=== PATIENT | female | born 1945 | race Caucasian/White ===

== ENCOUNTER 2020-05-31 06:54 | Outpatient (NON) | payer MEDICARE, OTHER, SELFPAY ==
[2020-06-01 16:06] LABS: SARS-CoV-2 RNA PCR Negative
== END 2020-05-31 06:55 ==
PROVIDERS: PCP Family Medicine; Visit Provider Family Medicine
DX: Z20.828 Contact with and (suspected) exposure to other viral communicable diseases (principal)
CPT/HCPCS: 87635; C9803; U0003

== ENCOUNTER 2020-11-08 07:56 | Outpatient (CLI) | payer MEDICARE, OTHER, SELFPAY ==
--- NOTE | ~2020-11-08 | XR_ITS ---
EXAMINATION: XR chest 2V EXAM DATE: 11/08/2020 09:07 INDICATION: R06.00 - Dyspnea, for 2 months, history COPD. TECHNIQUE: Frontal and lateral projections of the chest obtained and reviewed. There is no prior raheel dy for comparison. FINDINGS: The lungs are hyperinflated which can be seen with chronic obstructive pulmonary disease ( a clinical diagnosis of functional impairment), but is not diagnostic of it. Cardiomediastinal silhou ette is normal. Sternotomy wires are present without findings to suggest sternal dehiscence. There is aortic arteriosclerosis. No confluent consolidation, pneumothorax or pleural effusion suspected. The re are mild bony degenerative changes. IMPRESSION: 1. Hyperinflation. Reviewed, dictated and finalized at location A. IMPRESSION: 1. Hyperinflation.
--- NOTE | 2020-11-11 13:15 | WPDSIXMINUTE ---
Six Minute Walk Procedure Procedure Performed Pulmonary Stress Test (6 min walk) Six Minute Walk Six Minute Walk: The patients O2 sats started at 95% and dropped as low as 95% on room air with a Alee scale at the end of 2 Total walk distance 396.24 m conclusion: this is a normal 6 minutes walk test and the patient does not need home oxygen therapy.
== END 2020-11-08 07:57 | disposition home or self-care (01) ==
PROVIDERS: PCP Family Medicine; Visit Provider Family Medicine
DX: J44.1 Chronic obstructive pulmonary disease with (acute) exacerbation (principal); R06.00 Dyspnea, unspecified
CPT/HCPCS: 71046; 94618

== ENCOUNTER 2020-11-27 07:57 | Outpatient (CLI) | payer MEDICARE, OTHER, SELFPAY ==
--- NOTE | 2020-11-27 11:54 | WPDPFTINT ---
PFT Procedure Performed PFT Procedure Performed Plethysmography (Lung Vol) Diffusing Cap (DLCO) Flow Vol Loop Spirometry w/o Bronchodil PFT Interpretation This is a pulmonary function test with spirometry, plethysmography and diffusing capacity. The test was performed and results interpreted in accordance with the 2019 and 2005 ATS/ERS Task Force guidelines respectively using the Global Lung Function Initiative-2012 reference equations. Patient demonstrated good effort and cooperation. Reproducibility criteria were met. The quality of the spirometry maneuver was Grade A. Findings: Spirometry: there is decreased maximal expiratory airflow at all lung volumes with concave expiratory flow tracing. The contour of the inspiratory flow tracing is normal. The FVC is 1.77 L, 72% predicted. The FEV1 is 0.99 L, 52% predicted. The FEV1: FVC ratio is 56%. Plethysmography: The total lung capacity is 4.75 L, 103% predicted. The functional residual capacity is 3.45 L, 131% predicted. The residual volume is 2.99 L, 141% predicted. Diffusing capacity: The absolute diffusion capacity is 9.2, 49% predicted. The diffusing capacity corrected for alveolar volume is 2.79, 64% predicted. Impression: There is a moderately severe obstructive abnormality. The increase in residual volume is consistent with air trapping from an obstructive abnormality. The absolute diffusing capacity is moderately decreased and remains mildly decreased when corrected for alveolar volume. There are no prior studies for comparison
== END 2020-11-27 07:58 | disposition home or self-care (01) ==
LOC: ANHPFT 07:58
PROVIDERS: PCP Family Medicine; Visit Provider Family Medicine
DX: J44.1 Chronic obstructive pulmonary disease with (acute) exacerbation (principal); R06.00 Dyspnea, unspecified; R94.2 Abnormal results of pulmonary function studies
CPT/HCPCS: 94375; 94726; 94729

== ENCOUNTER → 2021-04-19 01:39 | Outpatient (CLI) | payer MEDICARE, OTHER, SELFPAY ==
[2021-04-19 17:33] LABS: SARS-CoV-2 RNA PCR Negative
== END ==
PROVIDERS: PCP Family Medicine; Visit Provider Physician Assistant
DX: R05.9 Cough, unspecified (principal); Z20.822 Contact with and (suspected) exposure to COVID-19
CPT/HCPCS: C9803; U0003; U0005

== ENCOUNTER → 2022-03-05 14:25 | Outpatient (CLI) | payer MEDICARE, OTHER, SELFPAY ==
--- NOTE | ~2022-03-05 | XR_ITS ---
EXAMINATION: XR lumbar spine min 4V DATE: 03/05/2022 14:45 INDICATION: Low back pain, unspecified. TECHNIQUE: 5 views of lumbar spine were obtained. COMPARISON: CT abdomen and pelvis 01/15/2019 FINDINGS: Bone alignment is normal. Vertebral body heights are normal. There is mildly decreased disc height at L1-L2, moderately decreased disc height at L2-L3, mildly decreased disc height at L3-L4 an d L4-L5. There is multilevel facet joint osteoarthritis, severe bilaterally at L4-L5 and L5-S1. There are stents in the renal arteries and right common iliac artery. IMPRESSION: 1. Moderate lumbar spondylosis. Reviewed, dictated and finalized at location A.
== END ==
PROVIDERS: PCP Family Medicine; Visit Provider Family Medicine
DX: M47.817 Spondylosis without myelopathy or radiculopathy, lumbosacral region (principal)
CPT/HCPCS: 72110

== ENCOUNTER 2023-04-22 09:45 | Inpatient (IN) | payer MEDICARE, OTHER, SELFPAY ==
[2023-04-22] VITALS (17 sets, daily range): BP systolic 112–158; BP diastolic 49–81; PULSE 62–85; RESP 14–20; TEMP 35.8–36.4; O2SAT 70–95
--- NOTE | ~2023-04-22 | US_ITS ---
EXAMINATION: US arterial ankle brachial ind DATE: 04/23/2023 21:09 INDICATION: Peripheral vascular disease. TECHNIQUE: Segmental pressures and plethysmographic and Doppler waveforms of the brachial and lower e xtremity arteries were obtained. COMPARISON: None. FINDINGS: Right and left brachial artery pressures of 97 mm Hg and 123 mm Hg, respectively, are concordant (nor mal difference <= 30 mmHg). The right ankle-brachial index (MANDI) is 0.19 (normal >= 0.9-1.0). Arterial signal is not detectable i n right posterior tibial artery. The right great toe-brachial index (TBI) is 0.01 (normal >= 0.65). A rterial Doppler waveforms are noisy in dorsalis pedis. The left MANDI is 0.48. The left TBI is 0.40. Arterial Doppler waveforms are biphasic in posterior tibi al artery and noisy in dorsalis pedis. IMPRESSION: 1. Severely decreased ABIs, consistent with arterial occlusive disease. 2. Pressure difference of 26 mmHg between the two arms. Consider chest CTA. Reviewed, dictated and finalized at location E.
--- NOTE | ~2023-04-22 | XR_ITS ---
XR foot RT min 3V DATE: 04/22/2023 14:21 INDICATION: Fall 4 days ago. Right foot pain. TECHNIQUE: 4 views COMPARISON: None FINDINGS: There is osteopenia. There is mild osteoarthritic change at the first metatarsophalangeal joint. No fracture or dislocation, periosteal reaction or bone destruction is detected. IMPRESSION: Osteopenia Mild first metatarsophalangeal joint osteoarthritis Reviewed, dictated and finalized at location L.
--- NOTE | ~2023-04-22 | XR_ITS ---
XR hip RT 2V w AP pelvis DATE: 04/22/2023 14:21 INDICATION: Fall 4 days ago. Right hip pain TECHNIQUE: AP pelvis. AP and lateral views of the right hip. COMPARISON: None FINDINGS: No pelvic fracture or bone destruction. Normal alignment at the pubic symphysis and sacroil iac joints. Hip joint spaces are symmetric and relatively well preserved. No fracture or dislocation, avascular necrosis or bone destruction of the right hip is detected. There is severe abdominal aortic, common and external iliac, common femoral and femoral arterial calc ification. There is a right common iliac artery stent. IMPRESSION: No pelvic or right hip fracture Severe abdominal aortic and iliac and femoral arterial calcification; right common iliac artery stent Reviewed, dictated and finalized at location L. IMPRESSION: No pelvic or right hip fracture Severe abdominal aortic and iliac and femoral arterial calcification; right com mon iliac artery stent
--- NOTE | ~2023-04-22 | CT_ITS ---
EXAMINATION: CTA chest PE protocol DATE: 04/25/2023 13:03 INDICATION: Chronic obstructive pulmonary disease. TECHNIQUE: Computed tomography angiography (CTA) of the chest was performed with 100 mL Omnipaque-350 intravenous contrast timed to evaluate the pulmonary arteries. Coronal maximum intensity projection 3D-reconstructions were created by the technologist. Automated exposure control and iterative reconst ruction technique were employed. The dose-length product was 451.46 mGy-cm. COMPARISON: None. FINDINGS: There is mild emphysema. There is mild atelectasis bilaterally. No pleural effusion. Cardio megaly is noted. There are coronary artery calcifications. No pericardial effusion. There is no pulmo nary embolus. Aortic atherosclerosis is noted. No aneurysm or dissection. There is severe cervical th oracic spondylosis. There is mild chronic anterior wedging of multiple thoracic vertebral bodies. IMPRESSION: 1. No pulmonary embolus. 2. Mild emphysema. Reviewed, dictated and finalized at location E.
--- NOTE | ~2023-04-22 | CT_ITS ---
EXAMINATION: CT lumbar spine wo con DATE: 04/22/2023 14:06 INDICATION: Right-sided sciatic pain for 3 days post fall TECHNIQUE: Computed tomography (CT) of the lumbar spine was performed without intravenous contrast. A utomated exposure control and iterative reconstruction technique were employed. The dose-length produ ct was 772.88 mGy-cm. COMPARISON: None FINDINGS: Partially visualized mild thoracolumbar dextrocurvature. 1-2 mm anterolisthesis L4 on L5. V ertebral body heights are normal. No fracture. Moderate disc height loss at T10-T11 and L2-L3. Mild t o moderate disc height loss at L3-L4 and mild disc height loss at T11-T12, L1-L2, L4-L5 and L5-S1. Th ere is extensive calcified atherosclerosis of the aorta and many of the other arteries. There is been prior stenting of the proximal bilateral renal arteries as well as of the proximal right common qing c artery. Paravertebral soft tissues are unremarkable. The following disc levels are specifically dis cussed: T10-T11: The disc does not extend beyond the endplate margins. There is mild bilateral facet osteoart hritis. There is no neural foraminal stenosis. There is no central canal stenosis. T11-T12: Disc is mildly bulging. There is moderate bilateral facet joint osteoarthritis. There is mil d left neural foraminal stenosis. There is mild central canal stenosis. T12-L1: The disc does not extend beyond the endplate margin. There is moderate bilateral facet joint osteoarthritis. There is no neural foraminal stenosis. There is no central canal stenosis. L1-L2: Disc is mildly bulging. There is moderate bilateral facet joint osteoarthritis. There is mild left and minimal right neural foraminal stenosis. There is mild central canal stenosis. L2-L3: Disc is bulging. There is mild to moderate left and severe right facet joint osteoarthritis. T here is mild right and moderate left neural foraminal stenosis. There is mild to moderate central can al stenosis. L3-L4: Disc is bulging. There is hypertrophy of the ligamentum flavum with anterior bulging of the in tervening posterior epidural fat. There is moderate left and severe right facet joint osteoarthritis. There is moderate bilateral neural foraminal stenosis. There is at least moderate, more likely sever e central canal stenosis. L4-L5: Disc is bulging. There is severe bilateral facet joint osteoarthritis. There is mild right and mild to moderate left neural foraminal stenosis. There is mild central canal stenosis. L5-S1: Disc is bulging with superimposed right paracentral disc extrusion which extends 10 mm caudal to the level of the superior endplate of S1 which measures 13 x 8 mm in transaxial dimensions which n arrows the right lateral recess and likely exerts mass effect upon the traversing right S1 nerve root . There is severe bilateral facet joint osteoarthritis. There is mild bilateral neural foraminal sten osis. There is mild central canal stenosis. IMPRESSION: 1. Moderate lumbar spondylosis most notable for at least moderate and more likely severe central lois l stenosis at L3-L4. 2. Prominent right paracentral disc extrusion at L5-S1 which appears to exert mass effect upon the tr aversing right S1 nerve root. Correlate clinically for muscle weakness of plantar flexion, sensory ch allyson of the lateral foot and small toe, and depressed ankle reflex. Reviewed, dictated and finalized at location A. IMPRESSION: 1. Moderate lumbar spondylosis most notable for at least moderate and more like ly severe central canal stenosis at L3-L4. 2. Prominent right paracentral disc extrusion at L5-S1 which appears to exert m ass effect upon the traversing right S1 nerve root. Correlate clinically for mu scle weakness of plantar flexion, sensory change of the lateral foot and small toe, and depr
--- NOTE | 2023-04-22 12:48 | ED.GENADULT ---
HPI - General Adult General Chief complaint: Extremity Problem,Nontraumatic Stated complaint: sciatic pain R side Time Seen by Provider: 04/22/23 12:47 Source: patient, family and EMS Mode of arrival: EMS Limitations: no limitations History of Present Illness HPI narrative: 78 years old white female came with right lower quadrant pain radiating to right lower extremity, started 7 days ago. Patient reports a fall few days ago with bruises at the right hip, currently her main complaint is right foot pain. She denies any fever, chills, nausea, vomiting, abdominal pain or back pain. History of sciatica, got better in the past on prednisone and pain medication patient lives with her daughter. She denies patient denies bowel dysfunction, bladder dysfunction, altered sensation, focal weakness, or saddle numbness, Related Data Home Medications Medication Instructions Recorded Confirmed aspirin 325 mg tablet 325 mg PO DAILY 05/18/19 11/01/22 baclofen 10 mg tablet 10 mg PO QID PRN pain 05/18/19 11/01/22 carvedilol 6.25 mg tablet (Coreg) 6.25 mg PO Q12H 05/18/19 11/01/22 clopidogrel 75 mg tablet (Plavix) 75 mg PO DAILY 05/18/19 11/01/22 donepezil 5 mg tablet (Aricept) 5 mg PO DAILY 05/18/19 11/01/22 levothyroxine 100 mcg tablet 100 mcg PO DAILY 05/18/19 11/01/22 Allergies Allergy/AdvReac Type Severity Reaction Status Date / Time cephalexin Allergy Unknown Unknown Verified 11/01/22 11:38 Penicillins Allergy Unknown Unknown Verified 11/01/22 11:38 Review of Systems Review of Systems: All systems reviewed & are unremarkable except as noted in HPI and below PMFSH Past Medical History Medical History Chronic obstructive pulmonary disease Coronary artery disease without angina pectoris Depression Essential hypertension Ex-smoker Hypothyroidism Memory loss Moderate episode of recurrent major depressive disorder Pure hypercholesterolemia Vitamin B12 deficiency Surgical History Surgical History History of cataract surgery Family History Family History Father Family history of lung cancer Mother Family history of malignant neoplasm of brain Social History Social History Smoking packs per day: 1 Smoking cigarettes per day: 20.0 Smoking status: Current every day smoker Tobacco type: cigarettes Second hand tobacco smoke exposure: Yes Alcohol intake: never Substance use: never Substance use type: does not use Lack of Transportation: No Lack of Food: Sometimes True Current Housing: I Have Housing Concerned About Future Housing: No Difficulty Paying Gas/Electric Bills: No Difficulty Paying for Meds: YES Currently Unemployed: No Education: High School Diploma/GED Difficulty w/ Childcare or Family Care: No Exam Narrative: General appearance: Well-developed, well-nourished Skin: Normal color Head: Normocephalic, nontraumatic Eyes: Clear conjunctiva ENT: Oropharynx normal, ears normal, nose normal Neck: Supple, nontender Chest and respiratory: Airway patent, no respiratory distress, no accessory muscle use Heart: Regular rate/rhythm Abdomen: Soft, nontender, no organomegaly, quiet bowel sounds Vascular: Normal peripheral pulses, normal capillary refill. Musculoskeletal: Right foot showed dorsal erythema, diffuse tenderness and swelling, right hip and right knee range of motion within normal limit, no localized tenderness, right hip bruises laterally lower back exam showed no localized tenderness bruises or rash. Neurologic: Alert and oriented ?3, NUCLEAR SPECTROSCOPIST is normal as tested, no gross motor deficit negative right leg straight test
[2023-04-22] MEDS: HYDROmorphone HCL INJ (*CRX) 1 MG/ML SYR 0.5 MG IV PUSH ×3 (13:34→22:13)
[2023-04-22] MEDS: ONDANSETRON INJ 4 MG/2 ML VIAL IV PUSH ×3 (13:34→22:13)
[2023-04-22 13:45] LABS: Basophils Absolute Auto 0.1 K/mm3 (0.0-0.1); Basophils Percent Auto 0.6 % (0.2-1.2); Eosinophils Absolute Auto 0.4 K/mm3 (0-0.3); Eosinophils Percent Auto 2.8 % (0-4.4); Hematocrit 45.7 % (37.0-47.0); Hemoglobin 15.2 g/dL (12.0-15.0); Immature Granulocyte Absolute 0.06 K/mm3 (0.00-0.031); Immature Granulocyte Percent A 0.4 % (0-0.5); Lymphocytes Percent Auto 15.5 % (18.3-44.2); Mean Corpuscular HGB Conc 33.3 g/dl (32-36); Mean Corpuscular Volume 90.1 fl (80-100); Mean Platelet Volume 9.6 fl (7.4-10.4); Monocytes Absolute Auto 1.5 K/mm3 (0.1-0.6); Monocytes Percent Auto 11.2 % (2.6-8.5); Neutrophils Absolute Auto 9.4 K/mm3 (1.3-6.7); Neutrophils Percent Auto 69.5 % (45.5-73.1); Platelet Count Result 302 k/mm3 (150-375); Red Blood Count 5.07 M/mm3 (4.2-5.4); Red Cell Distribution Width 13.1 % (11.5-14.5); White Blood Count 13.5 K/mm3 (4.5-10.0)
[2023-04-22 13:54] LABS: Lactic Acid Reflex 0.8 mmol/L (0.7-2.0)
[2023-04-22 14:02] LABS: Alanine Aminotransferase 19 U/L (6-35); Albumin Level 4.2 g/dL (3.5-5.1); Alkaline Phosphatase 89 U/L (38-126); Anion Gap 4 mmol/L (8-16); Aspartate Amino Transferase 25 U/L (14-36); Bilirubin,Total 0.9 mg/dL (0.2-1.3); Blood Urea Nitrogen 16 mg/dL (7-17); Calcium 9.6 mg/dL (8.4-10.2); Carbon Dioxide 34 mmol/L (22-30); Chloride 97 mmol/L (98-107); Estimated CRCL calculation 50 ml/min; Estimated Glomerular Filt Rate > 60; Glucose 107 mg/dL (65-110); Potassium 2.7 mmol/L (3.4-5.0); Sodium 135 mmol/L (137-145)
--- NOTE | 2023-04-22 14:02 | ECG_ITS ---
Measurements Intervals [place] Rate: 62 P: 70 OK: 186 QRS: 48 QRSD: 130 T: 80 QT: 442 QTc: 451 Interpretive Statements SINUS RHYTHM WITH SINUS ARRHYTHMIA ATRIAL PREMATURE COMPLEXES INTRAVENTRICULAR CONDUCTION DELAY CONSIDER ANTERIOR INFARCT, AGE INDETERMINATE BORDERLINE T WAVE ABNORMALITY- ANTEROLATERAL LEADS BASELINE ARTIFACT- II, III, AVF ABNORMAL ECG COMPARED TO ECG 04/09/2019 09:32:00 NO SIGNIFICANT CHANGES Electronically Signed On 04-23-2023 6:43:26 CDT by Librado Morillo D.O.
[2023-04-22 14:31] LABS: Erythrocyte Sedimentation Rate 27 mm/hr (0-20)
[2023-04-22] MEDS: POTASSIUM CHLORIDE 20 MEQ PACKET (FOR LIQUID) 40 MEQ PO (14:54)
[2023-04-22] MEDS: POTASSIUM CHLORIDE INJ 40 MEQ in SODIUM CHLORIDE 0.9% IV 500 ML 130 MEQ IVPB (15:47)
[2023-04-22 17:10] LABS: Magnesium 1.9 mg/dL (1.6-2.3)
--- NOTE | 2023-04-22 17:20 | PM.IMHP ---
H&P: HPI History of Present Illness Date/Time: 04/22/23 17:20 Chief Complaint: Right leg and foot pain. Narrative: This is a pleasant 78-year-old female smoker with history of sciatica, chronic kidney disease, hypertension, chronic obstructive pulmonary disease, hypothyroidism, peripheral arterial disease status post right lower extremity stent, and coronary artery disease with history of stents who presented to the emergency department via private vehicle from home for evaluation of right leg and foot pain. The patient provides the following history. She has ongoing issues with sciatica over the years and started having pain in the right buttock, hip, and leg last . Since that time her pain has gotten increasingly worse but seems to be centered more so in the right foot. On exam she has mild swelling and erythema on the dorsum of that foot and with further questioning she mentions that she slid out of bed several nights ago and that she thought she bruised her hip however she does not think that she injured her foot. It is now to the point where she cannot even bear weight because she has such excruciating pain in the right foot. She has pain even with light touch over the area and with minimal movement. She denies fever, chills, sweats, nausea, vomiting, bug bites, puncture wounds, and injury. She has no history of cellulitis, DVT, or gout. She was afebrile on arrival to the ED. labs were significant for a WBC count of 13.5, hemoglobin 15.2, sodium 135, potassium 2.7, chloride 97, carbon dioxide 34, CRP 5.0, lactic acid 0.8. Right hip and pelvic x-ray showed no acute fractures but did note severe abdominal aortic and iliac and femoral arterial calcifications. Right foot x-ray showed osteopenia and mild 1st metatarsophalangeal joint osteoarthritis. Lumbar spine CT showed moderate lumbar spondylosis with at least moderate and more likely severe central canal stenosis at L3-L4 and prominent right paracentral disc extrusion at L5-S1 which appears to exert mass effect upon the traversing right S1 nerve root. She has difficulties with dorsiflexion and plantar flexion of that right foot however that seems to be limited because of severe pain. Sensation seems intact throughout that foot and is in fact quite heightened as she has significant pain with even light touch. Review of Systems Review of Systems: Twelve systems were reviewed and are negative except for as per HPI. [facility] Past Medical History Medical History (Updated 04/22/23 @ 22:05 by Patricia Villegas PA-C) Chronic obstructive pulmonary disease Coronary artery disease Depression Essential hypertension Hypothyroidism Memory loss Moderate episode of recurrent major depressive disorder Peripheral arterial disease Pure hypercholesterolemia Tobacco dependence Vitamin B12 deficiency Surgical History Surgical History (Updated 04/22/23 @ 22:00 by Patricia Villegas PA-C) History of cardiac catheterization History of cataract surgery History of coronary artery stent placement History of hysterectomy History of vascular surgery Right lower extremity stent. Family History Family History Father Family history of lung cancer Mother Family history of malignant neoplasm of brain Social History Social History (Updated 04/22/23 @ 22:00 by Patricia Villegas PA-C) Social History: Surrogate medical decision maker: Veronica Marquez, daughter. Code status: Full code. Smoking packs per day: 1 Smoking cigarettes per day: 20.0 Smoking status: Current every day smoker Tobacco type: cigarettes Second hand tobacco smoke exposure: Yes Alcohol intake: never Substance use: never Substance use type: does not use Lack of Transportation: No Lack of Food: Never True Current Housing: I Have Housing Concerned About Future Housing: No Difficulty Paying Gas/Electric Bills: No Difficulty Paying for Meds: No Curr
[2023-04-22 20:16] LABS: Anion Gap 6 mmol/L (8-16); Blood Urea Nitrogen 18 mg/dL (7-17); Calcium 9.2 mg/dL (8.4-10.2); Carbon Dioxide 30 mmol/L (22-30); Chloride 100 mmol/L (98-107); Estimated CRCL calculation 45 ml/min; Estimated Glomerular Filt Rate > 60; Glucose 117 mg/dL (65-110); Potassium 4.1 mmol/L (3.4-5.0); Sodium 136 mmol/L (137-145)
--- NOTE | 2023-04-22 21:12 | ADMGEN ---
This patient, Daphney Rolle, was admitted to [facility] Surg Room 306-01. Patient/family oriented to hospital policies and general routines including ID bracelet, bed and alarms, visiting hours, pain management, procedures, bathroom and other care routines, personal items, smoking policy, room service/diet, and visiting hours. Information on how to activate the Rapid Response Team has been discussed. Patient/Family are encouraged to report perceived risks to care and to ask questions if they do not understand what they are told or what they should do.
[2023-04-22] MEDS: NICOTINE (*PBKC) 21 MG PATCH 1 PATCH TRANSDERM (22:14)
[2023-04-22] MEDS: DEXAMETHASONE 4 MG TABLET PO (23:26)
[2023-04-22] MEDS: traZODone HCL 50 MG TABLET 150 MG PO (23:26)
[2023-04-22] MEDS: carvediloL 6.25 MG TABLET PO (23:26)
[2023-04-23] VITALS (10 sets, daily range): BP systolic 114–151; BP diastolic 48–75; PULSE 55–73; RESP 14–20; TEMP 35.8–36.6; O2SAT 94–99
[2023-04-23] MEDS: LEVOTHYROXINE SODIUM 100 MCG TABLET PO (05:32)
[2023-04-23 07:26] LABS: Hematocrit 43.8 % (37.0-47.0); Hemoglobin 14.3 g/dL (12.0-15.0); Mean Corpuscular HGB Conc 32.6 g/dl (32-36); Mean Corpuscular Hemoglobin 29.9 pg (26-34); Mean Corpuscular Volume 91.4 fl (80-100); Mean Platelet Volume 9.7 fl (7.4-10.4); Platelet Count Result 287 k/mm3 (150-375); Red Blood Count 4.79 M/mm3 (4.2-5.4); Red Cell Distribution Width 12.8 % (11.5-14.5); White Blood Count 12.8 K/mm3 (4.5-10.0)
[2023-04-23 07:54] LABS: Anion Gap 7 mmol/L (8-16); Blood Urea Nitrogen 19 mg/dL (7-17); Calcium 9.4 mg/dL (8.4-10.2); Carbon Dioxide 28 mmol/L (22-30); Chloride 101 mmol/L (98-107); Estimated CRCL calculation 52 ml/min; Estimated Glomerular Filt Rate > 60; Glucose 161 mg/dL (65-110); Magnesium 2.3 mg/dL (1.6-2.3); Potassium 3.6 mmol/L (3.4-5.0); Sodium 136 mmol/L (137-145)
[2023-04-23] MEDS: VENLAFAXINE HCL XR 75 MG CAP.ER.24H 150 MG BY MOUTH (08:30)
[2023-04-23] MEDS: ROSUVASTATIN 10 MG TABLET 40 MG PO (08:31)
[2023-04-23] MEDS: ASPIRIN 325 MG TABLET PO (08:32)
[2023-04-23] MEDS: LOSARTAN POTASSIUM 100 MG TABLET PO (08:33)
[2023-04-23] MEDS: carvediloL 6.25 MG TABLET PO ×2 (08:34→21:06)
[2023-04-23] MEDS: amLODIPine BESYLATE 5 MG TABLET 10 MG PO (08:34)
[2023-04-23] MEDS: POTASSIUM CHLORIDE 20 MEQ ER TABLET 40 MEQ PO ×2 (08:35→16:34)
[2023-04-23] MEDS: DEXAMETHASONE 4 MG TABLET PO ×2 (08:36→16:34)
[2023-04-23] MEDS: CLOPIDOGREL BISULFATE 75 MG TABLET PO (08:36)
[2023-04-23] MEDS: EZETIMIBE 10 MG TABLET PO (08:37)
--- NOTE | 2023-04-23 09:02 | PM.IMPN ---
Progress Note: A&P Assessment and Plan (1) Cellulitis of right foot: Code(s): L03.115 - Cellulitis of right lower limb Status: Acute Assessment and Plan: Currently on vancomycin, continue this for now Check ABIs (2) Lumbosacral disc herniation: Code(s): M51.27 - Other intervertebral disc displacement, lumbosacral region Status: Acute Assessment and Plan: Appreciate neurosurgery consultation, follow-up MRI continue steroids (3) Pain of right lower extremity: Code(s): M79.604 - Pain in right leg Status: Acute Assessment and Plan: Continue oxycodone 5 mg q.4 hours as needed for pain control (4) Hypokalemia: Code(s): E87.6 - Hypokalemia Status: Acute Assessment and Plan: Resolved, monitor (5) Essential hypertension: Code(s): I10 - Essential (primary) hypertension Status: Acute Assessment and Plan: Blood pressure reviewed 04/23 (6) Hypothyroidism: Code(s): E03.9 - Hypothyroidism, unspecified Status: Acute Assessment and Plan: Continue home medications (7) Coronary artery disease: Code(s): I25.10 - Atherosclerotic heart disease of [place] coronary artery without angina pectoris Status: Acute Assessment and Plan: Continue aspirin, plavix (8) Peripheral arterial disease: Code(s): I73.9 - Peripheral vascular disease, unspecified Status: Acute Assessment and Plan: As above (9) Tobacco dependence: Code(s): F17.200 - Nicotine dependence, unspecified, uncomplicated Status: Acute Assessment and Plan: Nicotine patch as needed (10) Chronic obstructive pulmonary disease: Code(s): J44.9 - Chronic obstructive pulmonary disease, unspecified Status: Acute Assessment and Plan: Does not appear to be in acute exacerbation Plan DVT prophylaxis with SCDs GI prophylaxis not indicated Code status full code Subjective Date/time seen: 04/23/23 09:02 Interval history: 78-year-old female with history of COPD, heart disease, kidney disease, hypothyroidism among other comorbidities is presenting with right leg and foot pain and found to have S1 nerve root impingement. No overnight events noted. No chest pain or shortness of breath. No nausea, vomiting or diarrhea. No fevers or chills. Complaining of weakness and severe pain of right lower extremity, unchanged from yesterday. Review of Systems Review of Systems: 12 point review of systems was assessed and was negative except as noted in the HPI Exam Narrative: General: No acute distress, alert and oriented per baseline HEENT: Atraumatic, normocephalic, mucous membranes moist CV: Regular rate and rhythm, S1, S2 Lungs: Clear to auscultation bilaterally, no rales or crackles noted, no wheezes, good air entry Abdomen: Soft, nontender, nondistended Extremities: Normal to inspection Skin: No rashes noted, no lesions or wounds seen Psych: Euthymic, normal affect Objective Data Vital Signs Vital Signs: Vital Signs - 24 hr 04/22/23 10:02 04/22/23 14:37 04/22/23 14:37 Temperature 97.6 F Pulse Rate 69 67 Respiratory Rate 20 15 Blood Pressure 132/49 L 143/60 H Pulse Oximetry 95 70 L 94 Oxygen Delivery Room Air Room Air Oxygen Flow Rate 04/22/23 14:37 04/22/23 14:46 04/22/23 15:00 Temperature Pulse Rate 69 69 Respiratory Rate 20 14 Blood Pressure 148/74 H Pulse Oximetry 95 93 93 Oxygen Delivery Nasal Cannula Oxygen Flow Rate 3 04/22/23 15:01 04/22/23 15:15 04/22/23 15:16 Temperature Pulse Rate 65 65 69 Respiratory Rate 15 15 20 Blood Pressure 158/60 H 158/70 H Pulse Oximetry 93 93 93 Oxygen Delivery Oxygen Flow Rate 04/22/23 15:30 04/22/23 15:31 04/22/23 15:32 Temperature Pulse Rate 62 65 66 Respiratory Rate 20 14 15 Blood Pressure 133/68 Pulse Oximetry 93 93 93
[2023-04-23] MEDS: FLUTICASONE/UMECLIDIN/VILANTER 100-62.5-25 MCG ELLIPTA 1 PUFF INHALATION (10:08)
[2023-04-23] MEDS: ONDANSETRON INJ 4 MG/2 ML VIAL IV PUSH ×4 (10:33→21:06)
[2023-04-23] MEDS: HYDROmorphone HCL INJ (*CRX) 1 MG/ML SYR 0.5 MG IV PUSH ×3 (10:34→21:06)
[2023-04-23] MEDS: NICOTINE (*PBKC) 21 MG PATCH 1 PATCH TRANSDERM (10:34)
--- NOTE | 2023-04-23 12:50 | PC.NURSE ---
On 04/23/23, the student, [Becky Anna and Jet Angela ], provided care and completed Jixee documentation on this patient. I have reviewed the student's documentation and agree with the findings.
[2023-04-23] MEDS: CLOBETASOL PROPIONATE 0.05% CREAM 15 GM 1 APPLIC TOPICAL (16:34)
[2023-04-23] MEDS: oxyCODONE HCL (*CRX) 5 MG TAB IR PO (16:36)
--- NOTE | 2023-04-23 20:39 | WPDNEUROSGCN ---
Assessment and Plan Assessment and plan (1) Lumbosacral disc herniation: Code(s): M51.27 - Other intervertebral disc displacement, lumbosacral region Status: Acute Plan Ms. Rolle is a 78-year-old female with COPD, CKD, CAD s/p CABG/stents on Plavix who presented to the hospital with several days of intractable right foot pain and some right buttock pain. She is neurologically intact on my exam with full strength of right dorsiflexion/plantar flexion and normal sensation. CT lumbar spine was performed showing a right-sided disc herniation at L5-S1 contacting the right S1 nerve root. Given that she has had limited conservative treatments, I would recommend treating her with steroids and a muscle relaxer. I ordered an MRI lumbar spine to better evaluate the disc herniation, although this could be completed as an outpatient if her pain is better controlled in the interim. I would recommend physical therapy and referral to Pain Management for consideration of an JUSTIN. I see she has ABIs ordered given her PAD history, and she has been started on antibiotics for possible cellulitis of the right foot. Plan: -Recommend MRI lumbar spine without contrast when able. This can be done as an outpatient if her symptoms are controlled as inpatient -Recommend PT and Pain Management referral -She may follow up with me in clinic for her radiculopathy Consult date: 04/23/23 HPI: Daphney Rolle is a 78 year old female with history of COPD, CKD, CAD s/p CABG, cardiac stents and PVD on Plavix who was admitted from the ER last night with right foot pain. She had issues with right-sided sciatica early this summer which improved with medication. This past Friday, she fell out of bed while sleeping and woke up with pain in the entire right foot as well as in the right buttock. She sometimes has pain into the back of the right leg. The foot pain involves the top and bottom of the foot and worsens with bearing weight on the leg. She denies paresthesias, andrei weakness, left-sided symptoms, or bowel/bladder changes. She was prescribed tramadol for this pain which has not been helpful. She otherwise has not had conservative treatments. She notably had a CABG approximately 4 years ago. She follows with [facility] Dr. Dasilva at [facility]. She does not normally use oxygen at home. Review of Systems Review of Systems: All systems reviewed & are unremarkable except as noted in HPI and below PMFSH Past Medical History Medical History (Updated 04/22/23 @ 22:05 by Patricia Villegas PA-C) Chronic obstructive pulmonary disease Coronary artery disease Depression Essential hypertension Hypothyroidism Memory loss Moderate episode of recurrent major depressive disorder Peripheral arterial disease Pure hypercholesterolemia Tobacco dependence Vitamin B12 deficiency Surgical History Surgical History (Updated 04/22/23 @ 22:00 by Patricia Villegas PA-C) History of cardiac catheterization History of cataract surgery History of coronary artery stent placement History of hysterectomy History of vascular surgery Right lower extremity stent. Family History Family History Father Family history of lung cancer Mother Family history of malignant neoplasm of brain Social History Social History (Updated 04/22/23 @ 22:00 by Patricia Villegas PA-C) Social History: Surrogate medical decision maker: Veronica Marquez, daughter. Code status: Full code. Smoking packs per day: 1 Smoking cigarettes per day: 20.0 Smoking status: Current every day smoker Tobacco type: cigarettes Second hand tobacco smoke exposure: Yes Alcohol intake: never Substance use: never Substance use type: does not use Lack of Transportation: No Lack of Food: Never True Current Housing: I Have Housing Concerned About Future Housing: No Difficulty Paying Gas/Electric Bills: No Difficulty Paying fo
[2023-04-23] MEDS: traZODone HCL 50 MG TABLET 150 MG PO (21:06)
[2023-04-23] MEDS: BACLOFEN 10 MG TABLET PO (21:15)
[2023-04-24] VITALS (9 sets, daily range): BP systolic 121–153; BP diastolic 51–59; PULSE 55–68; RESP 14–18; TEMP 36.4–36.9; O2SAT 92–96
[2023-04-24] MEDS: DEXAMETHASONE 4 MG TABLET PO ×4 (00:48→23:32)
[2023-04-24] MEDS: oxyCODONE HCL (*CRX) 5 MG TAB IR PO ×4 (06:14→23:32)
[2023-04-24] MEDS: LEVOTHYROXINE SODIUM 100 MCG TABLET PO (06:14)
[2023-04-24 06:58] LABS: Basophils Percent Auto 0.1 % (0.2-1.2); Hematocrit 40.6 % (37.0-47.0); Hemoglobin 13.2 g/dL (12.0-15.0); Immature Granulocyte Absolute 0.17 K/mm3 (0.00-0.031); Immature Granulocyte Percent A 0.8 % (0-0.5); Lymphocytes Absolute Auto 1.03 K/mm3 (0.9-3.2); Lymphocytes Percent Auto 4.9 % (18.3-44.2); Mean Corpuscular HGB Conc 32.5 g/dl (32-36); Mean Corpuscular Volume 92.3 fl (80-100); Mean Platelet Volume 10.1 fl (7.4-10.4); Monocytes Percent Auto 4.7 % (2.6-8.5); Neutrophils Absolute Auto 18.7 K/mm3 (1.3-6.7); Neutrophils Percent Auto 89.5 % (45.5-73.1); Platelet Count Result 310 k/mm3 (150-375); Red Cell Distribution Width 12.9 % (11.5-14.5); White Blood Count 20.9 K/mm3 (4.5-10.0)
[2023-04-24 07:03] LABS: Alanine Aminotransferase 53 U/L (6-35); Albumin Level 3.5 g/dL (3.5-5.1); Alkaline Phosphatase 75 U/L (38-126); Anion Gap 4 mmol/L (8-16); Aspartate Amino Transferase 74 U/L (14-36); Bilirubin,Total 0.4 mg/dL (0.2-1.3); Blood Urea Nitrogen 18 mg/dL (7-17); Calcium 9.2 mg/dL (8.4-10.2); Carbon Dioxide 29 mmol/L (22-30); Chloride 102 mmol/L (98-107); Estimated CRCL calculation 43 ml/min; Estimated Glomerular Filt Rate 54; Glucose 120 mg/dL (65-110); Potassium 4.5 mmol/L (3.4-5.0); Sodium 135 mmol/L (137-145)
[2023-04-24] MEDS: FLUTICASONE/UMECLIDIN/VILANTER 100-62.5-25 MCG ELLIPTA 1 PUFF INHALATION (08:19)
[2023-04-24] MEDS: POTASSIUM CHLORIDE 20 MEQ ER TABLET 40 MEQ PO ×2 (08:24→16:51)
[2023-04-24] MEDS: LOSARTAN POTASSIUM 100 MG TABLET PO (08:24)
[2023-04-24] MEDS: ASPIRIN 325 MG TABLET PO (08:27)
[2023-04-24] MEDS: NICOTINE (*PBKC) 21 MG PATCH 1 PATCH TRANSDERM (08:27)
[2023-04-24] MEDS: amLODIPine BESYLATE 5 MG TABLET 10 MG PO (08:28)
[2023-04-24] MEDS: EZETIMIBE 10 MG TABLET PO (08:28)
[2023-04-24] MEDS: ROSUVASTATIN 10 MG TABLET 40 MG PO (08:29)
[2023-04-24] MEDS: carvediloL 6.25 MG TABLET PO ×2 (08:29→21:31)
[2023-04-24] MEDS: VENLAFAXINE HCL XR 75 MG CAP.ER.24H 150 MG BY MOUTH (08:33)
[2023-04-24] MEDS: CLOPIDOGREL BISULFATE 75 MG TABLET PO (08:34)
[2023-04-24] MEDS: CLOBETASOL PROPIONATE 0.05% CREAM 15 GM 1 APPLIC TOPICAL (08:35)
[2023-04-24] MEDS: polyethylene glycoL 3350 17 GM POWD.PACK PO (14:25)
--- NOTE | 2023-04-24 15:23 | WPDNEUROSGPN ---
Progress Note: A&P Assessment and Plan (1) Lumbosacral disc herniation: Code(s): M51.27 - Other intervertebral disc displacement, lumbosacral region Status: Acute (2) Peripheral arterial disease: Code(s): I73.9 - Peripheral vascular disease, unspecified Status: Acute Plan Ms. Rolle is a 78-year-old female with COPD, CKD, CAD s/p CABG/stents on ASA/Plavix who presented to the hospital with several days of intractable right foot pain and some right buttock pain. She is neurologically intact on my exam with full strength of right dorsiflexion/plantar flexion and normal sensation. CT lumbar spine was performed showing a right-sided disc herniation at L5-S1 contacting the right S1 nerve root.?She also had ABIs completed today showing severe peripheral arterial disease, particularly in the right leg. It is certainly possible that this could be contributing to her right foot pain. I would recommend evaluation by Vascular Surgery vs Dr. Dasilva for this issue prior to considering further treatment for her disc herniation. The patient indicated that he was planning to perform imaging on her leg, but she cancelled the appointment. Regarding her disc herniation, I would still recommend PT/OT and Pain Management/JUSTIN for this. I am happy to see her as an outpatient. Plan: -MRI can be completed as an outpatient -Recommend PT and Pain Management -Recommend addressing peripheral vascular disease -She may follow up with me as an outpatient. Subjective Date/time seen: 04/24/23 15:23 Interval history: Doing well today with some improvement in pain. Had ABIs completed this morning showing severely decreased ABIs, particularly on the right side. Review of Systems Review of Systems: All systems reviewed & are unremarkable except as noted in HPI and below Exam Narrative: AOx4 Full strength in lower extremities No dysesthesias to palpation of right foot today Sensation intact Objective Data Vital Signs Vital Signs: Vital Signs - 24 hr 04/23/23 16:00 04/23/23 21:06 04/23/23 21:42 Temperature 97.8 F 97.7 F Pulse Rate 55 L 63 55 L Respiratory Rate 20 14 Blood Pressure 114/70 125/48 L Pulse Oximetry 94 95 Oxygen Delivery Oxygen Flow Rate 04/23/23 20:00 04/24/23 05:28 04/24/23 06:00 Temperature 97.5 F L Pulse Rate 66 Respiratory Rate 14 Blood Pressure 153/52 H Pulse Oximetry 95 93 96 Oxygen Delivery Nasal Cannula Nasal Cannula Oxygen Flow Rate 2 1 04/24/23 08:22 04/24/23 08:29 04/24/23 14:02 Temperature Pulse Rate 55 L Respiratory Rate Blood Pressure Pulse Oximetry 94 92 Oxygen Delivery Nasal Cannula Room Air Oxygen Flow Rate 1 04/24/23 14:00 Temperature 97.7 F Pulse Rate 67 Respiratory Rate 18 Blood Pressure 121/51 L Pulse Oximetry 92 Oxygen Delivery Oxygen Flow Rate Intake/Output Intake/Output: Intake & Output 04/21/23 04/22/23 04/23/23 04/24/23 23:59 23:59 23:59 23:59 Intake Total 1945 944 Output Total 1000 Balance 1945 - Meds/Results Medications: Active Medications Generic Name Dose Route Start Last Admin Trade Name Freq PRN Reason Stop Dose Admin Acetaminophen 650 mg 04/22/23 22:09 Acetaminophen 325 Mg Tablet PO Q6H PRN Mild Pain (1-3) or Fever Amlodipine Besylate 10 mg 04/23/23 09:00 04/24/23 08:28 Amlodipine Besylate 5 Mg Tablet PO 10 mg DAILY [facility] Administration Aspirin 325 mg 04/23/23 08:00 04/24/23 08:27 Aspirin 325 Mg Tablet PO 325 mg DAILY@0800 [facility] Administration Baclofen 10 mg 04/22/23 22:14 04/23/23 21:15 Baclofen 10 Mg Tablet PO 10 mg QID PRN Administration Muscle Spasm Carvedilol 6.25 mg 04/22/23 22:15 04/24/23 08:29 Carvedilol 6.25 Mg Tablet PO 6.25 mg Q12HR [facility] Administration Clobetasol Propionate 1 applic 04/23/23 09:00 04/24/23 08:35 Clobetasol Propionate 0.05% Cream 15 Gm TOPICAL 1 applic DAILY [facility] Administrat
--- NOTE | 2023-04-24 15:54 | PM.IMPN ---
Progress Note: A&P Assessment and Plan (1) Cellulitis of right foot: Code(s): L03.115 - Cellulitis of right lower limb Status: Acute Assessment and Plan: Currently on vancomycin, continue this for now Check ABIs (2) Lumbosacral disc herniation: Code(s): M51.27 - Other intervertebral disc displacement, lumbosacral region Status: Acute Assessment and Plan: Appreciate neurosurgery consultation, follow-up MRI continue steroids Aggressive pain control and therapy, consider decompressive intervention if fails conservative management (3) Pain of right lower extremity: Code(s): M79.604 - Pain in right leg Status: Acute Assessment and Plan: Continue oxycodone 5 mg q.4 hours as needed for pain control (4) Hypokalemia: Code(s): E87.6 - Hypokalemia Status: Acute Assessment and Plan: Resolved, monitor (5) Essential hypertension: Code(s): I10 - Essential (primary) hypertension Status: Acute Assessment and Plan: Blood pressure reviewed 04/24 (6) Hypothyroidism: Code(s): E03.9 - Hypothyroidism, unspecified Status: Acute Assessment and Plan: Continue home medications (7) Coronary artery disease: Code(s): I25.10 - Atherosclerotic heart disease of [place] coronary artery without angina pectoris Status: Acute Assessment and Plan: Continue aspirin, plavix (8) Peripheral arterial disease: Code(s): I73.9 - Peripheral vascular disease, unspecified Status: Acute Assessment and Plan: As above (9) Tobacco dependence: Code(s): F17.200 - Nicotine dependence, unspecified, uncomplicated Status: Acute Assessment and Plan: Nicotine patch as needed (10) Chronic obstructive pulmonary disease: Code(s): J44.9 - Chronic obstructive pulmonary disease, unspecified Status: Acute Assessment and Plan: Does not appear to be in acute exacerbation Plan DVT prophylaxis with SCDs GI prophylaxis not indicated Code status full code Subjective Date/time seen: 04/24/23 15:54 Interval history: 78-year-old female with history of COPD, heart disease, kidney disease, hypothyroidism among other comorbidities is presenting with right leg and foot pain and found to have S1 nerve root impingement. No overnight events noted. No chest pain or shortness of breath. No nausea, vomiting or diarrhea. No fevers or chills. States she is essentially unchanged from yesterday. Review of Systems Review of Systems: 12 point review of systems was assessed and was negative except as noted in the HPI Exam Narrative: General: No acute distress, alert and oriented per baseline HEENT: Atraumatic, normocephalic, mucous membranes moist CV: Regular rate and rhythm, S1, S2 Lungs: Clear to auscultation bilaterally, no rales or crackles noted, no wheezes, good air entry Abdomen: Soft, nontender, nondistended Extremities: Normal to inspection Skin: No rashes noted, no lesions or wounds seen Psych: Euthymic, normal affect Objective Data Vital Signs Vital Signs: Vital Signs - 24 hr 04/23/23 16:00 04/23/23 21:06 04/23/23 21:42 Temperature 97.8 F 97.7 F Pulse Rate 55 L 63 55 L Respiratory Rate 20 14 Blood Pressure 114/70 125/48 L Pulse Oximetry 94 95 Oxygen Delivery Oxygen Flow Rate 04/23/23 20:00 04/24/23 05:28 04/24/23 06:00 Temperature 97.5 F L Pulse Rate 66 Respiratory Rate 14 Blood Pressure 153/52 H Pulse Oximetry 95 93 96 Oxygen Delivery Nasal Cannula Nasal Cannula Oxygen Flow Rate 2 1 04/24/23 08:22 04/24/23 08:29 04/24/23 14:02 Temperature Pulse Rate 55 L Respiratory Rate Blood Pressure Pulse Oximetry 94 92 Oxygen Delivery Nasal Cannula Room Air Oxygen Flow Rate 1 04/24/23 14:00 Temperature 97.7 F Pulse Rate 67 Respiratory Rate 18 Blood Pressure 121/
--- NOTE | 2023-04-24 21:28 | PCRCNOTE ---
Pt does not have CPAP @ home, does not want one
[2023-04-24] MEDS: traZODone HCL 50 MG TABLET 150 MG PO (21:31)
[2023-04-24] MEDS: BACLOFEN 10 MG TABLET PO (21:34)
[2023-04-25] MEDS: oxyCODONE HCL (*CRX) 5 MG TAB IR PO ×4 (05:38→23:38)
[2023-04-25] MEDS: LEVOTHYROXINE SODIUM 100 MCG TABLET PO (05:38)
[2023-04-25 06:00] VITALS: BP 143/41; PULSE 50; RESP 14; TEMP 36.7; O2SAT 93
[2023-04-25 07:05] VITALS: PULSE 84; RESP 18; O2SAT 95
[2023-04-25] MEDS: FLUTICASONE/UMECLIDIN/VILANTER 100-62.5-25 MCG ELLIPTA 1 PUFF INHALATION (07:06)
[2023-04-25 07:23] LABS: Hematocrit 43.5 % (37.0-47.0); Hemoglobin 13.8 g/dL (12.0-15.0); Mean Corpuscular HGB Conc 31.7 g/dl (32-36); Mean Corpuscular Hemoglobin 29.6 pg (26-34); Mean Corpuscular Volume 93.1 fl (80-100); Mean Platelet Volume 10.1 fl (7.4-10.4); Platelet Count Result 350 k/mm3 (150-375); Red Blood Count 4.67 M/mm3 (4.2-5.4); Red Cell Distribution Width 13.4 % (11.5-14.5); White Blood Count 17.5 K/mm3 (4.5-10.0)
[2023-04-25 07:33] LABS: Alanine Aminotransferase 158 U/L (6-35); Albumin Level 3.7 g/dL (3.5-5.1); Alkaline Phosphatase 76 U/L (38-126); Anion Gap 3 mmol/L (8-16); Aspartate Amino Transferase 157 U/L (14-36); Bilirubin,Total 0.4 mg/dL (0.2-1.3); Blood Urea Nitrogen 22 mg/dL (7-17); Calcium 9.6 mg/dL (8.4-10.2); Carbon Dioxide 31 mmol/L (22-30); Chloride 103 mmol/L (98-107); Estimated CRCL calculation 43 ml/min; Estimated Glomerular Filt Rate 54; Glucose 124 mg/dL (65-110); Sodium 137 mmol/L (137-145)
[2023-04-25 08:00] LABS: Anisocytosis 1+ (NORMAL); Band Neutrophils Percent 8 % (0-6); Lymphocytes Absolute Manual 0.87 K/mm3 (1.1-4.5); Monocytes Absolute Manual 0.52 K/mm3 (0.1-0.90); Monocytes Percent Manual 3 % (3-9); Neutrophils Percent Manual 84 % (46-73); Platelet Estimate Adequate (Adequate); Schistocytes None Seen (NORMAL); Total Cells Counted 100
[2023-04-25] MEDS: LOSARTAN POTASSIUM 100 MG TABLET PO (08:34)
[2023-04-25] MEDS: ROSUVASTATIN 10 MG TABLET 40 MG PO (08:34)
[2023-04-25 08:35] VITALS: PULSE 53
[2023-04-25] MEDS: amLODIPine BESYLATE 5 MG TABLET 10 MG PO (08:35)
[2023-04-25] MEDS: VENLAFAXINE HCL XR 75 MG CAP.ER.24H 150 MG BY MOUTH (08:35)
[2023-04-25] MEDS: DEXAMETHASONE 4 MG TABLET PO ×3 (08:35→23:39)
[2023-04-25] MEDS: CLOPIDOGREL BISULFATE 75 MG TABLET PO (08:35)
[2023-04-25] MEDS: ASPIRIN 325 MG TABLET PO (08:35)
[2023-04-25] MEDS: carvediloL 6.25 MG TABLET PO ×2 (08:35→20:51)
[2023-04-25] MEDS: POTASSIUM CHLORIDE 20 MEQ ER TABLET 40 MEQ PO ×2 (08:37→16:48)
[2023-04-25] MEDS: EZETIMIBE 10 MG TABLET PO (08:37)
[2023-04-25] MEDS: CLOBETASOL PROPIONATE 0.05% CREAM 15 GM 1 APPLIC TOPICAL (08:38)
[2023-04-25] MEDS: NICOTINE (*PBKC) 21 MG PATCH 1 PATCH TRANSDERM (08:52)
--- NOTE | 2023-04-25 12:14 | PM.IMPN ---
Progress Note: A&P Assessment and Plan (1) Cellulitis of right foot: Code(s): L03.115 - Cellulitis of right lower limb Status: Acute Assessment and Plan: Currently on vancomycin, continue this for now Check ABIs, severe arterial disease noted, will need vascular consult outpatient (2) Lumbosacral disc herniation: Code(s): M51.27 - Other intervertebral disc displacement, lumbosacral region Status: Acute Assessment and Plan: Appreciate neurosurgery consultation, follow-up MRI continue steroids Aggressive pain control and therapy, consider decompressive intervention if fails conservative management (3) Pain of right lower extremity: Code(s): M79.604 - Pain in right leg Status: Acute Assessment and Plan: Continue oxycodone 5 mg q.4 hours as needed for pain control (4) Hypokalemia: Code(s): E87.6 - Hypokalemia Status: Acute Assessment and Plan: Resolved, monitor (5) Essential hypertension: Code(s): I10 - Essential (primary) hypertension Status: Acute Assessment and Plan: Blood pressure reviewed 04/25 (6) Hypothyroidism: Code(s): E03.9 - Hypothyroidism, unspecified Status: Acute Assessment and Plan: Continue home medications (7) Coronary artery disease: Code(s): I25.10 - Atherosclerotic heart disease of [place] coronary artery without angina pectoris Status: Acute Assessment and Plan: Continue aspirin, plavix (8) Peripheral arterial disease: Code(s): I73.9 - Peripheral vascular disease, unspecified Status: Acute Assessment and Plan: As above, f/u vascular surgery outpatient check CTA r/o PE/dissection (9) Tobacco dependence: Code(s): F17.200 - Nicotine dependence, unspecified, uncomplicated Status: Acute Assessment and Plan: Nicotine patch as needed (10) Chronic obstructive pulmonary disease: Code(s): J44.9 - Chronic obstructive pulmonary disease, unspecified Status: Acute Assessment and Plan: Does not appear to be in acute exacerbation Plan DVT prophylaxis with SCDs GI prophylaxis not indicated Code status full code Subjective Date/time seen: 04/25/23 12:14 Interval history: 78-year-old female with history of COPD, heart disease, kidney disease, hypothyroidism among other comorbidities is presenting with right leg and foot pain and found to have S1 nerve root impingement. no overnight events, no fevers, in testing. Review of Systems Review of Systems: in testing Exam Narrative: in testing Objective Data Vital Signs Vital Signs: Vital Signs - 24 hr 04/24/23 14:02 04/24/23 14:00 04/24/23 21:31 Temperature 97.7 F Pulse Rate 67 68 Respiratory Rate 18 Blood Pressure 121/51 L Pulse Oximetry 92 92 Oxygen Delivery Room Air 04/24/23 20:00 04/24/23 22:00 04/25/23 06:00 Temperature 98.4 F 98.0 F Pulse Rate 68 58 L 50 L Respiratory Rate 18 16 14 Blood Pressure 139/59 L 143/41 H Pulse Oximetry 92 94 93 Oxygen Delivery Room Air 04/25/23 07:05 04/25/23 07:05 04/25/23 08:35 Temperature Pulse Rate 84 84 53 L Respiratory Rate 18 18 Blood Pressure Pulse Oximetry 95 Oxygen Delivery Room Air 04/25/23 08:35 04/25/23 11:06 Temperature Pulse Rate Respiratory Rate Blood Pressure Pulse Oximetry Oxygen Delivery Room Air Room Air Intake/Output Intake/Output: Intake & Output 04/22/23 04/23/23 04/24/23 04/25/23 23:59 23:59 23:59 23:59 Intake Total 1946 2216 240 Output Total 2100 1750 Balance 1946 116 -1510 Meds/Results Medications: Active Medications Generic Name Dose Route Start Last Admin Trade Name Freq PRN Reason Stop Dose Admin Acetaminophen 650 mg 04/22/23 22:09 Acetaminophen 325 Mg Tablet PO Q6H PRN Mild Pain (1-3) or Fever Amlodipine Besylate 10 mg 04/23/23
[2023-04-25 14:00] VITALS: BP 152/51; PULSE 50; RESP 18; TEMP 36.3; O2SAT 95
--- NOTE | 2023-04-25 14:36 | PCOTNOTE ---
Attempted to see pt. for occupational therapy evaluation. Pt. declined to participate at this time stating she has been in too much pain today and is too tired. Pt. educated on benefits of participating in therapy services. Nursing aware. Following
[2023-04-25 20:51] VITALS: PULSE 92
[2023-04-25] MEDS: traZODone HCL 50 MG TABLET 150 MG PO (20:51)
[2023-04-25] MEDS: BACLOFEN 10 MG TABLET PO (20:51)
[2023-04-25 21:01] LABS: Vancomycin Trough 12.2 ug/mL (10.0-20.0)
[2023-04-25] MEDS: polyethylene glycoL 3350 17 GM POWD.PACK PO (21:43)
[2023-04-25 22:00] VITALS: BP 169/52; PULSE 59; RESP 18; TEMP 35.7; O2SAT 92
[2023-04-26] MEDS: LEVOTHYROXINE SODIUM 100 MCG TABLET PO (05:37)
[2023-04-26] MEDS: oxyCODONE HCL (*CRX) 5 MG TAB IR PO (05:37)
[2023-04-26 05:43] LABS: Basophils Percent Auto 0.2 % (0.2-1.2); Eosinophils Absolute Auto 0.1 K/mm3 (0-0.3); Eosinophils Percent Auto 0.4 % (0-4.4); Hematocrit 42.4 % (37.0-47.0); Hemoglobin 13.9 g/dL (12.0-15.0); Immature Granulocyte Absolute 0.12 K/mm3 (0.00-0.031); Mean Corpuscular HGB Conc 32.8 g/dl (32-36); Mean Corpuscular Hemoglobin 29.8 pg (26-34); Mean Platelet Volume 9.9 fl (7.4-10.4); Monocytes Absolute Auto 0.9 K/mm3 (0.1-0.6); Monocytes Percent Auto 7.1 % (2.6-8.5); Neutrophils Absolute Auto 10.4 K/mm3 (1.3-6.7); Neutrophils Percent Auto 83.3 % (45.5-73.1); Platelet Count Result 337 k/mm3 (150-375); Red Blood Count 4.66 M/mm3 (4.2-5.4); Red Cell Distribution Width 13.4 % (11.5-14.5); White Blood Count 12.5 K/mm3 (4.5-10.0)
[2023-04-26 05:53] LABS: Alanine Aminotransferase 166 U/L (6-35); Albumin Level 3.5 g/dL (3.5-5.1); Alkaline Phosphatase 76 U/L (38-126); Anion Gap 4 mmol/L (8-16); Aspartate Amino Transferase 110 U/L (14-36); Bilirubin,Total 0.4 mg/dL (0.2-1.3); Blood Urea Nitrogen 24 mg/dL (7-17); Calcium 9.3 mg/dL (8.4-10.2); Carbon Dioxide 29 mmol/L (22-30); Chloride 102 mmol/L (98-107); Estimated CRCL calculation 47 ml/min; Estimated Glomerular Filt Rate > 60; Glucose 120 mg/dL (65-110); Potassium 4.7 mmol/L (3.4-5.0); Sodium 135 mmol/L (137-145)
[2023-04-26 06:00] VITALS: BP 174/70; PULSE 53; RESP 16; TEMP 35.7; O2SAT 92
[2023-04-26] MEDS: FLUTICASONE/UMECLIDIN/VILANTER 100-62.5-25 MCG ELLIPTA 1 PUFF INHALATION (08:25)
[2023-04-26] MEDS: EZETIMIBE 10 MG TABLET PO (08:27)
[2023-04-26] MEDS: VENLAFAXINE HCL XR 75 MG CAP.ER.24H 150 MG BY MOUTH (08:27)
[2023-04-26] MEDS: LOSARTAN POTASSIUM 100 MG TABLET PO (08:27)
[2023-04-26] MEDS: CLOPIDOGREL BISULFATE 75 MG TABLET PO (08:27)
[2023-04-26] MEDS: ASPIRIN 325 MG TABLET PO (08:27)
[2023-04-26] MEDS: DEXAMETHASONE 4 MG TABLET PO ×3 (08:27→23:27)
[2023-04-26] MEDS: NICOTINE (*PBKC) 21 MG PATCH 1 PATCH TRANSDERM (08:27)
[2023-04-26 08:28] VITALS: PULSE 55
[2023-04-26] MEDS: ROSUVASTATIN 10 MG TABLET 40 MG PO (08:28)
[2023-04-26] MEDS: carvediloL 6.25 MG TABLET PO ×2 (08:28→20:01)
[2023-04-26] MEDS: amLODIPine BESYLATE 5 MG TABLET 10 MG PO (08:30)
[2023-04-26] MEDS: POTASSIUM CHLORIDE 20 MEQ ER TABLET 40 MEQ PO ×2 (08:33→17:12)
[2023-04-26] MEDS: CLOBETASOL PROPIONATE 0.05% CREAM 15 GM 1 APPLIC TOPICAL (08:34)
--- NOTE | 2023-04-26 09:12 | PM.IMPN ---
Progress Note: A&P Assessment and Plan (1) Cellulitis of right foot: Code(s): L03.115 - Cellulitis of right lower limb Status: Acute Assessment and Plan: Currently on vancomycin, continue this for now Check ABIs, severe arterial disease noted, will need vascular consult outpatient (2) Lumbosacral disc herniation: Code(s): M51.27 - Other intervertebral disc displacement, lumbosacral region Status: Acute Assessment and Plan: Appreciate neurosurgery consultation, follow-up MRI continue steroids Aggressive pain control and therapy, consider decompressive intervention if fails conservative management Increase pain medication, patient still in severe pain with weight-bearing, will obtain MRI and consider intervention by Neurosurgery if pain unable to be controlled without sedating patient (3) Pain of right lower extremity: Code(s): M79.604 - Pain in right leg Status: Acute Assessment and Plan: Continue oxycodone 5 mg q.4 hours as needed for pain control 04/26: Increased to 10 mg Q 4, monitor (4) Hypokalemia: Code(s): E87.6 - Hypokalemia Status: Acute Assessment and Plan: Resolved, monitor (5) Essential hypertension: Code(s): I10 - Essential (primary) hypertension Status: Acute Assessment and Plan: Blood pressure reviewed 04/26 (6) Hypothyroidism: Code(s): E03.9 - Hypothyroidism, unspecified Status: Acute Assessment and Plan: Continue home medications (7) Coronary artery disease: Code(s): I25.10 - Atherosclerotic heart disease of [place] coronary artery without angina pectoris Status: Acute Assessment and Plan: Continue aspirin, plavix (8) Peripheral arterial disease: Code(s): I73.9 - Peripheral vascular disease, unspecified Status: Acute Assessment and Plan: As above, f/u vascular surgery outpatient check CTA r/o PE/dissection (9) Tobacco dependence: Code(s): F17.200 - Nicotine dependence, unspecified, uncomplicated Status: Acute Assessment and Plan: Nicotine patch as needed (10) Chronic obstructive pulmonary disease: Code(s): J44.9 - Chronic obstructive pulmonary disease, unspecified Status: Acute Assessment and Plan: Does not appear to be in acute exacerbation Plan DVT prophylaxis with SCDs GI prophylaxis not indicated Code status full code Subjective Date/time seen: 04/26/23 09:12 Interval history: 78-year-old female with history of COPD, heart disease, kidney disease, hypothyroidism among other comorbidities is presenting with right leg and foot pain and found to have S1 nerve root impingement. No overnight events noted. No chest pain or shortness of breath. No nausea, vomiting or diarrhea. No fevers or chills. Patient states her pain is controlled at rest, but as soon as she tries to bear weight, becomes excruciating. Review of Systems Review of Systems: 12 point review of systems was assessed and was negative except as noted in the HPI Exam Narrative: General: No acute distress, alert and oriented per baseline HEENT: Atraumatic, normocephalic, mucous membranes moist CV: Regular rate and rhythm, S1, S2 Lungs: Clear to auscultation bilaterally, no rales or crackles noted, no wheezes, good air entry Abdomen: Soft, nontender, nondistended Extremities: Normal to inspection Skin: No rashes noted, no lesions or wounds seen Psych: Euthymic, normal affect Objective Data Vital Signs Vital Signs: Vital Signs - 24 hr 04/25/23 11:06 04/25/23 14:00 04/25/23 20:00 Temperature 97.3 F L Pulse Rate 50 L Respiratory Rate 18 Blood Pressure 152/51 H Pulse Oximetry 95 Oxygen Delivery Room Air Room Air 04/25/23 20:51 04/25/23 22:00 04/26/23 06:00 Temperature 96.3 F L 96.3 F L Pulse Rate 92 59 L 53 L Respiratory Rate 18 16 Blood Press
[2023-04-26] MEDS: oxyCODONE HCL (*CRX) 5 MG TAB IR 10 MG PO ×4 (11:55→23:27)
[2023-04-26 14:00] VITALS: BP 126/63; PULSE 52; RESP 16; TEMP 36.4; O2SAT 95
[2023-04-26 20:01] VITALS: PULSE 65
[2023-04-26 20:06] VITALS: BP 140/60; PULSE 67; RESP 18; TEMP 36.6; O2SAT 96
[2023-04-26] MEDS: BACLOFEN 10 MG TABLET PO (20:11)
[2023-04-26] MEDS: traZODone HCL 50 MG TABLET 100 MG PO (20:11)
[2023-04-26] MEDS: polyethylene glycoL 3350 17 GM POWD.PACK PO (21:10)
--- NOTE | 2023-04-27 01:11 | PC.NURSE ---
Daylight Savings Time For Daylight Savings Time Ending in the Fall - Clocks are moved back. For Daylight Savings Time Beginning in the Spring - Clocks are moved ahead. For [facility], the time of change occurs at 0200 hrs. Time is taken from the hot mill observer. This entry on the patient's chart recognizes the change in time reflected during documentation. Example: 2 entries for vital signs may be charted for 0200 hrs.
[2023-04-27] MEDS: oxyCODONE HCL (*CRX) 5 MG TAB IR 10 MG PO ×5 (04:01→20:58)
[2023-04-27] MEDS: LEVOTHYROXINE SODIUM 100 MCG TABLET PO (05:51)
[2023-04-27 06:00] VITALS: BP 133/67; PULSE 51; RESP 16; TEMP 35.6; O2SAT 91
[2023-04-27 06:48] LABS: Basophils Percent Auto 0.2 % (0.2-1.2); Hematocrit 43.1 % (37.0-47.0); Hemoglobin 14.1 g/dL (12.0-15.0); Immature Granulocyte Percent A 1.4 % (0-0.5); Lymphocytes Absolute Auto 0.94 K/mm3 (0.9-3.2); Lymphocytes Percent Auto 6.8 % (18.3-44.2); Mean Corpuscular HGB Conc 32.7 g/dl (32-36); Mean Corpuscular Volume 91.7 fl (80-100); Mean Platelet Volume 9.5 fl (7.4-10.4); Monocytes Absolute Auto 0.9 K/mm3 (0.1-0.6); Monocytes Percent Auto 6.7 % (2.6-8.5); Neutrophils Absolute Auto 11.7 K/mm3 (1.3-6.7); Neutrophils Percent Auto 84.9 % (45.5-73.1); Platelet Count Result 363 k/mm3 (150-375); Red Cell Distribution Width 13.2 % (11.5-14.5); White Blood Count 13.8 K/mm3 (4.5-10.0)
[2023-04-27 07:03] LABS: Alanine Aminotransferase 148 U/L (6-35); Albumin Level 3.5 g/dL (3.5-5.1); Alkaline Phosphatase 82 U/L (38-126); Anion Gap 5 mmol/L (8-16); Aspartate Amino Transferase 66 U/L (14-36); Bilirubin,Total 0.5 mg/dL (0.2-1.3); Blood Urea Nitrogen 29 mg/dL (7-17); Calcium 8.9 mg/dL (8.4-10.2); Carbon Dioxide 27 mmol/L (22-30); Chloride 101 mmol/L (98-107); Estimated CRCL calculation 43 ml/min; Estimated Glomerular Filt Rate 54; Glucose 129 mg/dL (65-110); Potassium 5.2 mmol/L (3.4-5.0); Sodium 133 mmol/L (137-145)
--- NOTE | 2023-04-27 08:30 | PCOTNOTE ---
Attempted OT evaluation. Patient awaiting MRI. Will follow.
[2023-04-27] MEDS: FLUTICASONE/UMECLIDIN/VILANTER 100-62.5-25 MCG ELLIPTA 1 PUFF INHALATION (09:04)
[2023-04-27 09:09] VITALS: PULSE 60
[2023-04-27] MEDS: carvediloL 6.25 MG TABLET PO ×2 (09:09→20:51)
[2023-04-27] MEDS: DEXAMETHASONE 4 MG TABLET PO ×2 (09:09→17:09)
[2023-04-27] MEDS: amLODIPine BESYLATE 5 MG TABLET 10 MG PO (09:10)
[2023-04-27] MEDS: CLOPIDOGREL BISULFATE 75 MG TABLET PO (09:11)
[2023-04-27] MEDS: OMEGA 3 POLYUNSAT FATTY ACIDS 1 GM CAP PO (09:11)
[2023-04-27] MEDS: VENLAFAXINE HCL XR 75 MG CAP.ER.24H 150 MG BY MOUTH (09:11)
[2023-04-27] MEDS: ROSUVASTATIN 10 MG TABLET 40 MG PO (09:11)
[2023-04-27] MEDS: LOSARTAN POTASSIUM 100 MG TABLET PO (09:11)
[2023-04-27] MEDS: EZETIMIBE 10 MG TABLET PO (09:12)
[2023-04-27] MEDS: CLOBETASOL PROPIONATE 0.05% CREAM 15 GM 1 APPLIC TOPICAL (09:13)
[2023-04-27] MEDS: NICOTINE (*PBKC) 21 MG PATCH 1 PATCH TRANSDERM (09:24)
[2023-04-27] MEDS: ASPIRIN 325 MG TABLET PO (09:26)
[2023-04-27 14:00] VITALS: BP 140/63; PULSE 79; RESP 18; TEMP 36.6; O2SAT 92
--- NOTE | 2023-04-27 15:21 | PM.IMPN ---
Progress Note: A&P Assessment and Plan (1) Cellulitis of right foot: Code(s): L03.115 - Cellulitis of right lower limb Status: Acute Assessment and Plan: Currently on vancomycin, continue this for now Check ABIs, severe arterial disease noted, will need vascular consult outpatient (2) Lumbosacral disc herniation: Code(s): M51.27 - Other intervertebral disc displacement, lumbosacral region Status: Acute Assessment and Plan: Appreciate neurosurgery consultation, follow-up MRI continue steroids Aggressive pain control and therapy, consider decompressive intervention if fails conservative management Increase pain medication, patient still in severe pain with weight-bearing, will obtain MRI and consider intervention by Neurosurgery if pain unable to be controlled without sedating patient Improving with pain meds, monitor (3) Pain of right lower extremity: Code(s): M79.604 - Pain in right leg Status: Acute Assessment and Plan: Continue oxycodone 5 mg q.4 hours as needed for pain control 04/26: Increased to 10 mg Q 4, monitor 04/27: much better, d/c tomorrow if still controlled and ambulating (4) Hypokalemia: Code(s): E87.6 - Hypokalemia Status: Acute Assessment and Plan: Resolved, monitor (5) Essential hypertension: Code(s): I10 - Essential (primary) hypertension Status: Acute Assessment and Plan: Blood pressure reviewed 04/27 (6) Hypothyroidism: Code(s): E03.9 - Hypothyroidism, unspecified Status: Acute Assessment and Plan: Continue home medications (7) Coronary artery disease: Code(s): I25.10 - Atherosclerotic heart disease of [place] coronary artery without angina pectoris Status: Acute Assessment and Plan: Continue aspirin, plavix (8) Peripheral arterial disease: Code(s): I73.9 - Peripheral vascular disease, unspecified Status: Acute Assessment and Plan: As above, f/u vascular surgery outpatient check CTA r/o PE/dissection (9) Tobacco dependence: Code(s): F17.200 - Nicotine dependence, unspecified, uncomplicated Status: Acute Assessment and Plan: Nicotine patch as needed (10) Chronic obstructive pulmonary disease: Code(s): J44.9 - Chronic obstructive pulmonary disease, unspecified Status: Acute Assessment and Plan: Does not appear to be in acute exacerbation Plan DVT prophylaxis with SCDs GI prophylaxis not indicated Code status full code Subjective Date/time seen: 04/27/23 15:21 Interval history: 78-year-old female with history of COPD, heart disease, kidney disease, hypothyroidism among other comorbidities is presenting with right leg and foot pain and found to have S1 nerve root impingement. No overnight events noted. No chest pain or shortness of breath. No nausea, vomiting or diarrhea. No fevers or chills. Patient states her pain is much improved today, even with activity. Review of Systems Review of Systems: 12 point review of systems was assessed and was negative except as noted in the HPI Exam Narrative: General: No acute distress, alert and oriented per baseline HEENT: Atraumatic, normocephalic, mucous membranes moist CV: Regular rate and rhythm, S1, S2 Lungs: Clear to auscultation bilaterally, no rales or crackles noted, no wheezes, good air entry Abdomen: Soft, nontender, nondistended Extremities: Normal to inspection Skin: No rashes noted, no lesions or wounds seen Psych: Euthymic, normal affect Objective Data Vital Signs Vital Signs: Vital Signs - 24 hr 04/26/23 20:01 04/26/23 20:06 04/26/23 20:00 Temperature 97.8 F Pulse Rate 65 67 Respiratory Rate 18 Blood Pressure 140/60 Pulse Oximetry 96 Oxygen Delivery Room Air 04/27/23 06:00 04/27/23 09:09 04/27/23 09:10 Temperature 96.0 F L Pulse Rate 51 L 60
[2023-04-27] MEDS: POTASSIUM CHLORIDE 20 MEQ ER TABLET 40 MEQ PO (17:10)
[2023-04-27 20:51] VITALS: PULSE 66
[2023-04-27] MEDS: polyethylene glycoL 3350 17 GM POWD.PACK PO (20:54)
[2023-04-27 22:00] VITALS: BP 145/48; PULSE 49; RESP 16; TEMP 36; O2SAT 95
[2023-04-28] MEDS: DEXAMETHASONE 4 MG TABLET PO ×2 (00:54→08:14)
[2023-04-28] MEDS: oxyCODONE HCL (*CRX) 5 MG TAB IR 10 MG PO ×4 (01:15→12:37)
[2023-04-28] MEDS: ONDANSETRON INJ 4 MG/2 ML VIAL IV PUSH (03:26)
[2023-04-28] MEDS: LEVOTHYROXINE SODIUM 100 MCG TABLET PO (05:56)
[2023-04-28 06:00] VITALS: BP 186/74; PULSE 55; RESP 14; TEMP 36; O2SAT 91
[2023-04-28 06:56] LABS: Basophils Percent Auto 0.2 % (0.2-1.2); Eosinophils Percent Auto 0.1 % (0-4.4); Hematocrit 46.3 % (37.0-47.0); Hemoglobin 15.1 g/dL (12.0-15.0); Immature Granulocyte Absolute 0.26 K/mm3 (0.00-0.031); Immature Granulocyte Percent A 1.6 % (0-0.5); Lymphocytes Absolute Auto 1.05 K/mm3 (0.9-3.2); Lymphocytes Percent Auto 6.6 % (18.3-44.2); Mean Corpuscular HGB Conc 32.6 g/dl (32-36); Mean Corpuscular Hemoglobin 29.7 pg (26-34); Mean Corpuscular Volume 91.1 fl (80-100); Mean Platelet Volume 9.2 fl (7.4-10.4); Monocytes Percent Auto 6.1 % (2.6-8.5); Neutrophils Absolute Auto 13.7 K/mm3 (1.3-6.7); Neutrophils Percent Auto 85.4 % (45.5-73.1); Platelet Count Result 390 k/mm3 (150-375); Red Blood Count 5.08 M/mm3 (4.2-5.4); Red Cell Distribution Width 12.9 % (11.5-14.5)
[2023-04-28 07:08] LABS: Alanine Aminotransferase 142 U/L (6-35); Albumin Level 3.9 g/dL (3.5-5.1); Alkaline Phosphatase 75 U/L (38-126); Anion Gap 5 mmol/L (8-16); Aspartate Amino Transferase 53 U/L (14-36); Bilirubin,Total 0.6 mg/dL (0.2-1.3); Blood Urea Nitrogen 31 mg/dL (7-17); Carbon Dioxide 29 mmol/L (22-30); Chloride 96 mmol/L (98-107); Estimated CRCL calculation 47 ml/min; Estimated Glomerular Filt Rate > 60; Glucose 114 mg/dL (65-110); Potassium 4.9 mmol/L (3.4-5.0); Sodium 130 mmol/L (137-145)
[2023-04-28] MEDS: CLOPIDOGREL BISULFATE 75 MG TABLET PO (08:13)
[2023-04-28] MEDS: EZETIMIBE 10 MG TABLET PO (08:13)
[2023-04-28] MEDS: NICOTINE (*PBKC) 21 MG PATCH 1 PATCH TRANSDERM (08:13)
[2023-04-28] MEDS: LOSARTAN POTASSIUM 100 MG TABLET PO (08:13)
[2023-04-28] MEDS: VENLAFAXINE HCL XR 75 MG CAP.ER.24H 150 MG BY MOUTH (08:14)
[2023-04-28] MEDS: OMEGA 3 POLYUNSAT FATTY ACIDS 1 GM CAP PO (08:14)
[2023-04-28] MEDS: ROSUVASTATIN 10 MG TABLET 40 MG PO (08:14)
[2023-04-28] MEDS: ASPIRIN 325 MG TABLET PO (08:14)
[2023-04-28] MEDS: amLODIPine BESYLATE 5 MG TABLET 10 MG PO (08:14)
[2023-04-28 08:15] VITALS: PULSE 56
[2023-04-28] MEDS: carvediloL 6.25 MG TABLET PO (08:15)
[2023-04-28] MEDS: POTASSIUM CHLORIDE 20 MEQ ER TABLET 40 MEQ PO (08:16)
[2023-04-28] MEDS: CLOBETASOL PROPIONATE 0.05% CREAM 15 GM 1 APPLIC TOPICAL (08:16)
[2023-04-28 09:36] VITALS: O2SAT 96
[2023-04-28] MEDS: FLUTICASONE/UMECLIDIN/VILANTER 100-62.5-25 MCG ELLIPTA 1 PUFF INHALATION (09:36)
--- NOTE | 2023-04-28 09:59 | PCOTNOTE ---
Attempted to see pt. for occupational therapy evaluation. Pt. currently working with [facility], not available. Following
--- NOTE | 2023-04-28 13:49 | PM.DS ---
DS: Admitting Diagnosis Discharge Date 04/28/23 Admitting Diagnosis right foot pain DS: Discharge Diagnosis Discharge Diagnosis (1) Cellulitis of right foot: Code(s): L03.115 - Cellulitis of right lower limb Status: Acute Assessment and Plan: Currently on vancomycin, continue this for now Check ABIs, severe arterial disease noted, will need vascular consult outpatient (2) Lumbosacral disc herniation: Code(s): M51.27 - Other intervertebral disc displacement, lumbosacral region Status: Acute Assessment and Plan: Appreciate neurosurgery consultation, follow-up MRI continue steroids Aggressive pain control and therapy, consider decompressive intervention if fails conservative management Increase pain medication, patient still in severe pain with weight-bearing, will obtain MRI and consider intervention by Neurosurgery if pain unable to be controlled without sedating patient Improving with pain meds, monitor (3) Pain of right lower extremity: Code(s): M79.604 - Pain in right leg Status: Acute Assessment and Plan: Continue oxycodone 5 mg q.4 hours as needed for pain control 04/26: Increased to 10 mg Q 4, monitor 04/27: much better, d/c tomorrow if still controlled and ambulating (4) Hypokalemia: Code(s): E87.6 - Hypokalemia Status: Acute Assessment and Plan: Resolved, monitor (5) Essential hypertension: Code(s): I10 - Essential (primary) hypertension Status: Acute Assessment and Plan: Blood pressure reviewed 04/27 (6) Hypothyroidism: Code(s): E03.9 - Hypothyroidism, unspecified Status: Acute Assessment and Plan: Continue home medications (7) Coronary artery disease: Code(s): I25.10 - Atherosclerotic heart disease of [place] coronary artery without angina pectoris Status: Acute Assessment and Plan: Continue aspirin, plavix (8) Peripheral arterial disease: Code(s): I73.9 - Peripheral vascular disease, unspecified Status: Acute Assessment and Plan: As above, f/u vascular surgery outpatient check CTA r/o PE/dissection (9) Tobacco dependence: Code(s): F17.200 - Nicotine dependence, unspecified, uncomplicated Status: Acute Assessment and Plan: Nicotine patch as needed (10) Chronic obstructive pulmonary disease: Code(s): J44.9 - Chronic obstructive pulmonary disease, unspecified Status: Acute Assessment and Plan: Does not appear to be in acute exacerbation Plan DVT prophylaxis with SCDs GI prophylaxis not indicated Code status full code DS: Summary Hospital Course Hospital Course: 78-year-old female with history of COPD, heart disease, kidney disease, hypothyroidism among other comorbidities is presenting with right leg and foot pain and found to have S1 nerve root impingement. Appreciate neurosurgery consultation, follow-up MRI continue steroids Aggressive pain control and therapy, consider decompressive intervention if fails conservative management Increase pain medication, patient still in severe pain with weight-bearing, will obtain MRI and consider intervention by Neurosurgery if pain unable to be controlled without sedating patient Improving with pain meds, monitor ABIs, severe arterial disease noted, will need vascular consult outpatient Patient's symptoms almost completely resolved with aggressive pain management. She was discharged in stable condition with pain medications and close outpatient follow-up. She will need to complete her MRI and follow-up with Neurosurgery. She will also need to follow-up with vascular surgery. Time Spent with Patient Time attestation: Total time spent providing and/or coordinating discharge services: Exam Narrative: General: No acute distress, alert and oriented per baseline HEENT: Atraumatic, normocephalic, mucous membranes moist CV:
[2023-04-28 14:00] VITALS: BP 151/69; PULSE 68; RESP 18; TEMP 36.3; O2SAT 93
== END 2023-04-28 14:53 | disposition home or self-care (01) | DRG 603 ==
LOC: ANHED 14:57 → ANH3MEDSUR 18:17
PROVIDERS: Physician Assistant; Admitting Provider Internal Medicine; Emergency Provider Emergency Medicine; PCP Family Medicine; Visit Provider Student in an Organized Health Care Education/Training Program
DX: L03.115 Cellulitis of right lower limb (principal); F33.9 Major depressive disorder, recurrent, unspecified; M51.17 Intervertebral disc disorders with radiculopathy, lumbosacral region; I12.9 Hypertensive chronic kidney disease with stage 1 through stage 4 chronic kidney disease, or unspecified chronic kidney disease; N18.9 Chronic kidney disease, unspecified; I25.10 Atherosclerotic heart disease of native coronary artery without angina pectoris; I70.0 Atherosclerosis of aorta; I70.201 Unspecified atherosclerosis of native arteries of extremities, right leg; J44.9 Chronic obstructive pulmonary disease, unspecified; E03.9 Hypothyroidism, unspecified; E78.00 Pure hypercholesterolemia, unspecified; E53.8 Deficiency of other specified B group vitamins; E87.6 Hypokalemia; F17.210 Nicotine dependence, cigarettes, uncomplicated; W06.XXXA Fall from bed, initial encounter; Z95.820 Peripheral vascular angioplasty status with implants and grafts; Z95.5 Presence of coronary angioplasty implant and graft; Z79.82 Long term (current) use of aspirin; Z79.01 Long term (current) use of anticoagulants
CPT/HCPCS: 36415; 71275; 72131; 73502; 73630; 80048; 80053; 80202; 83605; 83735; 85025; 85027; 85652; 86140; 93005; 93922; 94640; 96374; 96375; 96376; 97110; 97116; 97161; 97165; 97530; 99285; A9270; G0378; J1100; J1170; J2405; J3370; J3480; J7040; J8540; Q9967

== ENCOUNTER 2023-05-16 08:34 | Outpatient (CLI) | payer MEDICARE, OTHER, SELFPAY ==
--- NOTE | ~2023-05-16 | XR_ITS ---
EXAMINATION: XR chest 2V DATE: 05/16/2023 08:57 INDICATION: Lower limb swelling, history of asthma TECHNIQUE: AP and lateral views of the chest are obtained. COMPARISON: 11/08/2020 FINDINGS: The lungs are free of acute opacities. No pleural effusion or pneumothorax. The cardiomedia stinal silhouette is normal. There is moderate thoracic spondylosis. Chronic mild anterior wedging is noted in multiple thoracic vertebral bodies. Median sternotomy wires and mediastinal surgical clips are seen, likely from prior coronary artery bypass grafting. IMPRESSION: 1. No acute cardiopulmonary abnormality. Reviewed, dictated and finalized at location F. LER OPERATOR
--- NOTE | ~2023-05-16 | US_ITS ---
EXAMINATION: US venous doppler LE RT DATE: 05/16/2023 09:48 INDICATION: Right lower limb swelling TECHNIQUE: Granados scale images without and with compression and Doppler images of the right lower extre mity veins were obtained. COMPARISON: None FINDINGS: The right common femoral vein, profunda femoral vein, femoral vein, popliteal vein, peronea l trunk, and posterior tibial veins are patent. IMPRESSION: 1. Patent right lower extremity veins. No evidence of deep venous thrombosis. Reviewed, dictated and finalized at location F. RVISOR PARTICLEBOARD
[2023-05-16 10:01] LABS: Basophils Absolute Auto 0.1 K/mm3 (0.0-0.1); Basophils Percent Auto 0.5 % (0.2-1.2); Eosinophils Absolute Auto 0.6 K/mm3 (0-0.3); Hematocrit 42.8 % (37.0-47.0); Immature Granulocyte Absolute 0.02 K/mm3 (0.00-0.031); Immature Granulocyte Percent A 0.2 % (0-0.5); Lymphocytes Absolute Auto 1.88 K/mm3 (0.9-3.2); Lymphocytes Percent Auto 19.4 % (18.3-44.2); Mean Corpuscular HGB Conc 32.7 g/dl (32-36); Mean Corpuscular Hemoglobin 29.4 pg (26-34); Mean Corpuscular Volume 89.7 fl (80-100); Mean Platelet Volume 9.4 fl (7.4-10.4); Monocytes Absolute Auto 0.7 K/mm3 (0.1-0.6); Monocytes Percent Auto 7.5 % (2.6-8.5); Neutrophils Absolute Auto 6.4 K/mm3 (1.3-6.7); Neutrophils Percent Auto 66.4 % (45.5-73.1); Platelet Count Result 230 k/mm3 (150-375); Red Blood Count 4.77 M/mm3 (4.2-5.4); Red Cell Distribution Width 13.6 % (11.5-14.5); White Blood Count 9.7 K/mm3 (4.5-10.0)
[2023-05-16 10:05] LABS: Appearance Urine Clear (Clear); Bacteria Urine None Seen /hpf; Bilirubin Urine Negative (Negative); Blood Urine Trace (Negative); Color Urine Yellow (Yellow); Glucose Urine UA Negative (Negative); Ketones Urine Negative (Negative); Leukocyte Esterase Ur Negative LEU/UL (Negative); Nitrate Urine Negative (Negative); Non Pathogenic Casts 0-2; Protein Urine Trace mg/dL (Negative); RBC Urine 0-2 /hpf (0-2); Specific Grav Ur 1.009 (1.001-1.035); Squamous Epithelial Cell Urine None seen /hpf (Few); Urobilinogen Urine 0.2 mg/dL (<2.0); WBC Urine 0-5 /hpf
[2023-05-16 10:08] LABS: Add Urine Microscopic? YES
[2023-05-16 10:29] LABS: NT Pro B Type Natriuretic Pept 443 pg/mL (19.9-100)
[2023-05-16 10:33] LABS: Alanine Aminotransferase 36 U/L (6-35); Albumin Level 3.7 g/dL (3.5-5.1); Alkaline Phosphatase 111 U/L (38-126); Anion Gap 9 mmol/L (8-16); Aspartate Amino Transferase 29 U/L (14-36); Bilirubin,Total 0.7 mg/dL (0.2-1.3); Blood Urea Nitrogen 16 mg/dL (7-17); CRP 1.8 mg/dL (<1.0); Calcium 9.5 mg/dL (8.4-10.2); Carbon Dioxide 30 mmol/L (22-30); Chloride 100 mmol/L (98-107); Estimated Glomerular Filt Rate 48; Glucose 122 mg/dL (65-110); Potassium 2.7 mmol/L (3.4-5.0); Sodium 139 mmol/L (137-145)
== END 2023-05-16 08:35 | disposition home or self-care (01) ==
PROVIDERS: PCP Family Medicine; Visit Provider Family Medicine
DX: R06.00 Dyspnea, unspecified (principal); R35.0 Frequency of micturition; I50.9 Heart failure, unspecified; R53.83 Other fatigue; R79.89 Other specified abnormal findings of blood chemistry; E87.1 Hypo-osmolality and hyponatremia; E03.9 Hypothyroidism, unspecified; L03.90 Cellulitis, unspecified; E87.6 Hypokalemia; R22.41 Localized swelling, mass and lump, right lower limb
CPT/HCPCS: 36415; 71046; 80048; 80076; 81001; 82533; 83880; 84443; 85025; 86140; 93971

== ENCOUNTER 2023-05-16 11:51 | Emergency (ER) | payer MEDICARE, OTHER, SELFPAY ==
[2023-05-16] VITALS (27 sets, daily range): BP systolic 112–172; BP diastolic 49–98; PULSE 54–88; RESP 16–22; TEMP 36.4; O2SAT 92–100
[2023-05-16 13:59] LABS: Anion Gap 7 mmol/L (8-16); Blood Urea Nitrogen 16 mg/dL (7-17); Calcium 8.2 mg/dL (8.4-10.2); Carbon Dioxide 27 mmol/L (22-30); Chloride 104 mmol/L (98-107); Estimated CRCL calculation 39 ml/min; Estimated Glomerular Filt Rate 54; Glucose 98 mg/dL (65-110); Potassium 2.5 mmol/L (3.4-5.0); Sodium 138 mmol/L (137-145)
[2023-05-16] MEDS: POTASSIUM CHLORIDE 20 MEQ PACKET (FOR LIQUID) 40 MEQ PO (14:09)
--- NOTE | 2023-05-16 14:17 | ED.GENADULT ---
HPI - General Adult General Chief complaint: Recheck/Abnormal Lab/Rx Stated complaint: low potassium Time Seen by Provider: 05/16/23 12:27 History of Present Illness HPI narrative: 78-year-old female presenting ED for evaluation of low potassium. Patient does have a recent history of hypokalemia that was diagnosed during her last admission for cellulitis. Patient had follow-up with her primary care physician today, patient had ultrasound to rule out DVT and patient had baseline labs drawn. Ultrasound was negative for DVT but patient's potassium was 2.6. Patient does report some associated nausea denies any current chest pain or shortness of breath. Patient is a smoker. Related Data Home Medications Medication Instructions Recorded Confirmed aspirin 325 mg tablet 325 mg PO DAILY 05/18/19 05/14/23 baclofen 10 mg tablet 20 mg PO DAILY pain 05/18/19 05/14/23 carvedilol 6.25 mg tablet (Coreg) 6.25 mg PO Q12H 05/18/19 05/14/23 clopidogrel 75 mg tablet (Plavix) 75 mg PO DAILY 05/18/19 05/14/23 ergocalciferol (vitamin D2) 1,250 1 unit PO WEEKLY 04/24/23 05/14/23 mcg (50,000 unit) capsule levothyroxine 100 mcg tablet 100 mcg PO DAILY 04/24/23 05/14/23 omega [id number]-[id number]-fish oil 300 1 cap PO DAILY 04/24/23 05/14/23 mg-1,000 mg capsule (Fish Oil) trazodone 100 mg tablet 100 mg PO HS PRN Sleep 04/24/23 05/14/23 venlafaxine 75 mg tablet,extended 75 mg PO DAILY 04/24/23 05/14/23 release 24 hr Allergies Allergy/AdvReac Type Severity Reaction Status Date / Time cephalexin Allergy Unknown Unknown Verified 05/16/23 12:09 Penicillins Allergy Unknown Unknown Verified 05/16/23 12:09 Review of Systems Review of Systems: All systems reviewed & are unremarkable except as noted in HPI and below PMFSH Past Medical History Medical History Chronic obstructive pulmonary disease Coronary artery disease Depression Essential hypertension Hypothyroidism Memory loss Moderate episode of recurrent major depressive disorder Peripheral arterial disease Pure hypercholesterolemia Tobacco dependence Vitamin B12 deficiency Surgical History Surgical History History of cardiac catheterization History of cataract surgery History of coronary artery stent placement History of hysterectomy History of vascular surgery Right lower extremity stent. Family History Family History Father Family history of lung cancer Mother Family history of malignant neoplasm of brain Social History Social History Social History: Surrogate medical decision maker: Veronica Marquez, daughter. Code status: Full code. Smoking packs per day: 1 Smoking cigarettes per day: 20.0 Smoking status: Current every day smoker Tobacco type: cigarettes Second hand tobacco smoke exposure: Yes Alcohol intake: never Substance use: never Substance use type: does not use Lack of Transportation: No Lack of Food: Never True Current Housing: I Have Housing Concerned About Future Housing: No Difficulty Paying Gas/Electric Bills: No Difficulty Paying for Meds: No Currently Unemployed: No Education: High School Diploma/GED Difficulty w/ Childcare or Family Care: No Spiritual care concerns: No Exam Narrative: APPEARANCE: Well appearing, no pain, no distress, well-nourished. HEAD: normocephalic, atraumatic. EYES: PERRLA/EOMI, conjunctivae clear. NOSE: Normal no drainage NECK: Supple. No adenopathy, no masses. RESPIRATORY: Airway patent, respirations nonlabored. Clear to auscultation bilaterally, no rales, rhonchi, wheezing. CARDIOVASCULAR: Regular rate and rhythm without murmurs rubs or gallops. ABDOMINAL: Soft, nontender, nondistended, normal bowel sounds MUSCULOSKELETAL: Mild edema of the right lower extremity with
[2023-05-16] MEDS: KCL 20 MEQ/SW 100 ML 100 ML 50 MEQ IVPB (14:20)
[2023-05-16] MEDS: SODIUM CHLORIDE 0.9% IV 500 ML 999 ML IV CONT ×2 (14:27→15:42)
== END 2023-05-16 17:15 | disposition home or self-care (01) ==
PROVIDERS: Emergency Provider Emergency Medicine; PCP Family Medicine
DX: E87.6 Hypokalemia (principal); J44.9 Chronic obstructive pulmonary disease, unspecified; I25.10 Atherosclerotic heart disease of native coronary artery without angina pectoris; I10 Essential (primary) hypertension; I73.9 Peripheral vascular disease, unspecified; E03.9 Hypothyroidism, unspecified; E78.00 Pure hypercholesterolemia, unspecified; E53.8 Deficiency of other specified B group vitamins; F32.A Depression, unspecified; F17.210 Nicotine dependence, cigarettes, uncomplicated; Z95.5 Presence of coronary angioplasty implant and graft; Z98.49 Cataract extraction status, unspecified eye; Z90.710 Acquired absence of both cervix and uterus; Z79.82 Long term (current) use of aspirin; Z79.02 Long term (current) use of antithrombotics/antiplatelets
CPT/HCPCS: 36415; 71046; 80048; 80076; 81001; 82533; 83735; 83880; 84443; 85025; 86140; 93971; 96365; 96366; 99284; A9270; J3480; J7040

== ENCOUNTER 2023-05-19 15:15 | Outpatient (CLI) | payer MEDICARE, OTHER, SELFPAY ==
[2023-05-19 16:25] LABS: Anion Gap 10 mmol/L (8-16); Blood Urea Nitrogen 12 mg/dL (7-17); Calcium 9.3 mg/dL (8.4-10.2); Carbon Dioxide 24 mmol/L (22-30); Chloride 103 mmol/L (98-107); Estimated Glomerular Filt Rate > 60; Glucose 103 mg/dL (65-110); Potassium 3.2 mmol/L (3.4-5.0); Sodium 137 mmol/L (137-145)
== END 2023-05-19 15:16 | disposition home or self-care (01) ==
PROVIDERS: PCP Family Medicine; Visit Provider Family Medicine
DX: E87.6 Hypokalemia (principal)
CPT/HCPCS: 36415; 80048

== ENCOUNTER 2023-06-02 09:22 | Outpatient (CLI) | payer MEDICARE, OTHER, SELFPAY ==
[2023-06-02 10:00] LABS: Basophils Absolute Auto 0.2 K/mm3 (0.0-0.1); Basophils Percent Auto 0.9 % (0.2-1.2); Eosinophils Absolute Auto 0.1 K/mm3 (0-0.3); Eosinophils Percent Auto 0.7 % (0-4.4); Immature Granulocyte Absolute 0.15 K/mm3 (0.00-0.031); Immature Granulocyte Percent A 0.8 % (0-0.5); Lymphocytes Absolute Auto 3.46 K/mm3 (0.9-3.2); Lymphocytes Percent Auto 19.1 % (18.3-44.2); Mean Corpuscular HGB Conc 31.3 g/dl (32-36); Mean Corpuscular Hemoglobin 28.8 pg (26-34); Mean Corpuscular Volume 92.3 fl (80-100); Mean Platelet Volume 9.2 fl (7.4-10.4); Monocytes Absolute Auto 1.7 K/mm3 (0.1-0.6); Monocytes Percent Auto 9.6 % (2.6-8.5); Neutrophils Absolute Auto 12.5 K/mm3 (1.3-6.7); Neutrophils Percent Auto 68.9 % (45.5-73.1); Platelet Count Result 462 k/mm3 (150-375); Red Cell Distribution Width 15.3 % (11.5-14.5); White Blood Count 18.1 K/mm3 (4.5-10.0)
[2023-06-02 10:11] LABS: INR 0.9; Prothrombin Time 12.7 Seconds (11.1-14.7)
[2023-06-02 10:32] LABS: Anion Gap 7 mmol/L (8-16); Blood Urea Nitrogen 27 mg/dL (7-17); Calcium 9.7 mg/dL (8.4-10.2); Carbon Dioxide 26 mmol/L (22-30); Chloride 104 mmol/L (98-107); Cholesterol 172 mg/dL (0-200); Estimated Glomerular Filt Rate 54; Glucose 109 mg/dL (65-110); HDL Direct 49 mg/dL; Potassium 4.7 mmol/L (3.4-5.0); Sodium 137 mmol/L (137-145); Triglycerides 126 mg/dL (<150)
[2023-06-02 10:43] LABS: LDL Cholesterol Direct 78 mg/dL
== END 2023-06-02 09:23 | disposition home or self-care (01) ==
LOC: ANHLAB 09:34
PROVIDERS: PCP Family Medicine; Referring Provider Internal Medicine Cardiovascular Disease; Visit Provider Physician Assistant
DX: R60.9 Edema, unspecified (principal); I25.810 Atherosclerosis of coronary artery bypass graft(s) without angina pectoris; D50.9 Iron deficiency anemia, unspecified; J44.9 Chronic obstructive pulmonary disease, unspecified; R06.02 Shortness of breath; I73.9 Peripheral vascular disease, unspecified; Z87.891 Personal history of nicotine dependence; I10 Essential (primary) hypertension; E78.5 Hyperlipidemia, unspecified; R07.9 Chest pain, unspecified
CPT/HCPCS: 36415; 80048; 80061; 85025; 85610

== ENCOUNTER 2023-07-25 19:47 | Inpatient (IN) | payer MEDICARE, OTHER, SELFPAY ==
[2023-07-25] VITALS (9 sets, daily range): BP systolic 137–175; BP diastolic 60–87; PULSE 93–117; RESP 16–30; TEMP 36.6; O2SAT 94–100
--- NOTE | ~2023-07-25 | US_ITS ---
EXAMINATION: US venous doppler [facility] DATE: 07/27/2023 16:59 INDICATION: right leg redness/ mild swelling . TECHNIQUE: Grayscale images without and with compression and Doppler images of the bilateral lower ex tremity veins were obtained. COMPARISON: 05/16/2023 FINDINGS: The right common femoral vein, profunda (deep) femoral vein, femoral vein, popliteal vein, peroneal v ein, posterior tibial veins, and greater saphenous vein are patent. The left common femoral vein, profunda (deep) femoral vein, femoral vein, popliteal vein, peroneal v ein, posterior tibial veins, and greater saphenous vein are patent. IMPRESSION: Patent bilateral lower extremity veins. No evidence of deep venous thrombosis. Reviewed, dictated and finalized at location K. ING MIXER SUPERVISOR
--- NOTE | ~2023-07-25 | XR_ITS ---
EXAMINATION: XR chest 1V portable DATE: 07/28/2023 10:19 INDICATION: Nausea and vomiting. TECHNIQUE: A single frontal view of the chest was obtained. COMPARISON: Chest 2 views 07/25/2023 FINDINGS: There is mild atelectasis at the lung bases. No pleural effusion or pneumothorax. The heart size is normal. Median sternotomy wires and mediastinal surgical clips are seen, likely from prior c oronary artery bypass grafting. IMPRESSION: 1. Mild atelectasis at the lung bases. Reviewed, dictated and finalized at location E. ISTRY INSTRUCTOR
--- NOTE | ~2023-07-25 | XR_ITS ---
EXAMINATION: XR chest 2V DATE: 07/28/2023 11:58 INDICATION: Cough. Shortness of breath. TECHNIQUE: Frontal and lateral views of the chest were obtained. COMPARISON: Chest single view 07/28/2023, chest CT 04/25/2023 FINDINGS: There is mild atelectasis at right lung base. No pleural effusion or pneumothorax. The hear t size is normal. Median sternotomy wires are noted. There is oral contrast in the esophagus. IMPRESSION: 1. Mild atelectasis at right lung base. 2. Persistent oral contrast in the esophagus, which may be from dysmotility or reflux. Reviewed, dictated and finalized at location E. CTOR OF ENTERPRISE ARCHITECTURE
--- NOTE | ~2023-07-25 | XR_ITS ---
MODIFIED ESOPHAGRAM HISTORY: Patient unable to tolerate medications by mouth with subsequent nausea and vomiting TECHNIQUE: Modified barium esophagram was performed on 07/28/2023. I administered fluoroscopy and perfo rmed the exam with speech pathologist. Patient was seated for lateral fluoroscopic imaging for inges tion of thin liquids, pudding, solids and quantified amounts, followed by thin liquids in uncontrolle d amounts. This was recorded on tape. 2 fluoroscopic images were recorded. The DAP for this procedure was 1.44 Gycm2. The amount of fluoroscopy time used during this procedure was 2.0 minutes. FINDINGS: Oral stage: Adequate function. Pharyngeal stage: Adequate function. Cervical/esophageal stage: There is prominent esophageal backflow. Limited fluoroscopy more inferiorl y at the chest and lateral projection demonstrates a large quantity of contrast with multiple filling defects consistent with previous ingested debris within the mid to distal esophagus raising concern for distal esophageal stricture or obstruction.. IMPRESSION: 1. During the oropharyngeal phase the patient tolerated regular consistency oral feedings in the upri ght position. Please correlate with speech pathologist findings and specific feeding recommendations . 2. There was pooling of a large amount of contrast and likely some previously ingested debris within the esophagus suggesting a likely stricture or obstruction at the level of the distal esophagus. Woul d consider endoscopy for further evaluation. Reviewed, dictated and finalized at location A. RUBBER IMPRESSION: 1. During the oropharyngeal phase the patient tolerated regular consistency ora l feedings in the upright position. Please correlate with speech pathologist f indings and specific feeding recommendations. 2. There was pooling of a large amount of contrast and likely some previously i ngested debris within the esophagus suggesting a likely stricture or obstructio n at the level of the distal esophagus. Would consider endoscopy for further ev aluation.
--- NOTE | ~2023-07-25 | XR_ITS ---
EXAMINATION: XR chest 2V DATE: 07/25/2023 20:21 INDICATION: Shortness of breath TECHNIQUE: frontal and lateral views of the chest were obtained. COMPARISON: Chest radiograph dated 05/16/2023 FINDINGS: The lungs remain clear with no focal airspace opacities, pulmonary edema, pleural effusion or pneumot horax. The cardiomediastinal silhouette is normal. Median sternotomy wires and mediastinal surgical c lips are seen, likely from prior coronary artery bypass grafting. There is also been coronary artery stenting. Atherosclerotic aorta with renal artery stenting. Moderate thoracic spondylosis with chroni c mild anterior wedging of a few mid thoracic vertebral bodies. IMPRESSION: 1. No acute cardiopulmonary disease. Reviewed, dictated and finalized at location A. OPHONE OPERATOR
--- NOTE | 2023-07-25 19:53 | ECG_ITS ---
Measurements Intervals [place] Rate: 111 P: 69 ID: [id number] QRS: 86 QRSD: 121 T: 15 QT: 327 QTc: 445 Interpretive Statements SINUS TACHYCARDIA LEFT ATRIAL ENLARGEMENT NONSPECIFIC INTRAVENTRICULAR CONDUCTION DELAY NONSPECIFIC T-WAVE ABNORMALITY Electronically Signed On 07-26-2023 12:29:13 CREDIT COORDINATOR by Crescencio Dixon M.D.
[2023-07-25 20:11] LABS: Basophils Percent Auto 0.2 % (0.2-1.2); Eosinophils Percent Auto 0.1 % (0-4.4); Hematocrit 44.4 % (37.0-47.0); Hemoglobin 14.5 g/dL (12.0-15.0); Immature Granulocyte Absolute 0.09 K/mm3 (0.00-0.031); Immature Granulocyte Percent A 0.5 % (0-0.5); Lymphocytes Absolute Auto 1.18 K/mm3 (0.9-3.2); Lymphocytes Percent Auto 7.2 % (18.3-44.2); Mean Corpuscular HGB Conc 32.7 g/dl (32-36); Mean Corpuscular Hemoglobin 29.1 pg (26-34); Mean Platelet Volume 9.7 fl (7.4-10.4); Monocytes Absolute Auto 1.2 K/mm3 (0.1-0.6); Monocytes Percent Auto 7.2 % (2.6-8.5); Neutrophils Percent Auto 84.8 % (45.5-73.1); Platelet Count Result 358 k/mm3 (150-375); Red Blood Count 4.99 M/mm3 (4.2-5.4); Red Cell Distribution Width 15.6 % (11.5-14.5); White Blood Count 16.5 K/mm3 (4.5-10.0)
[2023-07-25 20:22] LABS: Alanine Aminotransferase 30 U/L (6-35); Albumin Level 4.2 g/dL (3.5-5.1); Alkaline Phosphatase 88 U/L (38-126); Anion Gap 9 mmol/L (8-16); Aspartate Amino Transferase 37 U/L (14-36); Bilirubin,Total 0.5 mg/dL (0.2-1.3); Blood Urea Nitrogen 20 mg/dL (7-17); Calcium 9.7 mg/dL (8.4-10.2); Carbon Dioxide 27 mmol/L (22-30); Chloride 105 mmol/L (98-107); Estimated CRCL calculation 38 ml/min; Estimated Glomerular Filt Rate 54; Glucose 150 mg/dL (65-110); Potassium 3.4 mmol/L (3.4-5.0); Sodium 141 mmol/L (137-145)
[2023-07-25 20:49] LABS: Influenza A QL RT-PCR Positive (Negative); Influenza B QL RT-PCR Negative (Negative); RSV RNA, RT-PCR Negative (Negative); SARS-CoV-2 RNA PCR Negative (Negative)
--- NOTE | 2023-07-25 21:15 | ED.SOB ---
HPI - SOB/Dyspnea General Chief Complaint: Shortness of Breath/Dyspnea Stated Complaint: WHEEZING/SOB Time Seen by Provider: 07/25/23 20:31 History of Present Illness HPI Narrative: Patient is a 78-year-old female with history of COPD, PAD, hypothyroidism presenting with shortness of breath. Patient states that for last couple a day she has been increasingly short of breath and wheezing a lot. States that she has been using breathing treatments numerous times throughout the day with only temporary improvement. States that today she was too short of breath just walking in her house so she came in for evaluation. Patient was hypoxic for EMS, placed on 3 L nasal cannula. States that she is not normally on oxygen. She denies any pain. No further complaints. Related Data Home Medications Medication Instructions Recorded Confirmed aspirin 325 mg tablet 325 mg PO DAILY 05/18/19 07/25/23 baclofen 10 mg tablet 20 mg PO DAILY pain 05/18/19 07/25/23 carvedilol 6.25 mg tablet (Coreg) 6.25 mg PO Q12H 05/18/19 07/25/23 clopidogrel 75 mg tablet (Plavix) 75 mg PO DAILY 05/18/19 07/26/23 levothyroxine 100 mcg tablet 100 mcg PO DAILY 04/24/23 07/25/23 trazodone 100 mg tablet 100 mg PO HS PRN Sleep 04/24/23 07/26/23 Allergies Allergy/AdvReac Type Severity Reaction Status Date / Time cephalexin Allergy Unknown Unknown Verified 07/23/23 15:06 Penicillins Allergy Unknown Unknown Verified 07/23/23 15:06 Review of Systems Review of Systems: All systems reviewed & are unremarkable except as noted in HPI and below PMFSH Past Medical History Medical History Chronic obstructive pulmonary disease Coronary artery disease Depression Essential hypertension Hypothyroidism Memory loss Moderate episode of recurrent major depressive disorder Peripheral arterial disease Pure hypercholesterolemia Tobacco dependence Vitamin B12 deficiency Surgical History Surgical History History of cardiac catheterization History of cataract surgery History of coronary artery stent placement History of hysterectomy History of vascular surgery Right lower extremity stent. Family History Family History Father Family history of lung cancer Mother Family history of malignant neoplasm of brain Social History Social History Social History: Surrogate medical decision maker: Veronica Marquez, daughter. Code status: Full code. Smoking packs per day: 1 Smoking cigarettes per day: 20.0 Smoking status: Current every day smoker Tobacco type: cigarettes Second hand tobacco smoke exposure: Yes Alcohol intake: never Substance use: never Substance use type: does not use Do You Feel Safe in your Home?: Yes Lack of Transportation: No Lack of Food: Never True Current Housing: I Have Housing Concerned About Future Housing: No Difficulty Paying Gas/Electric Bills: No Difficulty Paying for Meds: No Currently Unemployed: No Education: High School Diploma/GED Difficulty w/ Childcare or Family Care: No Spiritual care concerns: No Exam Narrative: GENERAL: Nontoxic, no acute distress, pleasant cooperative HEAD: Normocephalic, atraumatic. EYES: PERRLA and EOMI. ENT: Grossly unremarkable NECK: Supple. CHEST: No respiratory distress. wheezing bilaterally, saturating 91-93% on 3L [place] HEART: Regular rate and rhythm ABDOMEN: Soft, nontender, nondistended EXTREMITIES: Normal range of motion. No edema. SKIN: Warm, dry, no rash. NEURO: No focal deficits. Alert and oriented x3. PSYCH: Normal mood and affect. Course Vital Signs Vital signs: Vital Signs Temperature 97.8 F 07/25/23 19:42 Pulse Rate 117 H 07/25/23 19:42 Respiratory Rate 24 H 07/25/23 19:42 Blood Pressure 175/87 H
[2023-07-25] MEDS: SODIUM CHLORIDE 0.9% IV 1,000 ML 999 ML IV CONT (21:29)
[2023-07-25] MEDS: OSELTAMIVIR PHOSPHATE 30 MG CAPSULE PO (21:29)
[2023-07-25] MEDS: IPRATROPIUM BR 0.02% INH SOLN 0.5 MG/2.5 ML VIAL INHALATION (21:36)
[2023-07-25] MEDS: ALBUTEROL SULFATE NEB 2.5 MG/3 ML INH 10 MG INHALATION (21:36)
--- NOTE | 2023-07-25 23:46 | PC.NURSE ---
This patient, Daphney Rolle, was admitted to 3 [facility] S[facility] Room 320-01. Patient/family oriented to hospital policies and general routines including ID bracelet, bed and alarms, visiting hours, pain management, procedures, bathroom and other care routines, personal items, smoking policy, room service/diet, and visiting hours. Information on how to activate the Rapid Response Team has been discussed. Patient/Family are encouraged to report perceived risks to care and to ask questions if they do not understand what they are told or what they should do.
[2023-07-26] VITALS (24 sets, daily range): BP systolic 101–166; BP diastolic 66–92; PULSE 70–106; RESP 18–22; TEMP 35.8–37; O2SAT 93–99; BMI 30.4
--- NOTE | 2023-07-26 00:08 | PC.NURSE ---
medication verified with DANIELLA Marquez [phone]
[2023-07-26] MEDS: ALBUTEROL SULFATE NEB 2.5 MG/3 ML INH INHALATION ×2 (02:31→07:40)
[2023-07-26] MEDS: IPRATROPIUM BR 0.02% INH SOLN 0.5 MG/2.5 ML VIAL INHALATION ×2 (02:31→07:40)
--- NOTE | 2023-07-26 11:09 | PM.IMPN ---
Subjective Date/time seen: 07/26/23 11:09 Objective Data Vital Signs Vital Signs: Vital Signs - 24 hr 07/25/23 19:42 07/25/23 19:56 07/25/23 20:03 Temperature 97.8 F Pulse Rate 117 H Respiratory Rate 24 H Blood Pressure 175/87 H Pulse Oximetry 96 100 98 Oxygen Delivery Room Air Nasal Cannula Nasal Cannula Oxygen Flow Rate 2 2 Fraction of Inspired Oxygen 07/25/23 20:05 07/25/23 20:28 07/25/23 21:39 Temperature Pulse Rate 101 H 109 H 100 Respiratory Rate 30 H 26 H Blood Pressure 155/85 H Pulse Oximetry 95 Oxygen Delivery Oxygen Flow Rate Fraction of Inspired Oxygen 07/25/23 23:31 07/25/23 23:47 07/26/23 00:01 Temperature 97.8 F Pulse Rate 93 105 H Respiratory Rate 16 22 H Blood Pressure 137/60 166/85 H Pulse Oximetry 97 94 94 Oxygen Delivery Nasal Cannula Oxygen Flow Rate 2 Fraction of Inspired Oxygen 07/26/23 00:00 07/25/23 22:45 07/26/23 02:34 Temperature Pulse Rate 87 96 101 H Respiratory Rate 20 Blood Pressure Pulse Oximetry 94 Oxygen Delivery Nasal Cannula Oxygen Flow Rate 2 Fraction of Inspired Oxygen 28 07/26/23 02:34 07/26/23 02:45 07/26/23 04:00 Temperature Pulse Rate 101 H 95 86 Respiratory Rate 20 21 H Blood Pressure Pulse Oximetry Oxygen Delivery Oxygen Flow Rate Fraction of Inspired Oxygen 07/26/23 05:56 07/26/23 07:40 07/26/23 07:40 Temperature 98.6 F Pulse Rate 100 102 H Respiratory Rate 22 H 21 H Blood Pressure 159/92 H Pulse Oximetry 93 94 Oxygen Delivery Nasal Cannula Oxygen Flow Rate 3 Fraction of Inspired Oxygen 32 07/26/23 07:50 Temperature Pulse Rate 98 Respiratory Rate 20 Blood Pressure Pulse Oximetry Oxygen Delivery Oxygen Flow Rate Fraction of Inspired Oxygen Intake/Output Intake/Output: Intake & Output 07/23/23 07/24/23 07/25/23 07/26/23 23:59 23:59 23:59 23:59 Intake Total 1000 805 Output Total 1400 Balance 1000 -595 Meds/Results Medications: Active Medications Generic Name Dose Route Start Last Admin Trade Name Freq PRN Reason Stop Dose Admin Albuterol/Ipratropium 3 ml 07/26/23 14:00 Ipratropium 0.5 Mg/Albuterol Sulfate 2.5 Mg Ampul.Neb 3 Ml INHALATION Q6HRT [facility] Radiology Results: ITS Impressions Chest X-Ray 07/25/23 20:59 IMPRESSION: 1. No acute cardiopulmonary disease. Labs Labs: Laboratory Results - last 24 hr 07/25/23 07/25/23 20:05 20:06 WBC 16.5 H RBC 4.99 Hgb 14.5 Hct 44.4 MCV 89.0 MCH 29.1 MCHC 32.7 RDW 15.6 H Plt Count 358 MPV 9.7 Immature Gran % (Auto) 0.5 Neut % (Auto) 84.8 H Lymph % (Auto) 7.2 L [place] % (Auto) 7.2 Eos % (Auto) 0.1 Baso % (Auto) 0.2 Lymph # (Auto) 1.18 [place] # (Auto) 1.2 H Eos # (Auto) 0.0 Baso # (Auto) 0.0 Abs Immat Gran (auto) 0.09 H Absolute Neuts (auto) 14.0 H Absolute Nucleated RBC 0.0 Nucleated RBC % 0.0 Sodium 141 Potassium 3.4 Chloride 105 Carbon Dioxide 27 Anion Gap 9 BUN 20 H Creatinine 1.00 Estim Creat Clear Calc 38 Estimated GFR 54 L Glucose 150 H Calcium 9.7 Total Bilirubin 0.5 AST 37 H ALT 30 Alkaline Phosphatase 88 Total Protein 8.0 Albumin 4.2 Influenza A (RT-PCR) Positive A Influenza B (RT-PCR) Negative RSV (RT-PCR) Negative SARS-CoV-2 RNA (RT-PCR) Negative
--- NOTE | 2023-07-26 13:18 | PM.IMHP ---
H&P: HPI History of Present Illness Date/Time: 07/26/23 13:18 Chief Complaint: Chief Complaint: Shortness of Breath/Dyspnea Stated Complaint: WHEEZING/SOB Narrative: History of Present Illness HPI Narrative: Ms Shelley is a 78-year-old female with PMHx: COPD, PAD, hypothyroidism who presented to the emergency room with a complaint of shortness of breath.? Patient stated that for last couple a day she has been increasingly short of breath and wheezing a lot. States that she has been using breathing treatments numerous times throughout the day with only temporary improvement.? Patient reports mild exertion leading to extreme shortness breath. Patient was hypoxic for EMS, placed on 3 L nasal cannula.? States that she is not normally on oxygen.? She denies any pain.? No further complaints. ED workup revealed: Via EMS, patient was hypoxic on room air saturation in the low 90s, placed on 3 L NC, initial presentation diminished breath sounds bilaterally with scattered wheezing, sinus tachycardia nonspecific T-wave changes, blood work with leukocytosis WBC 16.5 CXR without acute abnormalities. The viral respiratory PCR test positive for influenza A, 1st dose Tamiflu given in the ER Review of Systems Review of Systems: All systems reviewed & are unremarkable except as noted in HPI and below PMFSH Past Medical History Medical History Chronic obstructive pulmonary disease Coronary artery disease Depression Essential hypertension Hypothyroidism Memory loss Moderate episode of recurrent major depressive disorder Peripheral arterial disease Pure hypercholesterolemia Tobacco dependence Vitamin B12 deficiency Surgical History Surgical History History of cardiac catheterization History of cataract surgery History of coronary artery stent placement History of hysterectomy History of vascular surgery Right lower extremity stent. Family History Family History Father Family history of lung cancer Mother Family history of malignant neoplasm of brain Social History Social History Social History: Surrogate medical decision maker: Veronica Marquez, daughter. Code status: Full code. Smoking packs per day: 1 Smoking cigarettes per day: 20.0 Smoking status: Current every day smoker Tobacco type: cigarettes Second hand tobacco smoke exposure: Yes Alcohol intake: never Substance use: never Substance use type: does not use Do You Feel Safe in your Home?: Yes Lack of Transportation: No Lack of Food: Never True Current Housing: I Have Housing Concerned About Future Housing: No Difficulty Paying Gas/Electric Bills: No Difficulty Paying for Meds: No Currently Unemployed: No Education: High School Diploma/GED Difficulty w/ Childcare or Family Care: No Spiritual care concerns: No Meds Home Medications and Allergies Home Medications Medication Instructions Recorded Confirmed Type aspirin 325 mg tablet 325 mg PO DAILY 05/18/19 07/26/23 History baclofen 10 mg tablet 20 mg PO DAILY pain 05/18/19 07/26/23 History carvedilol 6.25 mg tablet (Coreg) 6.25 mg PO Q12H 05/18/19 07/26/23 History clopidogrel 75 mg tablet (Plavix) 75 mg PO DAILY 05/18/19 07/26/23 History nitroglycerin 0.4 mg sublingual 0.4 mg sublingual Q5M PRN chest 10/28/20 07/25/23 Rx tablet pain #30 tabs ezetimibe 10 mg tablet (Zetia) 10 mg PO DAILY #90 tabs 09/11/21 07/26/23 Rx losartan 100 mg tablet 100 mg PO DAILY #90 tabs 09/11/21 07/26/23 Rx rosuvastatin 40 mg tablet (Crestor) 40 mg PO DAILY #90 tabs 09/11/21 07/26/23 Rx amlodipine 10 mg tablet 10 mg PO DAILY #90 tabs 01/23/23 07/26/23 Rx levothyroxine 100 mcg tablet 100 mcg PO DAILY 04/24/23 07/26/23 History trazodone 100 mg tablet 100 mg PO HS PRN Sleep 04/24/23
[2023-07-26] MEDS: IPRATROPIUM 0.5 MG/ALBUTEROL SULFATE 2.5 MG AMPUL.NEB 3 ML INHALATION ×3 (13:30→20:26)
[2023-07-26] MEDS: OSELTAMIVIR PHOSPHATE 30 MG CAPSULE PO ×2 (14:43→20:34)
[2023-07-26] MEDS: traMADol HCL (*CRX) 50 MG TABLET 100 MG PO ×2 (14:44→20:34)
[2023-07-26] MEDS: carvediloL 6.25 MG TABLET PO (20:34)
[2023-07-26] MEDS: traZODone HCL 50 MG TABLET 100 MG PO (20:35)
[2023-07-27] VITALS (29 sets, daily range): BP systolic 109–128; BP diastolic 60–75; PULSE 67–92; RESP 17–22; TEMP 36.4–36.7; O2SAT 91–98
[2023-07-27] MEDS: IPRATROPIUM 0.5 MG/ALBUTEROL SULFATE 2.5 MG AMPUL.NEB 3 ML INHALATION ×7 (00:36→23:12)
--- NOTE | 2023-07-27 02:03 | PC.NURSE ---
urine samples sent to lab
[2023-07-27] MEDS: LEVOTHYROXINE SODIUM 100 MCG TABLET PO (06:08)
[2023-07-27 07:43] LABS: Procalcitonin 0.1 ng/mL
[2023-07-27] MEDS: ROSUVASTATIN 20 MG TABLET 40 MG BY MOUTH (08:42)
[2023-07-27] MEDS: BACLOFEN 10 MG TABLET 20 MG PO (08:42)
[2023-07-27] MEDS: ASPIRIN 325 MG TABLET PO (08:42)
[2023-07-27] MEDS: amLODIPine BESYLATE 5 MG TABLET 10 MG PO (08:42)
[2023-07-27] MEDS: carvediloL 6.25 MG TABLET PO ×2 (08:43→19:59)
[2023-07-27] MEDS: VENLAFAXINE HCL XR 75 MG CAP.ER.24H PO (08:43)
[2023-07-27] MEDS: EZETIMIBE 10 MG TABLET PO (08:43)
[2023-07-27] MEDS: OSELTAMIVIR PHOSPHATE 30 MG CAPSULE PO ×2 (08:43→19:59)
[2023-07-27] MEDS: LOSARTAN POTASSIUM 100 MG TABLET PO (08:43)
[2023-07-27] MEDS: predniSONE 20 MG TABLET 60 MG PO (08:43)
[2023-07-27] MEDS: CLOPIDOGREL BISULFATE 75 MG TABLET PO (08:43)
[2023-07-27] MEDS: ENOXAPARIN 40 MG/0.4 ML SYRINGE SUB-Q (10:48)
--- NOTE | 2023-07-27 14:59 | PM.IMPN ---
Progress Note: A&P Assessment and Plan (1) Influenza: Code(s): J11.1 - Influenza due to unidentified influenza virus with other respiratory manifestations Status: Acute Assessment and Plan: Supportive care -continue oseltamivir q 12 hrs, s/p first does given in the ED (2) Lumbosacral disc herniation: Code(s): M51.27 - Other intervertebral disc displacement, lumbosacral region Status: Acute Assessment and Plan: -continue home medication baclofen -continue home medication tramadol (3) Coronary artery disease: Qualifiers: Coronary Disease-Associated Artery/Lesion type: [place] artery [place] vs. transplanted heart: [place] heart Associated angina: without angina Qualified Code(s): I25.10 - Atherosclerotic heart disease of [place] coronary artery without angina pectoris Code(s): I25.10 - Atherosclerotic heart disease of [place] coronary artery without angina pectoris Status: Acute Assessment and Plan: -continue telemetry monitoring -continue home medications carvedilol, ASA (4) Chronic obstructive pulmonary disease: Qualifiers: COPD type: COPD with acute exacerbation Qualified Code(s): J44.1 - Chronic obstructive pulmonary disease with (acute) exacerbation Code(s): J44.9 - Chronic obstructive pulmonary disease, unspecified Status: Acute Assessment and Plan: suspect COPD exacerbation likely from + influenza A -continue to monitor ? COPD, stable, acute exacerbation ? continue telemetry monitoring ? continue oxygen titration keep Spo2 >93% ? continue Duoneb tx q 4hrs as needed for wheezing or SOB ? activity as tolerated ? check vitals q 4 hrs ? elevated WBC at 16.5, pt has hx of leukocytosis, ? -sputum culture pending ? -urine strep/legionella pending -add azithromycin 500 mg Q 24 hours total 5 doses Plan ? Patient seen and examined at bedside ? Collaborated with patient's nurse at the bedside in detail and addressed all concerns ? Labs, electrolytes, radiology, investigations and test results reviewed Continue home medications: VTE Prophylaxis: Enoxaparin DIET: Healthy Heat Anticipated hospital stay: >2 day Code Status: Full Subjective Date/time seen: 07/27/23 14:59 Interval history: HPI Narrative: Ms Shelley is a? 78-year-old female with PMHx:? COPD, PAD, hypothyroidism who presented to the emergency room with a complaint of shortness of breath.? Patient stated that for last couple a day she has been increasingly short of breath and wheezing a lot. States that she has been using breathing treatments numerous times throughout the day with only temporary improvement.? Patient reports mild exertion leading to extreme shortness breath.? Patient was hypoxic for EMS, placed on 3 L nasal cannula.? States that she is not normally on oxygen.? She denies any pain.? No further complaints. ED workup revealed:??Via EMS, patient was hypoxic on room air saturation in the low 90s, placed on 3 L NC, initial presentation diminished breath sounds bilaterally with scattered wheezing, sinus tachycardia nonspecific T-wave changes, blood work with leukocytosis WBC 16.5 CXR without acute abnormalities.? The viral respiratory PCR test positive for influenza A, 1st dose Tamiflu given in the ER Interval Hx: 07/27/2023 patient seen this morning she is resting with eyes closed she denies any overnight events. She reports ongoing sob with mild exertion. Review of Systems Review of Systems: All systems reviewed & are unremarkable except as noted in HPI and below Exam Narrative: GENERAL: Nontoxic, no acute distress, pleasant cooperative HEAD: Normocephalic, atraumatic. EYES: PERRLA and EOMI. ENT: Grossly unremarkable NECK: Supple. CHEST: wheezing bilaterally, saturating 95% on 1L NC HEART: Regular rate and rhythm ABDOMEN: Soft, nontender, nondistended EXTREMITIES: Normal range of motion. No edema. SKIN: Warm, dry,
[2023-07-27 15:47] LABS: Basophils Percent Auto 0.3 % (0.2-1.2); Eosinophils Percent Auto 0.2 % (0-4.4); Hematocrit 41.9 % (37.0-47.0); Hemoglobin 13.3 g/dL (12.0-15.0); Immature Granulocyte Absolute 0.02 K/mm3 (0.00-0.031); Immature Granulocyte Percent A 0.3 % (0-0.5); Lymphocytes Absolute Auto 0.74 K/mm3 (0.9-3.2); Lymphocytes Percent Auto 11.9 % (18.3-44.2); Mean Corpuscular HGB Conc 31.7 g/dl (32-36); Mean Corpuscular Hemoglobin 28.9 pg (26-34); Mean Corpuscular Volume 90.9 fl (80-100); Mean Platelet Volume 9.7 fl (7.4-10.4); Monocytes Absolute Auto 0.2 K/mm3 (0.1-0.6); Monocytes Percent Auto 2.6 % (2.6-8.5); Neutrophils Absolute Auto 5.3 K/mm3 (1.3-6.7); Neutrophils Percent Auto 84.7 % (45.5-73.1); Platelet Count Result 246 k/mm3 (150-375); Red Blood Count 4.61 M/mm3 (4.2-5.4); Red Cell Distribution Width 15.5 % (11.5-14.5); White Blood Count 6.2 K/mm3 (4.5-10.0)
[2023-07-27 15:56] LABS: Alanine Aminotransferase 31 U/L (6-35); Albumin Level 3.3 g/dL (3.5-5.1); Alkaline Phosphatase 61 U/L (38-126); Anion Gap 4 mmol/L (8-16); Aspartate Amino Transferase 36 U/L (14-36); Bilirubin,Total 0.4 mg/dL (0.2-1.3); Blood Urea Nitrogen 22 mg/dL (7-17); Calcium 8.9 mg/dL (8.4-10.2); Carbon Dioxide 29 mmol/L (22-30); Chloride 97 mmol/L (98-107); Estimated CRCL calculation 38 ml/min; Estimated Glomerular Filt Rate 54; Glucose 196 mg/dL (65-110); Potassium 3.5 mmol/L (3.4-5.0); Sodium 130 mmol/L (137-145)
[2023-07-27] MEDS: AZITHROMYCIN 500 MG/NS 250 ML 500 MG/250 ML BAG 250 MG IVPB (16:31)
[2023-07-27] MEDS: traMADol HCL (*CRX) 50 MG TABLET 100 MG PO (19:56)
[2023-07-27] MEDS: traZODone HCL 50 MG TABLET 100 MG PO (19:59)
[2023-07-28] VITALS (19 sets, daily range): BP systolic 129–142; BP diastolic 50–78; PULSE 57–91; RESP 16–17; TEMP 36.2–36.6; O2SAT 92–100
[2023-07-28] MEDS: IPRATROPIUM 0.5 MG/ALBUTEROL SULFATE 2.5 MG AMPUL.NEB 3 ML INHALATION ×4 (03:01→19:54)
[2023-07-28] MEDS: LEVOTHYROXINE SODIUM 100 MCG TABLET PO (05:59)
[2023-07-28] MEDS: FLUTICASONE/UMECLIDIN/VILANTER 100-62.5-25 MCG ELLIPTA 1 PUFF INHALATION (07:36)
--- NOTE | 2023-07-28 12:31 | PCSTNOTE ---
Please refer to the Modified Barium Swallow Evaluation in the EMR. The patient was seated for a lateral view and presented with 5cc of thin liquid barium via a spoon, pudding consistency barium via a spoon, a cracker coated with barium pudding via spoon, and an uncontrolled thin liquid barium bolus.? This was presented via a cup. Oral preparatory and oral phase symptoms:? none.? Pharyngeal phase symptoms: none.? Esophageal stage symptoms: slow emptying with backflow to the level of the pyriform sinuses with pudding and liquid trials. No laryngeal penetration or aspiration occurred but risk may be present.? Further esophageal testing may be warranted.? Impression: Normal oral and pharyngeal swallow ability. Recommendations: regular diet with regular liquids. Further esophageal testing may be warranted.?
[2023-07-28 12:38] LABS: Anion Gap 4 mmol/L (8-16); Blood Urea Nitrogen 19 mg/dL (7-17); Calcium 9.5 mg/dL (8.4-10.2); Carbon Dioxide 33 mmol/L (22-30); Chloride 98 mmol/L (98-107); Estimated CRCL calculation 46 ml/min; Estimated Glomerular Filt Rate > 60; Glucose 111 mg/dL (65-110); Potassium 3.2 mmol/L (3.4-5.0); Sodium 135 mmol/L (137-145)
--- NOTE | 2023-07-28 12:58 | PM.IMPN ---
Progress Note: A&P Assessment and Plan (1) Influenza: Code(s): J11.1 - Influenza due to unidentified influenza virus with other respiratory manifestations Status: Acute Assessment and Plan: Supportive care -continue oseltamivir q 12 hrs, s/p first does given in the ED (2) Lumbosacral disc herniation: Code(s): M51.27 - Other intervertebral disc displacement, lumbosacral region Status: Acute Assessment and Plan: -continue home medication baclofen -continue home medication tramadol (3) Coronary artery disease: Qualifiers: Coronary Disease-Associated Artery/Lesion type: [place] artery [place] vs. transplanted heart: [place] heart Associated angina: without angina Qualified Code(s): I25.10 - Atherosclerotic heart disease of [place] coronary artery without angina pectoris Code(s): I25.10 - Atherosclerotic heart disease of [place] coronary artery without angina pectoris Status: Acute Assessment and Plan: -continue telemetry monitoring -continue home medications carvedilol, ASA (4) Chronic obstructive pulmonary disease: Qualifiers: COPD type: COPD with acute exacerbation Qualified Code(s): J44.1 - Chronic obstructive pulmonary disease with (acute) exacerbation Code(s): J44.9 - Chronic obstructive pulmonary disease, unspecified Status: Acute Assessment and Plan: suspect COPD exacerbation likely from + influenza A -continue to monitor ? COPD, stable, acute exacerbation ? continue telemetry monitoring ? continue oxygen titration keep Spo2 >93% ? continue Duoneb tx q 4hrs as needed for wheezing or SOB ? activity as tolerated ? check vitals q 4 hrs ? WBC is 6.2 ? -sputum culture pending ? -urine strep/legionella pending -continue azithromycin 500 mg Q 24 hours total 5 doses (5) Swallowing difficulty: Code(s): R13.10 - Dysphagia, unspecified Status: Acute Assessment and Plan: Acute onset patient reports she is unable to swallow her medication without nausea vomiting -check bedside swallow study - Barium study reveals 1. During the oropharyngeal phase the patient tolerated regular consistency oral feedings in the upright position.? Please correlate with speech pathologist findings and specific feeding recommendations. 2. There was pooling of a large amount of contrast and likely some previously ingested debris within the esophagus suggesting a likely stricture or obstruction at the level of the distal esophagus. Would consider endoscopy for further evaluation. -consult GI for swallowing difficulty Plan ? Patient seen and examined at bedside ? Collaborated with patient's nurse at the bedside in detail and addressed all concerns ? Labs, electrolytes, radiology, investigations and test results reviewed Continue home medications: VTE Prophylaxis: Hold/SCDs DIET: As per GI/clear liquid diet Anticipated hospital stay: >2 day Code Status: Full Subjective Date/time seen: 07/28/23 12:58 Interval history: HPI Narrative: Ms Shelley is a? 78-year-old female with PMHx:? COPD, PAD, hypothyroidism who presented to the emergency room with a complaint of shortness of breath.? Patient stated that for last couple a day she has been increasingly short of breath and wheezing a lot. States that she has been using breathing treatments numerous times throughout the day with only temporary improvement.? Patient reports mild exertion leading to extreme shortness breath.? Patient was hypoxic for EMS, placed on 3 L nasal cannula.? States that she is not normally on oxygen.? She denies any pain.? No further complaints. ED workup revealed:??Via EMS, patient was hypoxic on room air saturation in the low 90s, placed on 3 L NC, initial presentation diminished breath sounds bilaterally with scattered wheezing, sinus tachycardia nonspecific T-wave changes, blood work with leukocytosis WBC 16.5 CXR without acute abnormalit
--- NOTE | 2023-07-28 14:46 | WPDGICN ---
Assessment and Plan Assessment and plan (1) Swallowing difficulty: Code(s): R13.10 - Dysphagia, unspecified Status: Acute Assessment and Plan: A modified barium swallow was done today. The findings on the barium study were: 1. During the oropharyngeal phase the patient tolerated regular consistency oral feedings in the upright position.? Please correlate with speech pathologist findings and specific feeding recommendations. 2. There was pooling of a large amount of contrast and likely some previously ingested debris within the esophagus suggesting a likely stricture or obstruction at the level of the distal esophagus. Would consider endoscopy for further evaluation. (2) Influenza: Code(s): J11.1 - Influenza due to unidentified influenza virus with other respiratory manifestations Status: Acute Assessment and Plan: she has tested positive for influenza a and was given Tamiflu in the emergency room. (3) COPD exacerbation: Code(s): J44.1 - Chronic obstructive pulmonary disease with (acute) exacerbation Status: Acute Assessment and Plan: She is on inhalers at home and also prednisone. She is breathing comfortably at present. (4) Peripheral arterial disease: Code(s): I73.9 - Peripheral vascular disease, unspecified Status: Acute Assessment and Plan: She has had stents placed, coronary and in her legs. She has been anticoagulated chronically with clopidogrel and aspirin. I explained her that there is some risk of bleeding if we perform dilatation and I will hold those products for now. Plan EGD tomorrow morning with probable esophageal dilatation. GI Consult Note Consult date/time: 07/28/23 14:46 HPI: Daphney Rolle is a 78 year old female was admitted 2 days ago with shortness of breath. Does have history of COPD for which she is on inhalers. She had become increasingly short of breath over the past week and also had influenza. Yesterday which she was eating at notice that food was not going down. She drinks some water in a few pieces of hamburger meat came back up. She states that she has from time to have time had trouble swallowing and would drink some water and usually whatever was giving her difficulty would pass. She denies chronic heartburn or acid reflux. Her weight has been stable. her appetite is good. She denies any change in bowel habits. She has not had blood her stools. She is anticoagulated with clopidogrel and aspirin and has a history of right lower extremity stent and coronary artery stents. Review of Systems Review of Systems: All systems reviewed & are unremarkable except as noted in HPI and below PMFSH Past Medical History Medical History Chronic obstructive pulmonary disease Coronary artery disease Depression Essential hypertension Hypothyroidism Memory loss Moderate episode of recurrent major depressive disorder Peripheral arterial disease Pure hypercholesterolemia Tobacco dependence Vitamin B12 deficiency Surgical History Surgical History History of cardiac catheterization History of cataract surgery History of coronary artery stent placement History of hysterectomy History of vascular surgery Right lower extremity stent. Family History Family History Father Family history of lung cancer Mother Family history of malignant neoplasm of brain Social History Social History Social History: Surrogate medical decision maker: Veronica Marquez, daughter. Code status: Full code. Smoking packs per day: 1 Smoking cigarettes per day: 20.0 Smoking status: Former smoker Tobacco type: cigarettes Second hand tobacco smoke exposure: Yes Alcohol intake: never Substance use: never Sub
--- NOTE | 2023-07-28 14:56 | PC.NURSE ---
When administering meds this AM, pt was able to appropriately swallow medications with thins. However, shortly thereafter, pt gagged and vomited small amount of liquids and meds. Attempted to follow with pudding, in hopes of assisting pt swallows. Still pt vomited. Notified provider. MBS ordered. Given findings, GI consulted. Requested provider to address medications as pt unable to take pills at this time. Provider stopped thinners for potential procedure, but other medications remain unaddressed. Non-administered meds on med list and wasted tramadol that had been given for pain.
[2023-07-28] MEDS: AZITHROMYCIN 500 MG/NS 250 ML 500 MG/250 ML BAG 250 MG IVPB (15:12)
[2023-07-28] MEDS: SODIUM CHLORIDE 0.9% IV 500 ML 125 ML IV CONT (15:46)
[2023-07-28] MEDS: traMADol HCL (*CRX) 50 MG TABLET 100 MG PO (20:40)
[2023-07-28] MEDS: carvediloL 6.25 MG TABLET PO (20:40)
[2023-07-28] MEDS: OSELTAMIVIR PHOSPHATE 30 MG CAPSULE PO (20:40)
[2023-07-28] MEDS: traZODone HCL 50 MG TABLET 100 MG PO (20:54)
[2023-07-29] VITALS (29 sets, daily range): BP systolic 114–153; BP diastolic 53–75; PULSE 47–91; RESP 16–20; TEMP 35.9–36.8; O2SAT 93–100
[2023-07-29] MEDS: IPRATROPIUM 0.5 MG/ALBUTEROL SULFATE 2.5 MG AMPUL.NEB 3 ML INHALATION ×5 (00:20→20:37)
[2023-07-29] MEDS: LEVOTHYROXINE SODIUM 100 MCG TABLET PO (05:55)
[2023-07-29] MEDS: FLUTICASONE/UMECLIDIN/VILANTER 100-62.5-25 MCG ELLIPTA 1 PUFF INHALATION (09:07)
[2023-07-29] MEDS: LACTATED RINGERS 1,000 ML 150 ML IV CONT (11:27)
--- NOTE | 2023-07-29 11:57 | WPDANESEPPF ---
Anes - Initial Pre Proc Eval Procedure: Operation Date: 07/29/23 12:30 Proposed Procedures p Esophagogastroduodenoscopy - Kaleb Veliz MD Date/Time: 07/29/23 11:57 Surgeon: Manjeet Kohli MD Pre Op Diagnosis: Influenza A Patient Data Age: 78 Gender: F Height: 1.55 m Weight: 72.9 kg Last Vital Signs Temp 97.8 F 07/29/23 11:22 Pulse 89 07/29/23 11:22 Resp 18 07/29/23 11:22 BP 147/62 H 07/29/23 11:22 Pulse Ox 99 07/29/23 11:22 O2 Del Method Nasal Cannula 07/29/23 11:22 O2 Flow Rate 2 07/29/23 11:22 FiO2 32 07/26/23 08:00 Allergies Allergy/AdvReac Type Severity Reaction Status Date / Time cephalexin Allergy Unknown Unknown Verified 07/29/23 11:19 Penicillins Allergy Unknown Unknown Verified 07/29/23 11:19 Home Medications Medication Instructions Recorded Confirmed Type aspirin 325 mg tablet 325 mg PO DAILY 05/18/19 07/26/23 History baclofen 10 mg tablet 20 mg PO DAILY pain 05/18/19 07/26/23 History carvedilol 6.25 mg tablet (Coreg) 6.25 mg PO Q12H 05/18/19 07/26/23 History clopidogrel 75 mg tablet (Plavix) 75 mg PO DAILY 05/18/19 07/26/23 History nitroglycerin 0.4 mg sublingual 0.4 mg sublingual Q5M PRN chest 10/28/20 07/25/23 Rx tablet pain #30 tabs ezetimibe 10 mg tablet (Zetia) 10 mg PO DAILY #90 tabs 09/11/21 07/26/23 Rx losartan 100 mg tablet 100 mg PO DAILY #90 tabs 09/11/21 07/26/23 Rx rosuvastatin 40 mg tablet (Crestor) 40 mg PO DAILY #90 tabs 09/11/21 07/26/23 Rx amlodipine 10 mg tablet 10 mg PO DAILY #90 tabs 01/23/23 07/26/23 Rx levothyroxine 100 mcg tablet 100 mcg PO DAILY 04/24/23 07/26/23 History trazodone 100 mg tablet 100 mg PO HS PRN Sleep 04/24/23 07/26/23 History fluticasone fur. 100 mcg-umeclid See Rx Instructions .Route 05/14/23 07/25/23 Rx 62.5 mcg-vilant 25 mcg .COMPLEX #60 ea inhalat.powder (Trelegy Ellipta) venlafaxine 75 mg tablet,extended 75 mg PO DAILY #30 tabs 06/18/23 07/26/23 Rx release 24 hr tramadol 50 mg tablet 100 mg PO Q6H PRN pain #120 tabs 06/19/23 07/26/23 Rx prednisone 10 mg tablet See Rx Instructions .Route 07/23/23 07/26/23 Rx .COMPLEX 10 days #30 tabs albuterol sulfate 2.5 mg/3 mL 2.5 mg (3 mL) inhalation Q6H PRN 07/25/23 07/26/23 Rx (0.083 %) solution for nebulization bronchospasm #90 mL Laboratory Tests 07/28/23 12:17 Sodium 135 L mmol/L (137-145) Potassium 3.2 L mmol/L (3.4-5.0) Chloride 98 mmol/L (98-107) Carbon Dioxide 33 H mmol/L (22-30) Anion Gap 4 L mmol/L (8-16) BUN 19 H mg/dL (7-17) Creatinine 0.80 mg/dL (0.7-1.0) Estim Creat Clear Calc 46 ml/min Estimated GFR > 60 (59 - ) Glucose 111 H mg/dL (65-110) Calcium 9.5 mg/dL (8.4-10.2) Patient hx anesthesia problems: none Family hx anesthesia problems: none Results Review: All pre-operative results and documents have been reviewed as part of the pre-operative evaluation. [facility] Past Medical History Medical History Chronic obstructive pulmonary disease Coronary artery disease Depression Essential hypertension Hypothyroidism Memory loss Moderate episode of recurrent major depressive disorder Peripheral arterial disease Pure hypercholesterolemia Tobacco dependence Vitamin B12 deficiency Surgical History Surgical History History of cardiac catheterization History of cataract surgery History of coronary artery stent placement History of hysterectomy History of vascular surgery Right lower extremity stent. Family History Family History Father Family history of lung cancer Mother Family history of malignant neoplasm of brain Social History Social History Social History: Surrogate medical decision maker: Veronica Marquez, daughter. Code status: Full code. [place]
[2023-07-29] MEDS: AZITHROMYCIN 500 MG/NS 250 ML 500 MG/250 ML BAG 250 MG IVPB (13:28)
[2023-07-29] MEDS: CLOPIDOGREL BISULFATE 75 MG TABLET PO (13:29)
[2023-07-29] MEDS: carvediloL 6.25 MG TABLET PO ×2 (13:29→20:21)
[2023-07-29] MEDS: EZETIMIBE 10 MG TABLET PO (13:29)
[2023-07-29] MEDS: OSELTAMIVIR PHOSPHATE 30 MG CAPSULE PO ×2 (13:29→20:21)
[2023-07-29] MEDS: PANTOPRAZOLE 40 MG TABLET PO (13:34)
[2023-07-29] MEDS: BACLOFEN 10 MG TABLET 20 MG PO (13:34)
[2023-07-29] MEDS: VENLAFAXINE HCL XR 75 MG CAP.ER.24H PO (13:34)
[2023-07-29] MEDS: ROSUVASTATIN 20 MG TABLET 40 MG BY MOUTH (13:34)
[2023-07-29] MEDS: amLODIPine BESYLATE 5 MG TABLET 10 MG PO (13:35)
[2023-07-29] MEDS: LOSARTAN POTASSIUM 100 MG TABLET PO (13:36)
[2023-07-29] MEDS: predniSONE 20 MG TABLET 60 MG PO (13:36)
--- NOTE | 2023-07-29 15:03 | PM.IMPN ---
Progress Note: A&P Assessment and Plan (1) Influenza: Code(s): J11.1 - Influenza due to unidentified influenza virus with other respiratory manifestations Status: Acute Assessment and Plan: Supportive care -continue oseltamivir q 12 hrs, s/p first does given in the ED (2) Lumbosacral disc herniation: Code(s): M51.27 - Other intervertebral disc displacement, lumbosacral region Status: Acute Assessment and Plan: -continue home medication baclofen -continue home medication tramadol (3) Coronary artery disease: Qualifiers: Coronary Disease-Associated Artery/Lesion type: [place] artery [place] vs. transplanted heart: [place] heart Associated angina: without angina Qualified Code(s): I25.10 - Atherosclerotic heart disease of [place] coronary artery without angina pectoris Code(s): I25.10 - Atherosclerotic heart disease of [place] coronary artery without angina pectoris Status: Acute Assessment and Plan: -continue telemetry monitoring -continue home medications carvedilol, ASA (4) Chronic obstructive pulmonary disease: Qualifiers: COPD type: COPD with acute exacerbation Qualified Code(s): J44.1 - Chronic obstructive pulmonary disease with (acute) exacerbation Code(s): J44.9 - Chronic obstructive pulmonary disease, unspecified Status: Acute Assessment and Plan: suspect COPD exacerbation likely from + influenza A -continue to monitor ? COPD, stable, acute exacerbation ? continue telemetry monitoring ? continue oxygen titration keep Spo2 >93% ? continue Duoneb tx q 4hrs as needed for wheezing or SOB ? activity as tolerated ? check vitals q 4 hrs ? WBC is 6.2 ? -sputum culture pending ? -urine strep/legionella pending -continue azithromycin 500 mg Q 24 hours total 3/5 doses given (5) Swallowing difficulty: Code(s): R13.10 - Dysphagia, unspecified Status: Acute Assessment and Plan: Acute onset, patient reports she is unable to swallow her medication without nausea vomiting -EGD reveals: Nonerosive reflux disease([place]) Gastritis Duodenitis -start PPI 40 mg daily -patient will need to follow up for results within 7 days in the office -avoid aspirin or NSAIDs on an empty stomach Plan ? Patient seen and examined at bedside ? Collaborated with patient's nurse at the bedside in detail and addressed all concerns ? Labs, electrolytes, radiology, investigations and test results reviewed Continue home medications: VTE Prophylaxis: Hold/SCDs DIET: As per GI/clear liquid diet Anticipated hospital stay: >2 day Code Status: Full Subjective Date/time seen: 07/29/23 1200 Interval history: HPI Narrative: Ms Shelely is a? 78-year-old female with PMHx:? COPD, PAD, hypothyroidism who presented to the emergency room with a complaint of shortness of breath.? Patient stated that for last couple a day she has been increasingly short of breath and wheezing a lot. States that she has been using breathing treatments numerous times throughout the day with only temporary improvement.? Patient reports mild exertion leading to extreme shortness breath.? Patient was hypoxic for EMS, placed on 3 L nasal cannula.? States that she is not normally on oxygen.? She denies any pain.? No further complaints. ED workup revealed:??Via EMS, patient was hypoxic on room air saturation in the low 90s, placed on 3 L NC, initial presentation diminished breath sounds bilaterally with scattered wheezing, sinus tachycardia nonspecific T-wave changes, blood work with leukocytosis WBC 16.5 CXR without acute abnormalities.? The viral respiratory PCR test positive for influenza A, 1st dose Tamiflu given in the ER Interval Hx: 07/27/2023 patient seen this morning she is resting with eyes closed she denies any overnight events. She reports ongoing sob with mild exertion. 07/28/2023: Patient seen today morning, resting in bed report
[2023-07-29] MEDS: traMADol HCL (*CRX) 50 MG TABLET 100 MG PO (20:23)
[2023-07-30] VITALS (23 sets, daily range): BP systolic 102–157; BP diastolic 50–86; PULSE 56–91; RESP 12–20; TEMP 36.5–36.6; O2SAT 90–100
[2023-07-30] MEDS: IPRATROPIUM 0.5 MG/ALBUTEROL SULFATE 2.5 MG AMPUL.NEB 3 ML INHALATION ×6 (00:13→21:51)
[2023-07-30 01:34] LABS: Pneumococcal Antigen Urine Detected (Not Detected)
[2023-07-30] MEDS: LEVOTHYROXINE SODIUM 100 MCG TABLET PO (05:53)
--- NOTE | 2023-07-30 07:35 | WPDANESPN ---
Anes - Prog Note Post-Op Date/Time: 07/30/23 07:35 Cardiovascular status: normal Respiratory status: normal Airway patency: baseline Mental status: baseline Post-Op hydration status: normal Vital Signs: Last Vital Signs Temp 36.6 C 07/30/23 06:00 Pulse 61 07/30/23 06:00 Resp 18 07/30/23 06:00 BP 157/86 H 07/30/23 06:00 Pulse Ox 90 07/30/23 06:00 O2 Del Method Nasal Cannula 07/29/23 20:40 O2 Flow Rate 2 07/29/23 20:40 FiO2 32 07/26/23 08:00 Pain Score (VAS): 0 I/O: Intake & Output 07/29/23 07/29/23 07/30/23 15:59 23:59 07:59 Intake Total 100 250 200 Balance 100 250 200 Laboratory Tests 07/27/23 15:39 07/28/23 12:17 07/27/23 01:56 Urine Pneumococcal Ag Detected A Microbiology 07/27/23 08:07 Sputum Sputum Culture - Final Post-procedural complaints: none Patient Feedback: Patient satisfied with anesthetic care.
[2023-07-30] MEDS: FLUTICASONE/UMECLIDIN/VILANTER 100-62.5-25 MCG ELLIPTA 1 PUFF INHALATION (08:29)
[2023-07-30] MEDS: EZETIMIBE 10 MG TABLET PO (10:36)
[2023-07-30] MEDS: predniSONE 20 MG TABLET 60 MG PO (10:36)
[2023-07-30] MEDS: OSELTAMIVIR PHOSPHATE 30 MG CAPSULE PO ×2 (10:36→20:55)
[2023-07-30] MEDS: VENLAFAXINE HCL XR 75 MG CAP.ER.24H PO (10:36)
[2023-07-30] MEDS: BACLOFEN 10 MG TABLET 20 MG PO (10:37)
[2023-07-30] MEDS: PANTOPRAZOLE 40 MG TABLET PO (10:37)
[2023-07-30] MEDS: ROSUVASTATIN 20 MG TABLET 40 MG BY MOUTH (10:37)
[2023-07-30] MEDS: LOSARTAN POTASSIUM 100 MG TABLET PO (10:37)
[2023-07-30] MEDS: ASPIRIN 325 MG TABLET PO (10:37)
[2023-07-30] MEDS: ENOXAPARIN 40 MG/0.4 ML SYRINGE SUB-Q (10:38)
[2023-07-30] MEDS: amLODIPine BESYLATE 5 MG TABLET 10 MG PO (10:41)
[2023-07-30] MEDS: carvediloL 6.25 MG TABLET PO ×2 (10:41→20:55)
[2023-07-30] MEDS: CLOPIDOGREL BISULFATE 75 MG TABLET PO (10:42)
[2023-07-30] MEDS: polyethylene glycoL 3350 17 GM POWD.PACK PO (11:09)
[2023-07-30] MEDS: AZITHROMYCIN 250 MG TABLET 500 MG PO (13:38)
--- NOTE | 2023-07-30 15:45 | PM.IMPN ---
Progress Note: A&P Assessment and Plan (1) Influenza: Code(s): J11.1 - Influenza due to unidentified influenza virus with other respiratory manifestations Status: Acute Assessment and Plan: Supportive care -continue oseltamivir q 12 hrs, s/p first does given in the ED -now requiring oxygen. Acute hypoxic respiratory failure. Wean oxygen as appropriate. (2) Lumbosacral disc herniation: Code(s): M51.27 - Other intervertebral disc displacement, lumbosacral region Status: Acute Assessment and Plan: -continue home medication baclofen -continue home medication tramadol (3) Coronary artery disease: Qualifiers: Coronary Disease-Associated Artery/Lesion type: [place] artery [place] vs. transplanted heart: [place] heart Associated angina: without angina Qualified Code(s): I25.10 - Atherosclerotic heart disease of [place] coronary artery without angina pectoris Code(s): I25.10 - Atherosclerotic heart disease of [place] coronary artery without angina pectoris Status: Acute Assessment and Plan: -continue telemetry monitoring -continue home medications carvedilol, ASA (4) Chronic obstructive pulmonary disease: Qualifiers: COPD type: COPD with acute exacerbation Qualified Code(s): J44.1 - Chronic obstructive pulmonary disease with (acute) exacerbation Code(s): J44.9 - Chronic obstructive pulmonary disease, unspecified Status: Acute Assessment and Plan: suspect COPD exacerbation likely from + influenza A -continue to monitor ? COPD, acute exacerbation ? continue telemetry monitoring ? continue oxygen titration keep Spo2 >93% ? continue Duoneb tx q 4hrs as needed for wheezing or SOB ? activity as tolerated ? check vitals q 4 hrs ? WBC is 6.2 ? -sputum culture pending ? -urine strep/legionella pending -continue azithromycin 500 mg Q 24 hours total 3/5 doses given Significant wheezing on 07/30 and now requiring oxygen. Add prednisone 40 mg p.o. q.day and continue DuoNeb scheduled. (5) Swallowing difficulty: Code(s): R13.10 - Dysphagia, unspecified Status: Acute Assessment and Plan: Acute onset, patient reports she is unable to swallow her medication without nausea vomiting -EGD reveals: Nonerosive reflux disease(NERD) Gastritis Duodenitis -start PPI 40 mg daily -patient will need to follow up for results within 7 days in the office -avoid aspirin or NSAIDs on an empty stomach On 02/07 no more reports of dysphagia Plan Continue home medications: VTE Prophylaxis: Lovenox Continue Protonix DIET: Heart healthy diet Code Status: Full Subjective Date/time seen: 07/30/23 15:45 Interval history: No acute overnight events. Patient denies any chest pain or shortness of breath. She is asking to go home Review of Systems Review of Systems: All systems reviewed & are unremarkable except as noted in HPI and below (Subjective) Exam Const: General: comfortable and no acute distress Eyes: Pupils: Equal, round and reactive pupils present Neck: Neck: supple Resp: Effort & Inspection: normal respiratory effort Auscultation: wheezes Cardio: Rate: regular rate Rhythm: regular rhythm GI: GI Palp: Yes Soft to palpation Extrem: General: no edema Objective Data Vital Signs Vital Signs: Vital Signs - 24 hr 07/29/23 16:47 07/29/23 16:59 07/29/23 16:00 Temperature Pulse Rate 75 80 59 L Respiratory Rate 18 18 Blood Pressure Pulse Oximetry Oxygen Delivery Oxygen Flow Rate 07/29/23 20:21 07/29/23 20:39 07/29/23 20:40 Temperature Pulse Rate 88 91 91 Respiratory Rate 18 Blood Pressure Pulse Oximetry 97 Oxygen Delivery Nasal Cannula Oxygen Flow Rate 2 07/29/23 20:49 07/29/23 20:15 07/29/23 21:25 Temperature Pulse Rate 89 71 Respiratory Rate 18 Blood Pressure Pulse Oximetry 95 Oxygen Delivery Nasal Cannula Oxygen Fl
[2023-07-30 16:34] LABS: Basophils Percent Auto 0.1 % (0.2-1.2); Hematocrit 41.4 % (37.0-47.0); Hemoglobin 13.2 g/dL (12.0-15.0); Immature Granulocyte Absolute 0.04 K/mm3 (0.00-0.031); Immature Granulocyte Percent A 0.5 % (0-0.5); Lymphocytes Absolute Auto 0.79 K/mm3 (0.9-3.2); Lymphocytes Percent Auto 9.8 % (18.3-44.2); Mean Corpuscular HGB Conc 31.9 g/dl (32-36); Mean Corpuscular Hemoglobin 28.7 pg (26-34); Monocytes Absolute Auto 0.2 K/mm3 (0.1-0.6); Monocytes Percent Auto 2.7 % (2.6-8.5); Neutrophils Percent Auto 86.9 % (45.5-73.1); Platelet Count Result 271 k/mm3 (150-375); Red Cell Distribution Width 14.9 % (11.5-14.5); White Blood Count 8.1 K/mm3 (4.5-10.0)
[2023-07-30 17:22] LABS: Anion Gap 4 mmol/L (8-16); Blood Urea Nitrogen 18 mg/dL (7-17); Calcium 8.9 mg/dL (8.4-10.2); Carbon Dioxide 35 mmol/L (22-30); Chloride 97 mmol/L (98-107); Estimated CRCL calculation 47 ml/min; Estimated Glomerular Filt Rate > 60; Glucose 132 mg/dL (65-110); Magnesium 2.3 mg/dL (1.6-2.3); Potassium 3.3 mmol/L (3.4-5.0); Sodium 136 mmol/L (137-145)
[2023-07-30] MEDS: traZODone HCL 50 MG TABLET 100 MG PO (21:00)
[2023-07-30] MEDS: traMADol HCL (*CRX) 50 MG TABLET 100 MG PO (21:00)
[2023-07-30 23:12] LABS: Legionella pneumophila Ag Ur Not Detected (Not Detected)
[2023-07-31] VITALS (22 sets, daily range): BP systolic 119–150; BP diastolic 54–63; PULSE 53–80; RESP 14–18; TEMP 35.8–36.5; O2SAT 92–95
[2023-07-31] MEDS: IPRATROPIUM 0.5 MG/ALBUTEROL SULFATE 2.5 MG AMPUL.NEB 3 ML INHALATION ×5 (04:01→20:24)
[2023-07-31] MEDS: LEVOTHYROXINE SODIUM 100 MCG TABLET PO (05:40)
[2023-07-31] MEDS: FLUTICASONE/UMECLIDIN/VILANTER 100-62.5-25 MCG ELLIPTA 1 PUFF INHALATION (07:28)
[2023-07-31] MEDS: ENOXAPARIN 40 MG/0.4 ML SYRINGE SUB-Q (10:26)
[2023-07-31] MEDS: predniSONE 20 MG TABLET 60 MG PO (10:26)
[2023-07-31] MEDS: ASPIRIN 325 MG TABLET PO (10:26)
[2023-07-31] MEDS: EZETIMIBE 10 MG TABLET PO (10:26)
[2023-07-31] MEDS: carvediloL 6.25 MG TABLET PO ×2 (10:26→20:57)
[2023-07-31] MEDS: AZITHROMYCIN 250 MG TABLET 500 MG PO (10:27)
[2023-07-31] MEDS: LOSARTAN POTASSIUM 100 MG TABLET PO (10:27)
[2023-07-31] MEDS: BACLOFEN 10 MG TABLET 20 MG PO (10:27)
[2023-07-31] MEDS: OSELTAMIVIR PHOSPHATE 30 MG CAPSULE PO (10:27)
[2023-07-31] MEDS: ROSUVASTATIN 20 MG TABLET 40 MG BY MOUTH (10:27)
[2023-07-31] MEDS: amLODIPine BESYLATE 5 MG TABLET 10 MG PO (10:27)
[2023-07-31] MEDS: VENLAFAXINE HCL XR 75 MG CAP.ER.24H PO (10:27)
[2023-07-31] MEDS: PANTOPRAZOLE 40 MG TABLET PO (10:28)
[2023-07-31] MEDS: polyethylene glycoL 3350 17 GM POWD.PACK PO (10:28)
--- NOTE | 2023-07-31 12:46 | PM.IMPN ---
Progress Note: A&P Assessment and Plan (1) Influenza: Code(s): J11.1 - Influenza due to unidentified influenza virus with other respiratory manifestations Status: Acute Assessment and Plan: Supportive care -continue oseltamivir q 12 hrs -now requiring oxygen. Acute hypoxic respiratory failure. Wean oxygen as appropriate. (2) Lumbosacral disc herniation: Code(s): M51.27 - Other intervertebral disc displacement, lumbosacral region Status: Acute Assessment and Plan: -continue home medication baclofen -continue home medication tramadol (3) Coronary artery disease: Qualifiers: Coronary Disease-Associated Artery/Lesion type: [place] artery [place] vs. transplanted heart: [place] heart Associated angina: without angina Qualified Code(s): I25.10 - Atherosclerotic heart disease of [place] coronary artery without angina pectoris Code(s): I25.10 - Atherosclerotic heart disease of [place] coronary artery without angina pectoris Status: Acute Assessment and Plan: -continue telemetry monitoring -continue home medications carvedilol, ASA (4) Chronic obstructive pulmonary disease: Qualifiers: COPD type: COPD with acute exacerbation Qualified Code(s): J44.1 - Chronic obstructive pulmonary disease with (acute) exacerbation Code(s): J44.9 - Chronic obstructive pulmonary disease, unspecified Status: Acute Assessment and Plan: suspect COPD exacerbation likely from + influenza A -continue to monitor ? COPD, acute exacerbation ? continue telemetry monitoring ? continue oxygen titration keep Spo2 >93% ? continue Duoneb tx q 4hrs as needed for wheezing or SOB ? activity as tolerated ? -sputum culture pending ? -urine strep/legionella pending -continue azithromycin 500 mg Q 24 hours total 3/5 doses given Significant wheezing on 07/30 and now requiring oxygen. Continue prednisone (5) Swallowing difficulty: Code(s): R13.10 - Dysphagia, unspecified Status: Acute Assessment and Plan: Acute onset, patient reports she is unable to swallow her medication without nausea vomiting -EGD reveals: Nonerosive reflux disease(NERD) Gastritis Duodenitis -start PPI 40 mg daily -patient will need to follow up for results within 7 days in the office -avoid aspirin or NSAIDs on an empty stomach On 07/30 no more reports of dysphagia Plan Continue home medications: VTE Prophylaxis: Lovenox Continue Protonix DIET: Heart healthy diet Code Status: Full Subjective Date/time seen: 02/08/24 12:46 Interval history: No acute overnight events. The patient denies shortness of breath or any other complaints Review of Systems Review of Systems: All systems reviewed & are unremarkable except as noted in HPI and below (Subjective) Exam Const: General: comfortable and no acute distress Other: A&O x3 Eyes: Pupils: Equal, round and reactive pupils present Neck: Neck: supple Resp: Effort & Inspection: normal respiratory effort Other: Coarse expiratory wheeze Cardio: Rate: regular rate Rhythm: regular rhythm GI: GI Palp: Yes Soft to palpation and No Tenderness to palpation present (GI) Extrem: General: no edema Objective Data Vital Signs Vital Signs: Vital Signs - 24 hr 07/30/23 14:00 07/30/23 16:00 07/30/23 16:20 Temperature 97.8 F Pulse Rate 76 72 72 Respiratory Rate 12 18 Blood Pressure 102/66 Pulse Oximetry 93 Oxygen Delivery Oxygen Flow Rate Fraction of Inspired Oxygen 07/30/23 16:28 07/30/23 20:00 07/30/23 21:55 Temperature Pulse Rate 72 75 Respiratory Rate 18 18 Blood Pressure Pulse Oximetry 94 Oxygen Delivery Nasal Cannula Oxygen Flow Rate 1 Fraction of Inspired Oxygen 07/30/23 22:01 07/30/23 22:00 07/31/23 01:39 Temperature 97.7 F Pulse Rate 73 82 74 Respiratory Rate 18 20 14 Blood Pressure 148/78 H Pulse Oximetry
[2023-07-31] MEDS: NICOTINE (*PBKC) 4 MG GUM PO (17:25)
[2023-07-31] MEDS: traMADol HCL (*CRX) 50 MG TABLET 100 MG PO (20:57)
[2023-07-31] MEDS: guaiFENesin 12 HR 600 MG TABCR 1200 MG PO (20:57)
[2023-07-31] MEDS: traZODone HCL 50 MG TABLET 100 MG PO (20:57)
[2023-08-01] VITALS (15 sets, daily range): BP systolic 142; BP diastolic 82; PULSE 59–80; RESP 16–18; TEMP 36.4; O2SAT 93–99
[2023-08-01] MEDS: IPRATROPIUM 0.5 MG/ALBUTEROL SULFATE 2.5 MG AMPUL.NEB 3 ML INHALATION ×4 (00:18→11:00)
[2023-08-01] MEDS: LEVOTHYROXINE SODIUM 100 MCG TABLET PO (05:58)
[2023-08-01] MEDS: NICOTINE (*PBKC) 4 MG GUM PO ×2 (05:59→08:59)
[2023-08-01] MEDS: FLUTICASONE/UMECLIDIN/VILANTER 100-62.5-25 MCG ELLIPTA 1 PUFF INHALATION (07:04)
[2023-08-01 07:14] LABS: Basophils Percent Auto 0.1 % (0.2-1.2); Eosinophils Percent Auto 0.1 % (0-4.4); Hematocrit 40.9 % (37.0-47.0); Hemoglobin 13.1 g/dL (12.0-15.0); Immature Granulocyte Absolute 0.06 K/mm3 (0.00-0.031); Immature Granulocyte Percent A 0.7 % (0-0.5); Lymphocytes Absolute Auto 1.71 K/mm3 (0.9-3.2); Mean Corpuscular Hemoglobin 28.8 pg (26-34); Mean Corpuscular Volume 89.9 fl (80-100); Mean Platelet Volume 9.7 fl (7.4-10.4); Monocytes Absolute Auto 0.9 K/mm3 (0.1-0.6); Neutrophils Absolute Auto 6.3 K/mm3 (1.3-6.7); Neutrophils Percent Auto 70.1 % (45.5-73.1); Platelet Count Result 256 k/mm3 (150-375); Red Blood Count 4.55 M/mm3 (4.2-5.4); Red Cell Distribution Width 14.6 % (11.5-14.5)
[2023-08-01 07:23] LABS: Anion Gap 3 mmol/L (8-16); Blood Urea Nitrogen 20 mg/dL (7-17); Calcium 8.6 mg/dL (8.4-10.2); Carbon Dioxide 32 mmol/L (22-30); Chloride 100 mmol/L (98-107); Estimated CRCL calculation 47 ml/min; Estimated Glomerular Filt Rate > 60; Glucose 80 mg/dL (65-110); Magnesium 2.4 mg/dL (1.6-2.3); Potassium 3.4 mmol/L (3.4-5.0); Sodium 135 mmol/L (137-145)
[2023-08-01] MEDS: amLODIPine BESYLATE 5 MG TABLET 10 MG PO (08:56)
[2023-08-01] MEDS: EZETIMIBE 10 MG TABLET PO (08:57)
[2023-08-01] MEDS: VENLAFAXINE HCL XR 75 MG CAP.ER.24H PO (08:57)
[2023-08-01] MEDS: ROSUVASTATIN 20 MG TABLET 40 MG BY MOUTH (08:57)
[2023-08-01] MEDS: guaiFENesin 12 HR 600 MG TABCR 1200 MG PO (08:57)
[2023-08-01] MEDS: PANTOPRAZOLE 40 MG TABLET PO (08:57)
[2023-08-01] MEDS: CLOPIDOGREL BISULFATE 75 MG TABLET PO (08:57)
[2023-08-01] MEDS: LOSARTAN POTASSIUM 100 MG TABLET PO (08:57)
[2023-08-01] MEDS: carvediloL 6.25 MG TABLET PO (08:57)
[2023-08-01] MEDS: BACLOFEN 10 MG TABLET 20 MG PO (08:58)
[2023-08-01] MEDS: polyethylene glycoL 3350 17 GM POWD.PACK PO (08:58)
[2023-08-01] MEDS: ASPIRIN 325 MG TABLET PO (08:58)
[2023-08-01] MEDS: ENOXAPARIN 40 MG/0.4 ML SYRINGE SUB-Q (08:58)
--- NOTE | 2023-08-01 11:12 | PCNWS ---
Weekly nutritional screen. Patient is tolerating current diet with adequate intake. 75-100% intakes. No weight loss reported. No nutritional needs at this time.
--- NOTE | 2023-08-01 11:52 | PM.DS ---
DS: Admitting Diagnosis Discharge Date August 01, 2023 Admitting Diagnosis Influenza a DS: Discharge Diagnosis Discharge Diagnosis (1) Lumbosacral disc herniation: Code(s): M51.27 - Other intervertebral disc displacement, lumbosacral region Status: Acute (2) Swallowing difficulty: Code(s): R13.10 - Dysphagia, unspecified Status: Acute (3) Influenza: Code(s): J11.1 - Influenza due to unidentified influenza virus with other respiratory manifestations Status: Acute (4) COPD exacerbation: Code(s): J44.1 - Chronic obstructive pulmonary disease with (acute) exacerbation Status: Acute DS: Summary Hospital Course Hospital Course: 78-year-old white female with a history of COPD peripheral artery disease, hypothyroidism, coronary artery disease, depression, hypertension, hypercholesterolemia, tobacco dependence, vitamin B12 deficiency presented with shortness of breath. The patient was found to have influenza a and was treated for this with Tamiflu. She was also treated for concurrent COPD exacerbation and acute hypoxic respiratory failure. Prednisone and scheduled nebs. On 08/01/2023 the patient is stable to return home. Is at her baseline and breathing normally and no longer requiring oxygen via nasal cannula. She has been educated on the perils of tobacco/smoking and was encouraged to quit and she understood. The patient complained of dysphagia on admission and she underwent EGD on 07/29/2023 demonstrating nonerosive reflux disease gastritis and duodenitis. She has been started on Protonix 40 mg p.o. q.day. The patient will follow-up with her primary care doctor within a week to follow-up on these conditions. Is amenable to this plan and all of her questions have been answered to satisfaction. Patient was DNR during her admission. Time Spent with Patient Time attestation: Total time spent providing and/or coordinating discharge services: Exam Const: General: comfortable and no acute distress Other: A&O x3 Eyes: Pupils: Equal, round and reactive pupils present Neck: Neck: supple Resp: Effort & Inspection: normal respiratory effort Other: Coarse expiratory wheeze Cardio: Rate: regular rate Rhythm: regular rhythm GI: GI Palp: Yes Soft to palpation and No Tenderness to palpation present (GI) Extrem: General: no edema DS: Data Data Completed and Pending Completed studies during hospitalization: Pending at discharge 07/29/23 12:29 Surgical [PTH] Routine Labs on day of discharge: Labs from last 24 hours 08/01/23 06:44 WBC 9.0 RBC 4.55 Hgb 13.1 Hct 40.9 MCV 89.9 MCH 28.8 MCHC 32.0 RDW 14.6 H Plt Count 256 MPV 9.7 Immature Gran % (Auto) 0.7 H Neut % (Auto) 70.1 Lymph % (Auto) 19.0 [place] % (Auto) 10.0 H Eos % (Auto) 0.1 Baso % (Auto) 0.1 L Lymph # (Auto) 1.71 [place] # (Auto) 0.9 H Eos # (Auto) 0.0 Baso # (Auto) 0.0 Abs Immat Gran (auto) 0.06 H Absolute Neuts (auto) 6.3 Absolute Nucleated RBC 0.0 Nucleated RBC % 0.0 Sodium 135 L Potassium 3.4 Chloride 100 Carbon Dioxide 32 H Anion Gap 3 L BUN 20 H Creatinine 0.80 Estim Creat Clear Calc 47 Estimated GFR > 60 Glucose 80 Calcium 8.6 Magnesium 2.4 H Discharge Plan Discharge Attending physician on discharge: Brooklyn Bruner Consulting providers: Kaleb Veliz Discharging Clinician: Brooklyn Bruner Patient Disposition: Home, Self-Care Activity: october shower Diet: heart healthy Stand Alone Forms: General Discharge Information Follow-up/Referrals: Suha Cabrales MD [Primary Care Provider] - 1 Week (follow up on medical conditions and hospital stay) Discharge Medications: New pantoprazole 40 mg Tablet,Delayed Release (Dr/Ec) 40 mg PO QAM Qty: 30 0RF Continued clopidogrel [Plavix] 75 mg tablet 75 mg PO DAILY carvedilol [Coreg] 6.25 mg tablet 6.25 mg PO Q12H baclofen 10 mg tablet
== END 2023-08-01 12:35 | disposition home or self-care (01) | DRG 193 ==
LOC: ANHED 21:47 → ANH3MEDSUR 23:06
PROVIDERS: Internal Medicine Gastroenterology; Nurse Practitioner; Admitting Provider Family Medicine; Emergency Provider Emergency Medicine; PCP Family Medicine; Visit Provider General Practice
PROC: 0DJ08ZZ Inspection of Upper Intestinal Tract, Via Natural or Artificial Opening Endoscopic (ICD-10-PCS; CPT 43235; principal; 2023-07-29 12:30)
DX: J10.1 Influenza due to other identified influenza virus with other respiratory manifestations (principal); J96.01 Acute respiratory failure with hypoxia; J44.1 Chronic obstructive pulmonary disease with (acute) exacerbation; I25.10 Atherosclerotic heart disease of native coronary artery without angina pectoris; I10 Essential (primary) hypertension; I73.9 Peripheral vascular disease, unspecified; E03.9 Hypothyroidism, unspecified; E78.00 Pure hypercholesterolemia, unspecified; E53.8 Deficiency of other specified B group vitamins; K29.70 Gastritis, unspecified, without bleeding; K29.80 Duodenitis without bleeding; K21.9 Gastro-esophageal reflux disease without esophagitis; R13.10 Dysphagia, unspecified; M51.27 Other intervertebral disc displacement, lumbosacral region; F32.A Depression, unspecified; F17.210 Nicotine dependence, cigarettes, uncomplicated; Z20.822 Contact with and (suspected) exposure to COVID-19; Z79.02 Long term (current) use of antithrombotics/antiplatelets; Z95.5 Presence of coronary angioplasty implant and graft; Z95.820 Peripheral vascular angioplasty status with implants and grafts; Z79.82 Long term (current) use of aspirin
CPT/HCPCS: 36415; 71045; 71046; 80048; 80053; 83735; 84145; 85025; 87070; 87081; 87205; 87449; 87637; 87899; 88305; 92611; 93005; 93970; 94640; 99285; A9270; G0378; J0456; J1650; J2704; J7030; J7120; J7512

== ENCOUNTER 2023-11-05 15:15 | Emergency (ER) | payer MEDICARE, OTHER, SELFPAY ==
[2023-11-05] VITALS (7 sets, daily range): BP systolic 151–188; BP diastolic 74–92; PULSE 68–77; RESP 13–20; TEMP 36.5; O2SAT 95–100
--- NOTE | ~2023-11-05 | US_ITS ---
EXAMINATION: US venous doppler LE RT DATE: 11/05/2023 17:39 INDICATION: Right lower limb swelling. TECHNIQUE: Grayscale ultrasound images without and with compression and Doppler ultrasound images of the right lower extremity veins were obtained. COMPARISON: Ultrasound 07/27/2023 FINDINGS: The visualized portions of right common femoral vein, profunda (deep) femoral vein, femoral vein, pop liteal vein, peroneal veins, posterior tibial veins, and greater saphenous vein outflow are patent. IMPRESSION: 1. No deep venous thrombosis. Reviewed, dictated and finalized at location E.
--- NOTE | ~2023-11-05 | XR_ITS ---
EXAMINATION: XR chest 1V portable DATE: 11/05/2023 16:43 INDICATION: Shortness of breath. TECHNIQUE: A single frontal view of the chest was obtained. COMPARISON: Chest 2 views 07/28/2023 FINDINGS: There is mild atelectasis at left lung base. No pleural effusion or pneumothorax. The heart size is normal. Median sternotomy wires are noted. IMPRESSION: 1. Mild atelectasis at left lung base. Reviewed, dictated and finalized at location E.
--- NOTE | 2023-11-05 15:58 | ECG_ITS ---
SEE SCANNED COPY FOR CONFIRMED REPORT MTDD
[2023-11-05 16:38] LABS: Basophils Absolute Auto 0.1 K/mm3 (0.0-0.1); Basophils Percent Auto 0.9 % (0.2-1.2); Eosinophils Absolute Auto 0.4 K/mm3 (0-0.3); Hematocrit 46.4 % (37.0-47.0); Hemoglobin 15.3 g/dL (12.0-15.0); Immature Granulocyte Absolute 0.02 K/mm3 (0.00-0.031); Immature Granulocyte Percent A 0.2 % (0-0.5); Lymphocytes Absolute Auto 2.56 K/mm3 (0.9-3.2); Lymphocytes Percent Auto 28.9 % (18.3-44.2); Mean Corpuscular Hemoglobin 28.9 pg (26-34); Mean Corpuscular Volume 87.7 fl (80-100); Mean Platelet Volume 9.7 fl (7.4-10.4); Monocytes Absolute Auto 0.8 K/mm3 (0.1-0.6); Monocytes Percent Auto 9.1 % (2.6-8.5); Neutrophils Percent Auto 56.9 % (45.5-73.1); Platelet Count Result 312 k/mm3 (150-375); Red Blood Count 5.29 M/mm3 (4.2-5.4); Red Cell Distribution Width 13.8 % (11.5-14.5); White Blood Count 8.9 K/mm3 (4.5-10.0)
--- NOTE | 2023-11-05 16:39 | ED.GENADULT ---
HPI - General Adult General Chief complaint: Recheck/Abnormal Lab/Rx Stated complaint: HTN, decreased O2 Time Seen by Provider: 11/05/23 15:51 History of Present Illness HPI narrative: 78-year-old female presented to the emergency department for evaluation of worsening shortness breath over the course of the last 3 days. Patient reports that in August she did have a bypass of her right lower extremity patient does have swelling of the right lower extremity that is not new today. Patient does report increased shortness of breath with lying flat last night but is able to lay flat in the emergency department. Patient does report prior diagnosis of asthma. Related Data Home Medications Medication Instructions Recorded Confirmed aspirin 325 mg tablet 325 mg PO DAILY 05/18/19 07/26/23 baclofen 10 mg tablet 20 mg PO DAILY pain 05/18/19 07/26/23 carvedilol 6.25 mg tablet (Coreg) 6.25 mg PO Q12H 05/18/19 07/26/23 clopidogrel 75 mg tablet (Plavix) 75 mg PO DAILY 05/18/19 07/26/23 levothyroxine 100 mcg tablet 100 mcg PO DAILY 04/24/23 07/26/23 Allergies Allergy/AdvReac Type Severity Reaction Status Date / Time cephalexin Allergy Unknown Unknown Verified 11/05/23 15:57 Penicillins Allergy Unknown Unknown Verified 11/05/23 15:57 Review of Systems Review of Systems: All systems reviewed & are unremarkable except as noted in HPI and below PMFSH Past Medical History Medical History Chronic obstructive pulmonary disease Coronary artery disease Depression Essential hypertension Hypothyroidism Memory loss Moderate episode of recurrent major depressive disorder Peripheral arterial disease Pure hypercholesterolemia Tobacco dependence Vitamin B12 deficiency Surgical History Surgical History History of cardiac catheterization History of cataract surgery History of coronary artery stent placement History of hysterectomy History of vascular surgery Right lower extremity stent. Family History Family History Father Family history of lung cancer Mother Family history of malignant neoplasm of brain Social History Social History Social History: Surrogate medical decision maker: Veronica Marquez, daughter. Code status: Full code. Smoking packs per day: 1 Smoking cigarettes per day: 20.0 Smoking status: Former smoker Tobacco type: cigarettes Second hand tobacco smoke exposure: Yes Alcohol intake: never Substance use: never Substance use type: does not use Do You Feel Safe in your Home?: Yes Lack of Transportation: No Lack of Food: Never True Current Housing: I Have Housing Concerned About Future Housing: No Difficulty Paying Gas/Electric Bills: No Difficulty Paying for Meds: No Currently Unemployed: No Education: High School Diploma/GED Difficulty w/ Childcare or Family Care: No Spiritual care concerns: No Exam Narrative: APPEARANCE: Well appearing, no pain, no distress, well-nourished. HEAD: normocephalic, atraumatic. EYES: PERRLA/EOMI, conjunctivae clear. NOSE: Normal no drainage EARS:TMS clear with good light reflex. THROAT: Pharynx clear, no exudate. NECK: Supple. No adenopathy, no masses. RESPIRATORY: Expiratory wheeze on examination CARDIOVASCULAR: Regular rate and rhythm without murmurs rubs or gallops. ABDOMINAL: Soft, nontender, nondistended, normal bowel sounds MUSCULOSKELETAL: Moves all extremities. Strength/ROM intact, No edema, No calf tenderness. NEURO: Alert. Cranial nerves II through XII intact. SKIN: Warm, dry. Normal Color Course Vital Signs Vital signs: Vital Signs Temperature 97.7 F 11/05/23 15:18 Pulse Rate 77 11/05/23 15:18 Respiratory Rate 20 11/05/23 15:18 Blood Pressure 151/83 H 11/05/23 15:18 Pulse Oximetry 96
[2023-11-05 16:47] LABS: Alanine Aminotransferase 21 U/L (6-35); Albumin Level 4.9 g/dL (3.5-5.1); Alkaline Phosphatase 89 U/L (38-126); Anion Gap 10 mmol/L (4-12); Aspartate Amino Transferase 30 U/L (14-36); Bilirubin,Total 0.7 mg/dL (0.2-1.3); Blood Urea Nitrogen 9 mg/dL (7-17); Calcium 10.2 mg/dL (8.4-10.2); Carbon Dioxide 26 mmol/L (22-30); Chloride 102 mmol/L (98-107); Estimated CRCL calculation 45 ml/min; Estimated Glomerular Filt Rate > 60; Glucose 107 mg/dL (65-110); Potassium 3.2 mmol/L (3.4-5.0); Sodium 138 mmol/L (137-145)
[2023-11-05 16:50] LABS: INR 0.9; Partial Thromboplastin Time 31.1 Seconds (22.3-36.8); Prothrombin Time 12.9 Seconds (11.1-14.7)
[2023-11-05] MEDS: ALBUTEROL SULFATE NEB 2.5 MG/3 ML INH INHALATION (16:51)
[2023-11-05 16:56] LABS: NT Pro B Type Natriuretic Pept 294 pg/mL (19.9-100)
[2023-11-05 17:22] LABS: Influenza A QL RT-PCR Negative (Negative); Influenza B QL RT-PCR Negative (Negative); RSV RNA, RT-PCR Negative (Negative); SARS-CoV-2 RNA PCR Negative (Negative)
[2023-11-05] MEDS: predniSONE 20 MG TABLET 40 MG PO (18:23)
== END 2023-11-05 18:28 | disposition home or self-care (01) ==
PROVIDERS: Emergency Provider Emergency Medicine; PCP Family Medicine
DX: J44.1 Chronic obstructive pulmonary disease with (acute) exacerbation (principal); J45.909 Unspecified asthma, uncomplicated; I25.10 Atherosclerotic heart disease of native coronary artery without angina pectoris; I10 Essential (primary) hypertension; E78.00 Pure hypercholesterolemia, unspecified; E53.8 Deficiency of other specified B group vitamins; E03.9 Hypothyroidism, unspecified; Z87.891 Personal history of nicotine dependence; Z20.822 Contact with and (suspected) exposure to COVID-19
CPT/HCPCS: 36415; 71045; 80053; 83880; 85025; 85610; 85730; 87637; 93005; 93971; 94640; 99284; J7512

== ENCOUNTER 2024-08-03 14:00 | Outpatient (CLI) | payer MEDICARE, OTHER, SELFPAY ==
--- OUTSIDE RECORDS SUMMARY | 2024-08-03 14:54 | XMS_ITS | Clinical Summary ---
Author Organization [facility] Address [address] [place] [address] Care Team Providers Care Overseamer Name Role Phone Suha Cabrales MD Primary Care Provider [phone] Allergies Active Allergy Reactions Criticality Noted Date Comments Cephalexin Rash Low 12/03/2018 Penicillins Rash Low 12/03/2018 Medications baclofen (LIORESAL) 10 mg tablet TAKE 2 TABLETS BY MOUTH IN THE EVENING 2 11/26/2018 Active atorvastatin (LIPITOR) 40 mg tablet TAKE 1 TABLET BY MOUTH ONCE DAILY 0 11/10/2018 Active carvedilol (COREG) 6.25 mg tablet 0 09/25/2018 Active clopidogrel (PLAVIX) 75 mg Tablet TAKE 1 TABLET BY MOUTH ONCE DAILY 3 11/09/2018 Active furosemide (LASIX) 20 mg tablet 40 mg. 0 11/26/2018 Active levothyroxine 100 mcg tablet 11/16/2018 Acti ve venlafaxine (EFFEXOR XR) 75 mg Extended Release 24 hour capsule TAKE 1 CAPSULE BY MOUTH ONCE DAILY WITH FOOD 3 11/26/2018 Active traZODone (DESYREL) 100 mg tablet 2 10/19/2018 Active losartan (COZAAR) 100 mg tablet TAKE 1 TABLET BY MOUTH ONCE DAILY 3 11/13/2018 Active aspirin (APRIL) 325 mg tablet Take 325 mg by mouth daily. Active omega-3/dha/epa /fish oil (OMEGA-3 FISH OIL ORAL) Take by mouth. Active nitroglycerin (NITROSTAT) 0.4 mg Tablet, Sublingual Place 0.4 mg under tongue every 5 minutes as needed for Chest Pain. Active ipratropium/alb uterol sulfate (COMBIVENT RESPIMAT INHALATION) Take by inhalation. Active amLODIPine (NORVASC) 10 mg tablet Take 10 mg by mouth daily. Active predniSONE (DELTASONE) 10 mg tablet TAKE 1 TABLET BY MOUTH THREE TIMES DAILY FOR 3 DAYS THEN 1 TWICE DAILY FOR 2 DAYS THEN 1 ONCE DAILY FOR 1 DAY. 1 03/04/2019 Active donepezil (ARICEPT) 5 mg tablet TAKE 1 TABLET BY MOUTH ONCE DAILY IN THE EVENING 1 02/16/2019 Active Active Problems Problem Noted Date Diagnosed Date Duct ectasia of breast, left 12/22/2018 Microcalcification of left breast on mammography 12/03/2018 Abnormal ultrasound of breast 12/03/2018 Breast signs and symptoms 12/03/2018 Social History Tobacco Use Types Packs/Day Years Used Date Smoking Tobacco: Former Cigarettes 1 40 0 08/21/1978 - 08/21/2018 Smokeless Tobacco: Never Alcohol Use Standard Drinks/Week Comments Not Currently 0 (1 standard drink = 0.6 oz pur e alcohol) Comments No Sex and Gender Information Value Date Recorded Sex Assigned at Not on file Legal Sex Female 9:11 AM CDT Gender Identity Not on file Sexual Orientation Not on file Last Filed Vital Signs Vital Sign Reading Time Taken Comments Blood Pressure 181/106 04/29/2019 12:50 PM COMPUTER TEACHER Pulse 73 04/29/2019 12:50 PM COMPUTER TEACHER Temperature 36.9 C (98.5 F) 04/29/2019 12:50 PM COMPUTER TEACHER Respiratory Rate - - Oxygen Saturation 98% 04/29/2019 12:50 PM COMPUTER TEACHER Inhaled Oxygen Concentration - - Weight 75.4 kg (166 lb 4.8 oz) 04/29/2019 12:50 PM COMPUTER TEACHER Height 152.4 cm (5') 04/29/2019 12:50 PM COMPUTER TEACHER Body Mass Index 32.48 04/29/2019 12:50 PM COMPUTER TEACHER Plan of Treatment Health Maintenance Due Date Last Done Comments DTAP/TDAP/TD VACCINES (1 - Tdap) 1965 PNEUMOCOCCAL VACCINE 65+ YEARS (1 of 1 - PCV) 02/01/19 96 ZOSTER VACCINE (1 of 2) 02/02/1996 OSTEOPOROSIS SCREENING 2011 RSV VACCINE (60+ or ) (1 - 1-dose 75+ series) 2021 INFLUENZA VACCINE (#1) 2024 Insurance MEDICARE PART A AND B [employer] [facility] Care Teams Overseamer Relationship Specialty Start Date End Date Suha Cabrales MD [address] [place] [id number] PCP - General Family Practice 10/23/18
--- OUTSIDE RECORDS SUMMARY | 2024-08-03 14:54 | XMS_ITS | Referral Summary ---
Author Organization [facility] Address [address] [place] [address] Phone Care Team Providers Care Journalists And Other Writers Name Role Phone Suha Cabrales MD Primary Care Provider [phone] Allergies Active Allergy Reactions Criticality Noted Date Comments Cephalexin Iodinated Contrast Media Iodine Penicillins Active Problems Problem Noted Date Diagnosed Date Shortness of breath 01/12/2016 History of coronary artery bypass surgery 2015 Chronic coronary artery disease 11/30/2015 Immunizations Name Administration Dates Next Due Influenza, Quadrivalent, Spl it, Preservative Free, Intramuscular 03/09/2015 Social History Tobacco Use Types Packs/Day Years Used Date Smoking Tobacco: Every Day Personal Safety Answer Date Recorded Have you ever been in or are you currently in a harmful physical or emotional relationship or is someone making you feel afraid or unsafe? Denies 03/04/2024 Comments Unknown Sex and Gender Information Value Date Recorded Sex Assigned at Not on file Legal Sex Female 7:07 PM [employer]PER[employer]OR [employer] Gender Identity Not on file Sexual Orientation Not on file Last Filed Vital Signs Vital Sign Reading Time Taken Comments Blood Pressure 159/59 03/04/2024 8:25 PM CDT Pulse 69 03/04/2024 8:25 PM CDT Temperature 37.1 C (98.7 F) 03/04/2024 7:17 PM CDT Respiratory Rate 27 03/04/2024 8:25 PM CDT Oxygen Saturation 92% 03/04/2024 8:25 PM CDT Inhaled Oxygen Concentration - - Weight 61.7 kg (136 lb) 03/04/2024 7:17 PM CDT Height 157.5 cm (5' 2.01 ) 03/04/2024 7:17 PM CD T Body Mass Index 24.87 03/04/2024 7:17 PM CDT Plan of Treatment Not on file Insurance [facility] MEDICARE MEDICARE [facility] [place] [address] Care Teams Journalists And Other Writers Relationship Specialty Start Date End Date Suha Cabrales MD [address] [place] [address] PCP - General Family Medicine 03/04/24
--- OUTSIDE RECORDS SUMMARY | 2024-08-03 14:54 | XMS_ITS | Clinical Summary ---
Author Organization [facility] Address [address] [place] [address] Phone Care Team Providers Care Elevating Grader Operator Name Role Phone Suha Cabrales MD Primary Care Provider [phone] Allergies Active Allergy Reactions Criticality Noted Date Comments Cephalexin Iodinated Contrast Media Iodine Penicillins Active Problems Problem Noted Date Diagnosed Date Shortness of breath 01/12/2016 History of coronary artery bypass surgery 2015 Chronic coronary artery disease 11/30/2015 Immunizations Name Administration Dates Next Due Influenza, Quadrivalent, Spl it, Preservative Free, Intramuscular 03/09/2015 Family History Medical History Relation Name Comments Breast cancer Mother Family history of malignant neoplasm of breast - (Added by TW Conv) Relation Name Status Comments Mother Social History Tobacco Use Types Packs/Day Years [...] on file 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 Gender Identity Not on file Sexual Orientation Not on file Obstetrics History Last Filed Vital Signs Vital Sign Reading [...] 03/04/2024 7:17 PM CDT Plan of Treatment Health Maintenance Due Date Last Done Comments Depression Screening 1945 Fall Risk Assessment 1945 Hepatitis C Screening 1945 Osteoporosis Screening-Bone Density Scan 1945 Pneumococcal vaccine 65+ (1 of 2 - PCV) 02/02/1952 DTaP/Tdap/Td Vaccine (1 - Tdap) 1957 Hepatitis B Screening 02/02/1964 Zoster Vaccine (1 of 2) 02/02/1996 Well Visit 65+ 2011 Covid-19 Vaccine (4 - 2023-2 5 season) 2024 05/31/2021, 09/02/2020, 08/03/2020 Influenza Vaccine (#1) 2024 , 04/14/2020, 05/08/2019, Additional history exists Breast Cancer Screening-Mammogram Discontinued [address] [place] [address] [place] [address] MEDICARE MUTUAL [facility] Care Teams Elevating Grader Operator Relationship Specialty Start Date End Date Suha Cabrales MD [address] [place] [address] PCP - General Family Medicine 03/04/24
--- OUTSIDE RECORDS SUMMARY | 2024-08-03 14:54 | XMS_ITS | Continuity of Care Document ---
Author Organization [facility] Address [address] [place] [address] [address] [place] [address] Phone Care Team Providers Care Finish Grinder Name Role Phone Law OD, Familia Unavailable Unavailable Procedures Procedure Date Office/outpatient Visit, [facility] Advance Directives Directive Yes / No Effective Date File Name No Information Encounters Encounter Description Practice Location Reason(s) For Visit Diagnoses Date Provider Providers Copied on Encounter Office/outpat ient Visit, [facility], [address] [place] [address] [address], [place], [place], [id number], [place] tel:[phone] [facility] [place] No Information [phone] Law OD Familia. [address] [facility] [place] , [address], [place], [address], [place]. tel:[phone] Family History Family Member Type Diagnosis Age At Onset No Information Payers Payer name Insurance type Covered libertarian ID Authoriza tion(s) No Information Social History Type Description Quantity Date Captured Comments Sex Female Smoking Status No Information Chief Complaint And Reason For Visit No Information Reason For Referral Reason For Referral No Information History Of Present Illness Encounter Date Complaint History Of Prese nt Illness No Information Functional Status Date Functional Assessmen t No Information Instructions Date Instruction Additional Infor mation No Information Assessments Type Assessment Date No Information Patient Care Teams Name Effective Dates (start - stop) Status Members No Information
--- OUTSIDE RECORDS SUMMARY | 2024-08-03 14:55 | XMS_ITS | Patient Health Summary ---
Author Organization [facility] Address [address] [place] [address] Care Team Providers Care Ship Surveyor Name Role Phone Suha Cabrales MD Primary Care Provider [phone] Note from [facility],non-owned Affiliates and Associated Physician Practices is amultiple site organization consisting of ambulatory clinics and hospital sitesin [place], [place], [place] and [place]. This disclosure is being madepursuant to the Care Everywhere program and may not contain all information available regarding this patient. Last updated 18.[facility] Allergies * Ampicillin(Rash) -Medium Criticality * Cephalexin(Unknown,Rash) -Medium Criticality * Contrast-Iodinated Agents For Ct/Other(Nausea and/or Vomiting,Swelling, Headache) * Penicillins(Rash) -Medium Criticality Medications * Be aware that medications may not be up to date on this document. Alwaysverify current medications with the patient. * amLODIPine (Norvasc) 10 MG tablet(Started 05/13/2023) Take 1 (one) tablet by mouth once daily * aspirin (Aspirin) 325 MG tablet Take 1 (one) tablet by mouth once daily * atorvastatin (Lipitor) 40 MG tablet(Started 03/14/2023) Take 1 (one) tablet by mouth once daily * baclofen (Lioresal) 10 MG tablet(Started 05/11/2023) TAKE 2 TABLETS BY MOUTH IN THE EVENING * carvedilol (Coreg) 6.25 MG tablet(Started 05/13/2023) Take 1 (one) tablet by mouth 2 times daily * clopidogrel (plaVIX) 75 MG tablet(Started 06/19/2023) Take 1 (one) tablet by mouth once daily * ezetimibe (Zetia) 10 MG tablet(Started 06/19/2023) Take 1 (one) tablet by mouth once daily * Trelegy Ellipta 100-62.5-25 MCG/ACT(Started 06/27/2023) INHALE 1 PUFF ONCE DAILY * levothyroxine (Synthroid) 100 MCG tablet(Started 06/25/2023) Take 1 (one) tablet by mouth once daily * losartan (Cozaar) 100 MG tablet(Started 06/23/2023) Take 1 (one) tablet by mouth once daily * nitroGLYCERIN (Nitrostat) 0.4 MG tablet(Started 09/11/2023) Dissolve 1 (one) tablet under the tongue every 5 minutes as needed for Angina patient does not have, 09/11/23 Reasons: Acute Angina Pectoris * rosuvastatin (Crestor) 40 MG tablet(Started 04/29/2023) Take 1 (one) tablet by mouth once daily * traMADol (Ultram) 50 MG tablet(Started 06/26/2023) TAKE 2 TABLETS BY MOUTH EVERY 6 HOURS * traZODone (Desyrel) 150 MG tablet(Started 05/13/2023) Take 1 (one) tablet by mouth * venlafaxine XR 24hr (Effexor XR) 75 MG capsule(Started 06/19/2023) Take 1 (one) capsule by mouth once daily Not in home 09/11/23 Reasons: Major Depressive Disorder * predniSONE (Deltasone) 50 MG tablet(Started 07/01/2023) Take 1 tablet by mouth 13 hours before contrast medium administration, 7 hours before contrast medium administration, and 1 hour before contrast medium administration. * pantoprazole EC (Protonix) 40 MG tablet Take 1 (one) tablet by mouth once daily * albuterol (Proventil;Ventolin) (2.5 MG/3ML) 0.083% nebulizer solution(Started 09/11/2023) Inhale 2.5 (two and one-half) mg by mouth 4 times daily as needed for Shortness of Breath or Wheezing patient states on 09/11/23 she is not using Reasons: Spasm of Lung Air Passages * HYDROcodone-acetaminophen ([place]) 5-325 MG tablet(Started 10/07/2023) Take 1 (one) tablet by mouth every 6 hours as needed for Pain Active Problems Problem Noted Date Diagnosed Date PAD (peripheral artery disease) 09/02/2023 Social History Tobacco Use Types Packs/Day Years Used Date Smoking Tobacco: Every Day Cigarettes Tobacco Cessation:Ready to Q uit: Not Asked; Counseling Given: No Alcohol Use Standard Drinks/Week Comments Never 0 (1 standard drink = 0.6 oz pur e alcohol) OASIS D0700: Social Isolation Answer Da te Recorded Frequency of experiencing loneliness or isolatio n Never 09/23/2023 OASIS A1250: Transportation Answer Date Recorded Lack of Transportation (Medical) No 09/23/2023 Lack of Transportation (Non-Medical) No 09/23/2023 Patient Unable or Declines to Respond No 09/23/2023 OASIS B1300: Health Literacy Answer Luis Miguel e Recorded Frequency of needing help to read materials from doctor or pharmacy Never 09/23/2023 AUDIT-C Answer Date Recorded Q1: How often do you have a drink containing alcohol? Never 09/02/2023 Q2: How many drinks containi ng alcohol do you have on a typical day when you are drinking? Patient does not drink Q3: How often do you have si x or more drinks on one occasion? Never 09/02/2023 Overall Financial Resource Strain (CARDIA) Answe r Date Recorded How hard is it for you to pa y for the very basics like food, housing, medical care, and heating? Not hard at all 09/03/2023 [facility] - Occupational Stress Questionnaire Answer Date Recorded Do you feel stress - tense, restless, nervous, or anxious, or unable to sleep at night because your mind is troubled all the time - these days? Not at all 09/03/2023 Hunger Vital Sign Answer Date Recorded Within the past 12 months, y ou worried that your food would run out before you got the money to buy more. Never true 09/03/19 24 Within the past 12 months, t he food you bought just didn't last and you didn't have money to get more. Never true 09/03/2023 PRAPARE - Transportation Answer Date Re corded In the past 12 months, has l ack of transportation kept you from medical appointments or from getting medications? No 08/21 In the past 12 months, has l ack of transportation kept you from meetings, work, or from getting things needed for daily living? No 09/03/2023 Housing Stability Vital Sign Answer Luis Miguel e Recorded In the last 12 months, was t here a time when you were not able to pay the mortgage or rent on time? No 09/03/2023 Number of Places Lived in the Last Year Not on f ile 09/03/2023 In the last 12 months, was t here a time when you did not have a steady place to sleep or slept in a nursing home (including now)? No 09/03/2023 Sex and Gender Information Value Date Recorded Sex Assigned at Not on file Gender Identity Not on file Sexual Orientation Not on file Last Filed Vital Signs Vital Sign Reading Time Taken Comments Blood Pressure 132/70 09/23/2023 11:28 AM CDT Pulse 74 09/23/2023 11:28 AM CDT Temperature 36.8 C (98.2 F) 09/23/2023 11:28 AM CDT Respiratory Rate 17 09/23/2023 11:28 AM CDT Oxygen Saturation 98% 09/23/2023 11:28 AM CDT Inhaled Oxygen Concentration - - Weight 68 kg (150 lb) 10/14/2023 10:50 AM CDT Height 155.4 cm (5' 1.18 ) 10/14/2023 10:50 AM C DT Body Mass Index 28.17 10/14/2023 10:50 AM CDT Medical Devices Implanted Type Area Yard Worker Device Identifier Shelf Expiration Date Model / Serial / Lot Graft Vasc 6mm 70cm 60cm Hep Propaten - [id number] Implanted:Qty: 1 on 09/02/2023 by Chris Castle MD at [facility] Right: Other (See Descriptio n) [employer] 09/15/2025 [id number] / [id number] / Description:POPLITEAL-FEMORA L ARTERY Procedures * VAS RIGHT ARTERIAL DUPLEX LE(Performed 10/14/2023) Performed for PVD (peripheral vascular disease) (HCC) * CARDIAC RHYTHM STRIP ORDER(Performed 09/08/2023) * NH BYPASS GRAFT OTHR,FEM-POP(Performed 09/02/2023) * CBC W AUTO DIFFERENTIAL(Performed 08/27/2023) Performed for Preop examination * BASIC METABOLIC PANEL (CALCIUM TOTAL)(Performed 08/27/2023) Performed for Preop examination * CT ANGIO ABDOMEN AORTA W RUNOFF(Performed 07/21/2023) Performed for PVD (peripheral vascular disease) ([facility]) Results * VAS RIGHT ARTERIAL DUPLEX LE (10/14/2023 10:48 AM CDT) Anatomical Region Laterality Modality Lower Extremity Ultrasound 10/14/2023 10:1 2 AM CDT Narrative Procedure Note Jayson Mitchell MD - 10/16/2023 [facility] [place] [address], [address] [place] [address] Bypass Graft Report Pat.Name: DAVY ROLLE Pat.ID: [id number] St.Date: 10/14/2023 Refer.MD: UNKNOWN PROVIDER Exam Time: 10:12:00 AM Study Type:Bypass Graft Age: 8 1945,78Y Sex: FEMALE Sonogrphr: Antony Tan RVT Pat. Stat.:Outpatient CPT - 4: 32988 Reason for Study: Follow up surgery, Assess bypass graft Procedures: Lower Extremity Arterial Duplex - Right Race: 1 Visit ID: [id number] ++++++++++++++++++++++++++++++++++++ SUMMARY: ++++++++++++++++++++++++++++++++++++ Patent right femoral popliteal bypass graft without hemodynamically significant stenosis. ++++++++++++++++++++++++++++++++++++ FINDINGS: ++++++++++++++++++++++++++++++++++++ Procedure: B-mode imaging, color flow Doppler and spectral analysis were used to image the right Fem-Pop graft. Study Quality: This study is of adequate technical quality. Graft: The right Fem-Pop graft was patent. The right fem-pop artery is tunnelled deep, mid thigh. ++++++++++++++++++++++++++++++++++++ MEASUREMENTS: ++++++++++++++++++++++++++++++++++++ GRAFT Right Anastomosis CYLINDER STEAMER to POP:Peripheral bypass Dist Anast PSV 59 cm/s Anastomosis PSV 78 cm/s Right Distal Graft CYLINDER STEAMER to POP:Peripheral bypass Distal Graft PS 45 cm/s Right Prox to Anastomosis CYLINDER STEAMER to POP:Peripheral bypass Darlene Vessel PSV 50 cm/s Right Inflow CYLINDER STEAMER to POP:Peripheral bypass Inflow PSV 95 cm/s Right Mid Graft CYLINDER STEAMER to POP:Peripheral bypass Mid Graft PSV 35 cm/s Right Outflow CYLINDER STEAMER to POP:Peripheral bypass Outflow PSV 43 cm/s Signed 10/16/2023 07:48 AM Jayson Mitchell MD Astrid García [employer] TECHNICIAN-POOL INSTALLER [facility] ORDE ELIDA * CARDIAC RHYTHM STRIP ORDER (09/08/2023 4:04 PM CDT) Narrative 09/08/2023 4:04 PM CDT Ordered by an unspecified provider. Scanned Document CARDIAC SERVICES ORD ERABLES * (ABNORMAL) CBC W AUTO DIFFERENTIAL (08/27/2023 1:54 PM BLOOM CONVEYOR OPERATOR) [facility] WBC 7.6 4.0 - 10.7 x10E9/L 08/27/2023 2:29 PM BLOOM CONVEYOR OPERATOR [facility] RBC Count 4.78 3.90 - 5.20 x10E12/L 08/27/2023 2:29 PM BLOOM CONVEYOR OPERATOR [facility] Hemoglobin 13.8 11.9 - 15.8 g/dL 08/27/2023 2:29 PM BLOOM CONVEYOR OPERATOR [facility] Hematocrit 42.8 34.8 - 46.1 % 08/27/2023 2:29 PM BLOOM CONVEYOR OPERATOR [facility] MCV 89.5 80.0 - 98.0 fL 08/27/2023 2:29 PM BLOOM CONVEYOR OPERATOR [facility] MCH 28.9 26.7 - 33.6 pg 08/27/2023 2:29 PM [facility] MCHC 32.2 31.7 - 36.3 g/dL 08/27/2023 2:29 PM [facility] RDW-CV 15.5(H) 11.3 - 14.8 % 08/27/2023 2:29 PM [facility] Platelet Count 354 150 - 420 x10E9/L 08/27/2023 2:29 PM [facility] MPV 9.3 7.8 - 11.4 fL 08/27/2023 2:29 PM [facility] Neutrophil % 64.4 41.0 - 74.0 % 08/27/2023 2:29 PM [facility] Lymphocyte % 21.9 17.0 - 47.0 % 08/27/2023 2:29 PM [facility] Monocyte % 9.4 3.0 - 11.0 % 08/27/2023 2:29 PM [facility] Eosinophil % 3.3 0.0 - 7.0 % 08/27/2023 2:29 PM [facility] Basophil % 0.7 0.0 - 1.6 % 08/27/2023 2:29 PM [facility] Immature Granulocytes % 0.3 0.0 - 1.0 % 08/27/2023 2:29 PM [facility] Neutrophil Absolute 4.92 1.60 - 7.50 x10E9/L 08/27/2023 2:29 PM [facility] Lymphocyte Absolute 1.67 1.00 - 4.40 x10E9/L 08/27/2023 2:29 PM [facility] Monocyte Absolute 0.72 0.15 - 1.00 x10E9/L 08/27/2023 2:29 PM [facility] Eosinophil Absolute 0.25 0.00 - 0.60 x10E9/L 08/27/2023 2:29 PM [facility] Basophil Absolute 0.05 0.00 - 0.13 x10E9/L 08/27/2023 2:29 PM [facility] Blood BLOOD SPECIMEN / Unknown Lab Venipuncture / Unknown 08/27/2023 1:[address] [facility] 08/27/2023 2:20 PM BLOOM CONVEYOR OPERATOR Kelvin Brown MD LAB - HEMATOLOGY ORDERABLES [facility] [address] [place] [address] * (ABNORMAL) BASIC METABOLIC PANEL (CALCIUM TOTAL) (08/27/2023 1:54 PM BLOOM CONVEYOR OPERATOR) [facility] Glucose 90 70 - 105 mg/dL 08/27/2023 2:47 PM [facility] Sodium 142 136 - 145 mmol/L 08/27/2023 2:47 PM [facility] Potassium 3.9 3.5 - 5.1 mmol/L 08/27/2023 2:47 PM [facility] Chloride 105 98 - 107 mmol/L 08/27/2023 2:47 PM [facility] CO2 30(H) 22 - 29 mmol/L 08/27/2023 2:47 PM [facility] Calcium 10.1 8.4 - 10.4 mg/dL 08/27/2023 2:47 PM [facility] Anion Gap 7 6 - 16 mmol/L 08/27/2023 2:47 PM [facility] BUN 13 7 - 26 mg/dL 08/27/2023 2:47 PM [facility] Creatinine 0.78 0.57 - 1.11 mg/dL 08/27/2023 2:47 PM [facility] eGFR by CKD-EPI 78(L) >=90 mL/min/1.7 3 m2 08/27/2023 2:47 PM [facility] Blood BLOOD SPECIMEN / Unknown Lab Venipuncture / Unknown 08/27/2023 1:54 PM BLOOM CONVEYOR OPERATOR 08/27/2023 2:20 PM BLOOM CONVEYOR OPERATOR Kelvin Brown MD LAB - CHEMISTRY ORDERABLES [facility] [address] [place] [address] * CT ANGIO ABDOMEN AORTA W RUNOFF (07/21/2023 4:04 PM BLOOM CONVEYOR OPERATOR) Anatomical Region Laterality Modality Abdomen, Lower Extremity Compute d Tomography 07/21/2023 6:11 PM BLOOM CONVEYOR OPERATOR Impressions 07/21/2023 6:15 PM BLOOM CONVEYOR OPERATOR IMPRESSION: 1.Occluded left femoral to popliteal stent. Traditional angiography is recommended for further evaluation. 2.Contrast opacification of the left lower extremity three-vessel runoff is suggestive of collateral supply versus trace residual flow. 3.Bilateral irregular multifocal stenosis throughout the femoral arteries. 4.Severe atherosclerotic disease and peripheral vascular disease. > Interpreting Provider: Nura Jensen MD on 07/21/2023 6:15 PM Narrative 07/21/2023 6:15 PM BLOOM CONVEYOR OPERATOR PROCEDURE: CT ANGIO ABDOMEN AORTA W RUNOFF DATE/TIME OF EXAM: 07/21/2023 4:05 PM Indication: I73.9: Peripheral vascular disease, unspecified (CMS-HCC) COMPARISON: None available. TECHNIQUE: CT angiography of the abdomen and pelvis and bilateral lower extremities was performed without IV contrast followed by IV contrast, including 3D post processing CTA image reconstruction. CT dose reduction technique was used, including Automated Exposure Control. CONTRAST: IOPAMIDOL 76 % IV SOLN:200 mL FINDINGS: The abdominal aorta demonstrates moderate to severe atherosclerotic calcification. The celiac artery appears patent. The superior mesenteric artery appears patent. The bilateral renal arteries appear patent, but there appear to be small proximal bilateral renal artery stents. The inferior mesenteric artery is patent. There appears to be a stent within the proximal right common carotid artery at its origin. The bilateral common, internal, and external iliac arteries appear grossly patent. Dense atherosclerotic calcified location is seen within the branch vessels. There is irregular multifocal stenosis throughout the right femoral artery. The right popliteal artery remains patent. There is patent three-vessel runoff on the right. Multifocal narrowing and stenosis is seen throughout the left femoral artery. A stent is seen within the mid to distal left femoral artery extending to the popliteal artery. The stent is distally occluded. No evidence of contrast opacification of the left popliteal artery is seen. Contrast opacification of the distal 3 vessel runoff is seen suggesting collateral supply. Procedure Note Nura Jensen MD - 07/21/2023 PROCEDURE: CT ANGIO ABDOMEN AORTA W RUNOFF DATE/TIME OF EXAM: 07/21/2023 4:05 PM Indication: I73.9: Peripheral vascular disease, unspecified (CMS-HCC) COMPARISON: None available. TECHNIQUE: CT angiography of the abdomen and pelvis and bilateral lower extremities was performed without IV contrast followed by IV contrast, including 3D post processing CTA image reconstruction. CT dose reduction technique was used, including Automated ExposureControl. CONTRAST: IOPAMIDOL 76 % IV SOLN:200 mL FINDINGS: The abdominal aorta demonstrates moderate to severe atherosclerotic calcification. The celiac artery appears patent. The superior mesenteric artery appears patent. The bilateral renal arteries appear patent, but there appear to be small proximal bilateral renal artery stents. The inferior mesenteric artery is patent. There appears to be a stent within the proximal right common carotid artery at its origin. The bilateral common, internal, and external iliac arteries appear grossly patent.Dense atherosclerotic calcified location is seen within the branch vessels.There is irregular multifocal stenosis throughout the right femoral artery.The right popliteal artery remains patent. There is patent three-vesselrunoff on the right. Multifocal narrowing and stenosis is seen throughout theleft femoral artery. A stent is seen within the mid to distal left femoral artery extending to the popliteal artery. The stent is distallyoccluded. No evidence of contrast opacification of the left popliteal artery isseen. Contrast opacification of the distal 3 vessel runoff is seen suggesting collateral supply. IMPRESSION: 1.Occluded left femoral to popliteal stent. Traditional angiography is recommended for further evaluation. 2.Contrast opacification of the left lower extremity three-vessel runoffis suggestive of collateral supply versus trace residual flow. 3.Bilateral irregular multifocal stenosis throughout the femoralarteries. 4.Severe atherosclerotic disease and peripheral vascular disease. > Interpreting Provider: Nura Jensen MD on 07/21/2023 6:15 PM Chris [address] MD CT ORDERABLES Care Teams Ship Surveyor Relationship Specialty Start Date End Date Suha Cabrales MD [address] [place] [address] PCP - General Family Medicine 07/01/23
--- OUTSIDE RECORDS SUMMARY | 2024-08-03 14:55 | XMS_ITS | Referral Summary ---
Author Organization [facility] Address [address] [place] [address] Care Team Providers Care Active Directory Engineer Name Role Phone Suha Cabrales MD Primary Care Provider [phone] Source Comments [facility],non-owned Affiliates and Associated Physician Practices is amultiple site organization consisting of ambulatory clinics and hospital sitesin [place], [place], [place] and [place]. This disclosure is being madepursuant to the Care Everywhere program and may not contain all information available regarding this patient. Last updated 18.[facility] Allergies Active Allergy Reactions Criticality Noted Date Comments Ampicillin Rash Medium 07/01/2023 Cephalexin Unknown,Rash Medium 07/21/2014 Contrast-Iodinated Agents For Ct/Other Nausea and/or Vomiting,Swelling,Headach e 07/01/2023 Penicillins Rash Medium 12/03/2018 Medications * Be aware that medications may not be up to date on this document. Alwaysverify current medications with the patient. Medication Sig Dispensed Refills Start Date End Date Status amLODIPine (Norvasc) 10 MG tablet Take 1 (one) tablet by mouth once daily 05/13/2023 Active aspirin (Aspirin) 325 MG tablet Take 1 (one) tablet by mouth once daily Active atorvastatin (Lipitor) 40 MG tablet Take 1 (one) tablet by mouth once daily 03/14/2023 Active baclofen (Lioresal) 10 MG tablet TAKE 2 TABLETS BY MOUTH IN THE EVENING 05/11/2023 Active carvedilol (Coreg) 6.25 MG tablet Take 1 (one) tablet by mouth 2 times daily 05/13/2023 Active clopidogrel (plaVIX) 75 MG tablet Take 1 (one) tablet by mouth once daily 06/19/2023 Active ezetimibe (Zetia) 10 MG tablet Take 1 (one) tablet by mouth once daily 06/19/2023 Active Trelegy Ellipta 100-62.5-25 MCG/ACT INHALE 1 PUFF ONCE DAILY 06/27/2023 Active levothyroxine (Synthroid) 100 MCG tablet Take 1 (one) tablet by mouth once daily 06/25/2023 Active losartan (Cozaar) 100 MG tablet Take 1 (one) tablet by mouth once daily 06/23/2023 Active nitroGLYCERIN (Nitrostat) 0.4 MG tabletIndications:A cute Angina Pectoris Dissolve 1 (one) tablet under the tongue every 5 minutes as needed for Angina patient does not have, 09/11/23 Reasons: Acute Angina Pectoris 09/11/2023 Active rosuvastatin (Crestor) 40 MG tablet Take 1 (one) tablet by mouth once daily 04/29/2023 Active traMADol (Ultram) 50 MG tablet TAKE 2 TABLETS BY MOUTH EVERY 6 HOURS 06/26/2023 Active traZODone (Desyrel) 150 MG tablet Take 1 (one) tablet by mouth 05/13/2023 Active venlafaxine XR 24hr (Effexor XR) 75 MG capsuleIndications: Major Depressive Disorder Take 1 (one) capsule by mouth once daily Not in home 09/11/23 Reasons: Major Depressive Disorder 06/19/2023 Active predniSONE (Deltasone) 50 MG tablet Take 1 tablet by mouth 13 hours before contrast medium administration, 7 hours before contrast medium administration, and 1 hour before contrast medium administration. 3 tablet 07/01/2023 Active pantoprazole EC (Protonix) 40 MG tablet Take 1 (one) tablet by mouth once daily Active albuterol (Proventil;Ventolin ) (2.5 MG/3ML) 0.083% nebulizer solutionIndications :Bronchospasm Inhale 2.5 (two and one-half) mg by mouth 4 times daily as needed for Shortness of Breath or Wheezing patient states on 09/11/23 she is not using Reasons: Spasm of Lung Air Passages 09/11/2023 Active HYDROcodone-acetami nophen ([place]) 5-325 MG tabletIndications:P VD (peripheral vascular disease) (HCC) Take 1 (one) tablet by mouth every 6 hours as needed for Pain 24 tablet 10/07/2023 Active Active Problems Problem Noted Date Diagnosed [...] and heating? Not hard at all 09/03/2023 [facility] [place] [facility] - Occupational Stress [...] place to sleep or slept in a halfway (including now)? No 09/03/2023 Sex and Gender [...] Mass Index 28.17 10/14/2023 10:50 AM CDT Functional Status Functional Status Response Date of Assess ment Is person deaf or have serious hearing difficult y? No 09/02/2023 Is person blind or have serious difficulty seein g? No 09/02/2023 Does person have serious dif ficulty walking/climbing stairs? Yes 09/02/2023 Does person have difficulty dressing/bathing? Ye s 09/02/2023 Does person have difficulty doing errands alone? Yes 09/02/2023 Cognitive Status Response Date of Assessm ent Does person have difficulty concentrating/remembering/making decisions? No 09/02/2023 Plan of Treatment Not on file Medical Devices Implanted Type Area Business Management Manager Device Identifier Shelf Expiration Date Model / Serial / Lot Graft Vasc 6mm 70cm 60cm Hep Propaten - [id number] Implanted:Qty: 1 on 09/02/2023 by Chris Castle MD at [facility] Right: Other (See Descriptio n) [employer] 09/15/2025 [id number] / [id number] Description:POPLITEAL-FEMORA L ARTERY Advance Directives * Full Code (Latest Code Status on File) Date Activated Date Inactivated Comments 09/02/2023 5:24 PM 09/06/2023 2:39 PM Care Teams Active Directory Engineer Relationship Specialty Start Date End Date Suha Cabrales MD [address] [place] [address] PCP - General Family Medicine 07/01/23
--- OUTSIDE RECORDS SUMMARY | 2024-08-03 14:55 | XMS_ITS | Clinical Summary ---
Author Organization [facility] Address [address] [place] [address] Care Team Providers Care Youth Liaison Officer Name Role Phone Suha Cabrales MD Primary Care Provider [phone] Source Comments [facility],non-owned Affiliates and Associated Physician Practices is amultiple site organization consisting of ambulatory clinics and hospital sitesin [place], [place], [place] and [place]. This disclosure is being madepursuant to the Care Everywhere program and may not contain all information available regarding this patient. Last updated 18.[facility] [employer] Allergies Active Allergy Reactions Criticality Noted Date [...] Lung Air Passages 09/11/2023 Active HYDROcodone-acetami nophen ([place]) 5-325 MG tabletIndications:P VD (peripheral vascular disease) (HCC) Take 1 (one) tablet by mouth every 6 hours as needed for Pain 24 tablet 10/07/2023 Active Active Problems Problem Noted Date Diagnosed Date PAD (peripheral artery disease) 09/02/2023 Family History Medical History Relation Name Comments Cancer - Esophageal Father unknown Cancer - Lung Father Cancer - Esophageal Mother metatsta sis Cancer - Colon Sister Relation Name Status Comments Father Mother Sister Social History Tobacco Use Types Packs/Day Years [...] and heating? Not hard at all 09/03/2023 [facility] - Occupational Stress [...] place to sleep or slept in a custodial (including now)? No 09/03/2023 Sex and Gender [...] Mass Index 28.17 10/14/2023 10:50 AM CDT Plan of Treatment Health Maintenance Due Date Last Done Comments BONE DENSITY TESTING 1945 MEDICARE AWV 12 MONTHS 1945 HEPATITIS C SCREENING 01/28/1964 DTAP/TDAP/TD VACCINES (1 - Tdap) 1965 PNEUMOCOCCAL VACCINE 50+ (1 of 2 - PCV) 1965 ZOSTER VACCINE (1 of 2) 02/02/1996 Respiratory Syncytial Virus (RSV) Vaccine Pt: or over 60 yrs (1 - 1-dose 75+ series) 2021 COVID-19 VACCINE ( - 2023-2 5 season) 2024 INFLUENZA VACCINE (#1) 2024 DEPRESSION SCREENING 06/23/2024 HEPATITIS B VACCINE Aged Out No longe r eligible based on patient's age to complete this topic HIB VACCINE Aged Out No longer eligi ble based on patient's age to complete this topic HPV VACCINE Aged Out No longer eligi ble based on patient's age to complete this topic MENINGOCOCCAL (Group B) VACCINE Aged Out No longer eligible based on patient's age to complete this topic MENINGOCOCCAL VACCINE Aged Out No rhona sea eligible based on patient's age to complete this topic Medical Devices Implanted Type Area News Assistant Device Identifier Shelf Expiration Date Model / Serial / Lot Graft Vasc 6mm 70cm 60cm Hep Propaten - [id number] Implanted:Qty: 1 on 09/02/2023 by Chris Castle MD at [facility] Right: Other (See Descriptio n) [employer] 09/15/2025 [id number] / [id number] Description:POPLITEAL-FEMORA L ARTERY Advance Directives * Full Code (Latest Code Status on File) Date Activated Date Inactivated Comments 09/02/2023 5:24 PM 09/06/2023 2:39 PM Care Teams Youth Liaison Officer Relationship Specialty Start Date End Date Suha Cabrales MD [address] [place] [address] PCP - General Family Medicine 07/01/23
--- OUTSIDE RECORDS SUMMARY | 2024-08-03 14:55 | XMS_ITS | CONTINUITY OF CARE DOCUMENT ---
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 Patrick Dasilva MD Edema active Patrick Dasilva MD PVD active Patrick Dasilva MD Venous insufficiency active Patrick Farrar ENCOUNTERS Date Type Provider Location Encounter Diag nosis - In-person encounter Office Visit Patrick Dasilva [facility] - In-person encounter Office Visit Patrick aDsilva MD [facility] Venous insufficiency - In-person encounter Office Visit Patrick Dasilva MD [facility] PVD - In-person encounter Office Visit Patrick Dasilva MD [facility] - In-person encounter Office Visit Patrick Dasilva MD [facility] - In-person encounter Office Visit Patrick Dasilva MD [facility] - In[facility]person encounter Office Visit Patrick Dasilva MD [facility] - In-person encounter Office Visit Patrick Dasilva MD [facility] Office - In-person encounter Office Visit Patrick Dasilva MD [facility] Office - In-person encounter Office Visit Patrick Dasilva MD [facility] - In-person encounter Office Visit Patrick Dasilva MD [facility] Edema - In-person encounter Office Visit Patrick Dasilva MD [facility] - In-person encounter Office Visit Patrick Dasilva MD [facility] - In-person encounter Office Visit Patrick Dasilva MD [facility] - In-person encounter Office Visit Patrick Dasilva MD [facility] Coronary Heart Disea se - In-person encounter Office Visit MARIZA ROBERT MD [place] - In-person encounter Office Visit Patirck Dasilva MD [facility] - In-person encounter Office Visit Patrick Dasilva MD [facility] COPD - In-person encounter Office Visit Patrick Dasilva MD [facility] Shortness of breath - In-person encounter Office Visit Patrick Dasilva MD [facility] - In-person encounter Office Visit Patrick Dasilva MD [facility] - In-person encounter Office Visit Patrick Dasilva MD [facility] - In-person encounter Office Visit Patrick Dasilva MD [facility] - In-person encounter Office Visit Patrick Dasilva MD [facility] - In-person encounter Office Visit MARIZA ROBERT MD [facility] - In-person encounter Office Visit MARIZA ROBERT MD [place] - In-person encounter Office Visit Patrick Dasilva [facility] - In-person encounter Office Visit Patrick Dasilva [facility] - In-person encounter Office Visit MARIZA ROBERT MD [place] [facility] - In-person encounter Office Visit Patrick Dasilva [facility] - In-person encounter Office Visit MARIZA ROBERT MD [place] [facility] - In-person encounter Office Visit MARIZA ROBERT MD [place] [facility] - In-person encounter Office Visit Shara Hernandez [facility] - In-person encounter Office Visit Patrick Dasilva MD [facility] - In-person encounter Office Visit MARIZA ROBERT MD [place] [facility] - In-person encounter Office Visit MARIZA ROBERT MD [place] [facility] - In-person encounter Office Visit MARIZA ROBERT MD [place] [facility] - In-person encounter Office Visit Patrick Dasilva MD [place] [facility] - In-person encounter Office Visit Shara Hernandez [place] - In-person encounter Office Visit Shara Hernandez [place] [facility] - In-person encounter Office Visit Patrick Dasilva MD [place] CLAUDICATION, INTERMITTENTPRE-OPERAT CARLOS CARDIOVASCULAR EXAMINATION - In-person encounter Office Visit Patrick Dasilva MD [place] [facility] HISTORY OF TOBACCO ABUSE - In-person encounter Office Visit Shara Hernandez [place] [facility] - In-person encounter Office Visit Shara Hernandez [place] [facility] - In-person encounter Office Visit Shara Hernandez [place] [facility] - In-person encounter Office Visit Shara [facility] - [facility] Visit Shara [facility] VITAL SIGNS Date Observation Value Provider Body Mass Index (Ratio) 25.05 kg/m2 Javier Dasilva MD blood pressure, cuff size regular Ke alex Thayer blood pressure, diastolic 100 mm[Hg] Ke rrphil Ovalle blood pressure, systolic 162 mm[Hg] Alfred Thayer oxygen saturation, oximetry 96 % Kelsea Thayer pulse rate 90 /min Kelsea Velasco [facility] weight E&M 137 [lb_av] Kelsea Velasco [facility] height E&M 62 [in_i] Kelsea Velasco [facility] Body Mass Index (Ratio) 25.79 kg/m2 Tacho Vargas blood pressure, diastolic 119 mm[Hg] Ky uriah Eduardo blood pressure, systolic 197 mm[Hg] Kyl ia Eduardo oxygen saturation, oximetry 96 % Harmeet Clark pulse rate 72 /min Harmeet Clark weight E&M 141 [lb_av] Harmeet Clark blood pressure, cuff size regular Don Clark respiratory rate E&M 12 /min Harmeet staley height E&M 62 [in_i] Harmeet Clark Body Mass Index (Ratio) 26.34 kg/m2 Javier Dasilva MD respiratory rate E&M 16 /min Savanna Posley pulse rate 74 /min Savanna Posley oxygen saturation, oximetry 94 % Savanna Posley blood pressure, cuff size regular Le slie Posley blood pressure, diastolic 70 mm[Hg] Le slie Posley blood pressure, systolic 138 mm[Hg] Les lie Posley weight E&M 144 [lb_av] Savanna Posley height E&M 62 [in_i] Savanna Posley Body Mass Index (Ratio) 26.70 kg/m2 Javier Dasilva MD blood pressure, diastolic 90 mm[Hg] Anibal rret blood pressure, systolic 161 mm[Hg] Jhonatan ret pulse rate 71 /min Jake er y blood pressure, cuff size regular rret respiratory rate E&M 14 /min Jake oxygen saturation, oximetry 96 % Jake weight E&M 146 [lb_av] Jake y height E&M 62 [in_i] Jake er y Body Mass Index (Ratio) 27.43 kg/m2 Javier Dasilva MD blood pressure, diastolic 88 mm[Hg] Li nkLogic blood pressure, systolic 141 mm[Hg] Marjorie kLogic blood pressure, cuff size regular Ja rret blood pressure, diastolic 88 mm[Hg] Ja rret blood pressure, systolic 141 mm[Hg] Jhonatan ret pulse rate 77 /min Jake y oxygen saturation, oximetry 94 % Jake respiratory rate E&M 16 /min Jake weight E&M 150 [lb_av] Jake y height E&M 62 [in_i] Jake y blood pressure, cuff size regular Ja rret blood pressure, diastolic 81 mm[Hg] rr blood pressure, systolic 131 mm[Hg] Jhonatan pulse rate 60 /min Jake y oxygen saturation, oximetry 94 % Jake respiratory rate E&M 12 /min Jake height E&M 62 [in_i] Jake y blood pressure, cuff size regular Ke rri Maheshuenenfelder blood pressure, diastolic 80 mm[Hg] Ke rri Gruenenfeld blood pressure, systolic 146 mm[Hg] Alfred ri Flaca oxygen saturation, oximetry 94 % Kelsea Flaca respiratory rate E&M 12 /min Kelsea beltran pulse rate 85 /min Kelsea Rod lder height E&M 62 [in_i] Kelsea zaragozaer blood pressure, diastolic 89 mm[Hg] Sonny Booker blood pressure, systolic 160 mm[Hg] Michelle Booker pulse rate 86 /min Chery Booker respiratory rate E&M 20 /min Chery Booker blood pressure, cuff size regular Sonny Booker oxygen saturation, oximetry 96 % Chery Booker height E&M 62 [in_i] Chery Booker pulse rate 70 /min Patrick Farrar oxygen saturation, oximetry 96 % Patrick Dasilva MD blood pressure, diastolic 70 mm[Hg] Ra sebastian Dasilva MD blood pressure, systolic 156 mm[Hg] Apolinar Dasilva MD blood pressure, cuff size large Ke rri Flaca blood pressure, diastolic 100 mm[Hg] Ke rri Flaca blood pressure, systolic 160 mm[Hg] Ker ri Flaca oxygen saturation, oximetry 98 % Kelsea Flaca respiratory rate E&M 14 /min Kelsea beltran pulse rate 80 /min Kelsea Rod lder height E&M 62 [in_i] Kelsea Velasco lder Body Mass Index (Ratio) 32.55 kg/m2 Javier Dasilva MD blood pressure, diastolic 80 mm[Hg] Archana nkLogjuanita blood pressure, systolic 160 mm[Hg] Marjorie kLogic blood pressure, cuff size regular Kr isty Ildefonso blood pressure, diastolic 80 mm[Hg] Kr isty Piedmont blood pressure, systolic 160 mm[Hg] Kri sty Ildefonso oxygen saturation, oximetry 94 % Frida Piedmont pulse rate 78 /min Frida Piedmont respiratory rate E&M 19 /min Frida Piedmont weight E&M 178 [lb_av] Frida Piedmont height E&M 62 [in_i] Frida Piedmont Body Mass Index (Ratio) 27.62 kg/m2 Javier Dasilva MD pulse rate 68 /min Colette Godoy blood pressure, diastolic 94 mm[Hg] Fe james Godoy blood pressure, systolic 150 mm[Hg] Fel icia Godoy oxygen saturation, oximetry 96 % Colette Godoy respiratory rate E&M 16 /min Colette Godoy weight E&M 151 [lb_av] Colette Godoy height E&M 62 [in_i] Colette Godoy Body Mass Index (Ratio) 27.62 kg/m2 Javier Dasilva MD blood pressure, cuff size regular Rick Fregoso blood pressure, diastolic 80 mm[Hg] Rick Livingstonby blood pressure, systolic 142 mm[Hg] Samuel Livingstonby pulse rate 69 /min Frida Livingstonby oxygen saturation, oximetry 97 % Frida Livingstonby respiratory rate E&M 17 /min Frida Livingstonby weight E&M 151 [lb_av] Frida Livingstonby height E&M 62 [in_i] Frida Fregoso Body Mass Index (Ratio) 25.24 kg/m2 Javier Dasilva MD blood pressure, diastolic 100 mm[Hg] Ra sebastian Dasilva MD blood pressure, systolic 162 mm[Hg] Apolinar Dasilva MD oxygen saturation, oximetry 96 % Cheri Adorno pulse rate 72 /min Cheri Snowden weight E&M 138 [lb_av] Cheri Snowden height E&M 62 [in_i] Cheri Snowden Body Mass Index (Ratio) 25.60 kg/m2 Javier Dasilva MD blood pressure, diastolic 80 mm[Hg] Immanuel og ArgentinaShawn blood pressure, systolic 140 mm[Hg] Mary Alice blackwell oxygen saturation, oximetry 94 % [facility] E&M 16 /min [facility] pulse rate 70 /min [facility] weight E&M 140 [lb_av] Tracy OShawn height E&M 62 [in_i] [facility] Body Mass Index (Ratio) 27.62 kg/m2 Consuelo ica N David blood pressure, cuff size regular Je ssica N David blood pressure, diastolic 90 mm[Hg] Je ssica N David blood pressure, systolic 180 mm[Hg] Susan bradley Jay Hernandez oxygen saturation, oximetry 95 % Nan N David respiratory rate E&M 18 /min Nan N Advid pulse rate 73 /min Nan N Wilso n weight E&M 151 [lb_av] Nan N Wilso n Body Mass Index (Ratio) 27.62 kg/m2 Javier Dasilva MD blood pressure, diastolic 64 mm[Hg] Immanuel Joseph blood pressure, systolic 130 mm[Hg] Mary Alice Joseph pulse rate 62 /min Chiqui Joseph oxygen saturation, oximetry 92 % Chiqui Joseph respiratory rate E&M 17 /min Chiqui Joseph weight E&M 151 [lb_av] Chiqui Joseph height E&M 62 [in_i] Chiqui Joseph Body Mass Index (Ratio) 27.94 kg/m2 Consuelo ica N David blood pressure, cuff size regular Je ssica N David blood pressure, diastolic 80 mm[Hg] Je ssica N David blood pressure, systolic 140 mm[Hg] Susan Carr David oxygen saturation, oximetry 93 % Nan Carr David respiratory rate E&M 18 /min Nan Carr David pulse rate 78 /min Nan Cronin n weight E&M 152.8 [lb_av] Nan Landry on Body Mass Index (Ratio) 27.98 kg/m2 Javier Dasilva MD oxygen saturation, oximetry 92 % Frida Livingstonby blood pressure, diastolic 70 mm[Hg] Rick Livingstonby blood pressure, systolic 130 mm[Hg] Samuel Livingstonby weight E&M 153 [lb_av] Frida Livingstonby respiratory rate E&M 17 /min Frida Ildefonso pulse rate 77 /min Frida Ildefonso height E&M 62 [in_i] Frida Ildefonso Body Mass Index (Ratio) 27.98 kg/m2 Javier Dasilva MD blood pressure, diastolic 80 mm[Hg] Soy Joseph blood pressure, systolic 160 mm[Hg] Kinjal Joseph pulse rate 69 /min Kinjal Joseph respiratory rate E&M 18 /min Kinjal wilson oxygen saturation, oximetry 97 % Kinjal Joseph weight E&M 153 [lb_av] Kinjal Joseph blood pressure, resting Yes Kinjal Joseph height E&M 62 [in_i] Kinjal Joseph pulse rate #2 70 Audrey Pat blood pressure, jung tolic, second observation 85 mm[Hg] Audrey Pat blood pressure, syst olic, second observation 146 mm[Hg] Audrey Pat oxygen saturation, oximetry 98 % Audrey Pat pulse rate 70 /min Audrey Pat blood pressure, diastolic 85 mm[Hg] Vi ctoria Tebid blood pressure, systolic 146 mm[Hg] Sreekanth adela Tebid pulse rate #2 63 [place] d blood pressure, jung tolic, second observation 88 mm[Hg] [place] bid blood pressure, syst olic, second observation 164 mm[Hg] [facility], [facility] % [place] d pulse rate 63 /min [place] d blood pressure, diastolic 88 mm[Hg] Vi ctoria Tebid blood pressure, systolic 164 mm[Hg] Sreekanth adela Tebid pulse rate #2 65 [place] d blood pressure, jung tolic, second observation 92 mm[Hg] [facility] blood pressure, syst olic, second observation 158 mm[Hg] [facility], oximetry 98 % [place] pulse rate 65 /min [place] d blood pressure, diastolic 92 mm[Hg] Vi ctoria Ted blood pressure, systolic 158 mm[Hg] Sreekanth adela Ted pulse rate #2 71 [place] blood pressure, jung tolic, second observation 89 mm[Hg] [facility], syst olic, second observation 154 mm[Hg] [facility], oximetry 98 % [place] d pulse rate 71 /min [place] d blood pressure, diastolic 89 mm[Hg] Vi ctoria Tebid blood pressure, systolic 154 mm[Hg] Sreekanth adela Tebid pulse rate #2 79 [place] d blood pressure, jung tolic, second observation 83 mm[Hg] [facility], syst olic, second observation 156 mm[Hg] [facility], oximetry 98 % [facility] [place] [facility] pulse rate 79 /min [place] Tebid blood pressure, diastolic 83 mm[Hg] Vi ctoria Tebid blood pressure, systolic 156 mm[Hg] Sreekanth adela Tebid pulse rate #2 77 [place] bid blood pressure, jung tolic, second observation 87 mm[Hg] [place] Tebid blood pressure, syst olic, second observation 142 mm[Hg] Audrey Tebid oxygen saturation, oximetry 98 % [facility] 77 /min [place] Tebid blood pressure, diastolic 87 mm[Hg] Vi ctoria Tebid blood pressure, systolic 142 mm[Hg] Sreekanth adela Tebid pulse rate #2 71 [facility], jung tolic, second observation 89 mm[Hg] [facility] blood [facility], syst olic, second observation 150 mm[Hg] [facility], oximetry 98 % [place] bid pulse rate 71 /min [place] bid blood pressure, diastolic 89 mm[Hg] [facility] Tebid blood pressure, systolic 150 mm[Hg] Sreekanth mcintoshia Tebid pulse rate #2 76 [facility], jung tolic, second observation 92 mm[Hg] Audrey Tebid blood pressure, syst olic, second observation 152 mm[Hg] [place] Tebid oxygen saturation, oximetry 98 % [place] bid pulse rate 76 /min [place] Tebid blood pressure, diastolic 92 mm[Hg] Vi ctoria Tebid blood pressure, systolic 152 mm[Hg] Sreekanth adela Tebid pulse rate #2 75 [place] bid blood pressure, jung tolic, second observation 90 mm[Hg] [place] Tebid blood pressure, syst olic, second observation 146 mm[Hg] [facility], oximetry 98 % [facility] pulse rate 75 /min [facility], diastolic 90 mm[Hg] Vi ctoria Tebid blood pressure, systolic 146 mm[Hg] Sreekanth adela bid pulse rate #2 79 [facility] blood pressure, jung tolic, second observation 81 mm[Hg] [facility] blood [facility], syst olic, second observation 148 mm[Hg] [facility] oxygen saturation, oximetry 98 % [facility] pulse rate 79 /min [facility] blood pressure, diastolic 81 mm[Hg] Vi [facility] Tebid blood pressure, systolic 148 mm[Hg] Sreekanth adela bid pulse rate #2 71 [facility] blood pressure, jung tolic, second observation 76 mm[Hg] [facility] blood pressure, syst olic, second observation 131 mm[Hg] [facility] oxygen saturation, oximetry 98 % [facility] pulse rate 71 /min [facility] blood pressure, diastolic 76 mm[Hg] Vi [facility] Tebid blood pressure, systolic 131 mm[Hg] Sreekanth adela Tebid pulse rate #2 78 [facility] blood [facility], jung tolic, second observation 72 mm[Hg] [facility], syst olic, second observation 133 mm[Hg] [facility], oximetry 98 % [facility] pulse rate 78 /min [facility], diastolic 72 mm[Hg] Vi cooria Tebid blood pressure, systolic 133 mm[Hg] Sreekanth adela bid pulse rate #2 72 [facility] [place] blood pressure, jung tolic, second observation 69 mm[Hg] [facility], syst olic, second observation 164 mm[Hg] [facility] oxygen saturation, oximetry 98 % [facility] pulse rate 72 /min [facility] blood pressure, diastolic 69 mm[Hg] Vi ctoria Tebid blood pressure, systolic 164 mm[Hg] Sreekanth adela bid pulse rate #2 71 [facility] blood pressure, jung tolic, second observation 67 mm[Hg] [facility] blood pressure, syst olic, second observation 153 mm[Hg] [facility] oxygen saturation, oximetry 98 % [facility] pulse rate 71 /min [facility] blood pressure, diastolic 67 mm[Hg] [facility], [facility] mm[Hg] Sreekanth mcintoshia Tebid pulse rate #2 62 [facility] blood pressure, jung tolic, second observation 84 mm[Hg] [facility] blood [facility], syst olic, second observation 146 mm[Hg] [facility], oximetry 98 % [facility] pulse rate 62 /min [facility] blood pressure, diastolic 84 mm[Hg] Vi ctoria Tebid blood pressure, systolic 146 mm[Hg] Sreekanth adela Tebid pulse rate #2 62 [facility] blood pressure, jung tolic, second observation 96 mm[Hg] [facility] blood [facility], syst olic, second observation 150 mm[Hg] [facility], oximetry 98 % [facility] pulse rate 62 /min [facility] blood pressure, diastolic 96 mm[Hg] Vi ctoria Tebid blood pressure, systolic 150 mm[Hg] Sreekanth adela Tebid pulse rate #2 78 Audrey Tebid blood pressure, jung tolic, second observation 79 mm[Hg] Audrey Tebid blood pressure, syst olic, second observation 125 mm[Hg] Audrey Tebid oxygen saturation, oximetry 98 % [facility] 78 /min [facility], diastolic 79 mm[Hg] Vi cooria Tebid blood pressure, systolic 125 mm[Hg] Sreekanth adela Tebid pulse rate #2 71 [place] Tebid blood pressure, jung tolic, second observation 78 mm[Hg] Audrey Tebid blood pressure, syst olic, second observation 134 mm[Hg] Audrey Tebid oxygen saturation, oximetry 98 % [facility] 71 /min [facility], diastolic 78 mm[Hg] Vi cooria Tebid blood pressure, systolic 134 mm[Hg] Sreekanth adela Tebid pulse rate #2 74 [place] Tebid blood pressure, jung tolic, second observation 73 mm[Hg] Audrey Tebid blood pressure, syst olic, second observation 155 mm[Hg] Audrey Tebid oxygen saturation, oximetry 98 % [facility] 74 /min [place] Tebid blood pressure, diastolic 73 mm[Hg] Vi ctoria Tebid blood pressure, systolic 155 mm[Hg] Sreekanth adela Tebid pulse rate #2 68 [facility], jung tolic, second observation 89 mm[Hg] [facility] blood [facility], syst olic, second observation 146 mm[Hg] [facility], oximetry 98 % [facility] pulse rate 68 /min [facility], diastolic 89 mm[Hg] Vi ctoria Tebid blood pressure, systolic 146 mm[Hg] Sreekanth adela Tebid pulse rate #2 67 [place] Tebid blood pressure, jung tolic, second observation 79 mm[Hg] [place] bid blood pressure, syst olic, second observation 129 mm[Hg] [facility], oximetry 98 % [facility] pulse [facility] 67 /min [facility], diastolic 79 mm[Hg] Vi ctoria Tebid blood pressure, systolic 129 mm[Hg] Sreekanth adela Tebid pulse rate #2 67 [facility] blood pressure, jung tolic, second observation 81 mm[Hg] [facility] blood [facility], syst olic, second observation 130 mm[Hg] [facility] [place] oxygen saturation, oximetry 98 % [facility] pulse rate 67 /min [facility], diastolic 81 mm[Hg] [facility] Tebid blood pressure, systolic 130 mm[Hg] Sreekanth adela Tebid pulse rate #2 74 [facility] blood pressure, jung tolic, second observation 83 mm[Hg] [facility] blood [facility], syst olic, second observation 139 mm[Hg] [facility], oximetry 98 % [facility] pulse rate 74 /min [place] Tebid blood pressure, diastolic 83 mm[Hg] Vi ctoria Tebid blood pressure, systolic 139 mm[Hg] Sreekanth adela Tebid pulse rate #2 58 [facility], jung tolic, second observation 89 mm[Hg] [facility] blood [facility], syst olic, second observation 136 mm[Hg] [facility], oximetry 98 % [facility] pulse rate 58 /min [place] Tebid blood pressure, diastolic 89 mm[Hg] Vi ctoria Tebid blood pressure, systolic 136 mm[Hg] Sreekanth adela Tebid pulse rate #2 62 [place] d blood pressure, jung tolic, second observation 86 mm[Hg] [facility], syst olic, second observation 166 mm[Hg] Audrey Tebid oxygen saturation, oximetry 98 % [place] d pulse rate 62 /min [place] Tebid blood pressure, diastolic 86 mm[Hg] Vi ctoria Tebid blood pressure, systolic 166 mm[Hg] Sreekanth adela Tebid pulse rate #2 78 [facility], jung tolic, second observation 85 mm[Hg] [facility] blood [facility], syst olic, second observation 135 mm[Hg] [facility], oximetry 98 % [place] d pulse rate 78 /min [place] d blood pressure, diastolic 85 mm[Hg] [facility] Tebid blood pressure, systolic 135 mm[Hg] Sreekanth adela Tebid pulse rate #2 66 [facility], jung tolic, second observation 76 mm[Hg] [facility] second [facility] 114 mm[Hg] Audrey Tebid oxygen saturation, oximetry 98 % [place] d pulse rate 66 /min [place] Tebid blood pressure, diastolic 76 mm[Hg] Vi ctoria Tebid blood pressure, systolic 114 mm[Hg] Sreekanth adela Tebid pulse rate #2 71 [facility] jung tolic, second observation 82 mm[Hg] [facility] syst [facility], second observation 152 mm[Hg] [facility], oxim[facility] 98 % Audrey Tebid pulse rate 71 /min Audrey Tebid blood pressure, diastolic 82 mm[Hg] Vi ctoria Tebid blood pressure, systolic 152 mm[Hg] Sreekanth adela Tebid pulse rate #2 66 Audrey Tebid blood pressure, jung tolic, second observation 92 mm[Hg] Audrey Tebid blood pressure, syst olic, second observation 163 mm[Hg] Audrey Tebid oxygen saturation, oximetry 98 % Audrey bid pulse rate 66 /min Audrey bid blood pressure, diastolic 92 mm[Hg] Vi ctoria Tebid blood pressure, systolic 163 mm[Hg] Sreekanth adela Tebid pulse rate #2 71 [facility], jung tolic, second observation 81 mm[Hg] Audrey Ted blood pressure, syst olic, second observation 144 mm[Hg] [facility], [facility] 98 % Audrey d pulse rate 71 /min Audrey d blood pressure, diastolic 87 mm[Hg] Vi ctoria Tebid blood pressure, systolic 144 mm[Hg] Sreekanth mcintoshia Tebid pulse rate #2 67 [place] Tebid blood pressure, jung tolic, second observation 82 mm[Hg] Audrey Tebid blood pressure, syst olic, second observation 129 mm[Hg] Audrey Tebid oxygen saturation, oximetry 98 % Audrey d pulse rate 67 /min [place] d blood pressure, diastolic 82 mm[Hg] Vi ctoria Tebid blood pressure, systolic 129 mm[Hg] Sreekanth adela Tebid pulse rate #2 66 [facility], jung tolic, second observation 82 mm[Hg] Audrey Tebid blood pressure, syst olic, second observation 135 mm[Hg] Audrey bid oxygen saturation, oximetry 98 % Audrey d pulse rate 66 /min Audrey d blood pressure, diastolic 82 mm[Hg] Vi ctoria Tebid blood pressure, systolic 135 mm[Hg] Sreekanth adela Tebid pulse rate #2 66 [place] d blood pressure, jung tolic, second observation 97 mm[Hg] Audrey d blood pressure, syst olic, second observation 147 mm[Hg] Audrey d oxygen saturation, oximetry 98 % Audrey d pulse rate 66 /min Audrey d blood pressure, diastolic 97 mm[Hg] Vi ctoria Tebid blood pressure, systolic 147 mm[Hg] Sreekanth adela Tebid pulse rate #2 71 [place] d blood pressure, jung tolic, second observation 96 mm[Hg] Audrey d blood pressure, syst olic, second observation 158 mm[Hg] Audrey d oxygen saturation, oximetry 98 % Audrey pulse rate 71 /min Audrey d blood pressure, diastolic 96 mm[Hg] Vi ctoria Tebid blood pressure, systolic 158 mm[Hg] Sreekanth adela Tebid pulse rate #2 68 [place] d blood pressure, jung tolic, second observation 89 mm[Hg] Audrey d blood pressure, syst olic, second observation 125 mm[Hg] Audrey d oxygen saturation, oximetry 98 % Audrey d pulse rate 68 /min [place] d blood pressure, diastolic 89 mm[Hg] Vi ctoria Tebid blood pressure, systolic 125 mm[Hg] Sreekanth adela Tebid blood pressure, diastolic 82 mm[Hg] Te reina Elenita blood pressure, systolic 124 mm[Hg] Henry Rivashley pulse rate 73 /min Yue Rivashley oxygen saturation, oximetry 94 % Yue Rivashley respiratory rate E&M 18 /min Yue Elenita Body Mass Index (Ratio) 29.63 kg/m2 Keisha Rivashley weight E&M 162 [lb_av] Yue Elenita blood pressure, diastolic 80 mm[Hg] Immanuel foley O'Shawn blood pressure, systolic 138 mm[Hg] Mary Alice blackwell O'Shawn pulse rate 78 /min Tracy O'Shawn oxygen saturation, oximetry 98 % Tracy O'Shawn respiratory rate E&M 16 /min Tracy O'Shawn blood pressure, diastolic 70 mm[Hg] Rick johnson Ildefonso blood pressure, systolic 126 mm[Hg] Samuel Livingstonby pulse rate 68 /min Frida Ildefonso oxygen saturation, oximetry 96 % Frida Livingstonby respiratory rate E&M 18 /min Frida Ildefonso Body Mass Index (Ratio) 29.77 kg/m2 Jamil Fregoso weight E&M 162.8 [lb_av] Frida Ildefonso pulse rate 59 /min Shaina Boateng oxygen saturation, oximetry 96 % Shaina Boateng blood pressure, diastolic 90 mm[Hg] Chetan Boateng blood pressure, systolic 160 mm[Hg] Reed Boateng respiratory rate E&M 16 /min Marty Boateng Body Mass Index (Ratio) 32.92 kg/m2 Jelani Boateng weight E&M 180 [lb_av] Shaina Boateng blood pressure, diastolic 78 mm[Hg] Immanuel Duke blood pressure, systolic 150 mm[Hg] Mary Alice Duke pulse rate 68 /min Yashira toney oxygen saturation, oximetry 96 % Yashira Duke respiratory rate E&M 16 /min Zulay Duke blood pressure, diastolic 90 mm[Hg] Sa ndra Horsey blood pressure, systolic 146 mm[Hg] Canas elizabeth Horsey pulse rate 72 /min Sophy Horsey oxygen saturation, oximetry 96 % Sophy Horsey respiratory rate E&M 16 /min Sophy Horsey Body Mass Index (Ratio) 30.18 kg/m2 Alondra ortiz Abel pulse rate 62 /min Lynette Abel oxygen saturation, oximetry 96 % Lynette Abel respiratory rate E&M 18 /min Lynette Abel blood pressure, diastolic 110 mm[Hg] Il ibeth Abel blood pressure, systolic 162 mm[Hg] Teresa miles Abel weight E&M 165 [lb_av] Lynette Abel Body Mass Index (Ratio) 30.18 kg/m2 Ale Kruse blood pressure, diastolic 100 mm[Hg] Stew Kruse blood pressure, systolic 160 mm[Hg] Stew jimmy Kruse pulse rate 69 /min Stewjimmy Kruse oxygen saturation, oximetry 96 % Stewjimmy Kruse respiratory rate E&M 17 /min Stewjimmy Aixa weight E&M 165 [lb_av] Stewjimmy Kruse Body Mass Index (Ratio) 29.26 kg/m2 Ale Kruse blood pressure, diastolic 90 mm[Hg] Stew jimmy Kruse blood pressure, systolic 140 mm[Hg] Stew jimmy Kruse pulse rate 67 /min Ryder Kruse oxygen saturation, oximetry 97 % Ryder Kruse respiratory rate E&M 18 /min Ryder Kruse weight E&M 160 [lb_av] Ryder Kruse Body Mass Index (Ratio) 29.26 kg/m2 Analia sarah Garcia blood pressure, diastolic 80 mm[Hg] An eatris Jose blood pressure, systolic 116 mm[Hg] Ane atris [facility] pulse rate 77 /min Aneatris Jose oxygen saturation, oximetry 98 % Analiatryanet Garcia respiratory rate E&M 18 /min Aneatri s Jose weight E&M 160 [lb_av] Analiatryanet Jose blood pressure, diastolic 52 mm[Hg] Anibal Rouse RN blood pressure, systolic 125 mm[Hg] Jovanny Rouse RN pulse rate 62 /min Jovanny Rouse RN oxygen saturation, oximetry 97 % Jovanny Rouse RN respiratory rate E&M 16 /min Jovanny her RN Body Mass Index (Ratio) 29.37 kg/m2 Jovanny Rouse RN height E&M 62 [in_i] Jovanny Rouse RN blood pressure, diastolic 83 mm[Hg] Anibal Rouse RN blood pressure, systolic 135 mm[Hg] Jovanny Rouse RN pulse rate 75 /min Jovanny Rouse RN oxygen saturation, oximetry 97 % Jovanny Rouse RN respiratory rate E&M 14 /min Jovanny her RN weight E&M 160 [lb_av] Jovanny Rosue RN ALLERGIES Allergy Name Onset Date Reaction Criticality Status IVP DYE Low Criticality active CILLIN'S Low Criticality active KEFLEX Low Criticality active RESULTS Date Observation Value Provider Reference Range Interpretation Location lipoprotein, beta, serum, point, quantitative, calculated 84 mg/dL [facility] 0-99 HDL cholesterol, serum 35 mg/dL [facility] >39 Low triglyceride, serum, random 132 mg/dL [facility] 0-149 cholesterol, serum 143 mg/dL [facility] [phone]/09 /10 calcium, serum 10.2 mg/dL [facility] 8.7-10.3 carbon dioxide, venous blood 27 mmol/L [facility] 20-29 chloride, serum 101 mmol/L [facility] 96-106 potassium, serum 3.8 mmol/L [facility] 3.5-5.2 sodium, serum 143 mmol/L [facility] [phone]/09 /10 urea nitrogen/creatinine ratio, serum 10 [facility] 12-28 Low creatinine, serum 1.01 mg/dL [facility] 0.57-1.00 High urea nitrogen, blood 10 mg/dL [facility] 8-27 blood glucose, random 108 mg/dL [facility] 70-99 High prothrombin time (patient) 11.6 s [facility] 9.1-12.0 international normalized ratio (INR) 1.1 [facility] 0.9-1.2 basophil count, absolute 0.1 x10E3/uL [facility] 0.0-0.2 Eosinophil Absolute Count 0.6 X10E3/UL [facility] 0.0-0.4 High monocyte count, blood, automated 0.7 X10E3/UL [facility] 0.1-0.9 lymphocyte count, blood, automated 1.6 X10E3/UL [facility] 0.7-3.1 Absolute Neutrophils 6.9 X10E3/UL [facility] 1.4-7.0 basophils as percent of blood leukocytes 1 % [facility] Not Estab. eosinophils as percent of blood leukocytes 6 % [facility] Not Estab. monocytes as percent of blood leukocytes 7 % [facility] Not Est[facility]. lymphocytes as percent of blood leukocytes 16 % [facility] Not Est[facility]. neutrophils as percent of blood leukocytes 70 % [facility] Not Estab. platelet count 303 X10E3/UL [facility] [phone]/09 /10 red blood cell distribution width 14.4 % [facility] 11.7-15.4 mean corpuscular hemoglobin concentration, RBC 32.5 G/DL [facility] 31.5-35.7 mean corpuscular hemoglobin, RBC 29.4 pg [facility] 26.6-33.0 mean corpuscular volume, RBC 90 fL [facility] 79-97 hematocrit, blood 45.8 % [facility] 34.0-46.6 hemoglobin, blood 14.9 g/dL [facility] 11.1-15.9 erythrocyte (RBC) count 5.07 X10E6/UL [facility] 3.77-5.28 leukocyte count, blood 9.8 X10E3/UL [facility] 3.4-10.8 pro brain natriuretic peptide 562 pg/mL [facility] 0-738 alanine aminotransferase (SGPT), serum 15 1/L [facility] 0-32 aspartate aminotransferase (SGOT), serum 14 1/L [facility] 0-40 alkaline phosphatase, serum 84 1/L [facility] 44-121 bilirubin, serum, total 0.4 mg/dL [facility] 0.0-1.2 globulin, serum 2.3 [facility] 1.5-4.5 albumin, serum 4.2 g/dL [facility] 3.8-4.8 protein, total, serum 6.5 g/dL [facility] 6.0-8.5 calcium, serum 9.8 mg/dL [facility] 8.7-10.3 carbon dioxide, venous blood 27 mmol/L [facility] 20-29 chloride, serum 104 mmol/L [facility] 96-106 potassium, serum 3.5 mmol/L [facility] 3.5-5.2 sodium, serum 144 mmol/L [facility] 315-774 9222/07 /23 urea nitrogen/creatinine ratio, serum 16 [facility] 12-28 creatinine, serum 1.00 mg/dL [facility] 0.57-1.00 urea nitrogen, blood 16 mg/dL [facility] 8-27 blood glucose, random 101 mg/dL [facility] 70-99 High lipoprotein, beta, serum, point, quantitative, calculated 74 mg/dL [facility] 0-99 HDL cholesterol, serum 45 mg/dL [facility] >39 triglyceride, serum, random 118 mg/dL [facility] 0-149 cholesterol, serum 140 mg/dL [facility] [phone]/07 /23 calcium, serum 9.9 mg/dL [facility] 8.7-10.3 carbon dioxide, venous blood 26 mmol/L [facility] 20-29 chloride, serum 104 mmol/L [facility] 96-106 potassium, serum 3.8 mmol/L [facility] 3.5-5.2 sodium, serum 146 mmol/L [facility] 134-144 High urea nitrogen/creatinine ratio, serum 17 [facility] 12-28 creatinine, serum 1.02 mg/dL [facility] 0.57-1.00 High urea nitrogen, blood 17 mg/dL [facility] 8- blood glucose, random 101 mg/dL [facility] 70-99 High prothrombin time (patient) 10.6 s [facility] 9.1-12.0 international normalized ratio (INR) 1.0 [facility] 0.9-1.2 basophil count, absolute 0.1 x10E3/uL [facility] 0.0-0.2 Eosinophil Absolute Count 0.3 X10E3/UL [facility] 0.0-0.4 monocyte count, blood, automated 0.8 X10E3/UL [facility] 0.1-0.9 lymphocyte count, blood, automated 1.9 X10E3/UL [facility] 0.7-3.1 Absolute Neutrophils 5.3 X10E3/UL [facility] 1.4-7.0 basophils as percent of blood leukocytes 1 % [facility] Not Estab. eosinophils as percent of blood leukocytes 4 % [facility] Not Estab. monocytes as percent of blood leukocytes 9 % [facility] Not Estab. lymphocytes as percent of blood leukocytes 23 % [facility] Not Estab. neutrophils as percent of blood leukocytes 63 % [facility] Not Estab. platelet count 277 X10E3/UL [facility] 173-155 1468/07 /23 red blood cell distribution width 14.8 % [facility] 11.7-15.4 mean corpuscular hemoglobin concentration, RBC 31.9 G/DL [facility] 31.5-35.7 mean corpuscular hemoglobin, RBC 27.9 pg [facility] 26.6-33.0 mean corpuscular volume, RBC 87 fL [facility] 79-97 hematocrit, blood 43.2 % [facility] 34.0-46.6 hemoglobin, blood 13.8 g/dL [facility] 11.1-15.9 erythrocyte (RBC) count 4.95 X10E6/UL [facility] 3.77-5.28 leukocyte count, blood 8.4 X10E3/UL [facility] 3.4-10.8 ferritin, serum 889 ng/mL [facility] 15-150 High iron saturation percent, serum 29 % [facility] 15-55 iron, serum 79 ug/dL [facility] 27-139 iron binding capacity, unsaturated 190 ug/dL [facility] [phone]/12 /06 iron binding capacity, total 269 ug/dL [facility] [phone]/12 /06 basophil count, absolute 0.1 x10E3/uL [facility] 0.0-0.2 Eosinophil Absolute Count 0.3 X10E3/UL [facility] 0.0-0.4 monocyte count, blood, automated 0.7 X10E3/UL [facility] 0.1-0.9 lymphocyte count, blood, automated 2.4 X10E3/UL [facility] 0.7-3.1 Absolute Neutrophils 4.6 X10E3/UL [facility] 1.4-7.0 basophils as percent of blood leukocytes 1 % [facility] Not Estab. eosinophils as percent of blood leukocytes 3 % [facility] Not Estab. monocytes as percent of blood leukocytes 8 % [facility] Not Estab. lymphocytes as percent of blood leukocytes 29 % [facility] Not Estab. neutrophils as percent of blood leukocytes 59 % [facility] Not Estab. platelet count 310 X10E3/UL [facility] [phone]/12 /06 red blood cell distribution width 15.0 % [facility] 12.3-15.4 mean corpuscular hemoglobin concentration, RBC 33.2 G/DL [facility] 31.5-35.7 mean corpuscular hemoglobin, RBC 31.9 pg [facility] 26.6-33.0 mean corpuscular volume, RBC 96 fL [facility] 79-97 hematocrit, blood 47.0 % [facility] 34.0-46.6 High hemoglobin, blood 15.6 g/dL [facility] 11.1-15.9 erythrocyte (RBC) count 4.89 X10E6/UL [facility] 3.77-5.28 leukocyte count, blood 8.0 X10E3/UL [facility] 3.4-10.8 Estimated Glomerular Filtration Rate (calc) 76 (?) [facility] >59 chloride, serum 101 mmol/L [facility] 98-107 potassium, serum 4.2 mmol/L [facility] 3.5-5.1 sodium, serum 142 mmol/L [facility] [phone]/11 /16 creatinine, serum 0.8 mg/dL [facility] 0.5-0.9 carbon dioxide, venous blood 28 mmol/L [facility] 23-31 calcium, serum 10.2 mg/dL [facility] 8.6-10.2 urea nitrogen, blood 15 mg/dL [facility] 8-23 blood glucose, random 103 mg/dL [facility] 74-99 High very low density lipoproteins 31.0 mg/dL [facility] 5.0-40.0 LDL/HDL (low-density lipoprotein/high-de nsity lipoprotein) ratio 3 mg/dL [facility] 0-5 lipoprotein, beta, serum, point, quantitative, calculated 192 mg/dL [facility] 0-100 High HDL cholesterol, serum 72 mg/dL [facility] 45-65 High cholesterol, serum 295 mg/dL [facility] 0-200 High triglyceride, serum, fasting 155 mg/dL [facility] 0-150 High iron binding capacity, total 384 ug/dL [facility] 630-017 1411/10 /25 iron, serum 99 ug/dL [facility] 25-156 ferritin, serum 93 ng/mL [facility] 13-150 platelet count 357 THOUSAND/UL [facility] [phone]/10 /25 Absolute Basophils 0.1 CELLS/UL [facility] 0.0-0.2 Absolute Monocytes 0.5 CELLS/UL [facility] 0.2-1.0 Absolute Lymphocytes 1.86 CELLS/UL [facility] 0.85-3.90 Absolute Neutrophils 3.6 CELLS/UL [facility] 1.5-7.8 mean corpuscular volume, RBC 98 fL [facility] 75-100 mean corpuscular hemoglobin concentration, RBC 32 G/DL [facility] 31-38 mean corpuscular hemoglobin, RBC 31 pg [facility] 25-35 hematocrit, blood 46 % [facility] 35-55 hemoglobin, blood 14.5 g/dL [facility] 11.5-16.5 erythrocyte count, whole blood 4.7 MILLION/UL [facility] 3.5-5.5 folate, serum 20.0 NG/MLM [facility] 5.6 - 45.8 vitamin b12, serum 468.1 pg/mL [facility] 211.0 - 946.0 very low density lipoproteins 18.0 mg/dL [facility] 5.0 - 40.0 LDL/HDL (low-density lipoprotein/high-de nsity lipoprotein) ratio 1.5 RATIO [facility] - lipoprotein, beta, serum, point, quantitative, calculated 95.0 (?) [facility] 0.0 - 100.0 HDL cholesterol, serum 62.0 mg/dL [facility] 45.0 - 65.0 cholesterol, serum 175.0 mg/[facility] 0.[facility] - 200.0 triglyceride, serum, fasting 90.0 mg/dL [facility] 0.0 - 150.0 ferritin, serum 105.5 ng/mL [facility] 13.0 - 150.0 red blood cell distribution width, size density 47.2 fL [facility] - immature granulocytes, percentage of total cells, blood 0.5 % [facility] - nucleated red blood cells as percent of blood leukocytes 0.3 % [facility] - red blood cell (erythrocyte) count, per high power field 0.0 10*3/UL [facility] - eosinophils as percent of blood leukocytes 5.6 % [facility] - neutrophils as percent of blood leukocytes 50.7 % [facility] - Absolute Neutrophils 3.3 CELLS/UL [facility] 1.5 - 7.8 basophils as percent of blood leukocytes 0.8 % [facility] - Absolute Basophils 0.1 CELLS/UL [facility] 0.0 - 0.2 monocytes as percent of blood leukocytes 11.3 % [facility] - Absolute Monocytes 0.7 CELLS/UL [facility] 0.2 - 1.0 lymphocytes as percent of blood leukocytes 31.1 % [facility] - Absolute Lymphocytes 2.0 CELLS/UL [facility] 0.9 - 3.9 mean platelet volume 9.9 (?) [facility] - platelet count 298.0 THOUSAND/UL [facility] 100.0 - 400.0 mean corpuscular hemoglobin concentration, RBC 33.2 G/DL [facility] 31.0 - 38.0 mean corpuscular hemoglobin, RBC 31.8 pg [facility] 25.0 - 35.0 mean corpuscular volume, RBC 96.0 fL [facility] 75.0 - 100.0 hematocrit, blood 40.7 % [facility] 35.0 - 55.0 hemoglobin, blood 13.5 g/dL [facility] 11.5 - 16.5 erythrocyte count, whole blood 4.2 MILLION/UL [facility] 3.5 - 5.5 iron, serum 96.0 ug/dL [facility] 25.0 - 156.0 iron saturation percent, serum 25.6 % [facility] 20.0 - 50.0 iron binding capacity, total 375.2 ug/dL [facility] 250.0 - 450.0 reticulocyte count, absolute 0.082 10*6 CELLS/UL [facility] - reticulocyte count, blood, uncorrected 1.93 % [facility] 0.50 - 2.00 2016/12 /01 very low density lipoproteins 17.8 mg/dL [facility] 5.0 - 40.0 LDL/HDL (low-density lipoprotein/high-de nsity lipoprotein) ratio 0.8 RATIO [facility] - lipoprotein, beta, serum, point, quantitative, calculated 52.2 (?) [facility] 0.0 - 100.0 HDL cholesterol, serum 68.0 mg/dL [facility] 45.0 - 65.0 High cholesterol, serum 138.0 mg/dL [facility] 0.0 - 200.0 triglyceride, serum, fasting 89.0 mg/dL [facility] 0.0 - 150.0 anion gap, serum 12.8 [facility] - albumin/globulin ratio, serum 2.7 g/dL [facility] 1.1 - 2.5 High globulin, serum 2.6 [facility] 2.3 - 3.8 urea nitrogen/creatinine ratio, serum 17.0 [facility] - Estimated Glomerular Filtration Rate (calc) 58.3 (?) [facility] 59.0 - Low chloride, serum 95.2 mmol/L [facility] 98.0 - 107.0 Low potassium, serum 4.5 mmol/L [facility] 3.5 - 5.1 sodium, serum 135.0 mmol/L [facility] 136.0 - 145.0 Low creatinine, serum 1.0 mg/dL [facility] 0.5 - 1.0 High carbon dioxide, venous blood 27.0 mmol/L [facility] 23.0 - 31.0 albumin, serum 4.3 g/dL [facility] 3.5 - 5.2 calcium, serum 9.5 mg/dL [facility] 8.6 - 10.2 aspartate aminotransferase (SGOT), serum 20.0 1/L [facility] 0.0 - 32.0 alkaline phosphatase, serum 73.0 1/L [facility] 40.0 - 130.0 alanine aminotransferase (SGPT), serum 14.0 1/L [facility] 0.0 - 33.0 protein, total, serum 6.9 g/dL [facility] 6.6 - 8.7 bilirubin, serum, total 0.3 mg/dL [facility] 0.0 - 1.2 urea nitrogen, blood 17.0 mg/dL [facility] 8.0 - 23.0 blood glucose, random [facility].0 mg/[facility] - 99.0 red blood cell distribution width, size density 46.5 fL [facility] - immature granulocytes, percentage of total cells, blood 0.1 % [facility] - nucleated red blood cells as percent of blood leukocytes 0.0 % [facility] - red blood cell (erythrocyte) count, per high power field 0.0 10*3/UL [facility] - eosinophils as percent of blood leukocytes 4.6 % [facility] - neutrophils as percent of blood leukocytes 52.2 % [facility] - Absolute Neutrophils 3.9 CELLS/UL [facility] 1.5 - 7.8 basophils as percent of blood leukocytes 0.8 % [facility] - Absolute Basophils 0.1 CELLS/UL [facility] 0.0 - 0.2 monocytes as percent of blood leukocytes 8.7 % [facility] - Absolute Monocytes 0.7 CELLS/UL [facility] 0.2 - 1.0 lymphocytes as percent of blood leukocytes 33.6 % [facility] - Absolute Lymphocytes 2.5 CELLS/UL [facility] 0.9 - 3.9 mean platelet volume 9.8 (?) [facility] - platelet count 311.0 THOUSAND/UL [facility] 100.0 - 400.0 mean corpuscular hemoglobin concentration, RBC 32.7 G/DL [facility] 31.0 - 38.0 mean corpuscular hemoglobin, RBC 30.1 pg [facility] 25.0 - 35.0 mean corpuscular volume, RBC 92.2 fL [facility] 75.0 - 100.0 hematocrit, blood 37.6 % [facility] 35.0 - 55.0 hemoglobin, blood 12.3 g/dL [facility] 11.5 - 16.5 erythrocyte count, whole blood 4.1 MILLION/UL [facility] 3.5 - 5.5 prothrombin time (patient) 10.3 s [facility] 9.0 - 11.5 international normalized ratio (INR) 0.9 [facility] 0.9 - 1.1 very low density lipoproteins 19.2 mg/dL [facility] 5.0 - 40.0 LDL/HDL (low-density lipoprotein/high-de nsity lipoprotein) ratio 1.8 RATIO [facility] - lipoprotein, beta, serum, point, quantitative, calculated 115.8 (?) [facility] 0.0 - 100.0 High HDL cholesterol, serum 66.0 mg/dL [facility] 45.0 - 65.0 High cholesterol, serum 201.0 mg/dL [facility] 0.0 - 200.0 High triglyceride, serum, fasting 96.0 mg/dL [facility] 0.0 - 150.0 urea nitrogen/creatinine ratio, serum 20.0 [facility] - Estimated Glomerular Filtration Rate (calc) 58.4 (?) [facility] 59.0 - Low chloride, serum 98.4 mmol/L [facility] 98.0 - 107.0 potassium, serum 5.6 mmol/L [facility] 3.5 - 5.1 High sodium, serum 139.0 mmol/L [facility] 136.0 - 145.0 creatinine, serum 1.0 mg/dL [facility] 0.5 - 1.0 High carbon dioxide, venous blood 26.0 mmol/L [facility] 23.0 - 31.0 calcium, serum 10.7 mg/dL [facility] 8.6 - 10.2 High urea nitrogen, blood 20.0 mg/dL [facility] 8.0 - 23.0 blood glucose, random 103.0 mg/dL [facility] 74.0 - 99.0 High red blood cell distribution width, size density 48.7 fL [facility] - immature granulocytes, percentage of total cells, blood 0.2 % [facility] - nucleated red blood cells as percent of blood leukocytes 0.0 % [facility] - red blood cell (erythrocyte) count, per high power field 0.0 10*3/UL [facility] - eosinophils as percent of blood leukocytes 4.7 % [facility] - neutrophils as percent of blood leukocytes 54.6 % [facility] Absolute Neutrophils 4.6 CELLS/UL [facility] 1.5 - 7.8 basophils as percent of blood leukocytes 0.8 % [facility] - Absolute Basophils 0.1 CELLS/UL [facility] 0.0 - 0.2 monocytes as percent of blood leukocytes 11.9 % [facility] Absolute Monocytes 1.0 CELLS/UL [facility] 0.2 - 1.0 High lymphocytes as percent of blood leukocytes 27.8 % [facility] Absolute Lymphocytes 2.3 CELLS/UL [facility] 0.9 - 3.9 mean platelet volume 9.4 (?) [facility] - platelet count 337.0 THOUSAND/UL [facility] 100.0 - 400.0 mean corpuscular hemoglobin concentration, RBC 32.4 G/DL [facility] 31.0 - 38.0 mean corpuscular hemoglobin, RBC 31.0 pg [facility] 25.0 - 35.0 mean corpuscular volume, RBC 95.7 fL [facility] 75.0 - 100.0 hematocrit, blood 42.0 % [facility] 35.0 - 55.0 hemoglobin, blood 13.6 g/[facility] 11.5 - 16.5 erythrocyte count, whole blood 4.4 MILLION/UL [facility] 3.5 - 5.5 prothrombin time (patient) 10.0 s [facility] 9.0 - 11.5 international normalized ratio (INR) 0.9 [facility] 0.9 - 1.1 prothrombin time (patient) 10.1 s [facility] 9.0 - 11.5 international normalized ratio (INR) 1.0 [facility] 0.9 - 1.1 urea nitrogen/creatinine ratio, serum 12.3 [facility] - Estimated Glomerular Filtration Rate (calc) 43.2 (?) [facility] 59.0 - Low chloride, serum 97.8 mmol/L [facility] 98.0 - 107.0 Low potassium, serum 4.5 mmol/L [facility] 3.5 - 5.1 sodium, serum 138.0 mmol/L [facility] 136.0 - 145.0 creatine, serum 1.3 mg/dL [facility] 0.5 - 0.9 High carbon dioxide, venous blood 26.0 mmol/L [facility] 23.0 - 31.0 calcium, serum 10.0 mg/dL [facility] 8.6 - 10.2 urea nitrogen, blood 16.0 mg/dL [facility] 8.0 - 23.0 Glucose Urine 90.0 mg/dL [facility] 74.0 - 99.0 red blood cell distribution width, size density 46.7 fL [facility] - immature granulocytes, percentage of total cells, blood 0.3 % [facility] - nucleated red blood cells as percent of blood leukocytes 0.0 % [facility] - red blood cell (erythrocyte) count, per high power field 0.0 10*3/UL [facility] - eosinophils as percent of blood leukocytes 3.7 % [facility] - neutrophils as percent of blood leukocytes 50.2 % [facility] Neutrophils 4.0 CELLS/UL [facility] 1.5 - 7.8 basophils as percent of blood leukocytes 1.0 % [facility] - Absolute Basophils 0.1 CELLS/UL [facility] 0.0 - 0.2 monocytes as percent of blood leukocytes 9.6 % [facility] - Absolute Monocytes 0.8 CELLS/UL [facility] 0.2 - 1.0 lymphocytes as percent of blood leukocytes 35.2 % [facility] - Absolute Lymphocytes 2.8 CELLS/UL [facility] 0.9 - 3.9 mean platelet volume 10.1 (?) [facility] - platelet count 290.0 THOUSAND/UL [facility] 100.0 - 400.0 mean corpuscular hemoglobin concentration, RBC 32.3 G/DL [facility] 31.0 - 38.0 mean corpuscular hemoglobin, RBC 30.3 pg [facility] 25.0 - 35.0 mean corpuscular volume, RBC 93.6 fL [facility] 75.0 - 100.0 hematocrit, blood 42.7 % [facility] 35.0 - 55.0 hemoglobin, blood 13.8 g/dL [facility] 11.5 - 16.5 erythrocyte count, whole blood 4.6 MILLION/UL [facility] 3.5 - 5.5 prothrombin time (patient) 9.7 s [facility] 9.0-11.5 Normal international normalized ratio (INR) 1.0 [facility] Normal basophils as percent of blood leukocytes 0.6 % [facility] Normal eosinophils as percent of blood leukocytes 4.9 % [facility] Normal monocyte count, blood 9.9 % [facility] Normal lymphocyte count, blood 25.5 % [facility] Normal neutrophils as percent of blood leukocytes 59.1 % [facility] Normal basophils, absolute, manual 40 cells/mcL [facility] 0-200 Normal eosinophils, absolute, manual 328 cells/mcL [facility] 15-500 Normal monocytes, absolute, manual 663 cells/mcL [facility] 200-950 Normal lymphocytes, absolute 1709 CELLS/UL [facility] 850-3900 Normal Absolute Neutrophil count 3960 cells/mcL [facility] 8353-4378 Normal mean platelet volume 8.1 fL [facility] 7.5-11.5 Normal platelet count 257 THOUSAND/UL [facility] 140-400 Normal red blood cell distribution width 15.5 % [facility] 11.0-15.0 High mean corpuscular hemoglobin concentration, RBC 32.5 G/DL [facility] 32.0-36.0 Normal mean corpuscular hemoglobin, RBC 30.0 pg [facility] 27.0-33.0 Normal mean corpuscular volume, RBC 92.5 fL [facility] 80.0-100.0 Normal hematocrit, blood 42.4 % [facility] 35.0-45.0 Normal hemoglobin electrophoresis, blood 13.8 [facility] 11.7-15.5 Normal erythrocyte (RBC) count 4.58 MILLION/UL [facility] 3.80-5.10 Normal leukocyte (white blood cells) count, blood 6.7 THOUSAND/UL [facility] 3.8-10.8 Normal calcium, serum 10.1 mg/dL [facility] 8.6-10.4 Normal carbon dioxide, venous blood 31 mmol/L [facility] 19-30 High chloride, serum 102 mmol/L [facility] 98-110 Normal potassium, serum 4.5 mmol/L [facility] 3.5-5.3 Normal sodium, serum 139 mmol/L [facility] 135-146 Normal urea nitrogen/creatinine ratio, serum NOT APPLICABLE (calc) [facility] 6- Estimated Glomerular Filtration Rate (calc) 71 mL/min/{1.73_ m2} [facility] > OR = 60 Normal creatinine, serum 0.95 mg/dL [facility] 0.50-0.99 Normal urea nitrogen, blood 18 mg/dL [facility] 7-25 Normal blood glucose, random 99 mg/dL [facility] 65-99 Normal cholesterol, non-HDL, total 113 MG/DL (CALC) [facility] Normal cholesterol/HDL ratio, serum, percent 2.8 (calc) [facility] < OR = 5.0 Normal LDL cholesterol, serum 98 MG/DL (CALC) [facility] <130 Normal triglyceride, serum, fasting 76 mg/dL [facility] <150 Normal HDL cholesterol, serum 62 mg/dL [facility] > OR = 46 Normal cholesterol, serum 175 mg/dL [facility] 125-200 Normal prothrombin time (patient) 9.9 s [facility] 9.0-11.5 Normal international normalized ratio (INR) 1.0 [facility] Normal basophils as percent of blood leukocytes 0.7 % [facility] Normal eosinophils as percent of blood leukocytes 3.0 % [facility] Normal monocyte count, blood 9.5 % [facility] Normal lymphocyte count, blood 30.9 % [facility] Normal neutrophils as percent of blood leukocytes 55.9 % [facility] Normal basophils, absolute, manual 42 cells/mcL [facility] 0-200 Normal eosinophils, absolute, manual 180 cells/mcL [facility] 15-500 Normal monocytes, absolute, manual 570 cells/mcL [facility] 200-950 Normal lymphocytes, absolute 1854 CELLS/UL [facility] 850-3900 Normal Absolute Neutrophil count 3354 cells/mcL [facility] 9121-3559 Normal platelet count 276 THOUSAND/UL [facility] 140-400 Normal red blood cell distribution width 13.9 % [facility] 11.0-15.0 Normal mean corpuscular hemoglobin concentration, RBC 33.6 G/DL [facility] 32.0-36.0 Normal mean corpuscular hemoglobin, RBC 31.7 pg [facility] 27.0-33.0 Normal mean corpuscular volume, RBC 94.4 fL [facility] 80.0-100.0 Normal hematocrit, blood 38.8 % [facility] 35.0-45.0 Normal hemoglobin electrophoresis, blood 13.0 [facility] 11.7-15.5 Normal erythrocyte (RBC) count 4.11 MILLION/UL [facility] 3.80-5.10 Normal leukocyte (white blood cells) count, blood 6.0 THOUSAND/UL [facility] 3.8-10.8 Normal calcium, serum 10.2 mg/dL [facility] 8.6-10.4 Normal carbon dioxide, venous blood 29 mmol/L [facility] 19-30 Normal chloride, serum 93 mmol/L [facility] 98-110 Low potassium, serum 4.0 mmol/L [facility] 3.5-5.3 Normal sodium, serum 131 mmol/L [facility] 135-146 Low urea nitrogen/creatinine ratio, serum NOT APPLICABLE (calc) [facility] 6- Estimated Glomerular Filtration Rate (calc) 73 mL/min/{1.73_ m2} [facility] > OR = 60 Normal creatinine, serum 0.93 mg/dL [facility] 0.50-0.99 Normal urea nitrogen, blood 17 mg/dL [facility] 7-25 Normal blood glucose, random 96 mg/dL [facility] 65-99 Normal cholesterol/HDL ratio, serum, percent 2.6 (calc) [facility] < OR = 5.0 Normal LDL cholesterol, serum 102 MG/DL (CALC) [facility] <130 Normal triglyceride, serum, fasting 92 mg/dL [facility] <150 Normal HDL cholesterol, serum 74 mg/dL [facility] > OR = 46 Normal cholesterol, serum 194 mg/dL [facility] 125-200 Normal prothrombin time (patient) 10.1 s [facility] 9.0-11.5 Normal international normalized ratio (INR) 1.0 [facility] Normal basophils as percent of blood leukocytes 0.8 % [facility] Normal eosinophils as percent of blood leukocytes 4.0 % [facility] Normal monocyte count, blood 10.5 % [facility] Normal lymphocyte count, blood 26.7 % [facility] Normal neutrophils as percent of blood leukocytes 58.0 % [facility] Normal basophils, absolute, manual 57 cells/mcL [facility] 0-200 Normal eosinophils, absolute, manual 284 cells/mcL [facility] 15-500 Normal monocytes, absolute, manual 746 cells/mcL [facility] 200-950 Normal lymphocytes, absolute 1896 CELLS/UL [facility] 850-3900 Normal Absolute Neutrophil count 4118 cells/mcL [facility] 2639-5390 Normal platelet count 266 THOUSAND/UL [facility] 140-400 Normal red blood cell distribution width 13.9 % [facility] 11.0-15.0 Normal mean corpuscular hemoglobin concentration, RBC 33.7 G/DL [facility] 32.0-36.0 Normal mean corpuscular hemoglobin, RBC 31.4 pg [facility] 27.0-33.0 Normal mean corpuscular volume, RBC 93.3 fL [facility] 80.0-100.0 Normal hematocrit, blood 37.0 % [facility] 35.0-45.0 Normal hemoglobin electrophoresis, blood 12.4 [facility] 11.7-15.5 Normal erythrocyte (RBC) count 3.96 MILLION/UL [facility] 3.80-5.10 Normal leukocyte (white blood cells) count, blood 7.1 THOUSAND/UL [facility] 3.8-10.8 Normal calcium, serum 10.1 mg/dL [facility] 8.6-10.4 Normal carbon dioxide, venous blood 26 mmol/L [facility] 19-30 Normal chloride, serum 96 mmol/L [facility] 98-110 Low potassium, serum 5.0 mmol/L [facility] 3.5-5.3 Normal sodium, serum 131 mmol/L [facility] 135-146 Low urea nitrogen/creatinine ratio, serum 19 (calc) [facility] 6-22 Normal Estimated Glomerular Filtration Rate (calc) 62 mL/min/{1.73_ m2} [facility] > OR = 60 Normal creatinine, serum 1.07 mg/dL [facility] 0.50-0.99 High urea nitrogen, blood 20 mg/dL [facility] 7-25 Normal blood glucose, random 100 mg/dL [facility] 65-99 High prothrombin time (patient) 10.0 s [facility] 9.0-11.5 Normal international normalized ratio (INR) 1.0 [facility] Normal basophils as percent of blood leukocytes 0.6 % [facility] Normal eosinophils as percent of blood leukocytes 4.0 % [facility] Normal monocyte count, blood 11.9 % [facility] Normal lymphocyte count, blood 28.8 % [facility] Normal neutrophils as percent of blood leukocytes 54.7 % [facility] Normal basophils, absolute, manual 41 cells/mcL [facility] 0-200 Normal eosinophils, absolute, manual 272 cells/mcL [facility] 15-500 Normal monocytes, absolute, manual 809 cells/mcL [facility] 200-950 Normal lymphocytes, absolute 1958 CELLS/UL [facility] 850-3900 Normal Absolute Neutrophil count 3720 cells/mcL [facility] 4765-9714 Normal platelet count 275 THOUSAND/UL [facility] 140-400 Normal red blood cell distribution width 13.2 % [facility] 11.0-15.0 Normal mean corpuscular hemoglobin concentration, RBC 33.8 G/DL [facility] 32.0-36.0 Normal mean corpuscular hemoglobin, RBC 31.9 pg [facility] 27.0-33.0 Normal mean corpuscular volume, RBC 94.3 fL [facility] 80.0-100.0 Normal hematocrit, blood 36.9 % [facility] 35.0-45.0 Normal hemoglobin electrophoresis, blood 12.5 [facility] 11.7-15.5 Normal erythrocyte (RBC) count 3.91 MILLION/UL [facility] 3.80-5.10 Normal leukocyte (white blood cells) count, blood 6.8 THOUSAND/UL [facility] 3.8-10.8 Normal calcium, serum 9.5 mg/dL [facility] 8.6-10.4 Normal carbon dioxide, venous blood 26 mmol/L [facility] 19-30 Normal chloride, serum 96 mmol/L [facility] 98-110 Low potassium, serum 4.6 mmol/L [facility] 3.5-5.3 Normal sodium, serum 134 mmol/L [facility] 135-146 Low urea nitrogen/creatinine ratio, serum NOT APPLICABLE (calc) [facility] 6-22 Estimated Glomerular Filtration Rate (calc) 87 mL/min/{1.73_ m2} [facility] > OR = 60 Normal creatinine, serum 0.81 mg/dL [facility] 0.50-0.99 Normal urea nitrogen, blood 15 mg/dL [facility] 7-25 Normal blood glucose, random 97 mg/dL [facility] 65-99 Normal prothrombin time (patient) 10.4 s [facility] 9.0-11.5 Normal international normalized ratio (INR) 1.0 [facility] Normal basophils as percent of blood leukocytes 0.8 % [facility] Normal eosinophils as percent of blood leukocytes 4.2 % [facility] Normal monocyte count, blood 10.1 % [facility] Normal lymphocyte count, blood 33.4 % [facility] Normal neutrophils as percent of blood leukocytes 51.5 % [facility] Normal basophils, absolute, manual 59 cells/mcL [facility] 0-200 Normal eosinophils, absolute, manual 311 cells/mcL [facility] 15-500 Normal monocytes, absolute, manual 747 cells/mcL [facility] 200-950 Normal lymphocytes, absolute 2472 CELLS/UL [facility] 850-3900 Normal Absolute Neutrophil count 3811 cells/mcL [facility] 1599-2789 Normal platelet count 304 THOUSAND/UL [facility] 140-400 Normal red blood cell distribution width 13.3 % [facility] 11.0-15.0 Normal mean corpuscular hemoglobin concentration, RBC 33.2 G/DL [facility] 32.0-36.0 Normal mean corpuscular hemoglobin, RBC 32.1 pg [facility] 27.0-33.0 Normal mean corpuscular volume, RBC 96.8 fL [facility] 80.0-100.0 Normal hematocrit, blood 40.8 % [facility] 35.0-45.0 Normal hemoglobin electrophoresis, blood 13.5 [facility] 11.7-15.5 Normal erythrocyte (RBC) count 4.22 MILLION/UL [facility] 3.80-5.10 Normal leukocyte (white blood cells) count, blood 7.4 THOUSAND/UL [facility] 3.8-10.8 Normal calcium, serum 9.8 mg/dL [facility] 8.6-10.4 Normal carbon dioxide, venous blood 25 mmol/L [facility] 19-30 Normal chloride, serum 96 mmol/L [facility] 98-110 Low potassium, serum 5.0 mmol/L [facility] 3.5-5.3 Normal sodium, serum 131 mmol/L [facility] 135-146 Low urea nitrogen/creatinine ratio, serum 20 (calc) Link[facility] 6-22 Normal Estimated Glomerular Filtration Rate (calc) 64 mL/min/{1.73_ m2} [facility] > OR = 60 Normal creatinine, serum 1.04 mg/dL [facility] 0.50-0.99 High urea nitrogen, blood 21 mg/dL [facility] 7-25 Normal blood glucose, random 101 mg/dL [facility] 65-99 High platelet count 286 10*3/mm3 [facility] hematocrit, blood 42.9 % [facility] international normalized ratio (INR) 1.0 [facility] thyroid stimulating hormone, serum 1.10 u[IU]/mL [facility] D-dimer quantitative mcg/mL 523 ug/mL [facility] creatinine, serum 0.88 mg/dL [facility] alanine aminotransferase (SGPT), serum 45 1/L [facility] aspartate aminotransferase (SGOT), serum 20 1/L [facility] potassium, serum 4.0 mmol/L [facility] sodium, serum 127 mmol/L [facility] prothrombin time (patient) 10.4 s [facility] 9.0-11.5 Normal international normalized ratio (INR) 1.0 [facility] Normal basophils as percent of blood leukocytes 0.4 % [facility] Normal eosinophils as percent of blood leukocytes 3.1 % [facility] monocyte count, blood 8.3 % [facility] lymphocyte count, blood 40.0 % [facility] Normal neutrophils as percent of blood leukocytes 48.2 % [facility] Normal basophils, absolute, manual 32 cells/mcL [facility] 0[facility]200 Normal eosinophils, absolute, manual 248 cells/mcL [facility] 15-500 Normal monocytes, absolute, manual 664 cells/mcL [facility] 200-950 Normal lymphocytes, absolute 3200 CELLS/UL [facility] 850-3900 Normal Absolute Neutrophil count 3856 cells/mcL [facility] 6160-8499 Normal platelet count 260 THOUSAND/UL [facility] 140-400 Normal red blood cell distribution width 13.7 % [facility] 11.0-15.0 Normal mean corpuscular hemoglobin concentration, RBC 33.8 G/DL [facility] 32.0-36.0 Normal mean corpuscular hemoglobin, RBC 32.1 pg [facility] 27.0-33.0 Normal mean corpuscular volume, RBC 94.9 fL [facility] 80.0-100.0 Normal hematocrit, blood 42.7 % [facility] 35.0-45.0 Normal hemoglobin electrophoresis, blood 14.4 [facility] 11.7-15.5 Normal erythrocyte (RBC) count 4.50 MILLION/UL [facility] 3.80-5.10 Normal leukocyte (white blood cells) count, blood 8.0 THOUSAND/UL [facility] 3.8-10.8 Normal calcium, serum 9.6 mg/dL [facility] 8.6-10.4 Normal carbon dioxide, venous blood 26 mmol/L [facility] 21-33 Normal chloride, serum 99 mmol/L [facility] 98-110 Normal potassium, serum 4.6 mmol/L [facility] 3.5-5.3 Normal sodium, serum 134 mmol/L [facility] 135-146 Low urea nitrogen/creatinine ratio, serum NOT APPLICABLE (calc) [facility] - Estimated Glomerular Filtration Rate (calc) 108 mL/min/{1.73_ m2} [facility] > OR = 60 Normal creatinine, serum 0.65 mg/dL [facility] 0.50-0.99 Normal urea nitrogen, blood 11 mg/dL [facility] 7-25 Normal blood glucose, random 92 mg/dL [facility] 65-99 Normal prothrombin time (patient) 10.4 s [facility] (9.0-11.5) Normal international normalized ratio (INR) 1.0 [facility] Normal platelet count 273 THOUSAND/UL [facility] (140-400) Normal red blood cell distribution width 12.8 % [facility] (11.0-15.0) Normal mean corpuscular hemoglobin concentration, RBC 34.3 G/DL [facility] (32.0-36.0) Normal mean corpuscular hemoglobin, RBC 33.5 pg [facility] (27.0-33.0) High mean corpuscular volume, RBC 97.7 fL [facility] (80.0-100.0 ) Normal hematocrit, blood 42.0 % [facility] (35.0-45.0) Normal hemoglobin electrophoresis, blood 14.4 [facility] (11.7-15.5) Normal erythrocyte (RBC) count 4.30 MILLION/UL [facility] (3.80-5.10) Normal leukocyte (white blood cells) count, blood 7.3 THOUSAND/UL [facility] (3.8-10.8) Normal calcium, serum 10.2 mg/dL [facility] (8.6-10.2) Normal carbon dioxide, venous blood 29 mmol/L [facility] (21-33) Normal chloride, serum 96 mmol/L [facility] (98-110) Low potassium, serum 4.6 mmol/L [facility] (3.5-5.3) Normal sodium, serum 135 mmol/L [facility] (135-146) Normal urea nitrogen/creatinine ratio, serum NOT APPLICABLE (calc) [facility] (6-22) Estimated Glomerular Filtration Rate (calc) 82 mL/min/{1.73_ m2} [facility] (> OR = 60) Normal creatinine, serum 0.87 mg/dL [facility] (0.60-1.18) Normal urea nitrogen, blood 18 mg/dL [facility] (7-25) Normal blood glucose, random 92 mg/dL [facility] (65-99) Normal prothrombin time (patient) 10.0 s Cyndie Rogel international normalized ratio (INR) 1.0 [facility] creatinine, serum 0.79 mg/dL [facility] urea nitrogen, blood 16 mg/dL [facility] potassium, serum 4.2 mmol/L [facility] sodium, serum 134 mmol/L [facility] platelet count 309 10*3/uL [facility] hematocrit, blood 39.9 % [facility] hemoglobin, blood 14.1 g/dL [facility] erythrocyte (RBC) count 4.42 10*6/mm3 [facility] leukocyte count, blood 10.7 10*3/mm3 [facility] HISTORY OF MEDICATION USE Medication Status Instructions Dates Provider Indications Com ments baclofen 10 mg tablet active TAKE 2 TABLETS BY MOUTH IN THE EVENING Blossom Batres tramadol 50 mg tablet active as needed for pain TAKE 2 TABLETS BY MOUTH EVERY 6 HOURS Stu Mcneil MD carvedilol 12.5 mg tablet active Take 1 tablet by mouth twice daily Patrick Dasilva MD nifedipine 90 mg tablet extended release 24hr active 1 tablet by mouth once a day Patrick Dasilva MD clopidogrel 75 mg tablet active Take 1 tablet by mouth once daily Kelsea Thayer aspirin 81 mg tablet,delayed release (DR/EC) active Take 1 tablet by mouth once a day Kelsea Thayer famotidine 20 mg tablet completed Take 1 tablet by mouth as directed TAKE 1 TABLET AT BEDTIME NIGHT BEFORE PROCEDURE, TAKE 1 TABLET MORNING OF PROCEDURE - Kelsea Thayer prednisone 50 mg tablet completed Take 1 tablet by mouth as directed Day before procedure: one tablet 5pm and one tab at 9pm. Day of procedure: one tab in morning. - Kelsea Thayer Benadryl Allergy 25 mg tablet completed Take 2 tablet by mouth as directed TAKE 2 TABLETS BY MOUTH MORNING OF PROCEDURE - Kelsea Thayer rosuvastatin 40 mg tablet active Take 1 tablet by mouth once daily Kelsea Thayer furosemide 20 mg tablet active Take 1 tablet by mouth once a day Patrick Dasilva MD varenicline 1 mg tablet completed 1 tablet twice a day - Kelsea Thayer varenicline 1 mg tablet completed 1 tablet once a day - Patrick Dasilva MD losartan 100 mg tablet active Take 1 tablet by mouth once daily Kelsea Thayer levothyroxine 100 mcg tablet active Take 1 tablet by mouth once daily Kelsea Thayer carvedilol 6.25 mg tablet completed Take 1 tablet by mouth twice daily - Patrick Dasilva MD varenicline 0.5 mg (11)- 1 mg (42) tablets,dose pack completed Take 0.5-1 tablet by mouth as directed Take 0.5 mg tablet once daily for 3 days, then 0.5 mg tablet twice daily for 4 days, then 1 mg tablet twice dailyStart 1 week prior to quit date - Patrick Dasilva MD tramadol 50 mg tablet completed TAKE 2 TABLETS BY MOUTH EVERY 6 HOURS - Patrick Dasilva MD tramadol 50 mg tablet completed Take 2 tablet by mouth every six hours - Patrick Dasilva MD Medrol (Rasheed) 4 mg tablets,dose pack completed Per package instructions - Dinora Jackson NP clopidogrel 75 mg tablet completed Take 1 tablet by mouth once a day - Kelsea Thayer atorvastatin 40 mg tablet active Take 1 tablet by mouth once a day Kelsea Thayer baclofen 10 mg tablet completed Take 2 tablet by mouth every evening - Blossom Batres losartan 100 mg tablet completed Take 1 tablet by mouth once a day - Jake Euthyrox 100 mcg tablet completed Take 1 tablet by mouth once a day - Jake atorvastatin 40 mg tablet completed TAKE 1 TABLET BY MOUTH ONCE DAILY. APPOINTMENT REQUIRED FOR FUTURE REFILLS. - Kelsea Thayer ezetimibe 10 mg tablet active Take 1 tablet by mouth once a day Kelsea Thayer ezetimibe 10 mg tablet completed Take 1 tablet by mouth once daily - Kelsea Thayer carvedilol 6.25 mg tablet completed Take 1 tablet by mouth twice a day Take 1 tablet by mouth twice daily - Patrick Dasilva MD rosuvastatin 40 mg tablet completed Take 1 tablet by mouth once daily - Dinora Jackson NP rosuvastatin 40 mg tablet completed Take 1 tablet by mouth once a day - Patrick Dasilva MD ezetimibe 10 mg tablet completed Take 1 tablet by mouth once a day - Tena Cameron atorvastatin 40 mg tablet completed TAKE 1 TABLET BY MOUTH ONCE DAILY . APPOINTMENT REQUIRED FOR FUTURE REFILLS - Yashira Duke baclofen 10 mg tablet completed TAKE 2 TABLETS BY MOUTH ONCE DAILY IN THE EVENING - Kelsea Thayer atorvastatin 40 mg tablet completed TAKE 1 TABLET BY MOUTH ONCE DAILY. FOLLOW UP APPOINTMENT REQUIRED FOR ADDITIONAL REFILLS - Tia Brayden losartan 100 mg tablet completed Take 1 tablet by mouth once daily - Kinjal Zelaya RN Euthyrox 100 mcg tablet completed Take 1 tablet by mouth once daily - Kinjal Zelaya RN clopidogrel 75 mg tablet completed Take 1 tablet by mouth once daily - Kelsea Thayer carvedilol 6.25 mg tablet completed Take 1 tablet by mouth twice daily - Cherry Cabrera nitroglycerin 0.4 mg tablet, sublingual active DISSOLVE ONE TABLET UNDER THE TONGUE EVERY 5 MINUTES NEEDED FOR CHEST PAIN. DO NOT EXCEED A TOTAL OF 3 DOSES IN 15 MINUTES Frida Fregoso #25, 10 days supply, Prescribed by CHARISMA FULLER, Filled 10/28/2020 ergocalciferol (vitamin D2) 1,250 mcg (50,000 unit) capsule completed Take 1 capsule by mouth once a week - Kelsea Thayer #12, 84 days supply, Prescribed by YAHAIRA SIMONS, Filled 10/30/2020 venlafaxine 75 mg capsule,extended release 24hr completed Take 2 capsule by mouth once a day - Frida Fregoso #180, 90 days supply, Prescribed by CHARISMA FULLER, Filled 11/29/2020 Trelegy Ellipta 100-62.5-25 mcg blister with device active Inhale 1 puff once a day Frida Fregoso #60, 30 days supply, Prescribed by CHARISMA FULLER, Filled 11/29/2020 venlafaxine 75 mg tablet active once a day Patrick VALENCIA CONTINUING MONTH RASHEED 1 MG ORAL TABLET completed One pack. Take as directed - Frida Fregoso METOLAZONE 5 MG ORAL TABLET completed 1 tablet by mouth daily times 7 days - Tracy Flowers amlodipine 10 mg tablet completed 1 by mouth once a day - Patrick Dasilva MD atorvastatin 40 mg tablet completed Take 1 tablet by mouth once a day - Tori Owen Combivent Respimat 20-100 mcg/actuation mist completed 2 puff twice a day - Patrick Dasilva MD ZETIA 10 MG ORAL TABLET completed take one tablet daily - Patrick quinteros Kerwin DIPHENHYDRAMINE HCL 25 MG ORAL TABLET completed Take 2 tabs the morning of procedure - Tracy Flowers PEPCID 20 MG ORAL TABLET completed 1 tab at bedtime day before and 1 tab the morning of procedure - Kinjal Joseph PREDNISONE 50 MG ORAL TABLET completed 1 tab w/ dinner and at bedtime the day before procedure and 1 tab the morning of procedure. - Patrick Dasilva MD Lasix 40 mg tablet completed 1 tablet as directed - Dinora Jackson NP EZETIMIBE 10 MG ORAL TABLET completed take one tab by mouth once daily - Patrick Dasilva MD Nitrostat 0.4 mg tablet, sublingual completed Place 1 tablet under tongue as needed - Patrick Dasilva MD ISOSORBIDE MONONITRATE ER 60 MG ORAL TABLET EXTENDED RELEASE 24 HOUR completed one tab daily - Patrick Dasilva MD HYDROCODONE-ACETA MINOPHEN 5-325 MG ORAL TABLET completed 1 po q 8 hours prn pain - Kinjal Joseph trazodone 100 mg tablet completed Take 1 tablet by mouth every night as needed - Patrick Dasilva MD LISINOPRIL-HYDROC HLOROTHIAZIDE 20-25 MG ORAL TABLET completed ONE TABLET DAILY - Frida Fregoso LEVAQUIN 500 MG ORAL TABLET completed ONE TABLET DAILY - MARIZA ROBERT MD Fish Oil 300-1,000 mg capsule completed once a day - Kelsea Thayer CALCIUM 600-D TABLET completed 2 TABLETS DAILY - Tracy ArgentinaLarryShawn FERROUS SULFATE 325 (65 Fe) MG ORAL TABLET completed ONE TABLET DAILY - Ryder Aixa COMBIVENT RESPIMAT 20-100 MCG/ACT INHALATION AEROSOL SOLUTION completed 1-2 PUFFS FOUR TIMES DAILY - Lynette Roman CRESTOR 40 MG ORAL TABLET completed ONE TAB. DAILY - Jovanny Rouse RN SPIRIVA HANDIHALER 18 MCG INHALATION CAPSULE completed TAKAE DIRECTED - Rachelle Cowan CRESTOR 40 MG ORAL TABLET completed ONE TABLET DAILY - StewLarryaliyahtoney Aixa NICOTINE 21 MG/24HR TRANSDERMAL PATCH 24 HOUR completed TAKE DIRECTED - StewLarryaliyahtoney [facility]a COMBIVENT RESPIMAT 20-100 MCG/ACT INHALATION AEROSOL SOLUTION completed 1 TO 2 PUFFS FOUR TIMES DAILY - StewLarryjimmy Kruse baclofen 10 mg tablet completed Take 2 tablet by mouth every night - Kiki Ayala SPIRIVA HANDIHALER 18 MCG INHALATION CAPSULE completed - MARIZA ROBERT MD PROZAC 20 MG ORAL CAPSULE completed daily - Patrick Dasilva MD ASPIRIN 325 MG TABS completed 1 tablet once a day - Kelsea Thayer LIPITOR 20 MG ORAL TABLET completed ONE TAB. DAILY - MARIZA ROBERT MD carvedilol 6.25 mg tablet completed Take 1 tablet by mouth twice a day - Cheri Beasley clopidogrel 75 mg tablet completed Take 1 tablet by mouth once a day - Cheri Beasley LISINOPRIL-HYDROC HLOROTHIAZIDE 20-25 MG ORAL TABLET completed ONE TABLET TWICE DAILY - Ryder Elisedney levothyroxine 100 mcg tablet completed Take 1 tablet by mouth once a day - Cheri Beasley losartan 100 mg tablet completed Take 1 tablet by mouth once a day - Cheri Beasley BACLOFEN 10 MG ORAL TABLET completed ONE TABLET TWICE DAILY - MARIZA ROBERT MD SOCIAL HISTORY Date Observation Value Provider drug use none Patrick Farrar alcohol use no Patrick Farrar passive cigarette sm lily exposure yes Patrick Dasilva MD smoking/tobacco cess ation, patient education and counseling yes Patrick Dasilva MD smoking, date started 1978 Patrick Dasilva MD smoking history, tot al pack/year 40 Patrick Dasilva MD smoking history, tot al pack/day 1 pkg a day Patrick Dasilva MD cigarette use yes Patrick Dasilva MD smoking status Current every day smoker R mesfin Dasilva MD drug use none Patrick Farrar alcohol use no Patrick Farrar passive cigarette sm lily exposure yes Patrick Dasilva MD smoking/tobacco cess ation, patient education and counseling yes Patrick Dasilva MD smoking, date started 1978 Patrick Dasilva MD smoking history, tot al pack/year 40 Patrick Dasilva MD smoking history, tot al pack/day 1 pkg a day Patrick Dasilva MD cigarette use yes Patrick Dasilva MD smoking status Current every day smoker R mesfin Dasilva MD drug use none Patrick Farrar alcohol use no Patrick Farrar passive cigarette sm lily exposure yes Patrick Dasilva MD smoking/tobacco cess ation, patient education and counseling yes Patrick Dasilva MD smoking, date started 1978 Patrick Dasilva MD smoking history, tot al pack/year 40 Patrick Dasilva MD smoking history, tot al pack/day 1 pkg a day Patrick Dasilva MD cigarette use yes Patrick Dasilva MD smoking status Current every day smoker R mesfin Dasilva MD drug use none Patrick Farrar alcohol use no Patrick Farrar passive cigarette sm lily exposure yes Patrick Dasilva MD smoking/tobacco cess ation, patient education and counseling yes Patrick Dasilva MD smoking, date started 1978 Patrick Dasilva MD smoking history, tot al pack/year 40 Patrick Dasilva MD smoking history, tot al pack/day 1 pkg a day Patrick Dasilva MD cigarette use yes Patrick Dasilva MD smoking status Current every day smoker R mesfin Dasilva MD drug use none Charisma O'Shawn [place] [employer] alcohol use no Charisma Elaine'Shawn [place] [employer] passive cigarette sm lily exposure yes Charisma Elaine'Shawn [place] [employer] smoking/tobacco cess ation, patient education and counseling yes Charisma O'Shawn [place] [employer] smoking, date started 1978 Charisma O'Shawn [place] [employer] smoking history, tot al pack/year 40 Charisma O'Shawn [place] [employer] smoking history, tot al pack/day 1 pkg a day Charisma O'Shawn [place] [employer] cigarette use yes Charisma O'Shawn N P smoking status Current every day smoker L veronica Elaine'Shawn [employer] drug use none Dinora lopez [place] [employer] alcohol use no Dinora lopez [place] [employer] passive cigarette sm lily exposure yes Dinora Wintersr [place] [employer] smoking/tobacco cess ation, patient education and counseling yes Dinora Wintersr [place] [employer] smoking, date started 1978 Ha Rubiodler [place] [employer] smoking history, tot al pack/year 40 Dinora Wintersr [place] [employer] smoking history, tot al pack/day 1 pkg a day Dinora Wintersr [place] [employer] cigarette use yes Dinora Liriano er [place] [employer] smoking status Current every day smoker J philly Wintersr [place] [employer] drug use none Patrick Farrar alcohol use no Patrick Farrar passive cigarette sm lily exposure yes Patrick Dasilva MD smoking/tobacco cess ation, patient education and counseling yes Patrick Dasilva MD smoking, date started 1978 Patrick Dasilva MD smoking history, tot al pack/year 40 Patrick Dasilva MD smoking history, tot al pack/day 1 pkg a day Patrick Dasilva MD cigarette use yes Patrick Dasilva MD smoking status Current every day smoker R mesfin Dasilva MD social history E&M Marital Statu s: L marie with family/friends J ob Status: Retired Smoking History: P atient currently smokes every day. Patrick Dasivla MD social history reviewed E&M revi ewed - no changes required Patrick Dasilva MD smoking history, tot al pack/day 1 pkg a day Chery Booker cigarette use yes Chery Booker smoking status Current every day smoker S ravinder Ade social history reviewed E&M revi ewed - no changes required Patrick Dasilva MD social history E&M Marital Statu s: L marie with family/friends J ob Status: Retired Smoking History: P darrion currently smokes every day. P darrion has been counseled to quit. Patrick Dasilva MD social history reviewed E&M revi ewed - no changes required Patrick Dasilva MD seatbelt usage 100 % Kelsea Chandni jesu caffeine use, averag e drinks per day yes Kelsea Aragonerick passive cigarette sm lily exposure yes Kelsea Aragonerick smoking/tobacco cess ation, patient education and counseling yes Kelsea Moralesterrijenn smoking, date started 1978 Kelsea Aragonfrandykenlizz smoking history, tot al pack/year 40 Kelsea Aragonfrandykenlizz smoking history, tot al pack/day 1 Kelsea Aragonerick cigarette use yes Kelsea Morales lizz smoking status Current every day smoker K tejas Flaca social history E&M Marital Statu s: Vanessa salazar with family/friends J ob Status: Retired Smoking History: P darrion currently smokes every day. P darrion has been counseled to quit. Patrick Dasilva MD social history reviewed E&M revi ewed - no changes required Patrick Dasilva MD seatbelt usage 100 % Frida Piedmont caffeine use, averag e drinks per day yes Frida Ildefonso passive cigarette sm lily exposure yes Frida Ildefonso smoking/tobacco cess ation, patient education and counseling yes Frida Ildefonso smoking, date started 1978 Frida Livingstonby smoking history, tot al pack/year 40 Frida Ildefonso smoking history, tot al pack/day 1 Frida Ildefonso cigarette use yes Frida Piedmont smoking status Current every day smoker K denis Fregoso social history E&M Marital Statu s: L marie with family/friends J ob Status: Retired Smoking History: P atient currently smokes every day. P atient has been counseled to quit. Patrick Dasilva MD social history reviewed E&M revi ewed - no changes required Patrick Dasilva MD seatbelt usage 100 % Colette Godoy caffeine use, averag e drinks per day yes Colette Godoy passive cigarette sm lily exposure yes Colette Godoy smoking/tobacco cess ation, patient education and counseling yes Colette Godoy smoking, date started 1978 Irina a Godoy smoking history, tot al pack/year 40 Colette Godoy smoking history, tot al pack/day 1 Colette Godoy cigarette use yes Colette Godoy smoking status Current every day smoker Sushma Godoy social history E&M Marital Statu s: L marie with family/friends J ob Status: Retired Smoking History: P atient currently smokes every day. P atient has been counseled to quit. Patrick Dasilva MD social history reviewed E&M revi ewed - no changes required Patrick Dasilva MD seatbelt usage 100 % Frida Piedmont alcohol use no Frida Piedmont caffeine use, averag e drinks per day yes Frida Ildefonso drug use none Frida Piedmont smoking/tobacco cess ation, patient education and counseling yes Frida Piedmont passive cigarette sm lily exposure yes Frida Piedmont smoking, date started 1978 Frida Ildefonso smoking history, tot al pack/year 40 Frida Ildefonso smoking history, tot al pack/day 1 Frida Ildefonso cigarette use yes Frida Piedmont smoking status Current every day smoker Dori barrios Ildefonso smoking history, tot al pack/year 40 Nan Jay Hernandez social history E&M Marital Statu s: L marie with family/friends J ob Status: Retired Smoking History: Prema maier currently smokes every day. Prema maier has been counseled to quit. Patrick Dasilva MD seatbelt usage 100 % Cheri Dangelo alcohol use no Cheri Snowden caffeine use, averag e drinks per day yes Cheri Adorno drug use none Cheri Snowden smoking/tobacco cess ation, patient education and counseling yes Cheri Adorno passive cigarette sm lily exposure yes Cheri Adorno smoking, date started 1978 Cheri Adorno smoking history, tot al pack/year 38 Cheri Adorno smoking history, tot al pack/day 1 Cheri Adorno cigarette use yes Cheri Rosales smoking status Current every day smoker Toney quiroz Kyree social history reviewed E&M revi ewed - no changes required Cheri Adorno smoking/tobacco cess ation, patient education and counseling yes Patrick Dasilva MD social history E&M Marital Statu s: L marie with family/friends J ob Status: Retired Smoking History: Prema maier currently smokes every day. Patrick Dasilva MD social history reviewed E&M revi ewed - no changes required Patrick Dasilva MD cigarette use yes Tracy Flowers smoking status Current every day smoker M autumn Flowers smoking history, tot al pack/year 38 Nan Jay Hernandez smoking/tobacco cess ation, patient education and counseling yes Patrick Dasilva MD social history E&M Marital Statu s: L marie with family/friends J ob Status: Retired Smoking History: P darrion currently smokes every day. Patrick Dasilva MD smoking status Current every day smoker Bettye cuello Jake social history reviewed E&M revi ewed - no changes required Patrick Dasilva MD seatbelt usage 100 % Frida Livingston alcohol use no Frida Livingston caffeine use, averag e drinks per day yes Frida drug use none Frida Piedmont passive cigarette sm lily exposure yes Frida Ildefonso smoking, date started 1978 Frida Piedmont smoking history, tot al pack/year 38 Frida smoking history, tot al pack/day 1 Frida cigarette use yes Frida Ildefonso smoking status Current every day smoker Dori denis Fregoso smoking history, tot al pack/year 38 Jovanny Rouse RN social history reviewed E&M revi ewed - no changes required Patrick Dasilva MD smoking/tobacco cess ation, patient education and counseling no Kinjal Jake smoking status Current every day smoker Dori carbajal Jake smoking history, tot al pack/year 38 Rachelle Cowan smoking history, tot al pack/year 38 Cyndie Ruiz RN smoking history, tot al pack/year 38 Cyndie Ruiz RN smoking/tobacco cess ation, patient education and counseling yes Patrick Dasilva MD smoking status Current every day smoker R mesfin Dasilva MD social history reviewed E&M revi ewed - no changes required Patrick Dasilva MD social history reviewed E&M revi ewed - no changes required Patrick Dasilva MD smoking status Unknown if ever smoked Mar rishi Elaine'Shawn smoking history, tot al pack/year 37 Cyndie Ruiz RN social history reviewed E&M revi ewed - no changes required Patrick Dasilva MD number of grandchildren Patrick Cabreraelizabeth Fregoso social history reviewed E&M revi ewed - no changes required Patrick Dasilva MD social history reviewed E&M revi ewed - no changes required Patrick Dasilva MD social history reviewed E&M revi ewed - no changes required Patrick Dasilva MD seatbelt usage 100 % Sophy Rm alcohol use no Sophy Rm caffeine use, averag e drinks per day yes Sophy Rm drug use none Sophy Rm smoking/tobacco cess ation, patient education and counseling yes Sophy Rm passive cigarette sm lily exposure yes Sophy Rm smoking, date started 1978 Sophy Rm smoking history, tot al pack/year 34 Sophy Rm smoking history, tot al pack/day 1 Sophy Rm cigarette use yes Sophy Rm smoking status current every day smoker S vaishnavi Rm smoking/tobacco cess ation, patient education and counseling yes Patrick Dasilva MD social history reviewed E&M revi ewed - no changes required Patrick Dasilva MD seatbelt usage 100 % Lynette Roman caffeine use, averag e drinks per day yes Lynette Abel drug use none Lynette Abel passive cigarette sm lily exposure yes Lynette Abel smoking, date started 1978 Rui mccarthy Abel smoking history, tot al pack/year 34 Lynette Abel smoking history, tot al pack/day 1 Lynette Abel cigarette use yes Lynette Abel smoking status current every day smoker Bettye Roman social history reviewed E&M revi ewed - no changes required Patrick Dasilva MD social history reviewed E&M revi ewed - no changes required Patrick Dasilva MD social history E&M Marital Statu s: Vanessa salazar with family/friends J ob Status: Retired Patrick Dasilva MD drug use none Patrick Farrar social history reviewed E&M reviewed Jovanny Rouse RN smoking history, tot al pack/year 34 Jovanny Rouse RN seatbelt usage 100 % Patrick Dasilva MD drug use no Jovanny Rouse RN passive cigarette sm lily exposure yes Jovanny Rouse RN smoking history, tot al pack/day 1 Jovanny Rouse RN smoking history, tot al pack/year 34 Jovanny Rouse RN cigarette use yes Jovanny Rouse RN smoking, date started 1978 Casey daniels RN social history E&M Marital Status: Marrie d Jovanny Rouse RN caffeine use, averag e drinks per day yes Jovanny Rouse RN smoking status current every day smoker J ozyz Rouse RN social history reviewed E&M reviewed Jovanny Rouse RN FUNCTIONAL STATUS Date Observation Value Provider HRA, CV Assess/Plan, Angina (inactive) Management Plan continue current therapy Charisma Flowers NP HRA, CV Assess/Plan, Angina (inactive) Management Plan continue current therapy Dinora Jackson NP HRA, CV Assess/Plan, Angina (inactive) Management Plan continue current therapy Patrick Dasilva MD HRA, CV Assess/Plan, Angina (inactive) Management Plan continue current therapy Patrick Dasilva MD HRA, CV Assess/Plan, Angina (inactive) Management Plan continue current therapy Patrick Dasilva MD HRA, CV Assess/Plan, Angina (inactive) Management Plan continue current therapy Patrick Dasilva MD HRA, CV Assess/Plan, Angina (inactive) Management Plan continue current therapy Patrick Dasilva MD HRA, CV Assess/Plan, Angina (inactive) Management Plan continue current therapy Patrick Dasilva MD HRA, CV Assess/Plan, Angina (inactive) Management Plan continue current therapy Patrick Dasilva MD HRA, CV Assess/Plan, Angina (inactive) Management Plan continue current therapy Patrick Dasilva MD HRA, CV Assess/Plan, Angina (inactive) Management Plan schedule PCI Patrick Dasilva MD HRA, CV Assess/Plan, Angina (inactive) Management Plan continue current therapy Patrick Dasilva MD HRA, CV Assess/Plan, Angina (inactive) Management Plan schedule PCI Patrick Dasilva MD MENTAL STATUS Date Observation Value Provider energy level yes Audrey Tebid energy level yes Audrey Tebid energy level yes Audrey Tebid energy level yes Cocoa Tebid energy level yes Cocoa Tebid energy level yes Cocoa Tebid energy level yes Cocoa Tebid energy level yes Cocoa Tebid energy level yes Cocoa Tebid energy level yes Cocoa Tebid energy level yes Cocoa Tebid energy level yes Cocoa Tebid energy level yes Cocoa Tebid energy level yes Cocoa Tebid energy level yes Cocoa Tebid energy level yes Cocoa Tebid energy level yes Audrey Tebid energy level yes Audrey Tebid energy level yes Audrey Tebid energy level yes Audrey Tebid energy level yes Audrey Tebid energy level yes Audrey Tebid energy level yes Audrey Tebid energy level yes Audrey Tebid energy level yes Audrey Tebid energy level yes Audrey Tebid energy level yes Cocoa Tebid energy level yes Audrey Tebid energy level yes Cocoa Tebid energy level yes Cocoa Tebid energy level yes Audrey Tebid energy level yes Audrey Tebid energy level yes Audrey Tebid energy level no Audrey Tebid energy level no Audrey Tebid assessment of judgme nt and insight E&M Alert and oriented to time, place and person. Mood and affect are normal. Jovanny Rouse RN assessment of judgme nt and insight E&M Alert and oriented to time, place and person. Mood and affect are normal.Alert and oriented to time, place and person. Mood and affect are normal. Patrick Dasilva MD FAMILY HISTORY Family Member Condition Daughter Negative FH of Coron fara Artery Disease INSURANCE PROVIDERS Payer name Policy type / Coverage type Zac red green party [place] Medicare [id number] [facility] job[employer]talent [id number] ADVANCE DIRECTIVES Name Date LIVING WILL ON FILE TREATMENT PLAN Date Name Performer [id number],SPatrick MD [id number],SPatrick MD [id number],BPatrick MD [id number],SPatrick MD [id number],SPatrick MD [id number],SPatrick MD [id number],S, Patrick carr MD [id number],SPatrick MD [id number],BPatrick MD [id number],SPatrick MD [id number],SPatrick MD [id number],SPatrick MD [id number],SPatrick MD [id number],S, Patrick carr MD [id number],S, Patrick carr MD [id number],S,2 episodes angina relieved by Ntg. If becomes more frequent she will need repeat catheterization. Patrick Dasilva MD [id number],S, Patrick carr MD [id number],S, Patrick carr MD [id number],B, Patrick carr MD [id number],N,R ight leg only. Vein harvest leg, but swelling is new. Will check venous doppler. Patrick Dasilva MD [id number],S, Patrick carr MD Cardiology Patrick Dasilva MD Cardiology Patrick Dasilva MD Cardiology:S/P venaseal. Patrick aguilera MD Cardiology:BP has go ne up significantly. Will start RPM before treating as she does not know BP at home. Patrick Dasilva MD Cardiology:ROD GREASER RCA a nd 70% OM. Was to have PET CT stress to eval for ischemic burden, but cancelled because she thought it involved dye. Will reschedule. Patrick Dasilva MD Cardiology:Venaseal next week. R mesfin Dasilva MD Cardiology Patrick Dasilva MD Cardiology Patrick Dasilva MD Cardiology:Pet CT stress Patrick aguilera MD Cardiology Patrick Dasilva MD Cardiology Patrick Dasilva MD Cardiology Patrick Dasilva MD Cardiology Patrick Dasilva MD Cardiology Patrick Dasilva MD Cardiology:Has sever e insufficiency RLE and pulsatile flow fem vein. Will check for October-urner and then do venaseal. Patrick Dasilva MD Cardiology Patrick Dasilva MD Cardiology Patrick Dasilva MD Cardiology Patrick Dasilva MD Cardiology: v enous doppler negative for dvt Previous: Right leg only. Vein harvest leg, swelling. increased pain to R foot s/p intervention. 'worse or the same as before procedure.' will refer pt to vascular surgery for evaluation of fem-pop bypass AIF: 06/10/23 1 . Severe bilateral peripheral arterial disease as described above. 2 . Significant collateralization bilaterally with restitution of flow to both feet. 3 . High-grade flow limiting stenosis of the right common femoral artery which I feel is responsible for the patient's discomfort. 4 . Successful angioplasty and lithoplasty of the right common femoral artery with mild residual stenosis and markedly improved flow to the right foot. Patrick Dasilva MD Cardiology: n o angina Alejandrashari Tamez NP Cardiology: S tates pain/symptoms much improved after AIF. Still having leg pain/swelling/pain but is improved after fem-pop in August Reza anne venous doppler/duplex A IF: 06/10/23 1. Severe bilateral peripheral arterial disease as described above. 2 . Significant collateralization bilaterally with restitution of flow to both feet. 3 . High-grade flow limiting stenosis of the right common femoral artery which I feel is responsible for the patient's discomfort. 4 . Successful angioplasty and lithoplasty of the right common femoral artery with mild residual stenosis and markedly improved flow to the right foot. Charisma Flowers NP Cardiology: B P today: 141/88 P rior BP: 131/81 (06/26/2023) Labs Reviewed: C reat: 0.8 (05/08/2017) C hol: 295 (04/16/2017) HDL: 72 (04/16/2017) LDL: 192 (04/16/2017) T (04/16/2017) Her updated medication list for this problem includes: Losartan 100 Mg Tablet (Losartan) ..... Take 1 tablet by mouth once a day Carvedilol 6.25 Mg Tablet (Carvedilol) ..... Take 1 tablet by mouth twice a day take 1 tablet by mouth twice daily Amlodipine 10 Mg Tablet (Amlodipine) ..... 1 by mouth once a day Charisma Flowers NP Cardiology: c ontinues to smoke 1ppd/40. advised that continued smoking is detremental to Peripheral arteries. advised to cut down by half until able to quit. Sona Flowers NP Cardiology:States pa in/symptoms much improved after AIF. Still having leg pain/swelling/pain but is improved after fem-pop. W ill check venous doppler/duplex. Previous: Right leg only. Vein harvest leg, swelling. increased pain to R foot s/p intervention. 'worse or the same as before procedure.' w ill refer pt to vascular surgery for evaluation of fem-pop bypass AIF: 06/10/23 1 . Severe bilateral peripheral arterial disease as described above. 2 . Significant collateralization bilaterally with restitution of flow to both feet. 3 . High-grade flow limiting stenosis of the right common femoral artery which I feel is responsible for the patient's discomfort. 4 . Successful angioplasty and lithoplasty of the right common femoral artery with mild residual stenosis and markedly improved flow to the right foot. Charisma Flowers NP Cardiology: n o angina Charisma Flowers NP Cardiology: R ight leg only. Vein harvest leg, swelling. increased pain to R foot s/p intervention. 'worse or the same as before procedure.' w ill refer pt to vascular surgery for evaluation of fem-pop bypass AIF: 06/10/23 1 . Severe bilateral peripheral arterial disease as described above. 2 . Significant collateralization bilaterally with restitution of flow to both feet. 3 . High-grade flow limiting stenosis of the right common femoral artery which I feel is responsible for the patient's discomfort. 4 . Successful angioplasty and lithoplasty of the right common femoral artery with mild residual stenosis and markedly improved flow to the right foot. Dinora Jackson [place] [employer] Cardiology:CHOL: 295 (04/16/2017) LDL: 192 (04/16/2017) HDL: 72 (04/16/2017) T (04/16/2017) The following medications were removed from the medication list: Rosuvastatin 40 Mg Tablet (Rosuvastatin) ..... Take 1 tablet by mouth once daily Her updated medication list for this problem includes: Atorvastatin 40 Mg Tablet (Atorvastatin) ..... Take 1 tablet by mouth once a day Ezetimibe 10 Mg Tablet (Ezetimibe) ..... Take 1 tablet by mouth once a day Dinora Jackson NP Cardiology: B P today: 131/81 P rior BP: 146/80 (05/21/2023) Labs Reviewed: C reat: 0.8 (05/08/2017) C hol: 295 (04/16/2017) HDL: 72 (04/16/2017) LDL: 192 (04/16/2017) T (04/16/2017) The following medications were removed from the medication list: Lasix 40 Mg Tablet (Furosemide) ..... 1 tablet as directed Her updated medication list for this problem includes: Losartan 100 Mg Tablet (Losartan) ..... Take 1 tablet by mouth once a day Carvedilol 6.25 Mg Tablet (Carvedilol) ..... Take 1 tablet by mouth twice a day take 1 tablet by mouth twice daily Amlodipine 10 Mg Tablet (Amlodipine) ..... 1 by mouth once a day Dinora Jackson NP Cardiology:continues to smoke 1ppd/40. advised that continued smoking is detremental to Peripheral arteries. advised to cut down by half until able to quit. Dinora Jackson NP Cardiology:pain retu rned after intervention. A IF: 06/10/23 1 . Severe bilateral peripheral arterial disease as described above. 2 . Significant collateralization bilaterally with restitution of flow to both feet. 3 . High-grade flow limiting stenosis of the right common femoral artery which I feel is responsible for the patient's discomfort. 4 . Successful angioplasty and lithoplasty of the right common femoral artery with mild residual stenosis and markedly improved flow to the right foot. Dinora Jackson NP Cardiology Dinora Jackson NP Cardiology:no angina Dinora ontiveros NP Cardiology Patrick Dasilva MD Cardiology Patrick Dasilva MD Cardiology Patrick Dasilva MD Cardiology Patrick Dasilva MD Cardiology:RLE with no pain, no palpable pulse. Previous right iliac stent. Needs AIF/intervention. Patrick Dasilva MD Cardiology Patrick Dasilva MD Cardiology Patrick Dasilva MD Cardiology Patrick Dasilva MD Cardiology Patrick Dasilva MD Cardiology Patrick Dasilva MD Cardiology Patrick Dasilva MD Cardiology Patrick Dasilva MD Cardiology Patrick Dasilva MD Cardiology Patrick Dasilva MD Cardiology Patrick Dasilva MD Cardiology Patrick Dasilva MD Cardiology Patrick Dasilva MD Cardiology Patrick Dasilva MD Cardiology Patrick Dasilva MD Cardiology Patrick Dasilva MD Cardiology:2 episode s angina relieved by Ntg. If becomes more frequent she will need repeat catheterization. Patrick Dasilva MD Cardiology Patrick Dasilva MD Cardiology Patrick Dasilva MD Cardiology Patrick Dasilva MD Cardiology:Right leg only. Vein harvest leg, but swelling is new. Will check venous doppler. Patrick Dasilva MD Cardiology Patrick Dasilva MD Cardiology Patrick Dasilva MD Cardiology Patrick Dasilva MD Cardiology Patrick Dasilva MD Cardiology Patrick Dasilva MD Cardiology Patrick Dasilva MD Cardiology Patrick Dasilva MD Cardiology Patrick Dasilva MD Cardiology Patrick Dasilva MD Cardiology Patrick Dasilva MD Cardiology Patrick Dasilva MD Cardiology Patrick Dasilva MD Cardiology Patrick Dasilva MD Cardiology Patrick Dasilva MD Cardiology Patrick Dasilva MD Cardiology Patrick Dasilva MD Cardiology Patrick Dasilva MD Cardiology Patrick Dasilva MD Cardiology Patrick Dasilva MD Cardiology Patrick Dasilva MD Cardiology Patrick Dasilva MD Cardiology Patrick Dasilva MD Cardiology Patrick Dasilva MD Cardiology Patrick Dasilva MD Cardiology Patrick Dasilva MD Cardiology Patrick Dasilva MD Cardiology Patrick Dasilva MD Cardiology Patrick Dasilva MD Cardiology Patrick Dasilva MD Cardiology Patrick Dasilva MD Cardiology Patrick Dasilva MD Cardiology Patrick Dasilva MD Cardiology aPtrick Dasilva MD Cardiology Patrick Dasilva MD Cardiology Patrick Dasilva MD Cardiology Patrick Dasilva MD Cardiology Patrick Dasilva MD Cardiology Patrick Dasilva MD Cardiology Patrick Dasilva MD Cardiology Patrick Dasilva MD Cardiology Patrick Dasilva MD Cardiology Patrick Dasilva MD Cardiology Patrick Dasilva MD Cardiology Patrick Dasilva MD Cardiology Patrick Dasilva MD Cardiology Patrick Dasilva MD Cardiology Patrick Dasilva MD Cardiology Patrick Dasilva MD Cardiology Patrick Dasilva MD Cardiology Patrick Dasilva MD Cardiology Patrick Dasilva MD Cardiology Patrick Dasilva MD Cardiology Patrick Dasilva MD Cardiology Patrick Dasilva MD Cardiology Patrick Dasilva MD Cardiology Patrick Dasilva MD Cardiology Patrick Dasilva MD Cardiology Patrick Dasilva MD Cardiology Patrick Dasilva MD Cardiology Patrick Dasilva MD Cardiology Patrick Dasilva MD Cardiology Patrick Dasilva MD Cardiology Patrick Dasilva MD Cardiology Patrick Dasilva MD Cardiology Patrick Dasilva MD Cardiology Patrick Dasilva MD Cardiology:S/P CABG and multiple stents. Patrick Dasilva MD Cardiology Patrick Dasilva MD Cardiology Patrick Dasilva MD Cardiology:S/P CABG S /P multiple RCA stents, recent PTCA for re-stenosis now with recurrent CP. Patrick Dasilva MD FU: T he following medications were removed from the medication list: Lisinopril-hydrochlorothiazide 20-25 Mg Tabs (Lisinopril-hydrochlorothiazide) ..... One tablet twice daily Her updated medication list for this problem includes: Carvedilol 12.5 Mg Tabs (Carvedilol) ..... One tab twice a day Losartan Potassium 50 Mg Oral Tabs (Losartan potassium) ..... One tablet twice daily Patrick Dasilva MD FU Patrick Dasilva MD FU Patrick Dasilva MD F/U Patrick Dasilva MD F/U Patrick Dasilva MD F/U Patrick Dasilva MD F/U: H er updated medication list for this problem includes: Carvedilol 12.5 Mg Tabs (Carvedilol) ..... One tab twice a day Losartan Potassium 25 Mg Tabs (Losartan potassium) ..... One tablet twice daily Lisinopril-hydrochlorothiazide 20-25 Mg Tabs (Lisinopril-hydrochlorothiazide) ..... One tablet twice daily Patrick Dasilva MD hos follow up: H er updated medication list for this problem includes: Losartan Potassium 25 Mg Tabs (Losartan potassium) ..... Twice daily Lisinopril 20 Mg Tabs (Lisinopril) ..... Two tab in am- 20mg pm Carvedilol 12.5 Mg Tabs (Carvedilol) ..... One tab twice a day Aspirin 325 Mg Tabs (Aspirin) ..... One tab. daily Orders: E KG (CPT-[id number]) Patrick Dasilva MD : B P today: 125/52 Prior BP: 135/83 (02/23/2013) N uclear Stress Findings: 1. Normal myocardial perfusion imaging after vasodilator stress with Regadenoson. 2 . Normal left ventricular systolic function with a calculated ejection fraction of 62%. 3 . No obvious significant scintigraphic evidence of myocardial ischemia or scar. - (10/09/2011) C ardiac Cath: Severe two-vessel coronary artery disease involving the left anterior descending artery and right coronary artery. Patent ECHAVARRIA to left anterior descending artery. No restenosis of previously placed right coronary artery stents. New finding of ostial right coronary. Catheter-induced ventricular fibrillation requiring cardioversion. Normal left ventricular wall motion and systolic function. EF 65% - (10/16/2011) C ardiac Cath Comments: Successful 3 x 12 Vision bare metal stent implantation of ostial right coronary artery with no residual stenosis, dissection or thrombus formation. - (10/16/2011) H gb: 14.1 (04/11/2008) HCT: 40.8 (02/28/2013) Platelets: 304 THOUSAND/UL (02/28/2013) R BC: 4.22 MILLION/UL (02/28/2013) WBC: 10.7 (04/11/2008) B UN: 21 (02/28/2013) Creat: 1.04 (02/28/2013) Glucose: 101 (02/28/2013) N a+: 131 (02/28/2013) K+: 5.0 (02/28/2013) Cl: 96 (02/28/2013) PT: 10.4 (02/28/2013) INR: 1.0 (02/28/2013) T SH: 1.10 (10/20/2011) Patrick Dasilva MD : B P today: 125/52 Prior BP: 135/83 (02/23/2013) Patrick Dasilva MD : B P today: 125/52 P rior BP: 135/83 (02/23/2013) Labs Reviewed: C reat: 1.04 (02/28/2013) Patrick Dasilva MD : B P today: 125/52 Prior BP: 135/83 (02/23/2013) N uclear Stress Findings: 1. Normal myocardial perfusion imaging after vasodilator stress with Regadenoson. 2 . Normal left ventricular systolic function with a calculated ejection fraction of 62%. 3 . No obvious significant scintigraphic evidence of myocardial ischemia or scar. - (10/09/2011) C ardiac Cath: Severe two-vessel coronary artery disease involving the left anterior descending artery and right coronary artery. Patent ECHAVARRIA to left anterior descending artery. No restenosis of previously placed right coronary artery stents. New finding of ostial right coronary. Catheter-induced ventricular fibrillation requiring cardioversion. Normal left ventricular wall motion and systolic function. EF 65% - (10/16/2011) C ardiac Cath Comments: Successful 3 x 12 Vision bare metal stent implantation of ostial right coronary artery with no residual stenosis, dissection or thrombus formation. - (10/16/2011) H gb: 14.1 (04/11/2008) HCT: 40.8 (02/28/2013) Platelets: 304 THOUSAND/UL (02/28/2013) R BC: 4.22 MILLION/UL (02/28/2013) WBC: 10.7 (04/11/2008) B UN: 21 (02/28/2013) Creat: 1.04 (02/28/2013) Glucose: 101 (02/28/2013) N a+: 131 (02/28/2013) K+: 5.0 (02/28/2013) Cl: 96 (02/28/2013) PT: 10.4 (02/28/2013) INR: 1.0 (02/28/2013) T SH: 1.10 (10/20/2011) Patrick Dasilva MD chest pain: B P today: 135/83 Prior BP: / () N uclear Stress Findings: 1. Normal myocardial perfusion imaging after vasodilator stress with Regadenoson. 2 . Normal left ventricular systolic function with a calculated ejection fraction of 62%. 3 . No obvious significant scintigraphic evidence of myocardial ischemia or scar. - (10/09/2011) C ardiac Cath: Severe two-vessel coronary artery disease involving the left anterior descending artery and right coronary artery. Patent ECHAVARRIA to left anterior descending artery. No restenosis of previously placed right coronary artery stents. New finding of ostial right coronary. Catheter-induced ventricular fibrillation requiring cardioversion. Normal left ventricular wall motion and systolic function. EF 65% - (10/16/2011) C ardiac Cath Comments: Successful 3 x 12 Vision bare metal stent implantation of ostial right coronary artery with no residual stenosis, dissection or thrombus formation. - (10/16/2011) H gb: 14.1 (04/11/2008) HCT: 42.9 (10/20/2011) Platelets: 286 (10/20/2011) R BC: 4.50 MILLION/UL (10/12/2011) WBC: 10.7 (04/11/2008) B UN: 11 (10/12/2011) Creat: 0.88 (10/20/2011) Glucose: 92 (10/12/2011) Na+: 127 (10/20/2011) K+: 4.0 (10/20/2011) Cl: 99 (10/12/2011) PT: 10.4 (10/12/2011) INR: 1.0 (10/20/2011) T SH: 1.10 (10/20/2011) O rders: E KG ([id number]) Patrick Dasilva MD chest pain: B P today: 135/83 Prior BP: / () Patrick Dasilva MD chest pain: B P today: 135/83 Labs Reviewed: C reat: 0.88 (10/20/2011) Patrick Dasilva MD chest pain: B P today: 135/83 Prior BP: / () N uclear Stress Findings: 1. Normal myocardial perfusion imaging after vasodilator stress with Regadenoson. 2 . Normal left ventricular systolic function with a calculated ejection fraction of 62%. 3 . No obvious significant scintigraphic evidence of myocardial ischemia or scar. - (10/09/2011) C ardiac Cath: Severe two-vessel coronary artery disease involving the left anterior descending artery and right coronary artery. Patent ECHAVARRIA to left anterior descending artery. No restenosis of previously placed right coronary artery stents. New finding of ostial right coronary. Catheter-induced ventricular fibrillation requiring cardioversion. Normal left ventricular wall motion and systolic function. EF 65% - (10/16/2011) C ardiac Cath Comments: Successful 3 x 12 Vision bare metal stent implantation of ostial right coronary artery with no residual stenosis, dissection or thrombus formation. - (10/16/2011) H gb: 14.1 (04/11/2008) HCT: 42.9 (10/20/2011) Platelets: 286 (10/20/2011) R BC: 4.50 MILLION/UL (10/12/2011) WBC: 10.7 (04/11/2008) B UN: 11 (10/12/2011) Creat: 0.88 (10/20/2011) Glucose: 92 (10/12/2011) Na+: 127 (10/20/2011) K+: 4.0 (10/20/2011) Cl: 99 (10/12/2011) PT: 10.4 (10/12/2011) INR: 1.0 (10/20/2011) T SH: 1.10 (10/20/2011) O rders: C ardiac Cath - Left - CNE (*) Patrick Dasilva MD Date Name RPM (remote patient monitoring) myocardial blood colleen w (PET) Stress Cardiac PET-C T myocardial blood colleen w (PET) Stress Cardiac PET-C T Venous Doppler Unila teral LLE PROTHROMBIN TIME WIT H INR LIPID PANEL CBC (INCLUDES DIFF/P LT) BASIC METABOLIC PANE L W/EGFR myocardial blood colleen w (PET) Stress Cardiac PET-C T Arterial Duplex Bi-L ower EX PROTHROMBIN TIME WIT H INR LIPID PANEL CBC (INCLUDES DIFF/P LT) BASIC METABOLIC PANE L W/EGFR Venogram w/ IVUS - S LHV VenaSeal Venous Doppler Bilat eral LE - Reflux Complete Echo Venous Doppler Bilat eral LE - Reflux Venous Doppler Unila teral RLE PROBNP, N TERMINAL COMPREHENSIVE METABO LIC PANEL, W/EGFR PROTHROMBIN TIME WIT H INR LIPID PANEL CBC (INCLUDES DIFF/P LT) BASIC METABOLIC PANE L W/EGFR HEMOGLOBIN A1c LIPID PANEL Lipoprotein (a) CRP, high sensitivit y PROBNP, N TERMINAL COMPREHENSIVE METABO LIC PANEL, W/EGFR Complete Echo Venous Doppler Unila teral RLE LIPID PANEL IRON AND TOTAL IRON BINDING CAPACITY FERRITIN CBC (INCLUDES DIFF/P LT) STR - Adenosine Complete Echo VITAMIN B12 RETICULOCYTE COUNT IRON AND TOTAL IRON BINDING CAPACITY FOLATE, SERUM FERRITIN CBC (INCLUDES DIFF/P LT) LIPID PANEL LIPID PANEL PROTHROMBIN TIME WIT H INR CBC (H/H, RBC, INDIC ES, WBC, PLT) COMPREHENSIVE METABO LIC PANEL W/EGFR Cardiac Cath - Left - CNE Carotid Duplex Bilat eral PROTHROMBIN TIME WIT H INR CBC (INCLUDES DIFF/P LT) LIPID PANEL BASIC METABOLIC PANE L W/EGFR Cardiac Cath - Left - CNE PROTHROMBIN TIME WIT H INR CBC (INCLUDES DIFF/P LT) BASIC METABOLIC PANE L W/EGFR Coronary Stent - CNE PROTHROMBIN TIME WIT H INR CBC (INCLUDES DIFF/P LT) LIPID PANEL BASIC METABOLIC PANE L W/EGFR Cardiac Cath - Left - CNE AIF - WCHA Cardiac Cath - Left - WCHA PROTHROMBIN TIME WIT H INR CBC (INCLUDES DIFF/P LT) BASIC METABOLIC PANE L W/EGFR AIF - WCHA Cardiac Cath - Left - CNE PROTHROMBIN TIME WIT H INR CBC (INCLUDES DIFF/P LT) BASIC METABOLIC PANE L W/EGFR CBC (H/H, RBC, INDIC ES, WBC, PLT) PROTHROMBIN TIME WIT H INR BASIC METABOLIC PANE L W/EGFR HISTORY OF PROCEDURES Procedure Date Procedure Name Provider Procedure Notes S tatus Complex e/m visit add on Patrick Dasilva MD [04/20/2024 - mel] MEDICARE completed Complex e/m visit add on Patrick Dasilva MD [02/11/2024 - mel] MEDICARE - NPR completed EKG Patrick Dasilva MD complete d EKG Patrick Dasilva MD complete d EKG Patrick Dasilva MD complete d EKG Patrick Dasilva MD complete d EKG Patrick Dasilva MD complete d Injectafer 750mg Patrick Dasilva MD co mpleted Therapeutic IV Infus ion up to 1 hour Patrick Dasilva MD completed SNOMED-CT: 044765036707618 Current Medications Documented Patrick Dasilva MD completed Injectafer 750mg Patrick Dasilva MD co mpleted Therapeutic IV Infus ion up to 1 hour Patrick Dasilva MD completed EKG Patrick Dasilva MD complete d SNOMED-CT: 837716380528408 Current Medications Documented Patrick Dasilva MD completed SNOMED-CT: 574732909500976 Current Medications Documented Patrick Dasilva MD completed SNOMED-CT: 688637267049842 Current Medications Documented Patrick Dasilva MD completed EKG Patrick Dasilva MD complete d SNOMED-CT: 619434556763040 Current Medications Documented Patrick Dasilva MD completed SNOMED-CT: 578051891125250 Current Medications Documented Patrick Dasilva MD completed SNOMED-CT: 292250112881787 Current Medications Documented Patrick Dasilva MD completed SNOMED-CT: 548772640499281 Current Medications Documented Patrick Dasilva MD completed ePrescribe - Check t his box if eRx is used MARIZA ROBERT MD completed SNOMED-CT: 040797279 Smoking Cessation Counseling Patrick Dasilva MD completed SNOMED-CT: 749897708546760 Current Medications Documented Patrick Dasilva MD completed EKG Patrick Dasilva MD complete d EKG Patrick Dasilva MD complete d ePrescribe - Check t his box if eRx is used MARIZA ROBERT MD completed EKG Patrick Dasilva MD complete d ePrescribe - Check t his box if eRx is used MARIZA ROBERT MD completed EKG Patrick Dasilva MD complete d ePrescribe - Check t his box if eRx is used MARIZA ROBERT MD completed
[2024-08-03 19:34] LABS: Basophils Absolute Auto 0.1 K/mm3 (0.0-0.1); Basophils Percent Auto 1.3 % (0.2-1.2); Eosinophils Absolute Auto 0.5 K/mm3 (0-0.3); Eosinophils Percent Auto 4.7 % (0-4.4); Hemoglobin 15.9 g/dL (12.0-15.0); Immature Granulocyte Absolute 0.02 K/mm3 (0.00-0.031); Immature Granulocyte Percent A 0.2 % (0-0.5); Lymphocytes Absolute Auto 2.31 K/mm3 (0.9-3.2); Lymphocytes Percent Auto 22.8 % (18.3-44.2); Mean Corpuscular HGB Conc 33.1 g/dl (32-36); Mean Corpuscular Hemoglobin 30.5 pg (26-34); Mean Platelet Volume 10.4 fl (7.4-10.4); Monocytes Percent Auto 10.2 % (2.6-8.5); Neutrophils Absolute Auto 6.2 K/mm3 (1.3-6.7); Neutrophils Percent Auto 60.8 % (45.5-73.1); Platelet Count Result 311 k/mm3 (150-375); Red Blood Count 5.22 M/mm3 (4.2-5.4); Red Cell Distribution Width 14.9 % (11.5-14.5); White Blood Count 10.1 K/mm3 (4.5-10.0)
[2024-08-03 20:55] LABS: Alanine Aminotransferase 40 U/L (6-35); Albumin Level 4.5 g/dL (3.5-5.1); Aspartate Amino Transferase 59 U/L (14-36); Bilirubin,Total 0.6 mg/dL (0.2-1.3); Blood Urea Nitrogen 11 mg/dL (7-17); Chloride 99 mmol/L (98-107); Estimated Glomerular Filt Rate > 60; Glucose 95 mg/dL (65-110); Potassium 4.4 mmol/L (3.4-5.0)
[2024-08-03 22:40] LABS: Alkaline Phosphatase 72 U/L (38-126); Anion Gap 12 mmol/L (4-12); Calcium 10.5 mg/dL (8.4-10.2); Carbon Dioxide 28 mmol/L (22-30); Sodium 139 mmol/L (137-145)
[2024-08-03 23:08] LABS: Iron 61 ug/dL (37-170); Percent Iron Saturation 21 % (20-50)
[2024-08-03 23:17] LABS: Vitamin D 25 Hydroxy 48.2 ng/mL
[2024-08-04 00:35] LABS: Hemoglobin A1C 5.7 % (<5.7)
== END 2024-08-03 14:01 | disposition home or self-care (01) ==
LOC: ANHGOSHLAB 14:01
PROVIDERS: PCP Family Medicine; Visit Provider Family Medicine
DX: R53.83 Other fatigue (principal); D64.9 Anemia, unspecified; Z13.1 Encounter for screening for diabetes mellitus; R20.2 Paresthesia of skin; I10 Essential (primary) hypertension; E03.9 Hypothyroidism, unspecified; E55.9 Vitamin D deficiency, unspecified
CPT/HCPCS: 36415; 80053; 82306; 82607; 82728; 83036; 83540; 83550; 84443; 85025

== ENCOUNTER 2024-08-19 13:05 | Outpatient (CLI) | payer MEDICARE, OTHER, SELFPAY ==
[2024-08-19 14:36] LABS: INR 0.9
[2024-08-19 21:53] LABS: Hepatitis B Surface Antigen Negative (Negative)
[2024-08-19 21:59] LABS: HAV RESULT Negative (Negative); Hepatitis B Core IgM Result Negative (Negative)
[2024-08-19 22:10] LABS: Hepatitis C Virus Antibody Negative (Negative)
[2024-08-20 10:38] LABS: Ceruloplasmin 35 mg/dL (14-48)
[2024-08-20 11:22] LABS: GGT 12 U/L (3-65)
[2024-08-24 22:18] LABS: Actin Antibody (IgG) <20 U (<20)
[2024-08-24 23:33] LABS: ALT 28 U/L (6-29); Alpha-2-Macroglobulin 225 mg/dL (106-279); Apolipoprotein A1 176 mg/dL (101-198); Fibrosis Score 0.14; Fibrosis Stage F0; GGT 14 U/L (3-65); Haptoglobin 262 mg/dL (43-212); Necroinflammat Act Grade A0; Reference ID 5366719; Total Bilirubin 0.4 mg/dL (0.2-1.2)
== END 2024-08-19 13:06 | disposition home or self-care (01) ==
LOC: ANHGOSHLAB 13:07
PROVIDERS: PCP Family Medicine; Visit Provider Nurse Practitioner Family
DX: R79.89 Other specified abnormal findings of blood chemistry (principal); R10.12 Left upper quadrant pain
CPT/HCPCS: 36415; 80074; 81596; 82104; 82390; 82977; 83520; 85610; 86038; 86039; 86364

== ENCOUNTER 2024-09-03 07:39 | Outpatient (CLI) | payer MEDICARE, OTHER, SELFPAY ==
--- NOTE | ~2024-09-03 | US_ITS ---
EXAMINATION: US abdomen limited DATE: 09/03/2024 08:34 INDICATION: Unspecified cirrhosis of liver. TECHNIQUE: Multiple grayscale and Doppler ultrasound images of the abdomen were obtained. COMPARISON: CT abdomen and pelvis 01/15/2019, chest CT 04/25/2023 FINDINGS: The visualized portions of the head and body of the pancreas are normal. The liver demonstr ates surface nodularity. There is normal flow in main portal vein. The gallbladder is normal in size and contains sludge. No gallstones or gallbladder wall thickening. There is no sonographic Mujica's s ign. The common duct is dilated to 10 mm. IMPRESSION: 1. Liver surface nodularity suspicious for cirrhosis. 2. Common duct dilated to 10 mm, stable from 01/15/2019. Reviewed, dictated and finalized at location L.
--- OUTSIDE RECORDS SUMMARY | 2024-09-03 07:43 | XMS_ITS | Clinical Summary ---
Author Organization [facility] Address [address] [place] [address] Phone Care Team Providers Care Business Unit Director Name Role Phone Suha Cabrales MD Primary Care Provider Allergies Active Allergy Reactions Criticality Noted Date Comments Cephalexin Iodinated Contrast Media Iodine Penicillins Active Problems Problem Noted Date Diagnosed Date Shortness of breath 01/12/2016 History of coronary artery bypass surgery 2015 Chronic coronary artery disease 11/30/2015 Immunizations Immunization Administration Dates Next Due Influenza, Quadrivalent, Spl [...] on file 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 Gender Identity Not on file Sexual [...] Screening 1945 Osteoporosis Screening-Bone Density Scan 1945 DTaP/Tdap/Td Vaccine (1 - Tdap) 1957 Hepatitis B Screening 02/02/1964 Pneumococcal vaccine 65+ (1 of 2 - PCV) 1965 Zoster Vaccine (1 of 2) 02/02/1996 Well Visit 65+ 2011 Covid-19 Vaccine (4 - 2023-2 5 season) 2024 05/31/2021, 09/02/2020, 08/03/2020 Influenza Vaccine (#1) 2024 , 04/14/2020, 05/08/2019, Additional history exists Breast Cancer Screening-Mammogram Discontinued [address] [place] [address] [facility] [place] [place] [address] MEDICARE [employer] [facility] Care Teams Business Unit Director Relationship Specialty Start Date End Date Suha Cabrales MD [address] [place] [address] PCP - General Family Medicine 03/04/24
--- OUTSIDE RECORDS SUMMARY | 2024-09-03 07:43 | XMS_ITS | Referral Summary ---
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 MEDICARE MEDICARE [facility] [place] [address] Care Teams Clay Carman Relationship Specialty Start Date End Date Suha Cabrales MD [address] [place] [address] PCP - General Family Medicine 03/04/24
--- OUTSIDE RECORDS SUMMARY | 2024-09-03 07:43 | XMS_ITS | Clinical Summary ---
Author Organization [facility] Address [address] [place] [address] Care Team Providers Care Injury Prevention Coordinator Name Role Phone Suha Cabrales MD Primary Care Provider [phone] Allergies Active Allergy Reactions Criticality Noted Date [...] Comments Blood Pressure 181/106 04/29/2019 12:50 PM ICICLE MACHINE OPERATOR Pulse 73 04/29/2019 12:50 PM ICICLE MACHINE OPERATOR Temperature 36.9 C (98.5 F) 04/29/2019 12:50 PM ICICLE MACHINE OPERATOR Respiratory Rate - - Oxygen Saturation 98% 04/29/2019 12:50 PM ICICLE MACHINE OPERATOR Inhaled Oxygen Concentration - - Weight 75.4 kg (166 lb 4.8 oz) 04/29/2019 12:50 PM ICICLE MACHINE OPERATOR Height 152.4 cm (5') 04/29/2019 12:50 PM ICICLE MACHINE OPERATOR Body Mass Index 32.48 04/29/2019 12:50 PM ICICLE MACHINE OPERATOR Plan of Treatment Health Maintenance Due Date Last Done Comments DTAP/TDAP/TD VACCINES (1 - Tdap) 1965 PNEUMOCOCCAL VACCINE 50+ YEARS (1 of 1 - PCV) 02/01/19 96 ZOSTER VACCINE (1 of 2) 02/02/1996 OSTEOPOROSIS SCREENING 2011 RSV VACCINE (60+ or ) (1 - 1-dose 75+ series) 2021 INFLUENZA VACCINE (#1) 2024 Insurance MEDICARE PART A AND B [facility] Care Teams Injury Prevention Coordinator Relationship Specialty Start Date End Date Suha Cabrales MD [address] [place] [address] PCP - General Family Practice 10/23/18
--- OUTSIDE RECORDS SUMMARY | 2024-09-03 07:44 | XMS_ITS | Patient Health Summary ---
Author Organization [facility] Address [address] [place] [address] Care Team Providers Care Plate Former Name Role Phone Suha Cabrales MD Primary Care Provider [phone] Note from [facility],non-owned Affiliates and Associated Physician Practices is amultiple site organization consisting of ambulatory clinics and hospital sitesin [place], [place], [place] and [place]. This disclosure is being madepursuant to the Care Everywhere program and may not contain all information available regarding this patient. Last updated 18.[facility] Allergies * Ampicillin(Rash) -Medium Criticality * Cephalexin(Unknown,Rash) [...] Spasm of Lung Air Passages * HYDROcodone-acetaminophen ([place]) 5-325 MG tablet(Started 10/07/2023) Take 1 (one) [...] and heating? Not hard at all 09/03/2023 [facility] - Occupational Stress [...] No 09/03/2023 Housing Stability Vital Sign Answer Ulis Miguel e Recorded In the last 12 [...] place to sleep or slept in a care home (including now)? No 09/03/2023 Sex and [...] AM CDT Medical Devices Implanted Type Area Vacuum Pan Tender Device Identifier Shelf Expiration Date Model / Serial / Lot Graft Vasc 6mm 70cm 60cm Hep Propaten - [id number] Implanted:Qty: 1 on 09/02/2023 by Chris Castle MD at [facility] Right: Other (See Descriptio n) [employer] 09/15/2025 [id number] / [id number] / Description:POPLITEAL-FEMORA L ARTERY Procedures * VAS RIGHT ARTERIAL DUPLEX LE(Performed 10/14/2023) Performed for PVD (peripheral vascular disease) (HCC) * CARDIAC RHYTHM STRIP ORDER(Performed 09/08/2023) * WA BYPASS GRAFT OTHR,FEM-POP(Performed 09/02/2023) * CBC W AUTO DIFFERENTIAL(Performed 08/27/2023) Performed for Preop examination * BASIC METABOLIC PANEL (CALCIUM TOTAL)(Performed 08/27/2023) Performed for Preop examination * CT ANGIO ABDOMEN AORTA W RUNOFF(Performed 07/21/2023) Performed for PVD (peripheral vascular disease) ([facility]) Results * VAS RIGHT ARTERIAL DUPLEX LE (10/14/2023 10:48 AM CDT) Anatomical Region Laterality Modality Lower Extremity Ultrasound 10/14/2023 10:1 2 AM CDT Narrative Procedure Note Jayson Mitchell MD - 10/16/2023 [facility] [place] [address], [address] [place] [address] Bypass Graft Report Pat.Name: DAVY ROLLE Pat.ID: [id number] St.Date: 10/14/2023 Refer.MD: UNKNOWN PROVIDER Exam Time: 10:12:00 AM Study Type:Bypass Graft Age: 8 1945,78Y Sex: FEMALE Sonogrphr: Antony Tan RVT Pat. Stat.:Outpatient CPT - 4: 95267 Reason for Study: Follow up surgery, Assess bypass graft Procedures: Lower Extremity Arterial Duplex - Right Race: 1 Visit ID: [id number] ++++++++++++++++++++++++++++++++++++ SUMMARY: ++++++++++++++++++++++++++++++++++++ Patent right femoral popliteal [...] thigh. ++++++++++++++++++++++++++++++++++++ MEASUREMENTS: ++++++++++++++++++++++++++++++++++++ GRAFT Right Anastomosis PAPER WOOD CUTTER to POP:Peripheral bypass Dist Anast PSV 59 cm/s Anastomosis PSV 78 cm/s Right Distal Graft PAPER WOOD CUTTER to POP:Peripheral bypass Distal Graft PS 45 cm/s Right Prox to Anastomosis PAPER WOOD CUTTER to POP:Peripheral bypass Darlene Vessel PSV 50 cm/s Right Inflow PAPER WOOD CUTTER to POP:Peripheral bypass Inflow PSV 95 cm/s Right Mid Graft PAPER WOOD CUTTER to POP:Peripheral bypass Mid Graft PSV 35 cm/s Right Outflow PAPER WOOD CUTTER to POP:Peripheral bypass Outflow PSV 43 cm/s Signed 10/16/2023 07:48 AM Jayson Mitchell MD Astrid García INTERLOCKING MACHINE OPERATOR-SNOW PLOW TRACTOR OPERATOR [facility]DE ELIDA * CARDIAC RHYTHM STRIP ORDER (09/08/2023 4:04 PM CDT) Narrative 09/08/2023 4:04 PM CDT Ordered by an unspecified provider. Scanned Document CARDIAC SERVICES ORD ERABLES * (ABNORMAL) CBC W AUTO DIFFERENTIAL (08/27/2023 1:54 PM MOTOR VEHICLES SUPERVISOR) [facility] WBC 7.6 4.0 - 10.7 x10E9/L 08/27/2023 2:29 PM MOTOR VEHICLES SUPERVISOR [facility] RBC Count 4.78 3.90 - 5.20 x10E12/L 08/27/2023 2:29 PM MOTOR VEHICLES SUPERVISOR [facility] Hemoglobin 13.8 11.9 - 15.8 g/dL 08/27/2023 2:29 PM MOTOR VEHICLES SUPERVISOR [facility] Hematocrit 42.8 34.8 - 46.1 % 08/27/2023 2:29 PM MOTOR VEHICLES SUPERVISOR [facility] MCV 89.5 80.0 - 98.0 fL 08/27/2023 2:29 PM MOTOR VEHICLES SUPERVISOR [facility] MCH 28.9 26.7 - 33.6 pg 08/27/2023 2:29 PM [facility] MCHC 32.2 31.7 - 36.3 g/dL 08/27/2023 2:29 PM [facility] RDW-CV 15.5(H) 11.3 - 14.8 % 08/27/2023 2:29 PM [facility] Platelet Count 354 150 - 420 x10E9/L 08/27/2023 2:29 PM [facility] MPV 9.3 7.8 - 11.4 fL 08/27/2023 2:29 PM [facility] Neutrophil % 64.4 41.0 - 74.0 % 08/27/2023 2:29 PM [facility] Lymphocyte % 21.9 17.0 - 47.0 % 08/27/2023 2:29 PM [facility] Monocyte % 9.4 3.0 - 11.0 % 08/27/2023 2:29 PM [facility] Eosinophil % 3.3 0.0 - 7.0 % 08/27/2023 2:29 PM [facility] Basophil % 0.7 0.0 - 1.6 % 08/27/2023 2:29 PM [facility] Immature Granulocytes % 0.3 0.0 - 1.0 % 08/27/2023 2:29 PM [facility] Neutrophil Absolute 4.92 1.60 - 7.50 x10E9/L 08/27/2023 2:29 PM [facility] Lymphocyte Absolute 1.67 1.00 - 4.40 x10E9/L 08/27/2023 2:29 PM [facility] Monocyte Absolute 0.72 0.15 - 1.00 x10E9/L 08/27/2023 2:29 PM [facility] Eosinophil Absolute 0.25 0.00 - 0.60 x10E9/L 08/27/2023 2:29 PM [facility] Basophil Absolute 0.05 0.00 - 0.13 x10E9/L 08/27/2023 2:29 PM [facility] Blood BLOOD SPECIMEN / Unknown Lab Venipuncture / Unknown 08/27/2023 1:54 PM [facility] 08/27/2023 2:20 PM MOTOR VEHICLES SUPERVISOR Kelvin Brown MD LAB - HEMATOLOGY ORDERABLES [facility] [address] [place] [address] * (ABNORMAL) BASIC METABOLIC PANEL (CALCIUM TOTAL) (08/27/2023 1:54 PM MOTOR VEHICLES SUPERVISOR) [facility] Glucose 90 70 - 105 mg/dL 08/27/2023 2:47 PM [facility] Sodium 142 136 - 145 mmol/L 08/27/2023 2:47 PM [facility] Potassium 3.9 3.5 - 5.1 mmol/L 08/27/2023 2:47 PM [facility] Chloride 105 98 - 107 mmol/L 08/27/2023 2:47 PM [facility] CO2 30(H) 22 - 29 mmol/L 08/27/2023 2:47 PM [facility] Calcium 10.1 8.4 - 10.4 mg/dL 08/27/2023 2:47 PM [facility] Anion Gap 7 6 - 16 mmol/L 08/27/2023 2:47 PM [facility] BUN 13 7 - 26 mg/dL 08/27/2023 2:47 PM [facility] Creatinine 0.78 0.57 - 1.11 mg/dL 08/27/2023 2:47 PM [facility] eGFR by CKD-EPI 78(L) >=90 mL/min/1.7 3 m2 08/27/2023 2:47 PM [facility] Blood BLOOD SPECIMEN / Unknown Lab Venipuncture / Unknown 08/27/2023 1:54 PM MOTOR VEHICLES SUPERVISOR 08/27/2023 2:20 PM MOTOR VEHICLES SUPERVISOR Kelvin Brown MD LAB - CHEMISTRY ORDERABLES [facility] [address] [place] [address] * CT ANGIO ABDOMEN AORTA W RUNOFF (07/21/2023 4:04 PM MOTOR VEHICLES SUPERVISOR) Anatomical Region Laterality Modality Abdomen, Lower Extremity Compute d Tomography 07/21/2023 6:11 PM MOTOR VEHICLES SUPERVISOR Impressions 07/21/2023 6:15 PM MOTOR VEHICLES SUPERVISOR IMPRESSION: 1.Occluded left femoral to popliteal stent. Traditional angiography is recommended for further evaluation. 2.Contrast opacification of the left lower extremity three-vessel runoff is suggestive of collateral supply versus trace residual flow. 3.Bilateral irregular multifocal stenosis throughout the femoral arteries. 4.Severe atherosclerotic disease and peripheral vascular disease. > Interpreting Provider: Nura Jensen MD on 07/21/2023 6:15 PM Narrative 07/21/2023 6:15 PM MOTOR VEHICLES SUPERVISOR PROCEDURE: CT ANGIO ABDOMEN AORTA W RUNOFF [...] Chris Castle MD CT ORDERABLES Care Teams Plate Former Relationship Specialty Start Date End Date Suha Cabrales MD [address] [place] [address] PCP - General Family Medicine 07/01/23
--- OUTSIDE RECORDS SUMMARY | 2024-09-03 07:44 | XMS_ITS | CONTINUITY OF CARE DOCUMENT ---
Author Name syed lynch Address Unknown Organization [facility] Address [address] [place] [address] Phone [phone] Care Team Providers Care Honey Producer Name Role Phone Vidya KENT, Patrick Unavailable CHARISMA FULLER MD Unavailable [phone] CHARISMA FULLER MD Unavailable PROBLEMS Condition [...] In-person encounter Office Visit Patrick Dasilva MD [facility] - In-person encounter Office Visit Patrick Dasilva MD [facility] Venous insufficiency - In-person encounter Office Visit Patrick Dasilva MD [facility] PVD - In-person encounter Office Visit Patrick Dasilva MD [facility] - In-person encounter Office Visit Patrick Dasilva MD [facility] - In-person encounter Office Visit Patrick Dasilva MD [facility] - In-person encounter Office Visit Patrick Dasilva MD [facility] - In-person encounter Office Visit Patrick Dasilva MD [facility] - In-person encounter Office Visit Patrick Dasilva MD [facility] - In-person encounter Office Visit Patrick Dasilva MD [facility] - In-person encounter Office Visit Patrick Dasilva MD [facility] Edema - In-person encounter Office Visit Patrick Dasilva MD [facility] - In-person encounter Office Visit Patrick Dasilva MD [facility] - In-person encounter Office Visit Patrick Dasilva MD [facility] - In-person encounter Office Visit Patrick Dasilva MD [facility] Coronary Heart Disea se - In-person encounter Office Visit MARIZA ROBERT MD [facility] - In-person encounter Office Visit Patrick Dasilva MD [facility] - In-person encounter Office Visit Patrick Dasilva MD [facility] COPD - In-person encounter Office Visit Patrick Dasilva MD [facility] Shortness of breath - In-person encounter Office Visit Patrick Dasilva MD [facility] - In-person encounter Office Visit Patrick Dasilva MD [facility] - In-person encounter Office Visit Patrick Dasilva MD [facility] - In-person encounter Office Visit Patrick Dasilva MD [facility] - In-person encounter Office Visit Patrick Dasilva MD [facility] - In-person encounter Office Visit MARIZA ROBERT MD [facility] - In-person encounter Office Visit MARIZA ROBERT MD [facility] - In-person encounter Office Visit Patrick Dasilva MD [facility] - In-person encounter Office Visit Patrick Dasilva MD [facility] - In-person encounter Office Visit MARIAZ ROBERT MD [facility] - In-person encounter Office Visit Patrick Dasilva MD [facility] - In-person encounter Office Visit MARIZA ROBERT MD [facility] - In-person encounter Office Visit MARIZA ROBERT MD [facility] - In-person encounter Office Visit Shara Hernandez [facility] - In-person encounter Office Visit Patrick Dasilva MD [facility] - In-person encounter Office Visit MARIZA ROBERT MD [facility] - In-person encounter Office Visit MARIZA ROBERT MD [facility] - In-person encounter Office Visit MARIZA ROBERT MD [facility] - In-person encounter Office Visit Patrick Dasilva MD [facility] - In-person encounter Office Visit Shara Hernandez [facility] - In-person encounter Office Visit Shara Hernandez [facility] - In-person encounter Office Visit Patrick Dasilva MD [facility] CLAUDICATION, INTERMITTENTPRE-OPERAT CARLOS CARDIOVASCULAR EXAMINATION - In-person encounter Office Visit Patrick Dasilva MD [facility] HISTORY OF TOBACCO ABUSE - In-person encounter Office Visit Shara Hernandez [facility] - In-person encounter Office Visit Shara Hernandez [facility] - In-person encounter Office Visit Shara Hernandez [facility] - In-person encounter Office Visit Shara [facility] - [facility] Shara [facility] VITAL SIGNS Date Observation Value Provider Body Mass Index (Ratio) 25.05 kg/m2 Javier Dasilva MD blood pressure, cuff size regular Ke alex Thayer blood pressure, diastolic 100 mm[Hg] Ke rrphil Ovalle blood pressure, systolic 162 mm[Hg] Alfred Thayer oxygen saturation, oximetry 96 % Kelsea Thayer pulse rate 90 /min Kelsea Velasco [facility] weight E&M 137 [lb_av] Kelsea Velasco [facility] height E&M 62 [in_i] Kelsea Velasco [facility] Body Mass Index (Ratio) 25.79 kg/m2 Tacho [...] blood pressure, diastolic 80 mm[Hg] Kr isty Ildefonso blood pressure, systolic 160 mm[Hg] Kri sty [place] oxygen saturation, oximetry 94 % Frida Ildefonso pulse rate 78 /min Frida [place] respiratory rate E&M 19 /min Frida [place] weight E&M 178 [lb_av] Frida [place] height E&M 62 [in_i] Frida [place] Body Mass Index (Ratio) 27.62 kg/m2 Javier [...] Frida Livingstonby height E&M 62 [in_i] Frida rFegoso Body Mass Index (Ratio) 25.24 kg/m2 Jvaier Dasilva MD blood pressure, diastolic 100 mm[Hg] [...] Alice blackwell oxygen saturation, oximetry 94 % [facility] 16 /min [facility] pulse rate 70 /min [facility] 140 [lb_av] Tracy OShawn height E&M 62 [in_i] [facility] Body Mass Index (Ratio) 27.62 kg/m2 Consuelo ica N David blood pressure, cuff size regular Je ssica N David blood pressure, diastolic 90 mm[Hg] Je ssica N David blood pressure, systolic 180 mm[Hg] Susan bradley Bruno Hernandez oxygen saturation, oximetry 95 % Nan N David respiratory rate E&M 18 /min Nan N David pulse rate 73 /min Nan N Wilso [...] /min Chiqui Joseph weight E&M 151 [lb_av] Chiuqi Joseph height E&M 62 [in_i] Chiqui Joseph [...] Frida Ildefonso pulse rate 77 /min Frida [place] height E&M 62 [in_i] Frida [place] Body Mass Index (Ratio) 27.98 kg/m2 Javier [...] Sreekanth adela Tebid pulse rate #2 63 [place] d blood pressure, jung tolic, second observation 88 mm[Hg] [place] bid blood pressure, syst olic, second observation 164 mm[Hg] [facility], [facility] 98 % [place] d pulse rate 63 /min [place] d blood pressure, diastolic 88 mm[Hg] Vi ctoria Tebid blood pressure, systolic 164 mm[Hg] Sreekanth adela Tebid pulse rate #2 65 [place] d blood pressure, jung tolic, second observation 92 mm[Hg] [facility] blood pressure, syst olic, second observation 158 mm[Hg] [facility], oximetry 98 % [place] pulse rate 65 /min [place] d blood pressure, diastolic 92 mm[Hg] Vi ctoria Ted blood pressure, systolic 158 mm[Hg] Sreekanth adela Ted pulse rate #2 71 [place] blood pressure, jung tolic, second observation 89 mm[Hg] [facility], syst olic, second observation 154 mm[Hg] [facility], oximetry 98 % [place] d pulse rate 71 /min [place] d blood pressure, diastolic 89 mm[Hg] Vi ctoria Tebid blood pressure, systolic 154 mm[Hg] Sreekanth adela Tebid pulse rate #2 79 [place] d blood pressure, jung tolic, second observation 83 mm[Hg] [facility] blood [facility], syst olic, second observation 156 mm[Hg] [facility], oximetry 98 % [facility] pulse rate 79 /min [place] Tebid blood pressure, diastolic 83 mm[Hg] Vi ctoria Tebid blood pressure, systolic 156 mm[Hg] Sreekanth adela Tebid pulse rate #2 77 [place] bid blood pressure, jung tolic, second observation 87 mm[Hg] [place] Tebid blood pressure, syst olic, second observation 142 mm[Hg] Audrey Tebid oxygen saturation, oximetry 98 % [facility] 77 /min [place] Tebid blood pressure, diastolic 87 mm[Hg] Vi ctoria Tebid blood pressure, systolic 142 mm[Hg] Sreekanth adela Tebid pulse rate #2 71 [facility], jung tolic, second observation 89 mm[Hg] [facility] blood [facility], syst olic, second observation 150 mm[Hg] [facility], oximetry 98 % [place] bid pulse rate 71 /min [place] bid blood pressure, diastolic 89 mm[Hg] Vi [facility] Tebid blood pressure, systolic 150 mm[Hg] Sreekanth mcintoshia Tebid pulse rate #2 76 [facility] blood [facility], jung tolic, second observation 92 mm[Hg] Audrey Tebid blood pressure, syst olic, second observation 152 mm[Hg] [place] Tebid oxygen saturation, oximetry 98 % [place] bid pulse rate 76 /min [place] Tebid blood pressure, diastolic 92 mm[Hg] Vi ctoria Tebid blood pressure, systolic 152 mm[Hg] Sreekanth adela Tebid pulse rate #2 75 [place] bid blood pressure, jung tolic, second observation 90 mm[Hg] [place] Tebid blood pressure, syst olic, second observation 146 mm[Hg] [facility], oximetry 98 % [facility] pulse rate 75 /min [facility] blood [facility], diastolic 90 mm[Hg] Vi ctoria Tebid blood pressure, systolic 146 mm[Hg] Sreekanth adela bid pulse rate #2 79 [facility] blood pressure, jung tolic, second observation 81 mm[Hg] [facility] blood [facility], syst olic, second observation 148 mm[Hg] [facility] oxygen saturation, oximetry 98 % [facility] pulse rate 79 /min [facility] blood pressure, diastolic 81 mm[Hg] Vi [facility] Tebid blood pressure, systolic 148 mm[Hg] Sreekanth adela bid pulse rate #2 71 [facility] blood pressure, jung tolic, second observation 76 mm[Hg] [facility] blood pressure, syst olic, second observation 131 mm[Hg] [facility] oxygen saturation, oximetry 98 % [facility] pulse rate 71 /min [facility] blood pressure, diastolic 76 mm[Hg] Vi [facility] Tebid blood pressure, systolic 131 mm[Hg] Sreekanth adela Tebid pulse rate #2 78 [facility] blood pressure, jung tolic, second observation 72 mm[Hg] [facility] blood [facility], syst olic, second observation 133 mm[Hg] [facility] oximetry 98 % [facility] pulse rate 78 /min [facility] blood pressure, diastolic 72 mm[Hg] Vi maoria Tebid blood pressure, systolic 133 mm[Hg] Sreekanth adela bid pulse rate #2 72 [facility] blood pressure, jung tolic, second observation 69 mm[Hg] [facility] blood [facility], syst olic, second observation 164 mm[Hg] [facility] oxygen saturation, oximetry 98 % [facility] pulse rate 72 /min [facility] blood pressure, diastolic 69 mm[Hg] Vi ctoria Tebid blood pressure, systolic 164 mm[Hg] Sreekanth adela bid pulse rate #2 71 [facility] blood pressure, jung tolic, second observation 67 mm[Hg] [facility] blood pressure, syst olic, second observation 153 mm[Hg] [facility] oxygen saturation, oximetry 98 % [facility] pulse rate 71 /min [facility] blood pressure, diastolic 67 mm[Hg] [facility], [facility] 153 mm[Hg] Sreekanth mcintoshia Tebid pulse rate #2 62 [facility] blood pressure, jung tolic, second observation 84 mm[Hg] [facility] blood [facility], syst olic, second observation 146 mm[Hg] [facility], oximetry 98 % [facility] pulse rate 62 /min [facility] blood pressure, diastolic 84 mm[Hg] Vi ctoria Tebid blood pressure, systolic 146 mm[Hg] Sreekanth adela Tebid pulse rate #2 62 [facility] blood pressure, jung tolic, second observation 96 mm[Hg] [facility] blood [facility], syst olic, second observation 150 mm[Hg] [facility], oximetry 98 % [facility] pulse rate 62 /min [facility] blood pressure, diastolic 96 mm[Hg] Vi ctoria Tebid blood pressure, systolic 150 mm[Hg] Sreekanth adela Tebid pulse rate #2 78 Audrey Tebid blood pressure, jung tolic, second observation 79 mm[Hg] Audrey Tebid blood pressure, syst olic, second observation 125 mm[Hg] Audrey Tebid oxygen saturation, oximetry 98 % [facility] pulse [facility] 78 /min [facility] blood pressure, diastolic 79 mm[Hg] Vi maoria Tebid blood pressure, systolic 125 mm[Hg] Sreekanth adela Tebid pulse rate #2 71 [place] Tebid blood pressure, jung tolic, second observation 78 mm[Hg] Audrey Tebid blood pressure, syst olic, second observation 134 mm[Hg] Audrey Tebid oxygen saturation, oximetry 98 % [facility] pulse [facility] 71 /min [facility] blood pressure, diastolic 78 mm[Hg] Vi maoria Tebid blood pressure, systolic 134 mm[Hg] Sreekanth adela Tebid pulse rate #2 74 [place] Tebid blood pressure, jung tolic, second observation 73 mm[Hg] Audrey Tebid blood pressure, syst olic, second observation 155 mm[Hg] Audrey Tebid oxygen saturation, oximetry 98 % [facility] pulse rate 74 /min [place] Tebid blood pressure, diastolic 73 mm[Hg] Vi ctoria Tebid blood pressure, systolic 155 mm[Hg] Sreekanth adela Tebid pulse rate #2 68 [facility] blood pressure, jung tolic, second observation 89 mm[Hg] [facility] blood [facility], syst olic, second observation 146 mm[Hg] [facility] oxygen [facility], oximetry 98 % [facility] pulse rate 68 /min [facility] blood pressure, diastolic 89 mm[Hg] Vi ctoria Tebid blood pressure, systolic 146 mm[Hg] Sreekanth adela Tebid pulse rate #2 67 [place] Tebid blood pressure, jung tolic, second observation 79 mm[Hg] [place] bid blood pressure, syst olic, second observation 129 mm[Hg] [facility], oximetry 98 % [facility] pulse rate 67 /min [facility] blood pressure, diastolic 79 mm[Hg] Vi ctoria Tebid blood pressure, systolic 129 mm[Hg] Sreekanth adela Tebid pulse rate #2 67 [facility] blood pressure, jung tolic, second observation 81 mm[Hg] [facility] blood pressure, syst olic, second observation 130 mm[Hg] [facility] oxygen saturation, oximetry 98 % [facility] pulse rate 67 /min [facility] blood pressure, diastolic 81 mm[Hg] Vi [facility] Tebid blood pressure, systolic 130 mm[Hg] Sreekanth adela Tebid pulse rate #2 74 [facility] blood pressure, jung tolic, second observation 83 mm[Hg] [facility] blood pressure, syst olic, second observation 139 mm[Hg] [facility] oxygen [facility], oximetry 98 % [facility] pulse rate 74 /min [place] Tebid blood pressure, diastolic 83 mm[Hg] Vi ctoria Tebid blood pressure, systolic 139 mm[Hg] Sreekanth adela Tebid pulse rate #2 58 [facility] blood pressure, jung tolic, second observation 89 mm[Hg] [facility] blood [facility], syst olic, second observation 136 mm[Hg] [facility] oxygen [facility], oximetry 98 % [facility] pulse rate 58 /min [place] Tebid blood pressure, diastolic 89 mm[Hg] Vi ctoria Tebid blood pressure, systolic 136 mm[Hg] Sreekanth adela Tebid pulse rate #2 62 [place] d blood pressure, jung tolic, second observation 86 mm[Hg] [facility] blood [facility], syst olic, second observation 166 mm[Hg] Audrey Tebid oxygen saturation, oximetry 98 % [place] d pulse rate 62 /min [place] Tebid blood pressure, diastolic 86 mm[Hg] Vi ctoria Tebid blood pressure, systolic 166 mm[Hg] Sreekanth adela Tebid pulse rate #2 78 [facility] blood pressure, jung tolic, second observation 85 mm[Hg] [facility] blood pressure, syst olic, second observation 135 mm[Hg] [facility] oxygen [facility], oximetry 98 % [place] d pulse rate 78 /min [place] d blood pressure, diastolic 85 mm[Hg] Vi [facility] Tebid blood pressure, systolic 135 mm[Hg] Sreeknath adela Tebid pulse rate #2 66 [facility] blood pressure, jung tolic, second observation 76 mm[Hg] [facility] blood [facility], syst olic, second observation 114 mm[Hg] Audrey Tebid oxygen saturation, oximetry 98 % [place] d pulse rate 66 /min [place] Tebid blood pressure, diastolic 76 mm[Hg] Vi ctoria Tebid blood pressure, systolic 114 mm[Hg] Sreekanth adela Tebid pulse rate #2 71 [facility] blood pressure, jung tolic, second observation 82 mm[Hg] [facility] blood [facility], syst olic, second observation 152 mm[Hg] [facility] oxygen [facility], oximetry 98 % [...] Sreekanth adela Tebid pulse rate #2 71 [facility] blood [facility], jung tolic, second observation 81 mm[Hg] Audrey Ted blood pressure, syst olic, second observation 144 mm[Hg] [facility], oximetry 98 % Audrey d pulse rate 71 /min Audrey d blood pressure, diastolic 87 mm[Hg] Vi ctoria Tebid blood pressure, systolic 144 mm[Hg] Sreekanth mcintoshia Tebid pulse rate #2 67 [place] Tebid blood pressure, jung tolic, second observation 82 mm[Hg] Audrey Tebid blood pressure, syst olic, second observation 129 mm[Hg] Audrey Tebid oxygen saturation, oximetry 98 % Audrey d pulse rate 67 /min [place] d blood pressure, diastolic 82 mm[Hg] Vi ctoria Tebid blood pressure, systolic 129 mm[Hg] Sreekanth adela Tebid pulse rate #2 66 [facility], jung tolic, second observation 82 mm[Hg] Audrey Tebid blood pressure, syst olic, second observation 135 mm[Hg] Audrey bid oxygen saturation, oximetry 98 % Audrey d pulse rate 66 /min Audrey d blood pressure, diastolic 82 mm[Hg] Vi ctoria Tebid blood pressure, systolic 135 mm[Hg] Sreekanth adela Tebid pulse rate #2 66 [place] d blood pressure, jung tolic, second observation 97 mm[Hg] Audrey d blood pressure, syst olic, second observation 147 mm[Hg] Audrey d oxygen saturation, oximetry 98 % Audrey d pulse rate 66 /min Audrey d blood pressure, diastolic 97 mm[Hg] Vi ctoria Tebid blood pressure, systolic 147 mm[Hg] Sreekanth adela Tebid pulse rate #2 71 [place] d blood pressure, jung tolic, second observation 96 mm[Hg] Audrey d blood pressure, syst olic, second observation 158 mm[Hg] Audrey d oxygen saturation, oximetry 98 % Audrey pulse rate 71 /min Audrey d blood pressure, diastolic 96 mm[Hg] Vi ctoria Tebid blood pressure, systolic 158 mm[Hg] Sreekanth adela Tebid pulse rate #2 68 [place] d blood pressure, jung tolic, second observation 89 mm[Hg] Audrey d blood pressure, syst olic, second observation 125 mm[Hg] Audrey d oxygen saturation, oximetry 98 % Audrey d pulse rate 68 /min [place] d blood pressure, diastolic 89 mm[Hg] Vi [...] blood pressure, diastolic 70 mm[Hg] Rick johnson [place] blood pressure, systolic 126 mm[Hg] Samuel Livingstonby [...] Lynette Abel blood pressure, diastolic 110 mm[Hg] Ks ibeth Abel blood pressure, systolic 162 mm[Hg] [...] blood pressure, systolic 116 mm[Hg] Ane atris [facility] pulse rate 77 /min Aneatris Jose oxygen [...] her RN weight E&M 160 [lb_av] Jovanny Rouse RN ALLERGIES Allergy Name Onset Date Reaction Criticality Status IVP DYE Low Criticality active CILLIN'S Low Criticality active KEFLEX Low Criticality active RESULTS Date Observation Value Provider Reference Range Interpretation Location lipoprotein, beta, serum, point, quantitative, calculated 84 mg/dL [facility] 0-99 HDL cholesterol, serum 35 mg/dL [facility] >39 Low triglyceride, serum, random 132 mg/dL [facility] 0-149 cholesterol, serum 143 mg/dL [facility] [phone]/09 /10 calcium, serum 10.2 mg/dL [facility] 8.7-10.3 carbon dioxide, venous blood 27 mmol/L [facility] 20-29 chloride, serum 101 mmol/L [facility] 96-106 potassium, serum 3.8 mmol/L [facility] 3.5-5.2 sodium, serum 143 mmol/L [facility] [phone]/09 /10 urea nitrogen/creatinine ratio, serum 10 [facility] [...] Not Estab. platelet count 303 X10E3/UL [facility] [phone]/09 /10 red blood cell distribution width 14.4 [...] [facility] 3.5-5.2 sodium, serum 144 mmol/L [facility] [phone]/07 /23 urea nitrogen/creatinine ratio, serum 16 [facility] 12-28 creatinine, serum 1.00 mg/dL [facility] 0.57-1.00 urea nitrogen, blood 16 mg/dL [facility] 8-27 blood glucose, random 101 mg/dL [facility] 70-99 High lipoprotein, beta, serum, point, quantitative, calculated 74 mg/dL [facility] 0-99 HDL cholesterol, serum 45 mg/dL [facility] >39 triglyceride, serum, random 118 mg/dL [facility] 0-149 cholesterol, serum 140 mg/dL [facility] [phone]/07 /23 calcium, serum 9.9 mg/dL [facility] 8.7-10.3 [...] Not Estab. platelet count 277 X10E3/UL [facility] 157-157 7956/07 /23 red blood cell distribution width 14.8 [...] iron binding capacity, unsaturated 190 ug/dL [facility] 410-221 9901/12 /06 iron binding capacity, total 269 ug/dL [facility] [phone]/12 /06 basophil count, absolute 0.1 x10E3/uL [facility] [...] Not Estab. platelet count 310 X10E3/UL [facility] [phone]/12 /06 red blood cell distribution width 15.0 [...] [facility] 3.5-5.1 sodium, serum 142 mmol/L [facility] 383-073 4634/11 /16 creatinine, serum 0.8 mg/dL [facility] 0.5-0.9 [...] iron binding capacity, total 384 ug/dL [facility] 222-028 6498/10 /25 iron, serum 99 ug/dL [facility] 25-156 ferritin, serum 93 ng/mL [facility] 13-150 platelet count 357 THOUSAND/UL [facility] 248-239 5909/10 /25 Absolute Basophils 0.1 CELLS/UL [facility] 0.0-0.2 [...] MILLION/UL [facility] 3.5-5.5 folate, serum 20.0 NG/MLM [facility] 5.6 - 45.8 vitamin b12, serum 468.1 pg/mL [facility] 211.0 - 946.0 very low density lipoproteins 18.0 mg/dL [facility] 5.0 - 40.0 LDL/HDL (low-density lipoprotein/high-de nsity lipoprotein) ratio 1.5 RATIO [facility] - lipoprotein, beta, serum, point, quantitative, calculated 95.0 (?) [facility] 0.0 - 100.0 HDL cholesterol, serum 62.0 mg/dL [facility] 45.0 - 65.0 cholesterol, serum 175.0 mg/[facility] 0.[facility] - 200.0 triglyceride, serum, fasting 90.0 mg/dL [facility] 0.0 - 150.0 ferritin, serum 105.5 ng/mL [facility] 13.0 - 150.0 red blood cell distribution width, size density 47.2 fL [facility] - immature granulocytes, percentage of total cells, blood 0.5 % [facility] - nucleated red blood cells as percent of blood leukocytes 0.3 % [facility] - red blood cell (erythrocyte) count, per high power field 0.0 10*3/UL [facility] - eosinophils as percent of blood leukocytes 5.6 % [facility] - neutrophils as percent of blood [...] cell distribution width, size density 46.5 fL [facility] - immature granulocytes, percentage of total cells, blood 0.1 % [facility] - nucleated red blood cells as percent of blood leukocytes 0.0 % [facility] - red blood cell (erythrocyte) count, per high power field 0.0 10*3/UL [facility] - eosinophils as percent of blood leukocytes 4.6 % [facility] - neutrophils as percent of blood leukocytes 52.2 % [facility] - Absolute Neutrophils 3.9 CELLS/UL [facility] 1.5 - 7.8 basophils as percent of blood leukocytes 0.8 % [facility] - Absolute Basophils 0.1 CELLS/UL [facility] 0.0 - 0.2 monocytes as percent of blood leukocytes 8.7 % [facility] - Absolute Monocytes 0.7 CELLS/UL [facility] 0.2 - 1.0 lymphocytes as percent of blood leukocytes 33.6 % [facility] - Absolute Lymphocytes 2.5 CELLS/UL [facility] 0.9 - 3.9 mean platelet volume 9.8 (?) [facility] - platelet count 311.0 THOUSAND/UL [facility]Log[facility] [...] cell distribution width, size density 48.7 fL [facility] - immature granulocytes, percentage of total cells, blood 0.2 % [facility] - nucleated red blood cells as percent of blood leukocytes 0.0 % [facility] - red blood cell (erythrocyte) count, per high power field 0.0 10*3/UL [facility] - eosinophils as percent of blood leukocytes 4.7 % [facility] - neutrophils as percent of blood leukocytes 54.6 % [facility] Absolute Neutrophils 4.6 CELLS/UL [facility] 1.5 - 7.8 basophils as percent of blood leukocytes 0.8 % [facility] - Absolute Basophils 0.1 CELLS/UL [facility] 0.0 - 0.2 monocytes as percent of blood leukocytes 11.9 % [facility] Monocytes 1.0 CELLS/UL [facility] 0.2 - 1.0 High lymphocytes as percent of blood leukocytes 27.8 % [facility] Absolute Lymphocytes 2.3 CELLS/UL [facility] 0.9 - 3.9 mean platelet volume 9.4 (?) [facility] - platelet count 337.0 THOUSAND/UL [facility] 100.0 - 400.0 mean corpuscular hemoglobin concentration, RBC 32.4 G/DL [facility] 31.0 - 38.0 mean corpuscular hemoglobin, RBC 31.0 pg [facility] 25.0 - 35.0 mean corpuscular volume, RBC 95.7 fL [facility] 75.0 - 100.0 hematocrit, blood 42.0 % [facility] 35.0 - 55.0 hemoglobin, blood 13.6 g/dL [facility] 11.5 - 16.5 erythrocyte count, whole blood [...] Normal Absolute Neutrophil count 3960 cells/mcL [facility] 4186-8918 Normal mean platelet volume 8.1 fL [facility] [...] Normal Absolute Neutrophil count 3354 cells/mcL [facility] 1350-9583 Normal platelet count 276 THOUSAND/UL [facility] 140-400 [...] Normal Absolute Neutrophil count 4118 cells/mcL [facility] 9098-6957 Normal platelet count 266 THOUSAND/UL [facility] 140-400 [...] Normal Absolute Neutrophil count 3720 cells/mcL [facility] 8579-0749 Normal platelet count 275 THOUSAND/UL [facility] 140-400 [...] Normal Absolute Neutrophil count 3811 cells/mcL [facility] 9904-6823 Normal platelet count 304 THOUSAND/UL [facility] 140-400 [...] [facility] 3.5-5.3 Normal sodium, serum 131 mmol/L [facility] 135-146 Low urea nitrogen/creatinine ratio, serum 20 (calc) Link[facility] 6-22 Normal Estimated Glomerular Filtration Rate (calc) 64 mL/min/{1.73_ m2} [facility] > OR = 60 Normal creatinine, serum 1.04 mg/dL [facility] 0.50-0.99 High urea nitrogen, blood 21 mg/dL [facility] 7-25 Normal blood glucose, random 101 mg/dL [facility] 65-99 High platelet count 286 10*3/mm3 [facility] hematocrit, blood 42.9 % [facility] international normalized ratio (INR) 1.0 [facility] thyroid stimulating hormone, serum 1.10 u[IU]/mL [facility] D-dimer quantitative mcg/mL 523 ug/mL [facility] creatinine, serum 0.88 mg/dL [facility] alanine aminotransferase (SGPT), serum 45 1/L [facility] aspartate aminotransferase (SGOT), serum 20 1/L [facility] potassium, serum 4.0 mmol/L [facility] sodium, serum 127 mmol/L [facility] prothrombin time (patient) 10.4 s [facility] 9.0-11.5 Normal international normalized ratio (INR) 1.0 [facility] Normal basophils as percent of blood leukocytes 0.4 % [facility] Normal eosinophils as percent of blood [...] Normal Absolute Neutrophil count 3856 cells/mcL [facility] 9726-5898 Normal platelet count 260 THOUSAND/UL [facility] 140-400 [...] Cyndie Rogel international normalized ratio (INR) 1.0 [facility] creatinine, serum 0.79 mg/dL [facility] urea nitrogen, blood 16 mg/dL [facility] potassium, serum 4.2 mmol/L [facility] sodium, serum 134 mmol/L [facility] platelet count 309 10*3/uL [facility] hematocrit, blood 39.9 % [facility] hemoglobin, blood 14.1 g/dL [facility] erythrocyte (RBC) count 4.42 10*6/mm3 [facility] leukocyte count, blood 10.7 10*3/mm3 [facility] HISTORY OF MEDICATION USE Medication Status Instructions Dates Provider Indications Com ments tramadol 50 mg tablet active TAKE 2 TABLETS BY MOUTH EVERY 6 HOURS NEEDED FOR PAIN Patrick Dasilva MD baclofen 10 mg tablet active TAKE 2 TABLETS BY MOUTH IN THE EVENING Blossom Rushing tramadol 50 mg tablet completed as needed for pain TAKE 2 TABLETS BY MOUTH EVERY 6 HOURS - Patrick Dasilva MD carvedilol 12.5 mg tablet active Take [...] Take 1 tablet by mouth once daily eKlsea Thayer levothyroxine 100 mcg tablet active Take [...] UP APPOINTMENT REQUIRED FOR ADDITIONAL REFILLS - Tori Owen losartan 100 mg tablet completed Take 1 tablet by mouth once daily - Kinjal Zelaya RN Euthyrox 100 mcg tablet completed Take 1 tablet by mouth once daily - Kijnal Zelaya RN clopidogrel 75 mg tablet completed [...] by mouth once a week - Kelsea Flaca #12, 84 days supply, Prescribed by YAHAIRA SIMONS, Filled 10/30/2020 venlafaxine 75 mg capsule,extended release 24hr completed Take 2 capsule by mouth once a day - Frida Fregoso #180, 90 days supply, Prescribed by CHARISMA FULLER, Filled 11/29/2020 Trelesean Ellipta 100-62.5-25 mcg blister with device active [...] tablet by mouth once a day - Tia Brayden Combivent Respimat 20-100 mcg/actuation mist completed 2 puff twice a day - Patrick Dasilva MD ZETIA 10 MG ORAL TABLET completed take one tablet daily - Patrick oliveras Kerwin DIPHENHYDRAMINE HCL 25 MG ORAL TABLET [...] TABLET completed 2 TABLETS DAILY - Tracy Kristie FERROUS SULFATE 325 (65 Fe) MG ORAL [...] TABLET completed ONE TABLET DAILY - Ryder Elisedney NICOTINE 21 MG/24HR TRANSDERMAL PATCH 24 HOUR completed TAKE DIRECTED - Ryder Aixa COMBIVENT RESPIMAT 20-100 MCG/ACT INHALATION AEROSOL SOLUTION completed 1 TO 2 PUFFS FOUR TIMES DAILY - Ryder Aixa baclofen 10 mg tablet completed Take 2 [...] by mouth once a day - Cheri Bealsey LISINOPRIL-HYDROC HLOROTHIAZIDE 20-25 MG ORAL TABLET completed ONE TABLET TWICE DAILY - Ryder Kruse levothyroxine 100 mcg tablet completed Take 1 [...] mesfin Dasilva MD drug use none Charisma Elaine'Shawn SIGNAL SYSTEM TESTING MAINTAINER alcohol use no Charisma Elaine'Shawn SIGNAL SYSTEM TESTING MAINTAINER passive cigarette sm lily exposure yes Charisma Elaine'Shawn SIGNAL SYSTEM TESTING MAINTAINER smoking/tobacco cess ation, patient education and counseling yes Charisma Elaine'Shawn SIGNAL SYSTEM TESTING MAINTAINER smoking, date started 1978 Charisma Elaine'Shawn SIGNAL SYSTEM TESTING MAINTAINER smoking history, tot al pack/year 40 Charisma O'Shawn SIGNAL SYSTEM TESTING MAINTAINER smoking history, tot al pack/day 1 pkg a day Charisma Elaine'Shawn SIGNAL SYSTEM TESTING MAINTAINER cigarette use yes Charisma Elaine'Shawn N P smoking status Current every day smoker Vanessa Flowers SIGNAL SYSTEM TESTING MAINTAINER drug use none Dinora Winters r SIGNAL SYSTEM TESTING MAINTAINER alcohol use no Dinora Winters r SIGNAL SYSTEM TESTING MAINTAINER passive cigarette sm lily exposure yes Dinora Wintersr SIGNAL SYSTEM TESTING MAINTAINER smoking/tobacco cess ation, patient education and counseling yes Dinora Jackson SIGNAL SYSTEM TESTING MAINTAINER smoking, date started 1978 Ha Wintersr SIGNAL SYSTEM TESTING MAINTAINER smoking history, tot al pack/year 40 Dinora Wintersr SIGNAL SYSTEM TESTING MAINTAINER smoking history, tot al pack/day 1 pkg a day Dinora Wintersjohn SIGNAL SYSTEM TESTING MAINTAINER cigarette use yes Dinora Liriano er SIGNAL SYSTEM TESTING MAINTAINER smoking status Current every day smoker J philly Rubioalba SIGNAL SYSTEM TESTING MAINTAINER drug use none Patrick Farrar alcohol use [...] P atient currently smokes every day. Patrick Dasilva MD social history reviewed E&M revi ewed - no changes required Patrick Dasilva MD smoking history, tot al pack/day 1 pkg a day Chery Booker cigarette use yes Chery Booker smoking status Current every day smoker S ravinder Booker social history reviewed E&M revi ewed - no changes required Patrick Dasilva MD social history E&M Marital Statu s: L marie with family/friends J ob Status: Retired Smoking History: P atient currently smokes every day. P atient has been counseled to quit. Patrick Dasilva MD social history reviewed E&M revi ewed - no changes required Patrick Dasilva MD seatbelt usage 100 % Kelsea Marthabruno nails caffeine use, averag e drinks per day yes Kelsea Aragonerick passive cigarette sm lily exposure yes Kelsea Aragongeovannasulemalizz smoking/tobacco cess ation, patient education and counseling yes Kelsea Thayer smoking, date started 1978 Kelsea Moraleslizz smoking history, tot al pack/year 40 Kelsea Aragonfrandykenlizz smoking history, tot al pack/day 1 Kelsea Moraleslizz cigarette use yes Kelsea Morales lizz smoking status Current every day smoker K tejas Thayer social history E&M Marital Statu s: L marie with family/friends J ob Status: Retired Smoking History: P darrion currently smokes every day. P atleslee has been counseled to quit. Patrick Dasilva MD social history reviewed E&M revi ewed - no changes required Patrick Dasilva MD seatbelt usage 100 % Frida Ildefonso caffeine use, averag e drinks per day yes Frida Ildefonso passive cigarette sm lily exposure yes Frida Ildefonso smoking/tobacco cess ation, patient education and counseling yes Frida [place] smoking, date started 1978 Frida [place] smoking history, tot al pack/year 40 Frida [place] smoking history, tot al pack/day 1 Frida Ildefonso cigarette use yes Frida [place] smoking status Current every day smoker Dori Livingstonby social history E&M Marital Statu s: Vanessa [...] yes Colette Godoy smoking, date started 1978 Felici a Godoy smoking history, tot al pack/year 40 Colette Godoy smoking history, tot al pack/day 1 Colette Godoy cigarette use yes Colette Godoy smoking status Current every day smoker Sushma Godoy social history E&M Marital Statu s: Vanessa salazar with family/friends J ob Status: Retired Smoking History: P atleslee currently smokes every day. P atient has been counseled to quit. Patrick Dasilva MD social history reviewed E&M revi ewed - no changes required Patrick Dasilva MD seatbelt usage 100 % Frida Ildefonso alcohol use no Frida Ildefonso caffeine use, averag e drinks per day yes Frida Ildefonso drug use none Firda Ildefonso smoking/tobacco cess ation, patient education and counseling yes Frida [place] passive cigarette sm lily exposure yes Frida [place] smoking, date started 1978 Frida [place] smoking history, tot al pack/year 40 Frida Ildefonso smoking history, tot al pack/day 1 Frida Ildefonso cigarette use yes Frida Livingstonby smoking status Current every day smoker Dori Fregoso smoking history, tot al pack/year 40 Nan Bruno Hernandez social history E&M Marital Statu s: [...] P atient currently smokes every day. Patrick Dasilva MD social history reviewed E&M revi ewed - no changes required Patrick Dasilva MD cigarette use yes Tracy Flowers smoking status Current every day smoker Bettye autumn Flowers smoking history, tot al pack/year 38 Nan Hernandez smoking/tobacco cess ation, patient education and counseling yes Patrick Dasilva MD social history E&M Marital Statu s: Vanessa salazar with family/friends J ob Status: Retired Smoking History: P atient currently smokes every day. Patirck Dasilva MD smoking status Current every day smoker Bettye cuello Jake social history reviewed E&M revi ewed - no changes required Patrick Dasilva MD seatbelt usage 100 % Frida Livingston alcohol use no Frida caffeine use, averag e drinks per day yes Frida drug use none Frida Ildefonso passive cigarette sm lily exposure yes Frida Living[place] smoking, date started 1978 Frida smoking history, tot al pack/year 38 Frida Livingston smoking history, tot al pack/day 1 Frida Livingston cigarette use yes Frida Livingston smoking status Current every day smoker Dori barrios Ildefonso smoking history, tot al pack/year 38 Jovanny Rouse RN social history reviewed E&M revi ewed - no changes required Patrick Dasilva MD smoking/tobacco cess ation, patient education and counseling no Kinjal Jake smoking status Current every day smoker Dori Joseph smoking history, tot al pack/year 38 Rachelle [...] Patrick Dasilva MD number of grandchildren Patrick Dasilva MD Frida Fregoso social history reviewed E&M revi ewed - no changes required Patrick Dasilva MD social history reviewed E&M revi ewed - no changes required Patrick Dasilva MD social history reviewed E&M revi ewed - no changes required Patrick Dasilva MD seatbelt usage 100 % Sophy Rm alcohol use no Sophy Horsey caffeine use, averag e drinks per day yes Sophy Rm drug use none Sophy Horselee smoking/tobacco cess ation, patient education and counseling yes Sophy Rm passive cigarette sm lily exposure yes Sophy Rm smoking, date started 1979 Sophy Rm smoking history, tot al pack/year 34 Sophy Rm smoking history, tot al pack/day 1 Sophy Rm cigarette use yes Sophy Rm smoking status current every day smoker S vaishnavi Rm smoking/tobacco cess ation, patient education and counseling yes Patrick Dasilva MD social history reviewed E&M revi ewed - no changes required Patrick Dasilva MD seatbelt usage 100 % Lynette Abel caffeine use, averag e drinks per day yes Lynette Abel drug use none Lynette Abel passive cigarette sm lily exposure yes Lynette Abel smoking, date started 1979 Meliss a Abel smoking history, tot al pack/year 34 [...] smoking status current every day smoker J ozzy Rouse RN social history reviewed E&M reviewed [...] Angina (inactive) Management Plan continue current therapy Ptarick Dasilva MD HRA, CV Assess/Plan, Angina (inactive) [...] (inactive) Management Plan continue current therapy Patrick aDsilva MD HRA, CV Assess/Plan, Angina (inactive) Management Plan schedule PCI Patrick Dasilva MD MENTAL STATUS Date Observation Value Provider energy level yes [place] T[place]i energy level yes [place] Tebid energy level yes [place] Tebid energy level yes [place] Tebid energy level yes [place] Tebid energy level yes [place] Tebid energy level yes [place] Tebid energy level yes [place] Tebid energy level yes [place] Tebid energy level yes [place] Tebid energy level yes [place] Tebid energy level yes [place] Tebid energy level yes [place] Tebid energy level yes [place] Tebid energy level yes Audrey Tebid energy [...] level yes Audrey Tebid energy level yes [place] Tebid energy level yes Audrey Tebid energy [...] Payer name Policy type / Coverage type [place] [employer] [place] [id number] [facility] [employer] [id number] ADVANCE DIRECTIVES Name Date LIVING WILL ON FILE TREATMENT PLAN Date Name Performer [id number],SPatrick MD [id number],SPatrick MD [id number],BPatrick MD [id number],SPatrick MD [id number],SPatrick MD [id number],SPatrick MD [id number],SPatrick MD [id number],SPatrick MD [id number],BPatrick MD [id number],SPatrick MD [id number],SPatrick MD [id number],S, Patrick carr MD [id number],S, Patrick carr MD [id number],S, Patrick carr MD [id number],S, Patrick carr MD [id number],S,2 episodes angina relieved by Ntg. If becomes more frequent she will need repeat catheterization. Patrick Dasilva MD [id number],S, Patrick carr MD [id number],S, Patrick carr MD [id number],B, Patrick carr MD [id number],N,R ight leg only. Vein harvest leg, but swelling is new. Will check venous doppler. Patrick Dasilva MD [id number],S, Patrick carr MD Cardiology Patrick Dasilva MD Cardiology Patrick Dasilva MD Cardiology:S/P venaseal. Patrick aguilera MD Cardiology:BP has go ne up significantly. Will start RPM before treating as she does not know BP at home. Patrick Dasilva MD Cardiology:CONSTRUCTION SCHEDULER RCA a nd 70% OM. Was to [...] pulsatile flow fem vein. Will check for May-Thurner and then do venaseal. Patrick Dasilva MD [...] Patrick Dasilva MD Cardiology: n o angina Alejandra Reza Tamez NP Cardiology: S tates pain/symptoms much [...] flow to the right foot. Dinora Jackson CHRISTOPHER Cardiology:CHOL: 295 (04/16/2017) LDL: 192 (04/16/2017) HDL: [...] right foot. Dinora Jackson NP Cardiology Dinora Rubioalba SIGNAL SYSTEM TESTING MAINTAINER Cardiology:no angina Dinora Jemma ontiveros SIGNAL SYSTEM TESTING MAINTAINER Cardiology Patrick Dasilva MD Cardiology Patrick Dasilva [...] MD Cardiology Patrick Dasilva MD Cardiology Patrick Dasliva MD Cardiology Patrick Dasilva MD Cardiology Patrick Dasilva MD Cardiology Patrick Dasilva MD Cardiology Patrick Dasilva MD Cardiology Patrick Dasilva MD Cardiology Patrick Dasilva MD Cardiology Patrick Dasilva MD Cardiology Patrick Dasilva MD Cardiology Patrick Dasilva MD Cardiology Patrick Dasilva MD Cardiology Patrick Vidya KENT Cardiology Patrick Vidya KENT Cardiology Patrick Vidya [place] Cardiology Patrick Vidya [place] Cardiology Patrick Vidya [place] Cardiology Patrick Vidya [place] Cardiology Patrick Vidya [place] Cardiology Patrick Vidya [place] Cardiology Patrick Vidya [place] Cardiology Patrick Vidya [place] Cardiology Patrick Vidya [place] Cardiology Patrick Vidya [place] Cardiology Patrick Vidya [place] Cardiology Patrick Dasilva MD Cardiology Patrick Dasilva MD Cardiology Patrick Vidya KENT Cardiology Patrick Vidya KENT Cardiology:S/P CABG and multiple stents. Patrick Dasilva [...] ..... One tab. daily Orders: E KG ([id number]) Patrick Dasilva MD : B P today: [...] evidence of myocardial ischemia or scar. - GC (10/09/2011) C ardiac Cath: Severe two-vessel coronary [...] residual stenosis, dissection or thrombus formation. - CH (10/16/2011) H gb: 14.1 (04/11/2008) HCT: 42.9 (10/20/2011) Platelets: 286 (10/20/2011) R BC: 4.50 MILLION/UL (10/12/2011) WBC: 10.7 (04/11/2008) B UN: 11 (10/12/2011) Creat: 0.88 (10/20/2011) Glucose: 92 (10/12/2011) Na+: 127 (10/20/2011) K+: 4.0 (10/20/2011) Cl: 99 (10/12/2011) PT: 10.4 (10/12/2011) INR: 1.0 (10/20/2011) T SH: 1.10 (10/20/2011) O rders: E KG ([id number]) Patrick Dasilva MD chest pain: B P [...] evidence of myocardial ischemia or scar. - GC (10/09/2011) C ardiac Cath: Severe two-vessel coronary [...] 1 hour Patrick Dasilva MD completed SNOMED-CT: 628382199450738 Current Medications Documented Patrick Dasilva MD completed Injectafer 750mg Patrick Dasilva MD co mpleted Therapeutic IV Infus ion up to 1 hour Patrick Dasilva MD completed EKG Patrick Dasilva MD complete d SNOMED-CT: 925050805605829 Current Medications Documented Patrick Dasilva MD completed SNOMED-CT: 093677644939483 Current Medications Documented Patrick Dasilva MD completed SNOMED-CT: 997071090265641 Current Medications Documented Patrick Dasilva MD completed EKG Patrick Dasilva MD complete d SNOMED-CT: 540223025672639 Current Medications Documented Patrick Dasilva MD completed SNOMED-CT: 621204630827458 Current Medications Documented Patrick Dasilva MD completed SNOMED-CT: 384621563493663 Current Medications Documented Patrick Dasilva MD completed SNOMED-CT: 976718796320214 Current Medications Documented Patrick Dasilva MD completed ePrescribe - Check t his box if eRx is used MARIZA ROBERT MD completed SNOMED-CT: 522294961 Smoking Cessation Counseling Patrick Dasilva MD completed SNOMED-CT: 763422959418096 Current Medications Documented Patrick Dasilva MD completed EKG Patrick Dasilva MD complete d EKG Patrick Dasilva MD complete d ePrescribe - Check t his box if eRx is used MARIZA ROBERT MD completed EKG Patrick Dasilva MD complete d ePrescribe - Check t his box if eRx is used MARIZA ROBERT MD completed STEPHENG Patrick Dasilva MD complete d ePrescribe - Check t his box if eRx is used MARIZA ROBERT MD completed
--- OUTSIDE RECORDS SUMMARY | 2024-09-03 07:44 | XMS_ITS | Continuity of Care Document ---
Author Organization [facility] Address [address] [place] [address] [address] [place] [address] Phone Care Team Providers Care Swimming Coach Name Role Phone Law OD, Familia Unavailable Unavailable Procedures Procedure Date Office/outpatient Visit, [facility] Advance Directives Directive Yes / No Effective Date File Name No Information Encounters Encounter Description Practice Location Reason(s) For Visit Diagnoses Date Provider Providers Copied on Encounter Office/outpat ient Visit, [facility], [address] [place] [address] [address], [place], [place], [id number], [place] tel:[phone] [facility] No Information [phone] Law OD Familia. [address] [facility] , [address], [place], [address], [place]. tel:[phone] Family History Family Member Type Diagnosis Age [...]
--- OUTSIDE RECORDS SUMMARY | 2024-09-03 07:44 | XMS_ITS | Clinical Summary ---
Author Organization [facility] Address [address] [place] [address] Care Team Providers Care Wedding Consultant Name Role Phone Suha Cabrales MD Primary Care Provider [phone] Source Comments [facility],non-owned Affiliates and Associated Physician Practices is amultiple site organization consisting of ambulatory clinics and hospital sitesin [place], [place], [place] and [place]. This disclosure is being madepursuant to the Care Everywhere program and may not contain all information available regarding this patient. Last updated 18.[facility] Allergies Active Allergy Reactions Criticality Noted Date [...] Lung Air Passages 09/11/2023 Active HYDROcodone-acetami nophen ([place]) 5-325 MG tabletIndications:P VD (peripheral vascular disease) [...] and heating? Not hard at all 09/03/2023 [facility] - Occupational [...] place to sleep or slept in a fci (including now)? No 09/03/2023 Sex and Gender [...] to complete this topic MENINGOCOCCAL (Group B) VACC INE SHARED DECISION-MAKING Aged Out No longer eligibl e based on patient's age to complete this topic MENINGOCOCCAL GROUPS A/C/Y/W VACCINE Aged Out No longer eligible b ased on patient's age to complete this topic Medical Devices Implanted Type Area [employer] Worker Device Identifier Shelf Expiration Date Model / Serial / Lot Graft Vasc 6mm 70cm 60cm Hep Propaten - [id number] Implanted:Qty: 1 on 09/02/2023 by Chris Castle MD at [facility] Right: Other (See Descriptio n) [employer] 09/15/2025 [id number] / [id number] Description:POPLITEAL-FEMORA L ARTERY Advance Directives * Full Code (Latest Code Status on File) Date Activated Date Inactivated Comments 09/02/2023 5:24 PM 09/06/2023 2:39 PM Care Teams Wedding Consultant Relationship Specialty Start Date End Date Suha Cabrales MD [address] [place], [place] [id number] PCP - General Family Medicine 07/01/23
--- OUTSIDE RECORDS SUMMARY | 2024-09-03 07:44 | XMS_ITS | Referral Summary ---
Author Organization [facility] Address [address] [place] [address] Care Team Providers Care Medication Technician Name Role Phone Suha Cabrales MD Primary Care Provider [phone] Source Comments [facility],non-owned Affiliates and Associated Physician Practices is amultiple site organization consisting of ambulatory clinics and hospital sitesin [place], [place], [place] and [place]. This disclosure is being madepursuant to the Care Everywhere program and may not contain all information available regarding this patient. Last updated 18.[facility] Allergies Active Allergy Reactions Criticality Noted Date [...] Lung Air Passages 09/11/2023 Active HYDROcodone-acetami nophen ([place]) 5-325 MG tabletIndications:P VD (peripheral vascular disease) [...] and heating? Not hard at all 09/03/2023 [facility] [place] of Occupat ional Health - Occupational Stress [...] place to sleep or slept in a residential (including now)? No 09/03/2023 Sex and Gender [...] on file Medical Devices Implanted Type Area Testing Coordinator Device Identifier Shelf Expiration Date Model / Serial / Lot Graft Vasc 6mm 70cm 60cm Hep Propaten - [id number] Implanted:Qty: 1 on 09/02/2023 by Chris Castle MD at [facility] Right: Other (See Descriptio n) [employer] 09/15/2025 [id number] / [id number] Description:POPLITEAL-FEMORA L ARTERY Advance Directives * Full Code (Latest Code Status on File) Date Activated Date Inactivated Comments 09/02/2023 5:24 PM 09/06/2023 2:39 PM Care Teams Medication Technician Relationship Specialty Start Date End Date Suha Cabrales MD [address] [place] [address] PCP - General Family Medicine 07/01/23
== END 2024-09-03 07:40 | disposition home or self-care (01) ==
PROVIDERS: PCP Family Medicine; Visit Provider Nurse Practitioner Family
DX: K76.89 Other specified diseases of liver (principal); K83.8 Other specified diseases of biliary tract; R79.89 Other specified abnormal findings of blood chemistry
CPT/HCPCS: 76705

== ENCOUNTER 2024-09-16 00:22 | Day surgery (SDC) | payer MEDICARE, OTHER, SELFPAY ==
[2024-09-03 11:39] VITALS: BMI 23.4
--- NOTE | 2024-09-03 12:02 | PC.NURSE ---
Spoke with patient regarding medication Plavix. Patient verbalizes understanding that the last dose is to be taken on 09/08/2024 and the Endoscopist will instruct them when to restart after the procedure.
--- NOTE | 2024-09-09 13:05 | PC.NURSE ---
On 09/09/24 @ 13:00 Cyndie Olivo Wrote To [facility] Procedure Scheduling PT called stated she was informed she has cirrhosis and wanted to know if she should hold off on having these procedures done,as she was told she will need further testing . I did explain to her that typically an EGD is done as part of cirrhosis workup. I spoke with Tarah in office and she is suppose to be scheduled for ultrasound in office, and clarified that cirrhosis is suspected not confirmed. I called and talked to Daphney and she wants to cont. with the EGD for now and wait on the colonoscopy as she is feeling very stressed at this time. I canceled her colonoscopy for 09/16/24 and will proceed with EGD.
--- OUTSIDE RECORDS SUMMARY | 2024-09-16 00:26 | XMS_ITS | Continuity of Care Document ---
Author Organization [facility] Address [address] [place] [address] [address] [place] [address] Phone Care Team Providers Care Home Care Liaison Name Role Phone Law OD, Familia Unavailable Unavailable Procedures Procedure Date Office/outpatient Visit, [facility] Advance Directives Directive Yes / No Effective Date File Name No Information Encounters Encounter Description Practice Location Reason(s) For Visit Diagnoses Date Provider Providers Copied on Encounter Office/outpat ient Visit, [facility], [address] [place] [address] [address], [place], [place], [id number], [place] tel:[phone] [facility] [place] No Information 5-200 7 Law OD Familia. [address] [facility] [address] [place] , [address], [place], [address], [place]. tel:[phone] Family History Family Member Type Diagnosis Age At Onset No Information Payers Payer name Insurance type Covered republican ID Authoriza tion(s) No Information Social History [...]
--- OUTSIDE RECORDS SUMMARY | 2024-09-16 00:26 | XMS_ITS | Referral Summary ---
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
--- OUTSIDE RECORDS SUMMARY | 2024-09-16 00:26 | XMS_ITS | Clinical Summary ---
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
--- OUTSIDE RECORDS SUMMARY | 2024-09-16 00:26 | XMS_ITS | Clinical Summary ---
Author Organization [facility] Address [address] [place] [address] Care Team Providers Care Guest Experience Representative Name Role Phone Suha Cabrales MD Primary Care Provider [phone] Allergies Active Allergy Reactions Criticality Noted Date [...] Comments Blood Pressure 181/106 04/29/2019 12:50 PM [employer] Pulse 73 04/29/2019 12:50 PM [employer] Temperature 36.9 C (98.5 F) 04/29/2019 12:50 PM [employer] Respiratory Rate - - Oxygen Saturation 98% 04/29/2019 12:50 PM [employer] Inhaled Oxygen Concentration - - Weight 75.4 kg (166 lb 4.8 oz) 04/29/2019 12:50 PM [employer] Height 152.4 cm (5') 04/29/2019 12:50 PM [employer] Body Mass Index 32.48 04/29/2019 12:50 PM [employer] Plan of Treatment Health Maintenance Due Date Last Done Comments DTAP/TDAP/TD VACCINES (1 - Tdap) 1965 PNEUMOCOCCAL VACCINE 50+ YEARS (1 of 1 - PCV) 02/01/19 96 ZOSTER VACCINE (1 of 2) 02/02/1996 OSTEOPOROSIS SCREENING 2011 RSV VACCINE (60+ or ) (1 - 1-dose 75+ series) 2021 INFLUENZA VACCINE (#1) 2024 Insurance MEDICARE PART A AND B [facility] [facility] Care Teams Guest Experience Representative Relationship Specialty Start Date End Date Suha Cabrales MD [address] [place] [id number] PCP - General Family Practice 10/23/18
--- OUTSIDE RECORDS SUMMARY | 2024-09-16 00:26 | XMS_ITS | CONTINUITY OF CARE DOCUMENT ---
Author Name syed lynch Address Unknown Organization [facility] Address [address] [address] [place] [address] Phone [phone] Care Team Providers Care Mental Health Worker Name Role Phone Vidya KENT, Patrick Unavailable CHARISMA FULLER MD Unavailable [phone] CHARISMA FULLER MD Unavailable PROBLEMS Condition [...] In-person encounter Office Visit Patrick Dasilva MD [facility] - In-person encounter Office Visit Patrick Dasilva MD [facility] Office Venous insufficiency - In-person encounter Office Visit Patrick Dasilva MD [facility] Office PVD - In-person encounter Office Visit Patrick Dasilva MD [facility] - In-person encounter Office Visit Patrick Dasilva MD [facility] - In-person encounter Office Visit Patrick Dasilva MD [facility] - In-person encounter Office Visit Patrick Dasilva MD [facility] - In-person encounter Office Visit Patrick Dasilva MD [facility] Office - In-person encounter Office Visit Patrick Dasilva MD [facility] Office - In-person encounter Office Visit Patrick Dasilva MD [facility] - In-person encounter Office Visit Patrick Dasilva MD [facility] Edema - In-person encounter Office Visit Patrick Dasilva MD [facility] - In-person encounter Office Visit Patrick Dasilva MD [facility] - In-person encounter Office Visit Patrick Dasilva MD [facility] - In-person encounter Office Visit Patrick Dasilva MD [facility] Coronary Heart Disea se - In-person encounter Office Visit MARIZA ROBERT MD [facility] - In-person encounter Office Visit Patrick Dasilva MD [facility] - In-person encounter Office Visit Patrick Dasilva MD [facility] COPD - In-person encounter Office Visit Patrick Dasilva MD [facility] Shortness of breath - In-person encounter Office Visit Patrick Dasilva MD [facility] - In-person encounter Office Visit Patrick Dasilva MD [facility] - In-person encounter Office Visit Patrick Dasilva MD [facility] - In-person encounter Office Visit Patrick Dasilva MD [facility] - In-person encounter Office Visit Patrick Dasilva MD [facility] - In-person encounter Office Visit MARIZA ROBERT MD [facility] - In-person encounter Office Visit MARIZA ROBERT MD [facility] - In-person encounter Office Visit Patrick Dasilva MD [facility] - In-person encounter Office Visit Patrick Dasilva MD [facility] - In-person encounter Office Visit MARIZA ROBERT MD [facility] - In-person encounter Office Visit Patrick Dasilva MD [facility] - In-person encounter Office Visit MARIZA ROBERT MD [facility] - In-person encounter Office Visit MARIZA ROBERT MD [facility] - In-person encounter Office Visit Shara Hernandez [facility] - In-person encounter Office Visit Patrick Dasilva MD [facility] - In-person encounter Office Visit MARIZA ROBERT MD [facility] - In-person encounter Office Visit MARIZA ROBERT MD [facility] - In-person encounter Office Visit MARIZA ROBERT MD [facility] - In-person encounter Office Visit Patrick Dasilva MD [facility] - In-person encounter Office Visit Shara Hernandez [facility] - In-person encounter Office Visit Shara Hernandez [facility] - In-person encounter Office Visit Patrick Dasilva MD [facility] CLAUDICATION, INTERMITTENTPRE-OPERAT CARLOS CARDIOVASCULAR EXAMINATION - In-person encounter Office Visit Patrick Dasilva MD [facility] HISTORY OF TOBACCO ABUSE - In-person encounter Office Visit Shara Hernandez [facility] - In-person encounter Office Visit Shara Hernandez [facility] - In-person encounter Office Visit Shara Hernandez [facility] - In-person encounter Office Visit Shara [facility] - [facility] Shara [facility] VITAL SIGNS Date Observation Value Provider Body Mass Index (Ratio) 25.05 kg/m2 Javier Dasilva MD blood pressure, cuff size regular Ke alex Thayer blood pressure, diastolic 100 mm[Hg] Ke rrphil [place] blood pressure, systolic 162 mm[Hg] Alfred Thayer oxygen saturation, oximetry 96 % Kelsea Thayer pulse rate 90 /min Kelsea [facility] weight E&M 137 [lb_av] Kelsea Velas[facility] height E&M 62 [in_i] Kelsea Velasco [facility] Body Mass Index (Ratio) 25.79 kg/m2 Tacho [...] blood pressure, systolic 160 mm[Hg] Kri sty [place] oxygen saturation, oximetry 94 % Frida Ildefonso pulse rate 78 /min Frida [place] respiratory rate E&M 19 /min Frida [place] weight E&M 178 [lb_av] Frida [place] height E&M 62 [in_i] Frida [place] Body Mass Index (Ratio) 27.62 kg/m2 Javier [...] Body Mass Index (Ratio) 25.60 kg/m2 Javier Dasivla MD blood pressure, diastolic 80 mm[Hg] Immanuel og ArgentinaShawn blood pressure, systolic 140 mm[Hg] Mary Alice blackwell oxygen saturation, oximetry 94 % [facility] E&[facility] 16 /min [facility] pulse rate 70 /min [facility] weight E&M 140 [lb_av] Tracy OShawn height E&M 62 [in_i] [facility] Body Mass Index (Ratio) 27.62 kg/m2 Consuelo [...] Frida Ildefonso pulse rate 77 /min Frida [place] height E&M 62 [in_i] Frida [place] Body Mass Index (Ratio) 27.98 kg/m2 Javier [...] Sreekanth adela Tebid pulse rate #2 63 Deposit d blood pressure, jung tolic, second observation 88 mm[Hg] Deposit bid blood pressure, syst olic, second observation 164 mm[Hg] [facility], [facility] 98 % Deposit d pulse rate 63 /min Deposit d blood pressure, diastolic 88 mm[Hg] Vi ctoria Tebid blood pressure, systolic 164 mm[Hg] Sreekanth adela Tebid pulse rate #2 65 Deposit d blood pressure, jung tolic, second observation 92 mm[Hg] [facility] blood pressure, syst olic, second observation 158 mm[Hg] [facility] oxygen saturation, oximetry 98 % Deposit pulse rate 65 /min Deposit d blood pressure, diastolic 92 mm[Hg] Vi ctoria Ted blood pressure, systolic 158 mm[Hg] Sreekanth adela Ted pulse rate #2 71 Deposit blood pressure, jung tolic, second observation 89 mm[Hg] [facility] blood pressure, syst olic, second observation 154 mm[Hg] [facility] oxygen saturation, oximetry 98 % Deposit d pulse rate 71 /min Deposit d blood pressure, diastolic 89 mm[Hg] Vi ctoria Tebid blood pressure, systolic 154 mm[Hg] Sreekanth adela Tebid pulse rate #2 79 Deposit d blood pressure, jung tolic, second observation 83 mm[Hg] [facility] blood pressure, syst olic, second observation 156 mm[Hg] [facility] oxygen saturation, oximetry 98 % [facility] pulse rate 79 /min Deposit Tebid blood pressure, diastolic 83 mm[Hg] Vi ctoria Tebid blood pressure, systolic 156 mm[Hg] Sreekanth adela Tebid pulse rate #2 77 Deposit bid blood pressure, jung tolic, second observation 87 mm[Hg] Deposit Tebid blood pressure, syst olic, second observation 142 mm[Hg] Audrey Tebid oxygen saturation, oximetry 98 % [facility] pulse rate 77 /min Deposit Tebid blood pressure, diastolic 87 mm[Hg] Vi ctoria Tebid blood pressure, systolic 142 mm[Hg] Sreekanth adela Tebid pulse rate #2 71 [facility] blood pressure, jung tolic, second observation 89 mm[Hg] [facility] blood pressure, syst olic, second observation 150 mm[Hg] [facility] oxygen saturation, oximetry 98 % Deposit bid pulse rate 71 /min Deposit bid blood pressure, diastolic 89 mm[Hg] Vi [facility] Tebid blood pressure, systolic 150 mm[Hg] Sreekanth mcintoshia Tebid pulse rate #2 76 [facility] blood pressure, jung tolic, second observation 92 mm[Hg] Audrey Tebid blood pressure, syst olic, second observation 152 mm[Hg] Deposit Tebid oxygen saturation, oximetry 98 % Deposit bid pulse rate 76 /min Deposit Tebid blood pressure, diastolic 92 mm[Hg] Vi ctoria Tebid blood pressure, systolic 152 mm[Hg] Sreekanth adela Tebid pulse rate #2 75 Deposit bid blood pressure, jung tolic, second observation 90 mm[Hg] Deposit Tebid blood pressure, syst olic, second observation 146 mm[Hg] [facility] oxygen saturation, oximetry 98 % [facility] pulse rate 75 /min [facility] blood pressure, diastolic 90 mm[Hg] Vi ctoria Tebid blood pressure, systolic 146 mm[Hg] Sreekanth adela bid pulse rate #2 79 [facility] blood pressure, jung tolic, second observation 81 mm[Hg] [facility] blood pressure, syst olic, second observation 148 mm[Hg] [facility] oxygen saturation, oximetry 98 % [facility] pulse rate 79 /min [facility] blood pressure, diastolic 81 mm[Hg] Vi [facility] Tebid blood pressure, systolic 148 mm[Hg] Sreekanth adela bid pulse rate #2 71 [facility] blood pressure, jung tolic, second observation 76 mm[Hg] [facility] blood pressure, syst olic, second observation 131 mm[Hg] [facility] oxygen saturation, oximetry 98 % [facility] pulse rate 71 /min [facility] blood pressure, diastolic 76 mm[Hg] Vi [facility] Tebid blood pressure, systolic 131 mm[Hg] Sreekanth adela Tebid pulse rate #2 78 [facility] blood pressure, jung tolic, second observation 72 mm[Hg] [facility] blood pressure, syst olic, second observation 133 mm[Hg] [facility] oxygen saturation, oximetry 98 % [facility] pulse rate 78 /min [facility] blood pressure, diastolic 72 mm[Hg] Vi dcoria Tebid blood pressure, systolic 133 mm[Hg] Sreekanth adela bid pulse rate #2 72 [facility] blood pressure, jung tolic, second observation 69 mm[Hg] [facility] blood pressure, syst olic, second observation 164 mm[Hg] [facility] oxygen saturation, oximetry 98 % [facility] pulse rate 72 /min [facility] blood pressure, diastolic 69 mm[Hg] Vi ctoria Tebid blood pressure, systolic 164 mm[Hg] Sreekanth adela bid pulse rate #2 71 [facility] blood pressure, jung tolic, second observation 67 mm[Hg] [facility] blood pressure, syst olic, second observation 153 mm[Hg] [facility] oxygen saturation, oximetry 98 % [facility] pulse rate 71 /min [facility] blood pressure, diastolic 67 mm[Hg] [facility] 153 mm[Hg] Sreekanth mcintoshia Tebid pulse rate #2 62 [facility] blood pressure, jung tolic, second observation 84 mm[Hg] [facility] blood pressure, syst olic, second observation 146 mm[Hg] [facility] oxygen saturation, oximetry 98 % [facility] pulse rate 62 /min [facility] blood pressure, diastolic 84 mm[Hg] Vi ctoria Tebid blood pressure, systolic 146 mm[Hg] Sreekanth adela Tebid pulse rate #2 62 [facility] blood pressure, jung tolic, second observation 96 mm[Hg] [facility] blood pressure, syst olic, second observation 150 mm[Hg] [facility] oxygen saturation, oximetry 98 % [facility] pulse rate 62 /min [facility] blood pressure, diastolic 96 mm[Hg] Vi ctoria Tebid blood pressure, systolic 150 mm[Hg] Sreekanth adela Tebid pulse rate #2 78 Audrey Tebid blood pressure, jung tolic, second observation 79 mm[Hg] Audrey Tebid blood pressure, syst olic, second observation 125 mm[Hg] Audrey Tebid oxygen saturation, oximetry 98 % [facility] pulse rate 78 /min [facility] blood pressure, diastolic 79 mm[Hg] Vi dcoria Tebid blood pressure, systolic 125 mm[Hg] Sreekanth adela Tebid pulse rate #2 71 Deposit Tebid blood pressure, jung tolic, second observation 78 mm[Hg] Audrey Tebid blood pressure, syst olic, second observation 134 mm[Hg] Audrey Tebid oxygen saturation, oximetry 98 % [facility] pulse rate 71 /min [facility] blood pressure, diastolic 78 mm[Hg] Vi dcoria Tebid blood pressure, systolic 134 mm[Hg] Sreekanth adela Tebid pulse rate #2 74 Deposit Tebid blood pressure, jung tolic, second observation 73 mm[Hg] Audrey Tebid blood pressure, syst olic, second observation 155 mm[Hg] Audrey Tebid oxygen saturation, oximetry 98 % [facility] pulse rate 74 /min Deposit Tebid blood pressure, diastolic 73 mm[Hg] Vi ctoria Tebid blood pressure, systolic 155 mm[Hg] Sreekanth adela Tebid pulse rate #2 68 [facility] blood pressure, jung tolic, second observation 89 mm[Hg] [facility] blood pressure, syst olic, second observation 146 mm[Hg] [facility] oxygen saturation, oximetry 98 % [facility] pulse rate 68 /min [facility] blood pressure, diastolic 89 mm[Hg] Vi ctoria Tebid blood pressure, systolic 146 mm[Hg] Sreekanth adela Tebid pulse rate #2 67 Deposit Tebid blood pressure, jung tolic, second observation 79 mm[Hg] Deposit bid blood pressure, syst olic, second observation 129 mm[Hg] [facility] oxygen saturation, oximetry 98 % [facility] pulse rate 67 /min [facility] blood pressure, diastolic 79 mm[Hg] Vi ctoria Tebid blood pressure, systolic 129 mm[Hg] Sreekanth adela Tebid pulse rate #2 67 [facility] blood pressure, jung tolic, second observation 81 mm[Hg] [facility] blood pressure, syst olic, second observation 130 mm[Hg] [facility] oxygen saturation, oximetry 98 % [facility] pulse rate 67 /min [facility] blood pressure, diastolic 81 mm[Hg] Vi [facility] Tebid blood pressure, systolic 130 mm[Hg] Sreekanth adela Tebid pulse rate #2 74 [facility] blood pressure, jung tolic, second observation 83 mm[Hg] [facility] blood pressure, syst olic, second observation 139 mm[Hg] [facility] oxygen saturation, oximetry 98 % [facility] pulse rate 74 /min Deposit Tebid blood pressure, diastolic 83 mm[Hg] Vi ctoria Tebid blood pressure, systolic 139 mm[Hg] Sreekanth adela Tebid pulse rate #2 58 [facility] blood pressure, jung tolic, second observation 89 mm[Hg] [facility] blood pressure, syst olic, second observation 136 mm[Hg] [facility] oxygen saturation, oximetry 98 % [facility] pulse rate 58 /min Deposit Tebid blood pressure, diastolic 89 mm[Hg] Vi ctoria Tebid blood pressure, systolic 136 mm[Hg] Sreekanth adela Tebid pulse rate #2 62 Deposit d blood pressure, jung tolic, second observation 86 mm[Hg] [facility] blood pressure, syst olic, second observation 166 mm[Hg] Audrey Tebid oxygen saturation, oximetry 98 % Deposit d pulse rate 62 /min Deposit Tebid blood pressure, diastolic 86 mm[Hg] Vi ctoria Tebid blood pressure, systolic 166 mm[Hg] Sreekanth adela Tebid pulse rate #2 78 [facility] blood pressure, jung tolic, second observation 85 mm[Hg] [facility] blood pressure, syst olic, second observation 135 mm[Hg] [facility] oxygen saturation, oximetry 98 % Deposit d pulse rate 78 /min Deposit d blood pressure, diastolic 85 mm[Hg] Vi [facility] Tebid blood pressure, systolic 135 mm[Hg] Sreekanth adela Tebid pulse rate #2 66 [facility] blood pressure, jung tolic, second observation 76 mm[Hg] [facility] blood pressure, syst olic, second observation 114 mm[Hg] Audrey Tebid oxygen saturation, oximetry 98 % Deposit d pulse rate 66 /min Deposit Tebid blood pressure, diastolic 76 mm[Hg] Vi ctoria Tebid blood pressure, systolic 114 mm[Hg] Sreekanth adela Tebid pulse rate #2 71 [facility] blood pressure, jung tolic, second observation 82 mm[Hg] [facility] blood pressure, syst olic, second observation 152 mm[Hg] [facility] oxygen saturation, oximetry 98 % Audrey Tebid [...] Sreekanth adela Tebid pulse rate #2 71 [facility] blood pressure, jung tolic, second observation 81 mm[Hg] Audrey Ted blood pressure, syst olic, second observation 144 mm[Hg] [facility] oxygen saturation, oximetry 98 % Audrey d pulse rate 71 /min Audrey d blood pressure, diastolic 87 mm[Hg] Vi ctoria Tebid blood pressure, systolic 144 mm[Hg] Sreekanth mcintoshia Tebid pulse rate #2 67 Deposit Tebid blood pressure, jung tolic, second observation 82 mm[Hg] Audrey Tebid blood pressure, syst olic, second observation 129 mm[Hg] Audrey Tebid oxygen saturation, oximetry 98 % Audrey d pulse rate 67 /min Deposit d blood pressure, diastolic 82 mm[Hg] Vi ctoria Tebid blood pressure, systolic 129 mm[Hg] Sreekanth adela Tebid pulse rate #2 66 [facility] blood pressure, jung tolic, second observation 82 mm[Hg] Audrey Tebid blood pressure, syst olic, second observation 135 mm[Hg] Audrey bid oxygen saturation, oximetry 98 % Audrey d pulse rate 66 /min Audrey d blood pressure, diastolic 82 mm[Hg] Vi ctoria Tebid blood pressure, systolic 135 mm[Hg] Sreekanth adeal Tebid pulse rate #2 66 Deposit d blood pressure, jung tolic, second observation 97 mm[Hg] Audrey d blood pressure, syst olic, second observation 147 mm[Hg] Audrey d oxygen saturation, oximetry 98 % Audrey d pulse rate 66 /min Audrey d blood pressure, diastolic 97 mm[Hg] Vi ctoria Tebid blood pressure, systolic 147 mm[Hg] Sreekanth adela Tebid pulse rate #2 71 Deposit d blood pressure, jung tolic, second observation 96 mm[Hg] Audrey d blood pressure, syst olic, second observation 158 mm[Hg] Audrey d oxygen saturation, oximetry 98 % Audrey pulse rate 71 /min Audrey d blood pressure, diastolic 96 mm[Hg] Vi ctoria Tebid blood pressure, systolic 158 mm[Hg] Sreekanth adela Tebid pulse rate #2 68 Deposit d blood pressure, jung tolic, second observation 89 mm[Hg] Audrey d blood pressure, syst olic, second observation 125 mm[Hg] Audrey d oxygen saturation, oximetry 98 % Audrey d pulse rate 68 /min Deposit d blood pressure, diastolic 89 mm[Hg] Vi [...] blood pressure, diastolic 70 mm[Hg] Rick johnson [place] blood pressure, systolic 126 mm[Hg] Samuel Livingstonby [...] Lynette Abel blood pressure, diastolic 110 mm[Hg] Ak ibeth Abel blood pressure, systolic 162 mm[Hg] [...] blood pressure, systolic 116 mm[Hg] Ane atris [facility] pulse rate 77 /min Aneatris Jose [...] [employer] 0-149 cholesterol, serum 143 mg/dL [facility] [phone]/09 /10 calcium, serum 10.2 mg/dL [facility] 8.7-10.3 carbon dioxide, venous blood 27 mmol/L [facility] 20-29 chloride, serum 101 mmol/L [facility] 96-106 potassium, serum 3.8 mmol/L [facility] 3.5-5.2 sodium, serum 143 mmol/L [facility] [phone]/09 /10 urea nitrogen/creatinine ratio, serum 10 [employer] [...] Not Estab. platelet count 303 X10E3/UL [facility] [phone]/09 /10 red blood cell distribution width 14.4 [...] [facility] 3.5-5.2 sodium, serum 144 mmol/L [facility] [phone]/07 /23 urea nitrogen/creatinine ratio, serum 16 [facility] 12-28 creatinine, serum 1.00 mg/dL [facility] 0.57-1.00 urea nitrogen, blood 16 mg/dL [facility] 8-27 blood glucose, random 101 mg/dL [facility] 70-99 High lipoprotein, beta, serum, point, quantitative, calculated 74 mg/dL [facility] 0-99 HDL cholesterol, serum 45 mg/dL [facility] >39 triglyceride, serum, random 118 mg/dL [facility] 0-149 cholesterol, serum 140 mg/dL [facility] [phone]/07 /23 calcium, serum 9.9 mg/dL [facility] 8.7-10.3 [...] Not Estab. platelet count 277 X10E3/UL [facility] [phone]/07 /23 red blood cell distribution width 14.8 [...] iron binding capacity, unsaturated 190 ug/dL [facility] 285-527 4674/12 /06 iron binding capacity, total 269 ug/dL [facility] [phone]/12 /06 basophil count, absolute 0.1 x10E3/uL [facility] [...] Not Estab. platelet count 310 X10E3/UL [facility] [phone]/12 /06 red blood cell distribution width 15.0 [...] [facility] 3.5-5.1 sodium, serum 142 mmol/L [facility] [phone]/11 /16 creatinine, serum 0.8 mg/dL [facility] 0.5-0.9 [...] iron binding capacity, total 384 ug/dL [facility] 257-851 2392/10 /25 iron, serum 99 ug/dL [facility] 25-156 ferritin, serum 93 ng/mL [facility] 13-150 platelet count 357 THOUSAND/UL [facility] [phone]/10 /25 Absolute Basophils 0.1 CELLS/UL [facility] 0.0-0.2 [...] MILLION/UL [facility] 3.5-5.5 folate, serum 20.0 NG/MLM [facility] 5.6 - 45.8 vitamin b12, serum 468.1 pg/mL [facility] 211.0 - 946.0 very low density lipoproteins 18.0 mg/dL [facility] 5.0 - 40.0 LDL/HDL (low-density lipoprotein/high-de nsity lipoprotein) ratio 1.5 RATIO [facility] - lipoprotein, beta, serum, point, quantitative, calculated 95.0 (?) [facility] 0.0 - 100.0 HDL cholesterol, serum 62.0 mg/dL [facility] 45.0 - 65.0 cholesterol, serum 175.0 mg/[facility] 0.[facility] - 200.0 triglyceride, serum, fasting 90.0 mg/dL [facility] 0.0 - 150.0 ferritin, serum 105.5 ng/mL [facility] 13.0 - 150.0 red blood cell distribution width, size density 47.2 fL [facility] - immature granulocytes, percentage of total cells, blood 0.5 % [facility] - nucleated red blood cells as percent of blood leukocytes 0.3 % [facility] - red blood cell (erythrocyte) count, per high power field 0.0 10*3/UL [facility] - eosinophils as percent of blood leukocytes 5.6 % [facility] - neutrophils as percent of blood leukocytes [...] - 23.0 blood glucose, random [facility].0 [facility] - 99.0 red blood cell distribution width, size density 46.5 fL [facility] - immature granulocytes, percentage of total cells, blood 0.1 % [facility] - nucleated red blood cells as percent of blood leukocytes 0.0 % [facility] - red blood cell (erythrocyte) count, per high power field 0.0 10*3/UL [facility] - eosinophils as percent of blood leukocytes 4.6 % [facility] - neutrophils as percent of blood leukocytes 52.2 % [facility] - Absolute Neutrophils 3.9 CELLS/UL [facility] 1.5 - 7.8 basophils as percent of blood leukocytes 0.8 % [facility] - Absolute Basophils 0.1 CELLS/UL [facility] 0.0 - 0.2 monocytes as percent of blood leukocytes 8.7 % [facility] - Absolute Monocytes 0.7 CELLS/UL [facility] 0.2 - 1.0 lymphocytes as percent of blood leukocytes 33.6 % [facility] - Absolute Lymphocytes 2.5 CELLS/UL [facility] 0.9 - 3.9 mean platelet volume 9.8 (?) [facility] - platelet count 311.0 THOUSAND/UL [employer] 100.0 [...] cell distribution width, size density 48.7 fL [facility] - immature granulocytes, percentage of total cells, blood 0.2 % [facility] - nucleated red blood cells as percent of blood leukocytes 0.0 % [facility] - red blood cell (erythrocyte) count, per high power field 0.0 10*3/UL [facility] - eosinophils as percent of blood leukocytes 4.7 % [facility] [facility] - neutrophils as percent of blood leukocytes 54.6 % [facility] Absolute Neutrophils 4.6 CELLS/UL [facility] 1.5 - 7.8 basophils as percent of blood leukocytes 0.8 % [facility] - Absolute Basophils 0.1 CELLS/UL [facility] 0.0 - 0.2 monocytes as percent of blood leukocytes 11.9 % [facility] - Absolute Monocytes 1.0 CELLS/UL [facility] 0.2 - 1.0 High lymphocytes as percent of blood leukocytes 27.8 % [facility] Absolute Lymphocytes 2.3 CELLS/UL [facility] 0.9 - 3.9 mean platelet volume 9.4 (?) [facility] - platelet count 337.0 THOUSAND/UL [facility] 100.0 - 400.0 mean corpuscular hemoglobin concentration, RBC 32.4 G/DL [facility] 31.0 - 38.0 mean corpuscular hemoglobin, RBC 31.0 pg [facility] 25.0 - 35.0 mean corpuscular volume, RBC 95.7 fL [facility] 75.0 - 100.0 hematocrit, blood 42.0 % [facility] 35.0 - 55.0 hemoglobin, blood 13.6 g/dL [facility] 11.5 - 16.5 erythrocyte count, whole blood [...] as percent of blood leukocytes 50.2 % [facility] Absolute Neutrophils 4.0 CELLS/UL [facility] [...] Normal Absolute Neutrophil count 3960 cells/mcL [facility] 8399-5232 Normal mean platelet volume 8.1 fL [facility] [...] Normal Absolute Neutrophil count 3354 cells/mcL [facility] 1014-7067 Normal platelet count 276 THOUSAND/UL [facility] 140-400 [...] Normal Absolute Neutrophil count 4118 cells/mcL [facility] 0829-1025 Normal platelet count 266 THOUSAND/UL [facility] 140-400 [...] Normal Absolute Neutrophil count 3720 cells/mcL [facility] 0872-2614 Normal platelet count 275 THOUSAND/UL [facility] 140-400 [...] Normal Absolute Neutrophil count 3811 cells/mcL [facility] 5199-6844 Normal platelet count 304 THOUSAND/UL [facility] 140-400 [...] [facility] 3.5-5.3 Normal sodium, serum 131 mmol/L [facility] 135-146 Low urea nitrogen/creatinine ratio, serum 20 (calc) [facility] 6-22 Normal Estimated Glomerular Filtration Rate (calc) 64 mL/min/{1.73_ m2} [facility] > OR = 60 Normal creatinine, serum 1.04 mg/dL [facility] 0.50-0.99 High urea nitrogen, blood 21 mg/dL [facility] 7-25 Normal blood glucose, random 101 mg/dL [facility] 65-99 High platelet count 286 10*3/mm3 [facility] hematocrit, blood 42.9 % [facility] international normalized ratio (INR) 1.0 [facility] thyroid stimulating hormone, serum 1.10 u[IU]/mL [facility] D-dimer quantitative mcg/mL 523 ug/mL [facility] creatinine, serum 0.88 mg/dL [facility] alanine aminotransferase (SGPT), serum 45 1/L [facility] aspartate aminotransferase (SGOT), serum 20 1/L [facility] potassium, serum 4.0 mmol/L [facility] sodium, serum 127 mmol/L [facility] prothrombin time (patient) 10.4 s [facility] 9.0-11.5 Normal international normalized ratio (INR) 1.0 [facility] Normal basophils as percent of blood leukocytes 0.4 % [facility] Normal eosinophils as percent of blood leukocytes 3.1 % [facility] monocyte count, blood 8.3 % [facility] lymphocyte count, blood 40.0 % [facility] neutrophils as percent of blood leukocytes 48.2 % [facility] basophils, absolute, manual 32 cells/mcL [facility] 0-200 Normal eosinophils, absolute, manual 248 cells/mcL [facility] 15-500 Normal monocytes, absolute, manual 664 cells/mcL [facility] 200-950 Normal lymphocytes, absolute 3200 CELLS/UL [facility] 850-3900 Normal Absolute Neutrophil count 3856 cells/mcL [facility] 3151-6552 Normal platelet count 260 THOUSAND/UL [facility] 140-400 [...] Cyndie Rogel international normalized ratio (INR) 1.0 [facility] creatinine, serum 0.79 mg/dL [facility] urea nitrogen, blood 16 mg/dL [facility] potassium, serum 4.2 mmol/L [facility] sodium, serum 134 mmol/L [facility] platelet count 309 10*3/uL [facility] hematocrit, blood 39.9 % [facility] hemoglobin, blood 14.1 g/dL [facility] erythrocyte (RBC) count 4.42 10*6/mm3 [facility] leukocyte count, blood 10.7 10*3/mm3 [facility] HISTORY OF MEDICATION USE Medication Status [...] ORAL TABLET completed ONE TAB. DAILY - MARZIA ROBERT MD carvedilol 6.25 mg tablet completed [...] Dasilva MD drug use none Charisma Elaine'Shawn DIRECTOR PERIOPERATIVE alcohol use no Charisma Elaine'Shawn DIRECTOR PERIOPERATIVE passive cigarette sm lily exposure yes Charisma Elaine'Shawn DIRECTOR PERIOPERATIVE smoking/tobacco cess ation, patient education and counseling yes Charisma Elaine'Shawn DIRECTOR PERIOPERATIVE smoking, date started 1978 Charisma Elaine'Shawn DIRECTOR PERIOPERATIVE smoking history, tot al pack/year 40 Charisma O'Shawn DIRECTOR PERIOPERATIVE smoking history, tot al pack/day 1 pkg a day Charisma Elaine'Shawn DIRECTOR PERIOPERATIVE cigarette use yes Charisma Elaine'Shawn N P smoking status Current every day smoker Vanessa Flowers DIRECTOR PERIOPERATIVE drug use none Dinora Winters r DIRECTOR PERIOPERATIVE alcohol use no Dinora Winters r DIRECTOR PERIOPERATIVE passive cigarette sm lily exposure yes Dinora Wintersr DIRECTOR PERIOPERATIVE smoking/tobacco cess ation, patient education and counseling yes Dinora Jackson DIRECTOR PERIOPERATIVE smoking, date started 1978 Ha Wintersr DIRECTOR PERIOPERATIVE smoking history, tot al pack/year 40 Dinora Wintersr DIRECTOR PERIOPERATIVE smoking history, tot al pack/day 1 pkg a day Dinora Wintersjohn DIRECTOR PERIOPERATIVE cigarette use yes Dinora Liriano er DIRECTOR PERIOPERATIVE smoking status Current every day smoker J philly Rubioalba DIRECTOR PERIOPERATIVE drug use none Patrick Farrar alcohol use [...] ation, patient education and counseling yes Frida [place] smoking, date started 1978 Frida [place] smoking history, tot al pack/year 40 Frida [place] smoking history, tot al pack/day 1 Frida Ildefonso cigarette use yes Frida [place] smoking status Current every day smoker Dori [...] yes Frida Ildefonso drug use none Frida Ildefonso smoking/tobacco cess ation, patient education and counseling yes Frida [place] passive cigarette sm lily exposure yes Frida [place] smoking, date started 1978 Frida [place] smoking history, tot al pack/year 40 Frida [...] Date Observation Value Provider energy level yes Deposit [place] energy level yes Deposit Tebid energy level yes Deposit Tebid energy level yes Deposit Tebid energy level yes Deposit Tebid energy level yes Deposit Tebid energy level yes Deposit Tebid energy level yes Deposit Tebid energy level yes Deposit Tebid energy level yes Deposit Tebid energy level yes Deposit Tebid energy level yes Deposit Tebid energy level yes Deposit Tebid energy level yes Deposit Tebid energy level yes Audrey Tebid energy [...] level yes Audrey Tebid energy level yes Deposit Tebid energy level yes Audrey Tebid energy [...] Payer name Policy type / Coverage type [place] Medicare [id number] [facility] [employer] [id number] ADVANCE DIRECTIVES Name Date LIVING WILL ON FILE TREATMENT PLAN Date Name Performer [id number],SPatrick MD [id number],SPatrikc MD [id number],BPatrick MD [id number],SPatrick MD [id number],SPatrick MD [id number],SPatrick MD [id number],SPatrick MD [id number],SPatrick MD [id number],BPatrick MD [id number],SPatrick MD [id number],SPatrick MD [id number],S, Patrick carr MD [id number],S, Patrick carr MD [id number],S, Patrick carr MD [id number],S, Patrick carr MD [id number],S,2 episodes angina relieved by Ntg. If becomes more frequent she will need repeat catheterization. Patrick Dasilva MD [id number],S, Patrick acrr MD [id number],S, Patrick carr MD [id number],B, Patrick carr MD [id number],N,R ight leg only. Vein harvest leg, but swelling is new. Will check venous doppler. Patrick Dasilva MD [id number],S, Patrick carr MD Cardiology Patrick Dasilva MD Cardiology Patrick Dasilva MD Cardiology:S/P venaseal. Patrick aguilera MD Cardiology:BP has go ne up significantly. Will start RPM before treating as she does not know BP at home. Patrick Dasilva MD Cardiology:SALES EXPERT RCA a nd 70% OM. Was to [...] foot. Dinora Jackson NP Cardiology Dinora Rubioalba DIRECTOR PERIOPERATIVE Cardiology:no angina Dinora Jemma ontiveros DIRECTOR PERIOPERATIVE Cardiology Patrick Dasilva MD Cardiology Patrick Dasilva [...] Dasilva MD Cardiology Patrick Dasilva MD Cardiology Patrikc Dasilva MD Cardiology Patrick Dasilva MD Cardiology [...] ..... One tab. daily Orders: E KG (CPT-42367) Patrick Dasilva MD : B P today: [...] SH: 1.10 (10/20/2011) O rders: E KG (CPT-[id number]) Patrick Dasilva MD chest pain: B P [...] 1 hour Patrick Dasilva MD completed SNOMED-CT: 360886084174564 Current Medications Documented Patrick Dasilva MD completed Injectafer 750mg Patrick Dasilva MD co mpleted Therapeutic IV Infus ion up to 1 hour Patrick Dasilva MD completed EKG Patrick Dasilva MD complete d SNOMED-CT: 762018286670365 Current Medications Documented Patrick Dasilva MD completed SNOMED-CT: 406765376831591 Current Medications Documented Patrick Dasilva MD completed SNOMED-CT: 030906112093256 Current Medications Documented Patrick Dasilva MD completed EKG Patrick Dasilva MD complete d SNOMED-CT: 393496043209602 Current Medications Documented Patrick Dasilva MD completed SNOMED-CT: 407067944488650 Current Medications Documented Patrick Dasilva MD completed SNOMED-CT: 539965476726583 Current Medications Documented Patrick Dasilva MD completed SNOMED-CT: 158704350579080 Current Medications Documented Patrick Dasilva MD completed ePrescribe - Check t his box if eRx is used MARIZA ROBERT MD completed SNOMED-CT: 143775258 Smoking Cessation Counseling Patrick Dasilva MD completed SNOMED-CT: 818609024495941 Current Medications Documented Patrick Dasilva MD completed [...]
--- OUTSIDE RECORDS SUMMARY | 2024-09-16 00:26 | XMS_ITS | Clinical Summary ---
Author Organization [facility] Address [address] [place] [address] Care Team Providers Care Cloth Dyer Name Role Phone Suha Cabrales MD Primary Care Provider [phone] Source Comments [facility],non-owned Affiliates and Associated Physician Practices is amultiple site organization consisting of ambulatory clinics and hospital sitesin [place], [place], [place] and [place]. This disclosure is being madepursuant to the Care Everywhere program and may not contain all information available regarding this patient. Last updated 18.[facility]ab Allergies Active Allergy Reactions Criticality Noted Date [...] Lung Air Passages 09/11/2023 Active HYDROcodone-acetami nophen ([place]) 5-325 MG tabletIndications:P VD (peripheral vascular disease) Take 1 (one) tablet by mouth every [...] and heating? Not hard at all 09/03/2023 [facility] - Occupational [...] place to sleep or slept in a senior care (including now)? No 09/03/2023 Sex and Gender [...] this topic Medical Devices Implanted Type Area Dent Remover Device Identifier Shelf Expiration Date Model / Serial / Lot Graft Vasc 6mm 70cm 60cm Hep Propaten - [id number] Implanted:Qty: 1 on 09/02/2023 by Chris Castle MD at [facility] Right: Other (See Descriptio n) [employer] 09/15/2025 [id number] / [id number] Description:POPLITEAL-FEMORA L ARTERY Advance Directives * Full Code (Latest Code Status on File) Date Activated Date Inactivated Comments 09/02/2023 5:24 PM 09/06/2023 2:39 PM Care Teams Cloth Dyer Relationship Specialty Start Date End Date Suha Cabrales MD [address] [place] [address] PCP - General Family Medicine 07/01/23
[2024-09-16 06:16] VITALS: BP 147/57; PULSE 99; RESP 16; TEMP 36.4; O2SAT 92; BMI 24.3
[2024-09-16] MEDS: LACTATED RINGERS 1,000 ML 150 ML IV CONT (06:38)
--- NOTE | 2024-09-16 07:22 | P.PNAN_ITS ---
Anes - Initial Pre Proc Eval Procedure: Operation Date: 09/16/24 07:30 Proposed Procedures p Esophagogastroduodenoscopy - Eugenio Boyce MD Date/Time: 09/16/24 07:22 Surgeon: Eugenio Boyce MD Pre Op Diagnosis: Abnormal weight loss, Nausea, Hx of neoplasm Patient Data Age: 79 Gender: F Height: 1.55 m Weight: 58.5 kg Last Vital Signs Temp 97.6 F 09/16/24 06:16 Pulse 99 09/16/24 06:16 Resp 16 09/16/24 06:16 BP 147/57 H 09/16/24 06:16 Pulse Ox 92 09/16/24 06:16 O2 Del Method Room Air 09/16/24 06:16 Allergies Allergy/AdvReac Type Severity Reaction Status Date / Time cephalexin Allergy Unknown Unknown Verified 09/16/24 06:23 Penicillins Allergy Unknown Unknown Verified 09/16/24 06:23 Home Medications ?Medication ?Instructions ?Recorded ?Confirmed ?Type aspirin 325 mg tablet 325 mg PO DAILY 05/18/19 09/16/24 History baclofen 10 mg tablet 20 mg PO DAILY pain 05/18/19 09/16/24 History carvedilol 6.25 mg tablet (Coreg) 6.25 mg PO Q12H 05/18/19 09/16/24 History clopidogrel 75 mg tablet (Plavix) 75 mg PO DAILY 05/18/19 09/16/24 History ezetimibe 10 mg tablet (Zetia) 10 mg PO DAILY #90 tabs 09/11/21 09/16/24 Rx losartan 100 mg tablet 100 mg PO DAILY #90 tabs 09/11/21 09/16/24 Rx levothyroxine 100 mcg tablet 100 mcg PO DAILY 04/24/23 09/16/24 History tramadol 50 mg tablet 100 mg (2 x 50 mg) PO Q6H PRN pain 06/19/23 09/16/24 Rx #120 tabs albuterol sulfate 2.5 mg/3 mL 2.5 mg (3 mL) inhalation Q6H PRN 07/25/23 09/03/24 Rx (0.083 %) solution for nebulization bronchospasm #90 mL pantoprazole 40 mg tablet,delayed 40 mg PO QAM #30 tabs 08/01/23 09/03/24 Rx release nitroglycerin 0.4 mg sublingual 0.4 mg sublingual Q5M PRN chest 09/19/23 09/03/24 Rx tablet pain #30 tabs rosuvastatin 40 mg tablet (Crestor) 40 mg PO DAILY #90 tabs 09/19/23 09/16/24 Rx trazodone 150 mg tablet 150 mg PO QHS PRN insomnia #90 tabs 11/09/23 09/16/24 Rx amlodipine 10 mg tablet 10 mg PO DAILY #90 tabs 11/28/23 09/03/24 Rx fluticasone fur. 100 mcg-umeclid See Rx Instructions .Route 03/08/24 09/16/24 Rx 62.5 mcg-vilant 25 mcg .COMPLEX #60 ea inhalat.powder (Trelegy Ellipta) fluticasone fur. 200 mcg-umeclid 1 inh inhalation DAILY #60 ea 07/28/24 09/16/24 Rx 62.5 mcg-vilant 25 mcg inhalat.powder (Trelegy Ellipta) duloxetine 30 mg capsule,delayed 30 mg PO DAILY #30 caps 08/27/24 09/16/24 Rx release nifedipine 90 mg tablet,extended 90 mg PO DAILY 09/03/24 09/16/24 History release Patient hx anesthesia problems: none Family hx anesthesia problems: none Results Review: All pre-operative results and documents have been reviewed as part of the pre- operative evaluation. [facility] Past Medical History Medical History Tobacco dependence Coronary artery disease Peripheral arterial disease Depression Vitamin B12 deficiency Chronic obstructive pulmonary disease Essential hypertension Hypothyroidism Memory loss Moderate episode of recurrent major depressive disorder Pure hypercholesterolemia Surgical History Surgical History History of hysterectomy History of coronary artery stent placement History of cardiac catheterization History of vascular surgery Right lower extremity stent. History of cataract surgery Family History Family History Father Family history of lung cancer Mother Family history of malignant neoplasm of brain Social History Social History Social History: Surrogate medical decision maker: Veronica Marquez, daughter. Code status: Full code. Smoking packs per day: 1 Smoking cigarettes per day: 20.0 Smoking status: Former smoker Tobacco type: cigarettes Second hand tobacco smoke exposure: Yes Alcohol intake: never Substance use: never Substance use type: does not use Do You Feel Safe in your Home?: Yes Lack of Transportation: No Lack of Food: Never True Current Housing: I Have Housing Concerned About Future Housing: No Difficulty Paying Gas/Electric Bills: No Difficulty Paying for Meds: No Currently Unemployed: No Education: High School Diploma/GED Difficulty w/ Childcare or Family Care: No Spiritual care concerns: No Anes - Eval Final PreProcedure Day of Procedure 09/16/24 07:22 Patient weight: normal Heart: regular rate and rhythm Lungs: clear to auscultation Airway: Mallampati scale class II Neurological: alert and oriented Last oral intake: >/= 8 hours ASA classification: III Emergent: no Anesthetic plan: proceed Anesthesia type and monitoring: general GIVS and standard monitoring Results Review: All pre-operative results and documents have been reviewed as part of the pre- operative evaluation. Informed Consent: The patient's anesthetic plan and its attendant risks and benefits were discussed with the patient/family/POA. Questions were solicited and answers provided to the satisfaction of the patient/family/POA.
--- NOTE | 2024-09-16 07:29 | PM.IMHP ---
H&P: HPI History of Present Illness Date/Time: 09/16/24 07:29 Chief Complaint: Dysphagia Narrative: this patient has been complaining of 2 years of intermittent dysphagia to solids. There is no unintentional weight loss, history of chronic heartburn, nausea or vomiting. Review of Systems Review of Systems: All systems reviewed & are unremarkable except as noted in HPI and below PMFSH Past Medical History Medical History Tobacco dependence Coronary artery disease Peripheral arterial disease Depression Vitamin B12 deficiency Chronic obstructive pulmonary disease Essential hypertension Hypothyroidism Memory loss Moderate episode of recurrent major depressive disorder Pure hypercholesterolemia Surgical History Surgical History History of hysterectomy History of coronary artery stent placement History of cardiac catheterization History of vascular surgery Right lower extremity stent. History of cataract surgery Family History Family History Father Family history of lung cancer Mother Family history of malignant neoplasm of brain Social History Social History Social History: Surrogate medical decision maker: Veronica Marquez, daughter. Code status: Full code. Smoking packs per day: 1 Smoking cigarettes per day: 20.0 Smoking status: Former smoker Tobacco type: cigarettes Second hand tobacco smoke exposure: Yes Alcohol intake: never Substance use: never Substance use type: does not use Do You Feel Safe in your Home?: Yes Lack of Transportation: No Lack of Food: Never True Current Housing: I Have Housing Concerned About Future Housing: No Difficulty Paying Gas/Electric Bills: No Difficulty Paying for Meds: No Currently Unemployed: No Education: High School Diploma/GED Difficulty w/ Childcare or Family Care: No Spiritual care concerns: No Meds Home Medications and Allergies Home Medications ?Medication ?Instructions ?Recorded ?Confirmed ?Type aspirin 325 mg tablet 325 mg PO DAILY 05/18/19 09/16/24 History baclofen 10 mg tablet 20 mg PO DAILY pain 05/18/19 09/16/24 History carvedilol 6.25 mg tablet (Coreg) 6.25 mg PO Q12H 05/18/19 09/16/24 History clopidogrel 75 mg tablet (Plavix) 75 mg PO DAILY 05/18/19 09/16/24 History ezetimibe 10 mg tablet (Zetia) 10 mg PO DAILY #90 tabs 09/11/21 09/16/24 Rx losartan 100 mg tablet 100 mg PO DAILY #90 tabs 09/11/21 09/16/24 Rx levothyroxine 100 mcg tablet 100 mcg PO DAILY 04/24/23 09/16/24 History tramadol 50 mg tablet 100 mg (2 x 50 mg) PO Q6H PRN pain 06/19/23 09/16/24 Rx #120 tabs albuterol sulfate 2.5 mg/3 mL 2.5 mg (3 mL) inhalation Q6H PRN 07/25/23 09/03/24 Rx (0.083 %) solution for nebulization bronchospasm #90 mL pantoprazole 40 mg tablet,delayed 40 mg PO QAM #30 tabs 08/01/23 09/03/24 Rx release nitroglycerin 0.4 mg sublingual 0.4 mg sublingual Q5M PRN chest 09/19/23 09/03/24 Rx tablet pain #30 tabs rosuvastatin 40 mg tablet (Crestor) 40 mg PO DAILY #90 tabs 09/19/23 09/16/24 Rx trazodone 150 mg tablet 150 mg PO QHS PRN insomnia #90 tabs 11/09/23 09/16/24 Rx amlodipine 10 mg tablet 10 mg PO DAILY #90 tabs 11/28/23 09/03/24 Rx fluticasone fur. 100 mcg-umeclid See Rx Instructions .Route 03/08/24 09/16/24 Rx 62.5 mcg-vilant 25 mcg .COMPLEX #60 ea inhalat.powder (Trelegy Ellipta) fluticasone fur. 200 mcg-umeclid 1 inh inhalation DAILY #60 ea 07/28/24 09/16/24 Rx 62.5 mcg-vilant 25 mcg inhalat.powder (Trelegy Ellipta) duloxetine 30 mg capsule,delayed 30 mg PO DAILY #30 caps 08/27/24 09/16/24 Rx release nifedipine 90 mg tablet,extended 90 mg PO DAILY 09/03/24 09/16/24 History release Allergies Allergy/AdvReac Type Severity Reaction Status Date / Time cephalexin Allergy Unknown Unknown Verified 09/16/24 06:23 Penicillins Allergy Unknown Unknown Verified 09/16/24 06:23 Vital Signs Vital Signs - 24 hr 09/16/24 06:16 Temperature 97.6 F Pulse Rate 99 Respiratory Rate 16 Blood Pressure 147/57 H Pulse Oximetry 92 Oxygen Delivery Room Air Exam Const: General: cooperative and healthy appearing Resp: Effort & Inspection: normal respiratory effort and able to speak in complete sentences Auscultation: clear to auscultation bilaterally Cardio: Rate: regular rate Rhythm: regular rhythm GI: Inspection: normal to inspection GI Palp: No No hepatosplenomegaly present Auscultation: normal bowel sounds Rectal Exam: deferred Skin: General skin exam: normal color Psych: Appearance: grossly normal Mental Status: mental status grossly normal Assessment and Plan Assessment and plan (1) Swallowing difficulty: Code(s): R13.10 - Dysphagia, unspecified Status: Acute Assessment and Plan: The patient is deemed a good candidate for the procedure. Consent signed. Will proceed. Differential diagnosis includes Schatzki ring as a main diagnostic possibility. It if one is found, we will proceed with dilation.
[2024-09-16 07:44] VITALS: BP 110/46; PULSE 60; RESP 14; O2SAT 99
[2024-09-16 07:54] VITALS: BP 93/38; PULSE 47; RESP 16; O2SAT 98
[2024-09-16 08:04] VITALS: BP 130/47; PULSE 59; RESP 18; O2SAT 98
--- NOTE | 2024-09-16 08:38 | SUR.PHASEII ---
Patient did not wish to speak to the doctor before discharge.
== END 2024-09-16 08:38 | disposition home or self-care (01) ==
PROVIDERS: PCP Family Medicine; Referring Provider Nurse Practitioner Family; Visit Provider Internal Medicine Gastroenterology
PROC: 0DJ08ZZ Inspection of Upper Intestinal Tract, Via Natural or Artificial Opening Endoscopic (ICD-10-PCS; CPT 43239; principal; 2024-09-16 07:30)
DX: K21.00 Gastro-esophageal reflux disease with esophagitis, without bleeding (principal); K29.50 Unspecified chronic gastritis without bleeding; D13.2 Benign neoplasm of duodenum; I10 Essential (primary) hypertension; E03.9 Hypothyroidism, unspecified; R41.3 Other amnesia; E78.00 Pure hypercholesterolemia, unspecified; I25.10 Atherosclerotic heart disease of native coronary artery without angina pectoris; I73.9 Peripheral vascular disease, unspecified; F32.A Depression, unspecified; E53.8 Deficiency of other specified B group vitamins; J44.9 Chronic obstructive pulmonary disease, unspecified; Z79.82 Long term (current) use of aspirin; Z79.02 Long term (current) use of antithrombotics/antiplatelets; Z79.891 Long term (current) use of opiate analgesic; Z79.51 Long term (current) use of inhaled steroids; Z98.890 Other specified postprocedural states; Z95.5 Presence of coronary angioplasty implant and graft; Z87.891 Personal history of nicotine dependence; Z80.1 Family history of malignant neoplasm of trachea, bronchus and lung; Z80.8 Family history of malignant neoplasm of other organs or systems
CPT/HCPCS: 43239; 43251; 88305; J2003; J2704; J7120

== ENCOUNTER 2024-12-31 11:14 | Outpatient (CLI) | payer MEDICARE, OTHER, SELFPAY ==
--- NOTE | ~2024-12-31 | XR_ITS ---
AP and lateral views of the left hip Clinical history: Pain Findings: No acute fracture or dislocation is seen. Osseous alignment is anatomic. Bilateral hip and SI joint spaces are preserved. Soft tissues are unremarkable, aside from extensive vascular calcifica tions. Impression: No significant abnormality is seen. Reviewed, dictated and finalized at [facility]. Impression: No significant abnormality is seen.
--- OUTSIDE RECORDS SUMMARY | 2024-12-31 11:20 | XMS_ITS | Continuity of Care Document ---
Author Organization [facility] Address [address] [place] [address] [address] [place] [address] Phone Care Team Providers Care Leather Tanner Name Role Phone Law OD, Familia Unavailable Unavailable Procedures Procedure Date Office/outpatient Visit, [facility] Advance Directives Directive Yes / No Effective Date File Name No Information Encounters Encounter Description Practice Location Reason(s) For Visit Diagnoses Date Provider Providers Copied on Encounter Office/outpat ient Visit, [facility], [address] [place] [address] [address], [place], [place], [id number], [place] tel:[phone] [facility] [place] No Information [phone] Law OD Familia[address] [place] , [address], [place], [address], [place]. tel:[phone] Family History Family Member Type Diagnosis Age [...]
--- OUTSIDE RECORDS SUMMARY | 2024-12-31 11:20 | XMS_ITS | Clinical Summary ---
Author Organization [facility] Address [address] [place] [address] Care Team Providers Care Soil Expert Name Role Phone Suha Cabrales MD Primary [...] Comments Blood Pressure 181/106 04/29/2019 12:50 PM NURSE SEXUAL ASSAULT Pulse 73 04/29/2019 12:50 PM NURSE SEXUAL ASSAULT Temperature 36.9 C (98.5 F) 04/29/2019 12:50 PM NURSE SEXUAL ASSAULT Respiratory Rate - - Oxygen Saturation 98% 04/29/2019 12:50 PM NURSE SEXUAL ASSAULT Inhaled Oxygen Concentration - - Weight 75.4 kg (166 lb 4.8 oz) 04/29/2019 12:50 PM NURSE SEXUAL ASSAULT Height 152.4 cm (5') 04/29/2019 12:50 PM NURSE SEXUAL ASSAULT Body Mass Index 32.48 04/29/2019 12:50 PM NURSE SEXUAL ASSAULT Plan of Treatment Health Maintenance Due Date Last Done Comments DTAP/TDAP/TD VACCINES (1 - Tdap) 1965 PNEUMOCOCCAL VACCINE 50+ YEARS (1 of 1 - PCV) 02/01/19 96 ZOSTER VACCINE (1 of 2) 02/02/1996 OSTEOPOROSIS SCREENING 2011 RSV VACCINE (60+ or ) (1 - 1-dose 75+ series) 2021 INFLUENZA VACCINE (#1) 2025 Insurance MEDICARE PART A AND B [employer] [facility] Care Teams Soil Expert Relationship Specialty Start Date End Date Suha Cabrales MD [address] [place] [id number] PCP - General Family Practice 10/23/18
--- OUTSIDE RECORDS SUMMARY | 2024-12-31 11:20 | XMS_ITS | Referral Summary ---
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
--- OUTSIDE RECORDS SUMMARY | 2024-12-31 11:20 | XMS_ITS | Clinical Summary ---
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
--- OUTSIDE RECORDS SUMMARY | 2024-12-31 11:20 | XMS_ITS | Clinical Summary ---
Author Organization [facility] Address [address] [place] [address] Care Team Providers Care Apartment House Manager Name Role Phone Suha Cabrales MD Primary Care Provider [phone] Source Comments [facility],non-owned Affiliates and Associated Physician Practices is amultiple site organization consisting of ambulatory clinics and hospital sitesin [place], [place], [place] and [place]. This disclosure is being madepursuant to the Care Everywhere program and may not contain all information available regarding this patient. Last updated 18.[facility] [employer] Allergies Active Allergy Reactions Criticality Noted Date Comments Ampicillin Rash Medium 07/01/2023 Cephalexin Unknown,Rash Medium 07/21/2014 Contrast-Iodinated Agents For Ct/Other Nausea and/or Vomiting,Swelling,Headach e 07/01/2023 Penicillins Rash Medium 12/03/2018 Medications * Be aware that medications may not be up to date on this document. Alwaysverify current medications with the patient. amLODIPine (Norvasc) 10 MG tablet Take 1 (one) tablet by mouth once daily 3 Active aspirin (Aspirin) 325 MG tablet Take 1 (one) tablet by mouth once daily Active atorvastatin (Lipitor) 40 MG tablet Take 1 (one) tablet by mouth once daily 3 Active baclofen (Lioresal) 10 MG tablet TAKE 2 TABLETS BY MOUTH IN THE EVENING 3 Active carvedilol (Coreg) 6.25 MG tablet Take 1 (one) tablet by mouth 2 times daily 3 Active clopidogrel (plaVIX) 75 MG tablet Take 1 (one) tablet by mouth once daily 3 Active ezetimibe (Zetia) 10 MG tablet Take 1 (one) tablet by mouth once daily 3 Active Trelegy Ellipta 100-62.5-25 MCG/ACT INHALE 1 PUFF ONCE DAILY 4 Active levothyroxine (Synthroid) 100 MCG tablet Take 1 (one) tablet by mouth once daily 4 Active losartan (Cozaar) 100 MG tablet Take 1 (one) tablet by mouth once daily 4 Active nitroGLYCERIN (Nitrostat) 0.4 MG tabletIndicatio ns:Acute Angina Pectoris Dissolve 1 (one) tablet under the tongue every 5 minutes as needed for Angina patient does not have, 09/11/23 Reasons: Acute Angina Pectoris 4 Active rosuvastatin (Crestor) 40 MG tablet Take 1 (one) tablet by mouth once daily 3 Active traMADol (Ultram) 50 MG tablet TAKE 2 TABLETS BY MOUTH EVERY 6 HOURS 4 Active traZODone (Desyrel) 150 MG tablet Take 1 (one) tablet by mouth 3 Active venlafaxine XR 24hr (Effexor XR) 75 MG capsuleIndicati ons:Major Depressive Disorder Take 1 (one) capsule by mouth once daily Not in home 09/11/23 Reasons: Major Depressive Disorder 3 Active predniSONE (Deltasone) 50 MG tablet Take 1 tablet by mouth 13 hours before contrast medium administration, 7 hours before contrast medium administration, and 1 hour before contrast medium administration. 3 tablet 4 Active pantoprazole EC (Protonix) 40 MG tablet Take 1 (one) tablet by mouth once daily Active albuterol (Proventil;Vent tre) (2.5 MG/3ML) 0.083% nebulizer solutionIndicat ions:Bronchospa sm Inhale 2.5 (two and one-half) mg by mouth 4 times daily as needed for Shortness of Breath or Wheezing patient states on 09/11/23 she is not using Reasons: Spasm of Lung Air Passages 4 Active HYDROcodone-ben taminophen ([place]) 5-325 MG tabletIndicatio ns:PVD (peripheral vascular disease) Take 1 (one) tablet by mouth every 6 hours as needed for Pain 24 tablet 4 Active Active Problems Problem Noted Date Diagnosed [...] and heating? Not hard at all 09/03/2023 [facility] - Occupational Stress [...] a nursing home (including now)? 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 Gender Identity Not on file Sexual Orientation [...] 10:50 AM CDT Height 155.4 cm (5' 1.18) 10/14/2023 10:50 AM C DT Body Mass [...] 1-dose 75+ series) 2021 COVID-19 VACCINE ( 2023-2 5 season) 2024 DEPRESSION SCREENING 06/23/2024 INFLUENZA VACCINE (#1) 2025 HEPATITIS B VACCINE Aged Out No longe [...] this topic Medical Devices Implanted Type Area Local Coordinator Device Identifier Shelf Expiration Date Model / Serial / Lot Graft Vasc 6mm 70cm 60cm Hep Propaten - [id number] Implanted:Qty: 1 on 09/02/2023 by Chris Castle MD at [facility] Right: Other (See Descriptio n) [employer] 09/15/2025 [id number] / [id number] / Description:[place] [address] [place] [address] MEDICARE [facility] Address: [address] [address] [facility] [place] [address] [employer] [place] [employer] [place] [address] SELF PAY NO INSURANCE Member Subscriber Plan / Payer (Ef fective for All Dates) Name:Davy Rolle Member ID:Not on file Relation to Subscriber:Not on file Name:DAVY ROLLE Subscriber ID:Not on file (Home) Address: [facility] [place] [address] Payer ID:Not on file Group ID:Not on file Type:Self Pay Address: [place], [place] MEDICARE [employer] [place] [employer] [address] MEDICARE [employer] [place] [address] MEDICARE [employer] [place] [employer] [place] [address] Advance Directives * Full Code (Latest Code Status on File) Date Activated Date Inactivated Comments 09/02/2023 5:24 PM 09/06/2023 2:39 PM Care Teams Apartment House Manager Relationship Specialty Start Date End Date Suha Cabrales MD [address] [place] [address] PCP - General Family Medicine 07/01/23
== END 2024-12-31 11:15 | disposition home or self-care (01) ==
PROVIDERS: PCP Family Medicine; Visit Provider Family Medicine
DX: M25.552 Pain in left hip (principal)
CPT/HCPCS: 73502